=== PATIENT | female | born 1960 | race Two or more races ===

== ENCOUNTER 2020-08-14 14:40 | Outpatient (REF) | payer OTHER, SELFPAY ==
--- NOTE | 2020-08-14 14:49 | XR_ITS ---
EXAMINATION: XR LUMBOSACRAL SPINE CLINICAL INFORMATION: Unspecified fall. COMPARISON: Lumbar spine x-rays of 08/09/2018. Selected images of the abdomen and pelvic CT of 08/24/2014. TECHNIQUE: 3 views of the lumbosacral spine. FINDINGS: There are 5 lumbar-type [id number] vertebrae. The vertebral body heights are maintained. Evaluation of the lower lumbar spine is somewhat limited by patient's positioning. Mild grade 1 anterolisthesis of L4 on L5 is a stable finding. Mild narrowing of the L5-S1 disc space. Remainder of the disc spaces are preserved. Multilevel small anterolateral endplate osteophytes are noted. Facet arthropathy is noted in the mid and lower lumbar spine. Limited evaluation of the sacroiliac joints and visualized hip joints is unremarkable. No significant abnormality of the paraspinous soft tissues is noted. Diffuse aortic calcifications are redemonstrated. The visualized portions of the sacrum appear intact. Significant stool burden is noted in the rectosigmoid colon and visualized transverse and descending colon. XR/XR lumbar spine 2-3V IMPRESSION: No evidence of compression fracture or traumatic subluxation in the lumbar spine. Stable mild grade 1 anterolisthesis of L4 over L5. Lumbar spondylosis with facet arthropathy in the mid and lower lumbar spine. Aortic calcifications.
== END 2020-08-14 14:41 | disposition home or self-care (01) ==
LOC: HO.LAB 14:40
PROVIDERS: PCP Internal Medicine; Visit Provider Internal Medicine Medical Oncology
DX: Z91.81 History of falling (principal)
CPT/HCPCS: 72100

== ENCOUNTER 2020-09-16 09:30 | Outpatient (REF) | payer OTHER, SELFPAY ==
--- NOTE | 2020-09-16 09:36 | MM_ITS ---
EXAMINATION: MM SCREENING DIGITAL BREAST TOMOSYNTHESIS, BILATERAL CLINICAL INFORMATION: Screening. Asymptomatic. Prior history right breast cancer 2012. Due for yearly. COMPARISON: Mammography: 09/11/2019, 09/09/2018, 09/08/2017, 08/21/2016 TECHNIQUE: Digital breast tomosynthesis is performed in both the craniocaudal and mediolateral oblique views along with computer-aided detection (CAD). Synthesized 2D images are generated from the tomosynthesis. Additional exaggerated right CC view is provided. FINDINGS: There are scattered areas of fibroglandular density (ACR BI-RADS breast composition Category b). There are post therapy changes right breast with mild reduced breast size and stable scarring. Scattered bilateral punctate benign calcifications are present. Scattered asymmetries central left breast are similar to prior exams. There is no developing density. No significant mass or architectural abnormality. MM/MM tomosynthesis screening BI IMPRESSION: No significant changes from prior studies. ASSESSMENT: BI-RADS 2: Benign RECOMMENDATION: Routine annual mammography screening. This patient's information was entered into a reminder system with a target due date for their next mammogram.
== END 2020-09-16 09:31 | disposition home or self-care (01) ==
LOC: HO.MAMMO 09:30
PROVIDERS: PCP Internal Medicine; Visit Provider Internal Medicine
DX: Z12.31 Encounter for screening mammogram for malignant neoplasm of breast (principal)
CPT/HCPCS: 77063; 77067

== ENCOUNTER → 2021-01-16 14:52 | Outpatient (BNVA) | payer OTHER, SELFPAY | PROVIDERS: PCP Internal Medicine; Visit Provider Urology | CPT/HCPCS: Q3014 ==

== ENCOUNTER 2021-02-27 12:55 | Outpatient (REF) | payer OTHER, SELFPAY ==
[2021-02-27 14:45] LABS: Alanine Aminotransferase < 6 U/L (0-31); Albumin Level 3.3 g/dL (3.5-5.0); Alkaline Phosphatase 48 U/L (39-117); Aspartate Amino Transferase 13 U/L (5-31); Bilirubin Direct < 0.2 mg/dL (0.0-0.5); Bilirubin Total 0.4 mg/dL (0.0-1.0); Total Protein 7.2 g/dL (6.5-8.0)
[2021-02-27 14:53] LABS: Alanine Aminotransferase < 6 U/L (0-31); Albumin Level 3.3 g/dL (3.5-5.0); Alkaline Phosphatase 48 U/L (39-117); Anion Gap 9 (12-20); Aspartate Amino Transferase 13 U/L (5-31); Bilirubin Total 0.4 mg/dL (0.0-1.0); Blood Urea Nitrogen 21 mg/dL (9-16); Calcium 9.1 mg/dL (8.4-10.2); Carbon Dioxide 32 mmol/L (22-29); Chloride 103 mmol/L (96-108); Cholesterol 179 mg/dL; Estimated Glomerular Filt Rate > 60; Glucose Fasting 110 mg/dL (60-99); HDL Cholesterol 66 mg/dL; LDL Cholesterol Calculated 81 mg/dl; Sodium 140 mmol/L (135-145); Total Protein 7.2 g/dL (6.5-8.0); Triglycerides 163 mg/dL
== END 2021-02-27 12:56 | disposition home or self-care (01) ==
LOC: HO.LAB 12:55
PROVIDERS: PCP Internal Medicine; Visit Provider Psychiatry & Neurology Neurology
DX: G93.1 Anoxic brain damage, not elsewhere classified (principal); E78.5 Hyperlipidemia, unspecified; E78.00 Pure hypercholesterolemia, unspecified
CPT/HCPCS: 36415; 80053; 80061; 80076; 82248

== ENCOUNTER → 2021-06-19 09:22 | Outpatient (BNVA) | payer OTHER, SELFPAY | PROVIDERS: PCP Internal Medicine; Visit Provider Surgery | DX: Z85.3 Personal history of malignant neoplasm of breast (principal) | CPT/HCPCS: 99212 ==

== ENCOUNTER 2021-07-11 07:54 | Outpatient (REF) | payer OTHER, SELFPAY ==
--- NOTE | ~2021-07-11 | US_ITS ---
EXAMINATION: US RETROPERITONEAL LIMITED (RENAL ONLY) CLINICAL INFORMATION: Calculus of kidney. COMPARISON: Renal ultrasound 03/22/2018 and 12/29/2017. KUB 01/07/2018 and 03/09/2011. TECHNIQUE: Real-time imaging of the kidneys. Technically limited study secondary to body habitus and positioning. FINDINGS: RIGHT KIDNEY: 12.4 x 5.2 x 5.6 cm (SAG x AP x TRV). The kidney is normal in size, contour, and echogenicity. Renal cortical thickness is normal. No calculi or focal parenchymal lesions. No hydronephrosis. LEFT KIDNEY: 14.0 x 5.1 x 4.6 cm (SAG x AP x TRV). The kidney is normal in size, contour, and echogenicity. Renal cortical thickness is normal. No calculi or focal parenchymal lesions. No hydronephrosis. US/US renal BI IMPRESSION: No nephrolithiasis or hydronephrosis.
== END 2021-07-11 07:55 | disposition home or self-care (01) ==
LOC: HO.US 07:54
PROVIDERS: PCP Internal Medicine; Visit Provider Urology
DX: N20.0 Calculus of kidney (principal)
CPT/HCPCS: 76775

== ENCOUNTER 2021-07-17 07:16 | Outpatient (REF) | payer OTHER, SELFPAY | END 2021-07-17 07:17 | disposition home or self-care (01) | LOC: HO.HOSX 07:16 | PROVIDERS: Visit Provider Physician Assistant | DX: Z13.89 Encounter for screening for other disorder (principal) ==

== ENCOUNTER 2021-08-05 08:02 | Outpatient (RCR) | payer OTHER, SELFPAY | END 2021-09-09 16:01 | disposition home or self-care (01) | LOC: HO.WCC 08:02 | PROVIDERS: PCP Internal Medicine; Visit Provider Physician Assistant | DX: L98.492 Non-pressure chronic ulcer of skin of other sites with fat layer exposed (principal); S42.301K Unspecified fracture of shaft of humerus, right arm, subsequent encounter for fracture with nonunion; G93.1 Anoxic brain damage, not elsewhere classified; I89.0 Lymphedema, not elsewhere classified; G20 Parkinson's disease; F02.80 Dementia in other diseases classified elsewhere, unspecified severity, without behavioral disturbance, psychotic disturbance, mood disturbance, and anxiety; Y79.1 Therapeutic (nonsurgical) and rehabilitative orthopedic devices associated with adverse incidents; I25.10 Atherosclerotic heart disease of native coronary artery without angina pectoris; Z86.73 Personal history of transient ischemic attack (TIA), and cerebral infarction without residual deficits; Z92.21 Personal history of antineoplastic chemotherapy; Z85.3 Personal history of malignant neoplasm of breast; Z87.891 Personal history of nicotine dependence; Z79.899 Other long term (current) drug therapy | CPT/HCPCS: 11042; 97597; 99212; 99214 ==

== ENCOUNTER 2021-08-20 13:52 | Emergency (ER) | payer OTHER, SELFPAY ==
--- NOTE | ~2021-08-20 | XR_ITS ---
EXAMINATION: XR CHEST CLINICAL INFORMATION: Fever. Rule out pneumonia. COMPARISON: 11/24/2018 TECHNIQUE: 2 views of the chest were obtained. FINDINGS: The lungs are well expanded. There is no focal consolidation, edema, or effusion. No pneumothorax. The cardiomediastinal silhouette is within normal limits of size with a calcified aorta. No acute osseous abnormality. XR/XR chest 2V IMPRESSION: No acute pulmonary finding.
[2021-08-20 14:03] VITALS: BP 135/56; BP 140/62; PULSE 82; PULSE 86; RESP 18; TEMP 36.6; O2SAT 98; BMI 25.0
[2021-08-20 15:24] VITALS: BP 113/57; PULSE 124; RESP 18; TEMP 39.6; O2SAT 96
[2021-08-20] MEDS: Acetaminophen 325 MG TABLET 650 MG PO (15:41)
[2021-08-20 16:12] LABS: COVID-19 Test Negative (Negative)
--- NOTE | 2021-08-20 16:13 | ED_ITS ---
HPI - General Adult General Chief complaint: Abdominal Pain Stated complaint: NOT FEELING WELL Time Seen by Provider: 08/20/21 15:58 Source: patient and family (Daughter, Ami) Mode of arrival: ambulatory Limitations: no limitations History of Present Illness HPI narrative: 61-year-old female who was brought to emergency room by ambulance for evaluation of a fever, nausea and vomiting and not feeling well after receiving her COVID-19 booster shot. The patient has a history of Parkinson's disease and attends a day program. The patient defers to her daughter to answer questions. The patient's daughter, Ami is here in the emergency department. The patient was feeling well and attended her day program. The patient previously had received her COVID-19 Pfizer vaccine x2 doses and was given a booster vaccination (unknown brand) at her day program. Shortly after receiving her booster vaccination she did not feel well. She developed a nausea and vomiting. She then developed a fever. An ambulance was called and she was brought to the emergency department here in the emergency department the patient was found to be febrile with a temperature of a 103.2? and tachycardic with a pulse of 124. Her other vital signs were normal. The patient has no complaints. She denies and, shortness of breath, abdominal pain, frequency, urgency or dysuria. She denies any pain or redness in the injection site. Related Data Home Medications Medication Instructions Recorded Confirmed albuterol sulfate 90 mcg/actuation 2 puff INHALATION Q4-6H PRN 08/02/20 07/30/21 aerosol inhaler (Ventolin HFA) carbidopa 25 mg-levodopa 100 mg 1 tab PO BID 08/02/20 07/30/21 tablet (Sinemet) phenytoin sodium extended 100 mg 200 mg PO DAILY 08/02/20 07/30/21 capsule quetiapine 25 mg tablet 25 mg PO DAILY 01/16/21 07/30/21 Previous Rx's Medication Instructions Recorded aspirin 81 mg tablet,delayed 81 mg PO DAILY 90 Days #90 tab 01/06/21 release (Adult Aspirin Regimen) tamoxifen 20 mg tablet 20 mg PO DAILY #90 tab 01/16/21 bed alarm #1 ea 05/15/21 hospital bed #1 ea 05/26/21 terazosin 1 mg capsule 1 mg PO DAILY 90 Days #90 cap 06/20/21 buspirone 10 mg tablet 10 mg PO TID 30 Days #90 tab 06/21/21 nonadhesive bandage #1 ea 07/02/21 gel dressing 4 X 4 (DermaGauze #15 ea 07/04/21 Hydrogel Dressing) calcium carbonate 600 mg calcium 600 mg PO BID #60 tab 07/09/21 (1,500 mg) tablet cholecalciferol (vitamin D3) 50 50 mcg PO DAILY 90 Days #90 tab 07/09/21 mcg (2,000 unit) tablet citalopram 20 mg tablet 20 mg PO DAILY 90 Days #90 tab 07/09/21 divalproex 125 mg tablet,delayed 375 mg PO TID 30 Days #270 tab 07/09/21 release folic acid 1 mg tablet 1 mg PO DAILY 90 Days #90 tab 07/09/21 lamotrigine 25 mg tablet 25 mg PO DAILY 90 Days #90 tab 07/09/21 lorazepam 0.5 mg tablet (Ativan) 0.5 mg PO TID PRN 30 Days #90 tab 07/09/21 oxybutynin chloride 10 mg 5 mg PO DAILY 90 Days #45 tab 07/09/21 tablet,extended release 24 hr potassium citrate 10 mEq (1,080 10 meq PO DAILY 90 Days #90 tab 07/09/21 mg) tablet,extended release pravastatin 20 mg tablet 20 mg PO BEDTIME 90 Days #90 tab 07/09/21 trazodone 50 mg tablet 50 mg PO BEDTIME PRN 90 Days #90 07/09/21 tab miscellaneous medical supply 1 ea MISCELLANEOUS DAILY #1 ea 07/11/21 miscellaneous medical supply 1 ea MISCELLANEOUS DAILY #1 ea 07/11/21 potassium citrate 10 mEq (1,080 20 meq PO BID 90 Days #360 tab 07/21/21 mg) tablet,extended release cefuroxime axetil 500 mg tablet 500 mg PO Q12H 7 Days #14 tab 08/20/21 Allergies Allergy/AdvReac Type Severity Reaction Status Date / Time No Known Allergies Allergy Verified 07/30/21 17:11 Review of Systems Review of Systems: Yes all other systems are reviewed and are negative [facility] Past Medical History Medical History Aggressive behavior Cognitive impairment Dementia Fall History of stroke Parkinsons disease Personal history of breast cancer Pure hypercholesterolemia Right arm fracture Seizures Triple negative malignant neoplasm of breast Wound of right upper extremity Surgical History History of cholecystectomy Family History Family History Father Medical history unknown Mother Medical history unknown Social History Social History Housing: Apartment Alcohol intake: never Patient Tobacco Use Status: Never used Tobacco e-Cigarette/Vaping Use: Never Used Second Hand Smoke Exposure: No Advance Directives: No Advance Directives Information Provided: No service: No Current occupational status: retired and disabled Physical Exam Vital Signs: Vital Signs: Last Vital Signs Temp 103.2 F H 08/20/21 15:24 Pulse 124 H 08/20/21 15:24 Resp 18 08/20/21 15:24 BP 113/57 L 08/20/21 15:24 Pulse Ox 96 08/20/21 15:24 Body Mass Index 25.0 Const: Other: Awake, alert, female patient defers all questions to her daughter, she does respond to questions by nodding her head yes and no. She does not appear to be in distress. HENMT: Head: Yes normal to inspection, Yes normocephalic and Yes atraumatic Ears: external ears normal General nose exam: Normal external nose present Face and sinus: Yes normal facial exam Mouth: Normal oral and palatal mucosa present Throat: Yes posterior oropharynx normal Eyes: General: appearance normal, both eyes and all related structures Pupils: Equal, round and reactive pupils present Neck: Neck: Yes normal visual inspection, Yes no lymphadenopathy, Yes trachea midline and Yes supple Chest: Chest palpation & inspection: normal inspection of the chest and normal palpation of entire chest wall Resp: Effort & Inspection: normal respiratory effort and able to speak in complete sentences Auscultation: clear to auscultation bilaterally Cardio: Rate: regular rate Rhythm: regular rhythm Heart sounds: S1 normal heart sound present, S2 normal heart sound present and no murmurs GI: Inspection: Yes normal to inspection Palpation (GI): Soft to palpation, nontender and no guarding Auscultation: normal bowel sounds : General: Yes no CVA tenderness Back/Spine/Pelvis: Back: no CVA tenderness Skin: Other: The the patient has no swelling, erythema or tenderness over her deltoids bilaterally. I suspect that she was injected in the left deltoid but I do not see a puncture site. Neuro: Cranial nerves: Yes CN's II-XII intact bilaterally and Yes Equal, round and reactive pupils present Cognition (Neuro): normal cognition Motor exam (neuro): 5/5 motor strength present throughout Extrem: Other: Chronic edema of the right extremity Psych: Appearance: grossly normal Speech and movement: Normal speech and movement present Affect: normal affect Attitude: cooperative Thought process: Normal thought process present Thought content: Normal thought content present Course Course Course Narrative: 61-year-old female who presents emergency department for evaluation of a fever shortly after receiving her her COVID-19 booster shot at her day program. The patient did have an elevated fever of 103.2 and tachycardia with a pulse of 114, her exam was otherwise unremarkable and she do es not appear to be septic or toxic. The patient was treated with Tylenol 650 mg orally. I did order laboratory evaluation to include CBC, CMP, urinalysis, chest x-ray and a COVID-19 swab on the patient. 1803: The patient's laboratory evaluation revealed chronic anemia with an H&H of 9.8 and 30.7. The patient has chronic [place] [address]. BUN was elevated 25, glucose was elevated 123. COVID-19 test was negative. Urinalysis revealed 3+ blood, 3+ leukocyte esterase and positive nitrates. Microscopic revealed 19 RBCs, 150 wbc's 3+ bacteria 1+ squamous cells. Given the urine finding I suspect the patient's fever secondary to urinary tract infection. I did go back and asked the patient and she does state that she is having symptoms including frequency and dysuria but she denied earlier. The patient was treated with ceftriaxone 1 g IV and normal saline x1 L. patient was started on Ceftin (cefuroxime) 500 mg, 1 pill twice a day for 7 days. Patient was given verbal and printed instructions discharged home Medical Decision Making Lab Data Result diagrams: 08/20/21 16:33 08/20/21 16:33 Labs: Lab Results 08/20/21 08/20/21 08/20/21 Range/Units 15:43 16:33 16:33 WBC 6.5 (4.8-10.8) X10*3/uL RBC 3.15 L (4.20-5.50) X10*6/uL Hgb 9.8 L (12.0-16.0) g/dl Hct 30.4 L (37-47) % MCV 96.5 (80-98) fL MCH 31.1 (27.0-33.0) pg MCHC 32.2 (31.0-35.0) g/dl RDW 13.1 (11.0-16.0) % Plt Count 51 L (160-400) X10*3/uL MPV 11.0 (9.4-12.3) fL Immature Gran % (Auto) 0.6 H (0.0-0.4) % Neut % (Auto) 75.2 H (45-73) % Lymph % (Auto) 6.6 L (20-40) % [place] % (Auto) 16.5 H (2-11) % Eos % (Auto) 0.9 (0-4) % Baso % (Auto) 0.2 (0-2) % Lymph # (Auto) 0.4 L (1.2-4.9) X10*3/uL [place] # (Auto) 1.1 (0.1-1.2) X10*3/uL Eos # (Auto) 0.1 (0.0-0.4) X10*3/uL Baso # (Auto) 0.0 (0.0-0.2) X10*3/uL Abs Immat Gran (auto) 0.04 H (0.00-0.03) X10*3/uL Absolute Neuts (auto) 4.9 (2.0-8.3) X10*3/uL Absolute Nucleated RBC 0.000 (0.0-0.012) X10*3/uL Nucleated RBC % (auto) 0.0 (0.0-0.2) /100WBC Smear Tech's Comments VERIFIED Sodium 138 (135-145) mmol/L Potassium 3.8 (3.3-5.1) mmol/L Chloride 104 (96-108) mmol/L Carbon Dioxide 24 (22-29) mmol/L Anion Gap 14 (12-20) BUN 25 H (9-16) mg/dL Creatinine 1.17 (0.5-1.4) mg/dL Estim Creat Clear Calc 57.5 Estimated GFR 47 Random Glucose 123 H (60-115) mg/dL Calcium 8.6 (8.4-10.2) mg/dL Total Bilirubin 0.6 (0.0-1.0) mg/dL AST 18 (5-31) U/L ALT 12 (0-31) U/L Alkaline Phosphatase 84 D (39-117) U/L Total Protein 7.7 (6.5-8.0) g/dL Albumin 3.5 (3.5-5.0) g/dL Urine Color Urine Appearance Urine pH (5.0-8.0) Ur Specific Chelsea (1.005-1.025) Urine Protein (NEG-TRACE) MG/DL Urine Glucose (UA) (NEG) MG/DL Urine Ketones (NEG) MG/DL Urine Blood (NEG) Urine Nitrite (NEG) Ur Leukocyte Esterase (NEG) Urine RBC (0) /HPF Urine WBC (0-4) /HPF Ur Squamous Epith Cells /LPF Urine Bacteria /LPF COVID-19 ([facility]) Negative (Negative) COVID-19 Clin Com See Note 08/20/21 Range/Units 16:33 WBC (4.8-10.8) X10*3/uL RBC (4.20-5.50) X10*6/uL Hgb (12.0-16.0) g/dl Hct (37-47) % MCV (80-98) fL MCH (27.0-33.0) pg MCHC (31.0-35.0) g/dl RDW (11.0-16.0) % Plt Count (160-400) X10*3/uL MPV (9.4-12.3) fL Immature Gran % (Auto) (0.0-0.4) % Neut % (Auto) (45-73) % Lymph % (Auto) (20-40) % [place] % (Auto) (2-11) % Eos % (Auto) (0-4) % Baso % (Auto) (0-2) % Lymph # (Auto) (1.2-4.9) X10*3/uL [place] # (Auto) (0.1-1.2) X10*3/uL Eos # (Auto) (0.0-0.4) X10*3/uL Baso # (Auto) (0.0-0.2) X10*3/uL Abs Immat Gran (auto) (0.00-0.03) X10*3/uL Absolute Neuts (auto) (2.0-8.3) X10*3/uL Absolute Nucleated RBC (0.0-0.012) X10*3/uL Nucleated RBC % (auto) (0.0-0.2) /100WBC Smear Tech's Comments Sodium (135-145) mmol/L Potassium (3.3-5.1) mmol/L Chloride (96-108) mmol/L Carbon Dioxide (22-29) mmol/L Anion Gap (12-20) BUN (9-16) mg/dL Creatinine (0.5-1.4) mg/dL Estim Creat Clear Calc Estimated GFR Random Glucose (60-115) mg/dL Calcium (8.4-10.2) mg/dL Total Bilirubin (0.0-1.0) mg/dL AST (5-31) U/L ALT (0-31) U/L Alkaline Phosphatase (39-117) U/L Total Protein (6.5-8.0) g/dL Albumin (3.5-5.0) g/dL Urine Color YELLOW Urine Appearance HAZY Urine pH 5.5 (5.0-8.0) Ur Specific [place] 1.015 (1.005-1.025) Urine Protein 2+ H (NEG-TRACE) MG/DL Urine Glucose (UA) NEG (NEG) MG/DL Urine Ketones 5 (NEG) MG/DL Urine Blood 3+ H (NEG) Urine Nitrite POS H (NEG) Ur Leukocyte Esterase 3+ H (NEG) Urine RBC 15-29 H (0) /HPF Urine WBC 76-150 H (0-4) /HPF Ur Squamous Epith Cells 1+ /LPF Urine Bacteria 3+ /LPF COVID-19 ([facility]) (Negative) COVID-19 Clin Com Discharge Plan Discharge Clinical Impression: Fever Qualifiers: Encounter type: initial encounter UTI (urinary tract infection) Qualifiers: Urinary tract infection type: site unspecified Hematuria presence: with hematuria Qualified Code(s): N39.0 - Urinary tract infection, site not specified Patient Disposition: Home, Self-Care Instructions: Urinary Tract Infection in Women (ED) Additional Instructions: Your blood tests are consistent with your baseline labs. Your COVID-19 test was negative. Your chest x-ray was unremarkable Your urine however revealed a significant number of white blood cells and bacteria suggesting that you have a urinary tract infection as the cause of your fever. You received ceftriaxone 1 g IV. This is an antibiotic that will last 24 hours and there are very few urine bacteria that are resistant to it. You were prescribed Ceftin (cefuroxime) 500 mg pills, take 1 pill every 12 hours for 7 days. Take your 1st dose tomorrow evening at 6:00 p.m. and then after that take your does every 12 hours until you complete the full course of a ntibiotics. Take Tylenol (acetaminophen) 500 mg pills, 2 pills every 4 to 6 hours as needed for pain. Follow-up with your doctor in 2 days. Please return to the emergency department if your symptoms get worse or if you develop any symptoms that are concerning to you. Prescriptions: New cefuroxime axetil 500 mg tablet 500 mg PO Q12H 7 Days Qty: 14 RF: 0 No Action phenytoin sodium extended 100 mg capsule 200 mg PO DAILY RF: 0 albuterol sulfate [Ventolin HFA] 90 mcg/actuation Hfa Aerosol Inhaler 2 puff INHALATION Q4-6H PRN (Reason: SOB) RF: 0 carbidopa-levodopa [Sinemet] 25-100 mg Tablet 1 tab PO BID RF: 0 aspirin [Adult Aspirin Regimen] 81 mg tablet,delayed release (DR/EC) 81 mg PO DAILY 90 Days Qty: 90 RF: 3 tamoxifen 20 mg tablet 20 mg PO DAILY Qty: 90 RF: 4 (DME) bed alarm See Rx Instructions .Route .MEDSUPPLY Qty: 1 RF: 0 (DME) hospital bed Kit See Rx Instructions .Route Qty: 1 RF: 0 terazosin 1 mg capsule 1 mg PO DAILY 90 Days Qty: 90 RF: 2 buspirone 10 mg tablet 10 mg PO TID 30 Days Qty: 90 RF: 6 (DME) DermaGauze Hydrogel Dressing 4 X 4 bandage See Rx Instructions .Route Qty: 15 RF: 3 calcium carbonate 600 mg calcium (1,500 mg) tablet 600 mg PO BID Qty: 60 RF: 11 cholecalciferol (vitamin D3) 50 mcg (2,000 unit) tablet 50 mcg PO DAILY 90 Days Qty: 90 RF: 1 trazodone 50 mg tablet 50 mg PO BEDTIME PRN (Reason: insomnia) 90 Days Qty: 90 RF: 0 pravastatin 20 mg tablet 20 mg PO BEDTIME 90 Days Qty: 90 RF: 3 oxybutynin chloride 10 mg tablet extended release 24hr 5 mg PO DAILY 90 Days Qty: 45 RF: 1 potassium citrate 10 mEq (1,080 mg) tablet extended release 10 meq PO DAILY 90 Days Qty: 90 RF: 0 lamotrigine 25 mg tablet 25 mg PO DAILY 90 Days Qty: 90 RF: 0 lorazepam [Ativan] 0.5 mg tablet 0.5 mg PO TID PRN (Reason: anxiety) 30 Days Qty: 90 RF: 0 folic acid 1 mg tablet 1 mg PO DAILY 90 Days Qty: 90 RF: 0 divalproex 125 mg tablet,delayed release (DR/EC) 375 mg PO TID 30 Days Qty: 270 RF: 2 citalopram 20 mg tablet 20 mg PO DAILY 90 Days Qty: 90 RF: 0 miscellaneous medical supply Misc 1 ea miscellaneous DAILY Qty: 1 RF: 0 miscellaneous medical supply Misc 1 ea miscellaneous DAILY Qty: 1 RF: 0 potassium citrate 10 mEq (1,080 mg) tablet extended release 20 meq PO BID 90 Days Qty: 360 RF: 2 (DME) nonadhesive bandage See Rx Instructions .Route .MEDSUPPLY Qty: 1 RF: 0 quetiapine 25 mg tablet 25 mg PO DAILY RF: 0
[2021-08-20 16:42] LABS: Appearance Urine HAZY; Color Urine YELLOW; Glucose Urine UA NEG (NEG); Leukocyte Esterase Urine 3+ (NEG); Nitrite Urine POS (NEG); PH 5.5 (5.0-8.0); Specific Gravity - Urine 1.015 (1.005-1.025); UACC Culture Trigger YES; Urine Blood 3+ (NEG); Urine Ketones 5 MG/DL (NEG); Urine Protein 2+ MG/DL (NEG-TRACE)
[2021-08-20 16:45] LABS: Basophils Percent Auto 0.2 % (0-2); Imm Gran Abs Auto 0.04 X10*3/uL (0.00-0.03); Imm Gran Pct Auto 0.6 % (0.0-0.4); MANUAL DIFF FLAG SCAN; Mean Corpuscular Hemoglobin 31.1 pg (27.0-33.0); PLT CLUMP 1; Red Cell Distribution Width 13.1 % (11.0-16.0); SCAN SMEAR FLAG 1
[2021-08-20 16:47] LABS: Eosinophils Absolute Auto 0.1 X10*3/uL (0.0-0.4); Eosinophils Percent Auto 0.9 % (0-4); Hematocrit 30.4 % (37-47); Hemoglobin 9.8 g/dl (12.0-16.0); Lymphocytes Absolute Auto 0.4 X10*3/uL (1.2-4.9); Lymphocytes Percent Auto 6.6 % (20-40); Mean Corpuscular HGB Conc 32.2 g/dl (31.0-35.0); Mean Corpuscular Volume 96.5 fL (80-98); Monocytes Absolute Auto 1.1 X10*3/uL (0.1-1.2); Monocytes Percent Auto 16.5 % (2-11); Neutrophils Absolute Auto 4.9 X10*3/uL (2.0-8.3); Neutrophils Percent Auto 75.2 % (45-73); Red Blood Count 3.15 X10*6/uL (4.20-5.50); White Blood Count 6.5 X10*3/uL (4.8-10.8)
[2021-08-20 16:49] LABS: Bacteria Urine 3+ /LPF; Squamous Epithelial Cell Urine 1+ /LPF
[2021-08-20 17:10] LABS: Platelet Count 51 X10*3/uL (160-400); SLIDE REVIEW VERIFIED
[2021-08-20 17:12] LABS: Alanine Aminotransferase 12 U/L (0-31); Albumin Level 3.5 g/dL (3.5-5.0); Alkaline Phosphatase 84 U/L (39-117); Anion Gap 14 (12-20); Aspartate Amino Transferase 18 U/L (5-31); Bilirubin Total 0.6 mg/dL (0.0-1.0); Blood Urea Nitrogen 25 mg/dL (9-16); Calcium 8.6 mg/dL (8.4-10.2); Carbon Dioxide 24 mmol/L (22-29); Chloride 104 mmol/L (96-108); Creatinine Clr Calc Pharmacy 57.5; Estimated Glomerular Filt Rate 47; Glucose Random 123 mg/dL (60-115); Potassium 3.8 mmol/L (3.3-5.1); Sodium 138 mmol/L (135-145); Total Protein 7.7 g/dL (6.5-8.0)
[2021-08-20] MEDS: cefTRIAXone sodium 1 GM in 0.9 % Sodium Chloride 50 ML IV (18:38)
[2021-08-20] MEDS: 0.9 % Sodium Chloride 1,000 ML 999 ML IV (18:38)
== END 2021-08-20 19:24 | disposition home or self-care (01) ==
PROVIDERS: Emergency Provider Emergency Medicine Emergency Medical Services; PCP Internal Medicine
DX: N39.0 Urinary tract infection, site not specified (principal); D64.9 Anemia, unspecified; D69.6 Thrombocytopenia, unspecified; G20 Parkinson's disease; Z86.73 Personal history of transient ischemic attack (TIA), and cerebral infarction without residual deficits; Z20.822 Contact with and (suspected) exposure to COVID-19
CPT/HCPCS: 36415; 71046; 80053; 81001; 85025; 87086; 87088; 87186; 87635; 96361; 96374; 99284; J0696

== ENCOUNTER → 2021-08-21 08:29 | Outpatient (BNVA) | payer OTHER, SELFPAY | PROVIDERS: PCP Internal Medicine; Visit Provider Urology | DX: Z13.89 Encounter for screening for other disorder (principal) | CPT/HCPCS: Q3014 ==

== ENCOUNTER 2021-09-19 08:03 | Outpatient (REF) | payer OTHER, SELFPAY ==
--- NOTE | ~2021-09-19 | MM_ITS ---
EXAMINATION: MM SCREENING DIGITAL BREAST TOMOSYNTHESIS, BILATERAL CLINICAL INFORMATION: Screening. Asymptomatic. Right breast cancer 2013. Due for yearly exam. COMPARISON: Mammography: 09/16/2020, 09/11/2019, 09/09/2018, 09/08/2017 TECHNIQUE: Digital breast tomosynthesis is performed in both the craniocaudal and mediolateral oblique views along with computer-aided detection (CAD). Synthesized 2D images are generated from the tomosynthesis. Additional exaggerated right CC view is provided. FINDINGS: There are scattered areas of fibroglandular density (ACR BI-RADS breast composition Category b). Parenchymal pattern is similar to prior exams. There is no developing density or interval mass or interval architectural abnormality. Again, there are post therapy changes on the right with mild breast size and scarring posterior upper breast. There are scattered punctate calcifications again seen in each breast. There are no suspicious calcifications. No significant changes from prior studies. MM/MM tomosynthesis screening BI IMPRESSION: No mammographic evidence of malignancy. ASSESSMENT: BI-RADS 2: Benign RECOMMENDATION: Routine annual mammography screening. This patient's information was entered into a reminder system with a target due date for their next mammogram.
== END 2021-09-19 08:04 | disposition home or self-care (01) ==
LOC: HO.MAMMO 08:03
PROVIDERS: Visit Provider Internal Medicine
DX: Z12.31 Encounter for screening mammogram for malignant neoplasm of breast (principal)
CPT/HCPCS: 77063; 77067

== ENCOUNTER 2021-09-25 09:02 | Outpatient (REF) | payer OTHER, SELFPAY ==
[2021-09-25 10:16] LABS: Eosinophils Absolute Auto 0.2 X10*3/uL (0.0-0.4); Neutrophils Absolute Auto 1.7 x10*3/uL (2.0-8.3); Red Blood Count 3.34 X10*6/uL (4.20-5.50)
[2021-09-25 10:18] LABS: Basophils Percent Auto 0.3 % (0-2); Eosinophils Percent Auto 4.5 % (0-4); Hematocrit 31.9 % (37.0-47.0); Hemoglobin 10.3 g/dl (12.0-16.0); Imm Gran Abs Auto 0.01 X10*3/uL (0.00-0.03); Imm Gran Pct Auto 0.3 % (0.0-0.4); Lymphocytes Absolute Auto 1.5 X10*3/uL (1.2-4.9); Lymphocytes Percent Auto 39.6 % (20-40); Mean Corpuscular HGB Conc 32.3 g/dl (31.0-35.0); Mean Corpuscular Hemoglobin 30.8 pg (27.0-33.0); Mean Corpuscular Volume 95.5 fL (80.0-98.0); Monocytes Absolute Auto 0.4 X10*3/uL (0.1-1.2); Monocytes Percent Auto 10.2 % (2-11); Neutrophils Percent Auto 45.1 % (45-73); Red Cell Distribution Width 12.8 % (11.0-16.0); White Blood Count 3.7 X10*3/uL (4.8-10.8)
[2021-09-25 10:22] LABS: Platelet Count 61 X10*3/uL (160-400)
[2021-09-25 10:50] LABS: Valproate 61.5 mcg/mL (50.0-100.0)
[2021-09-25 10:56] LABS: Alanine Aminotransferase < 6 U/L (0-31); Albumin Level 3.4 g/dL (3.5-5.0); Alkaline Phosphatase 65 U/L (39-117); Anion Gap 11 (12-20); Aspartate Amino Transferase 16 U/L (5-31); Bilirubin Total 0.4 mg/dL (0.0-1.0); Blood Urea Nitrogen 18 mg/dL (9-16); Calcium 8.8 mg/dL (8.4-10.2); Carbon Dioxide 25 mmol/L (22-29); Chloride 105 mmol/L (96-108); Cholesterol 166 mg/dL; Estimated Glomerular Filt Rate 54; Glucose Fasting 89 mg/dL (60-99); HDL Cholesterol 56 mg/dL; LDL Cholesterol Calculated 91 mg/dl; Sodium 137 mmol/L (135-145); Total Protein 7.5 g/dL (6.5-8.0); Triglycerides 99 mg/dL
[2021-09-26 14:46] LABS: Phenytoin, Free/Unbound 1.2 mg/L (1.0-2.0)
[2021-09-29 15:01] LABS: Vitamin D 25-OH, D2 <4 ng/mL; Vitamin D 25-OH, D3 45 ng/mL; Vitamin D 25-OH, Total 45 ng/mL (30-100)
[2021-09-30 07:11] LABS: Lamotrigine Lamictal 1.1 mcg/mL (4.0-18.0)
== END 2021-09-25 09:03 | disposition home or self-care (01) ==
LOC: HO.LAB 09:02
PROVIDERS: PCP Internal Medicine; Visit Provider Internal Medicine
DX: R56.9 Unspecified convulsions (principal); E78.5 Hyperlipidemia, unspecified; E55.9 Vitamin D deficiency, unspecified; D64.9 Anemia, unspecified; E78.00 Pure hypercholesterolemia, unspecified
CPT/HCPCS: 36415; 80053; 80061; 80164; 80175; 80186; 82306; 85025

== ENCOUNTER → 2021-10-07 12:53 | Outpatient (BNVA) | payer OTHER, SELFPAY | PROVIDERS: PCP Internal Medicine | DX: Z13.89 Encounter for screening for other disorder (principal) | CPT/HCPCS: Q3014 ==

== ENCOUNTER 2021-12-25 08:23 | Outpatient (REF) | payer OTHER, SELFPAY ==
[2021-12-25 08:52] LABS: MANUAL DIFF FLAG NO
[2021-12-25 09:30] LABS: Eosinophils Absolute Auto 0.2 X10*3/uL (0.0-0.4); Eosinophils Percent Auto 5.6 % (0-4); Hematocrit 33.5 % (37.0-47.0); Hemoglobin 10.9 g/dl (12.0-16.0); Imm Gran Abs Auto 0.01 X10*3/uL (0.00-0.03); Imm Gran Pct Auto 0.3 % (0.0-0.4); Lymphocytes Absolute Auto 1.2 X10*3/uL (1.2-4.9); Lymphocytes Percent Auto 34.9 % (20-40); Mean Corpuscular HGB Conc 32.5 g/dl (31.0-35.0); Mean Corpuscular Hemoglobin 30.9 pg (27.0-33.0); Mean Corpuscular Volume 94.9 fL (80.0-98.0); Mean Platelet Volume 10.1 fL (9.4-12.3); Monocytes Absolute Auto 0.4 X10*3/uL (0.1-1.2); Monocytes Percent Auto 9.9 % (2-11); Neutrophils Absolute Auto 1.8 x10*3/uL (2.0-8.3); Neutrophils Percent Auto 49.3 % (45-73); Platelet Count 82 X10*3/uL (160-400); Red Blood Count 3.53 X10*6/uL (4.20-5.50); Red Cell Distribution Width 12.9 % (11.0-16.0); White Blood Count 3.6 X10*3/uL (4.8-10.8)
[2021-12-25 10:27] LABS: Alanine Aminotransferase < 6 U/L (0-31); Albumin Level 3.6 g/dL (3.5-5.0); Alkaline Phosphatase 57 U/L (39-117); Anion Gap 11 (12-20); Aspartate Amino Transferase 16 U/L (5-31); Bilirubin Total 0.4 mg/dL (0.0-1.0); Blood Urea Nitrogen 13 mg/dL (9-16); Calcium 9.4 mg/dL (8.4-10.2); Carbon Dioxide 29 mmol/L (22-29); Chloride 104 mmol/L (96-108); Cholesterol 169 mg/dL; Estimated Glomerular Filt Rate 58; Glucose Fasting 86 mg/dL (60-99); HDL Cholesterol 53 mg/dL; LDL Cholesterol Calculated 97 mg/dl; Potassium 3.9 mmol/L (3.3-5.1); Sodium 140 mmol/L (135-145); Total Protein 7.7 g/dL (6.5-8.0); Triglycerides 99 mg/dL
[2021-12-25 10:43] LABS: Thyroid Stimulating Hormone 2.41 uIU/mL (0.32-4.0)
[2021-12-25 10:55] LABS: Appearance Urine HAZY; Color Urine YELLOW; Glucose Urine UA NEG (NEG); Leukocyte Esterase Urine NEG (NEG); Nitrite Urine NEG (NEG); Specific Gravity - Urine 1.015 (1.005-1.025); UACC Culture Trigger NO; Urine Blood 3+ (NEG); Urine Ketones NEG (NEG); Urine Protein NEG (NEG-TRACE)
[2021-12-25 11:04] LABS: Folate > 20.0 ng/mL (> or = 4.0); Vitamin B12 715 pg/mL (200-900)
[2021-12-25 11:06] LABS: Valproate 48.3 mcg/mL (50.0-100.0)
[2021-12-25 11:32] LABS: Squamous Epithelial Cell Urine 2+ /LPF; UACC CULT YES
[2021-12-25 11:33] LABS: Mucus Urine TRACE /LPF
[2021-12-29 11:11] LABS: Lamotrigine Lamictal 1.8 mcg/mL (4.0-18.0)
[2021-12-30 18:31] LABS: Vitamin D 25-OH, D2 <4 ng/mL; Vitamin D 25-OH, D3 48 ng/mL; Vitamin D 25-OH, Total 48 ng/mL (30-100)
== END 2021-12-25 08:24 | disposition home or self-care (01) ==
LOC: HO.LAB 08:23
PROVIDERS: PCP Internal Medicine; Visit Provider Internal Medicine
DX: D64.9 Anemia, unspecified (principal); R56.9 Unspecified convulsions; E78.5 Hyperlipidemia, unspecified; G20 Parkinson's disease; F02.81 Dementia in other diseases classified elsewhere, unspecified severity, with behavioral disturbance; E55.9 Vitamin D deficiency, unspecified
CPT/HCPCS: 36415; 80053; 80061; 80164; 80175; 80186; 81001; 82306; 82607; 82746; 84443; 85025; 87086

== ENCOUNTER → 2022-03-02 07:52 | Outpatient (BNV) | payer OTHER, SELFPAY | PROVIDERS: PCP Internal Medicine; Visit Provider Internal Medicine Medical Oncology | DX: D61.818 Other pancytopenia (principal); Z85.3 Personal history of malignant neoplasm of breast; D53.9 Nutritional anemia, unspecified | CPT/HCPCS: 99203; 99212; 99213; 99214 ==

== ENCOUNTER 2022-07-15 10:55 | Outpatient (REF) | payer OTHER, SELFPAY ==
[2022-07-15 12:58] LABS: Phenytoin Dilantin 3.7 ug/mL (10.0-20.0)
== END 2022-07-15 10:56 | disposition home or self-care (01) ==
LOC: HO.LAB 10:55
PROVIDERS: PCP Internal Medicine; Visit Provider Psychiatry & Neurology Neurology
DX: G93.1 Anoxic brain damage, not elsewhere classified (principal); Z79.899 Other long term (current) drug therapy
CPT/HCPCS: 36415; 80185

== ENCOUNTER 2022-07-30 07:38 | Outpatient (REF) | payer OTHER, SELFPAY ==
--- NOTE | ~2022-07-30 | CT_ITS ---
EXAMINATION: CT HEAD WITHOUT CONTRAST CLINICAL INFORMATION: 6th nerve palsy. COMPARISON: 11/09/2017. TECHNIQUE: Contiguous axial imaging was performed from the skull base to vertex without intravenous administration of contrast. This CT examination was performed using dose optimization techniques as appropriate, variously including the following: *Automated exposure control *Adjustment of mA and/or kV according to patient size (this includes techniques or standardized protocols for targeted exams where dose is matched to indication/reason for exam; i.e. extremities or head) *Use of iterative reconstruction technique DLP: 865 mGy-cm FINDINGS: The brain parenchyma has normal attenuation with well-preserved [id number] matter differentiation. No evidence of an acute major vascular territory infarction, hemorrhage, extra-axial fluid collection, focal mass effect or midline shift. Mild parenchymal volume loss with commensurate prominence of ventricles and sulci; no hydrocephalus. The evaluation the adelso is partially limited by mild streak artifact through the region of the skull base. The adelso has normal shape and grossly normal attenuation, and no lesions are seen in the region of the cavernous sinuses or superior orbital fissures. There is atherosclerotic calcification of cavernous carotid arteries. The orbits, globes and temporomandibular joints have a normal appearance. There is mild mucosal thickening of the maxillary and sphenoid sinuses. No air-fluid levels within paranasal sinuses. The mastoid air cells are well aerated. CT/CT head/brain wo IV con IMPRESSION: No evidence of intracranial mass, infarction or hemorrhage. No acute intracranial pathology compared to the prior head CT from 11/09/2017.
== END 2022-07-30 07:39 | disposition home or self-care (01) ==
LOC: HO.CT 07:38
PROVIDERS: Visit Provider Nurse Practitioner Family
DX: H49.20 Sixth [abducent] nerve palsy, unspecified eye (principal)
CPT/HCPCS: 70450

== ENCOUNTER 2022-08-04 08:59 | Day surgery (SDC) | payer OTHER, SELFPAY ==
[2022-07-30 09:56] VITALS: BMI 35.1
--- NOTE | 2022-07-30 14:50 | P.CONAN_ITS ---
Documented by User: Ally Smith NP 07/31/22 10:49 HPI - Anesthesia Eval Consult details Narrative: 62yo F for Colonoscopy Recent neuro eval d/t eyes deviating to left (extensive neuro deficit after cardiac arrest). Head CT wnl, Increased in dilantin Chronic low plts. 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) Anxiety (Acute) Wound of right upper extremity (Acute) Personal history of breast cancer (Acute) Dementia (Acute) Parkinsons disease (Acute) Seizures (Acute) Right arm fracture (Acute) Cognitive impairment (Acute) History of stroke (Acute) Aggressive behavior (Acute) Pure hypercholesterolemia (Acute) Fall (Acute) Past Medical History Medical History Aggressive behavior Anxiety Cognitive impairment Dementia Fall History of stroke Parkinsons disease Personal history of breast cancer Pure hypercholesterolemia Right arm fracture Seizures Triple negative malignant neoplasm of breast Wound of right upper extremity Family History Family History Father Medical history unknown Mother Medical history unknown Surgical History Surgical History History of cholecystectomy History of lumpectomy of left breast Hx of colonoscopy Social History Social History Household Members: Family and Children Housing: House Are you a primary healthcare insurance sales agent to a significant other at home: No Do you presently have visiting nurse or other home services: No Alcohol intake: never Patient Tobacco Use Status: Former Tobacco user Quit Date: 2009 Tobacco use type: Cigarette e-Cigarette/Vaping Use: Never Used Second Hand Smoke Exposure: No service: No Current occupational status: retired and disabled Cognitive needs: Yes Hearing needs: No Vision needs: No Meds Allergies Allergy/AdvReac Type Severity Reaction Status Date / Time No Known Allergies Allergy Verified 08/04/22 10:52 Home Medications Medication Instructions Recorded Confirmed Last Taken Type albuterol sulfate 90 mcg/actuation 2 puff inhalation Q4-6H PRN SOB 08/02/20 07/30/22 Unknown History aerosol inhaler (Ventolin HFA) carbidopa 25 mg-levodopa 100 mg 1 tab PO BID 08/02/20 07/30/22 Unknown History tablet (Sinemet) phenytoin sodium extended 100 mg 200 mg PO DAILY 08/02/20 07/30/22 Unknown History capsule phenytoin sodium extended 300 mg 300 mg PO BEDTIME 10/07/21 07/30/22 Unknown History capsule divalproex 125 mg tablet,delayed 375 mg PO TID 03/02/22 07/30/22 Unknown History release (Depakote) Exam Exam Date and Time: July 30, 2022 1450 Height,Weight and Vital Signs: Height 5 ft 9 in Weight 107.955 kg Pertinent Lab Results Pertinent Lab Results: Laboratory Tests 03/02/22 08:00 Sodium 139 Potassium 4.3 Chloride 104 Carbon Dioxide 29 BUN 15 Creatinine 1.05 Assessment and Plan Assessment Anesthesia Assessment: Chart Reviewed Documented by User: Genie Quesada MD 08/04/22 11:37 PMFSH Past Medical History Medical History Aggressive behavior Anxiety Cognitive impairment Dementia Fall History of stroke Parkinsons disease Personal history of breast cancer Pure hypercholesterolemia Right arm fracture Seizures Triple negative malignant neoplasm of breast Wound of right upper extremity Functional capacity: independent ambulation Patient : No Family History Family History Father Medical history unknown Mother Medical history unknown Family history of problems with anesthesia: No Surgical History Surgical History History of cholecystectomy History of lumpectomy of left breast Hx of colonoscopy History of Problems with Anesthesia: No Social History Social History Household Members: Family and Children Housing: House Are you a primary healthcare insurance sales agent to a significant other at home: No Do you presently have visiting nurse or other home services: No Alcohol intake: never Patient Tobacco Use Status: Former Tobacco user Quit Date: 2009 Tobacco use type: Cigarette e-Cigarette/Vaping Use: Never Used Second Hand Smoke Exposure: No service: No Current occupational status: retired and disabled Cognitive needs: Yes Hearing needs: No Vision needs: No Meds Allergies Allergy/AdvReac Type Severity Reaction Status Date / Time No Known Allergies Allergy Verified 08/04/22 10:52 Home Medications Medication Instructions Recorded Confirmed Last Taken Type albuterol sulfate 90 mcg/actuation 2 puff inhalation Q4-6H PRN SOB 08/02/20 07/30/22 Unknown History aerosol inhaler (Ventolin HFA) carbidopa 25 mg-levodopa 100 mg 1 tab PO BID 08/02/20 07/30/22 Unknown History tablet (Sinemet) phenytoin sodium extended 100 mg 200 mg PO DAILY 08/02/20 07/30/22 Unknown History capsule phenytoin sodium extended 300 mg 300 mg PO BEDTIME 10/07/21 07/30/22 Unknown History capsule divalproex 125 mg tablet,delayed 375 mg PO TID 03/02/22 07/30/22 Unknown History release (Depakote) Exam Airway Mallampati Class: III TM Dist: >3cm Neck ROM: Full Heart: RRR Lungs: CTA Assessment and Plan Final Anesthetic Review Family History of Problems with Anesthesia: No History of Problems with Anesthesia: No ASA Class: III Final Preanesthetic Review: No Changes in Pt Med Stat, Meds/Allgs Chart Reviewed, Consent Obtained/Reviewed and Anes Risks/Benef Reviewed Patient Risk: Low Procedure Risk: Low Anesthetic Plan Anesthetic Plan: MAC: Disposition: Standard PACU
[2022-08-04 10:48] LABS: Hematocrit 32.2 % (37.0-47.0); Hemoglobin 10.7 g/dl (12.0-16.0); Mean Corpuscular HGB Conc 33.2 g/dl (31.0-35.0); Mean Corpuscular Volume 93.3 fL (80.0-98.0); Mean Platelet Volume 9.8 fL (9.4-12.3); Red Blood Count 3.45 X10*6/uL (4.20-5.50); Red Cell Distribution Width 12.5 % (11.0-16.0); White Blood Count 5.7 X10*3/uL (4.8-10.8)
[2022-08-04 10:50] LABS: Platelet Count 94 X10*3/uL (160-400)
[2022-08-04 11:12] VITALS: BP 142/74; PULSE 65; RESP 18; TEMP 36; O2SAT 99
[2022-08-04] MEDS: Lactated Ringers 1,000 ML 100 ML IVCONT (11:16)
--- NOTE | 2022-08-04 11:39 | MHC.SHP ---
Pre-Procedural Eval Section A Date of Service: 08/04/22 The patient is an INPATIENT: No Changes since office visit: No Cold of Flu in the past 2 weeks, No New Medical Problems, No Changes in Medication and No Patient answered all questions The History & Physical has been completed within 30 days and I have reviewed it.: Yes Section B Chief Complaint: Encounter for screening for malignant neoplasm of Allergies: Allergies Allergy/AdvReac Type Severity Reaction Status Date / Time No Known Allergies Allergy Verified 08/04/22 10:52 Plan I have reviewed the history and physical and performed a pertinent physical examination on my patient. No changes have occurred unless specified.
--- NOTE | 2022-08-04 12:03 | P.CONAN_ITS ---
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) Anxiety (Acute) Wound of right upper extremity (Acute) Personal history of breast cancer (Acute) Dementia (Acute) Parkinsons disease (Acute) Seizures (Acute) Right arm fracture (Acute) Cognitive impairment (Acute) History of stroke (Acute) Aggressive behavior (Acute) Pure hypercholesterolemia (Acute) Fall (Acute) s/p tracheostomy after cardiac arrest, anoxic injury /2010/ Past Medical History Medical History Aggressive behavior Anxiety Cognitive impairment Dementia Fall History of stroke Parkinsons disease Personal history of breast cancer Pure hypercholesterolemia Right arm fracture Seizures Triple negative malignant neoplasm of breast Wound of right upper extremity Functional capacity: independent ambulation Patient : No Family History Family History Father Medical history unknown Mother Medical history unknown Family history of problems with anesthesia: No Surgical History Surgical History History of cholecystectomy History of lumpectomy of left breast Hx of colonoscopy History of Problems with Anesthesia: No Social History Social History Household Members: Family and Children Housing: House Are you a primary care worker to a significant other at home: No Do you presently have visiting nurse or other home services: No Alcohol intake: never Patient Tobacco Use Status: Former Tobacco user Quit Date: 2009 Tobacco use type: Cigarette e-Cigarette/Vaping Use: Never Used Second Hand Smoke Exposure: No service: No Current occupational status: retired and disabled Cognitive needs: Yes Hearing needs: No Vision needs: No Meds Allergies Allergy/AdvReac Type Severity Reaction Status Date / Time No Known Allergies Allergy Verified 08/04/22 10:52 Active Medications: Current Medications Lactated Ringer's (Lr) 1,000 mls @ 100 mls/hr IVCONT .Q10H CHRISTINE Last Admin: 08/04/22 11:16 Dose: 100 mls/hr Home Medications Medication Instructions Recorded Confirmed Last Taken Type albuterol sulfate 90 mcg/actuation 2 puff inhalation Q4-6H PRN SOB 08/02/20 07/30/22 Unknown History aerosol inhaler (Ventolin HFA) carbidopa 25 mg-levodopa 100 mg 1 tab PO BID 08/02/20 07/30/22 Unknown History tablet (Sinemet) phenytoin sodium extended 100 mg 200 mg PO DAILY 08/02/20 07/30/22 Unknown History capsule phenytoin sodium extended 300 mg 300 mg PO BEDTIME 10/07/21 07/30/22 Unknown History capsule divalproex 125 mg tablet,delayed 375 mg PO TID 03/02/22 07/30/22 Unknown History release (Depakote) Exam Exam Date and Time: August 04, 2022 1203 Height,Weight and Vital Signs: Height 5 ft 9 in Weight 107.955 kg Last Vital Signs Temp 96.8 F 08/04/22 11:12 Pulse 65 08/04/22 11:12 Resp 18 08/04/22 11:12 BP 142/74 H 08/04/22 11:12 Pulse Ox 99 08/04/22 11:12 O2 Del Method 08/04/22 11:12 Pertinent Lab Results Pertinent Lab Results: Laboratory Tests 08/04/22 10:35 WBC 5.7 RBC 3.45 L Hgb 10.7 L Hct 32.2 L MCV 93.3 MCH 31.0 MCHC 33.2 RDW 12.5 Plt Count 94 L MPV 9.8 Absolute Nucleated RBC 0.000 Nucleated RBC % (auto) 0.0 Airway Heart: RRR Lungs: CTA Assessment and Plan Final Anesthetic Review Family History of Problems with Anesthesia: No History of Problems with Anesthesia: No NPO: Yes ASA Class: III Final Preanesthetic Review: No Changes in Pt Med Stat, Meds/Allgs Chart Reviewed, Consent Obtained/Reviewed and Anes Risks/Benef Reviewed Patient Risk: Low Procedure Risk: Low Anesthetic Plan Anesthetic Plan: MAC: Disposition: Standard PACU
--- NOTE | 2022-08-04 12:25 | PM.OP ---
Brief Operative Note Date of Service: 08/04/22 Pre-op diagnosis: screening Post-op diagnosis: same Procedure: colonosocpy Surgeon: Artur Spence Anesthesia: MAC Was an Lining Scrubber used for this Procedure?: No Estimated blood loss (mL): 2 Pathology: other Condition: stable Disposition: PACU
[2022-08-04 12:26] VITALS: BP 92/51; PULSE 69; RESP 16; TEMP 36.4; O2SAT 97
[2022-08-04 12:41] VITALS: BP 149/85; PULSE 68; RESP 18; O2SAT 98
[2022-08-04 12:56] VITALS: BP 149/85; PULSE 70; RESP 20; TEMP 36.4; O2SAT 100
--- NOTE | 2022-08-04 13:27 | HO.POSTANES ---
Post Anesthesia Evaluation Post Anesthesia Evaluation Vital Signs: Vital Signs Temp Pulse Resp BP Pulse Ox O2 Del Method 08/04/22 12:56 97.6 F 70 20 149/85 H 100 Room Air 08/04/22 12:26 97.6 F 69 16 92/51 L 97 Room Air 08/04/22 11:12 96.8 F 65 18 142/74 H 99 Room Air Anesthesia: Monitored Mental Status: Awake Pain Control: Satisfactory Nausea/Vomiting: None Hydration: Adequate Anesthesia-Related Issues: No Anes. Related Issues
--- NOTE | 2022-08-05 00:01 | OP_ITS ---
SURGEON: Artur Spence MD INDICATIONS: Colon cancer screening and prior history of adenomatous colon polyps. PREOPERATIVE DIAGNOSIS: POSTOPERATIVE DIAGNOSIS: PROCEDURE PERFORMED: Colonoscopy to the cecum with biopsy. ESTIMATED BLOOD LOSS: COMPLICATIONS: ANESTHESIA: Monitored anesthesia care. ASSISTANTS: SPECIMENS: DESCRIPTION OF PROCEDURE: History and physical performed. The risks and benefits of the procedure were explained to the patient. Informed consent was obtained. The patient was placed in the left lateral decubitus position. A digital rectal exam was performed and was found to be normal. The Olympus pediatric video colonoscope was introduced into the rectum and advanced to the cecum without difficulty. The cecum was identified by transillumination, palpation, and identification of the ileocecal valve. Examination was performed. The scope was removed. She tolerated the procedure well and was taken to recovery area in stable condition. FINDINGS: The terminal ileum was not examined. The visualized colonic mucosa was normal. There was a lot of liquid stool present in the cecum and right colon as well as the descending colon which limited the sensitivity examination for detection of small polyps. This was washed and suctioned. Two polyps were identified in the hepatic flexure, both measuring less than 5 mm. These were removed with the biopsy forceps. No other polyps were seen. Retroflexed examination showed internal hemorrhoids. IMPRESSION: Colon polyps. RECOMMENDATION: Follow up the biopsy results. MD CLINT Franco/CLIVEL / [id number]
== END 2022-08-04 13:57 | disposition home or self-care (01) ==
PROVIDERS: Nurse Practitioner; PCP Internal Medicine; Visit Provider Internal Medicine Gastroenterology
PROC: 0DJD8ZZ Inspection of Lower Intestinal Tract, Via Natural or Artificial Opening Endoscopic (ICD-10-PCS; CPT 45378; principal; 2022-08-04 11:10)
DX: Z12.11 Encounter for screening for malignant neoplasm of colon (principal); D12.3 Benign neoplasm of transverse colon; I10 Essential (primary) hypertension; K64.8 Other hemorrhoids; C50.919 Malignant neoplasm of unspecified site of unspecified female breast; R56.9 Unspecified convulsions; F03.90 Unspecified dementia, unspecified severity, without behavioral disturbance, psychotic disturbance, mood disturbance, and anxiety; I48.91 Unspecified atrial fibrillation; E78.5 Hyperlipidemia, unspecified; I25.2 Old myocardial infarction; F41.8 Other specified anxiety disorders; Z79.82 Long term (current) use of aspirin; Z79.899 Other long term (current) drug therapy; Z86.73 Personal history of transient ischemic attack (TIA), and cerebral infarction without residual deficits; Z87.891 Personal history of nicotine dependence; Z90.49 Acquired absence of other specified parts of digestive tract
CPT/HCPCS: 45380; 36415; 85027; 88305

== ENCOUNTER → 2022-08-12 08:48 | Outpatient (BNVA) | payer OTHER, SELFPAY | PROVIDERS: PCP Internal Medicine; Visit Provider Surgery | DX: Z85.3 Personal history of malignant neoplasm of breast (principal) | CPT/HCPCS: 99212 ==

== ENCOUNTER 2022-09-14 09:01 | Outpatient (REF) | payer OTHER, SELFPAY ==
--- NOTE | ~2022-09-14 | US_ITS ---
EXAMINATION: US RETROPERITONEAL LIMITED (RENAL ONLY) CLINICAL INFORMATION: Calculus of kidney. COMPARISON: Ultrasound retroperitoneal limited (renal only) 07/11/2021. TECHNIQUE: Real-time imaging of the kidneys. FINDINGS: RIGHT KIDNEY: 9.9 x 4.4 x 5.0 cm (SAG x AP x TRV). The kidney is normal in size, contour, and echogenicity. Renal cortical thickness is normal. No calculi or focal parenchymal lesions. No hydronephrosis. LEFT KIDNEY: 11.2 x 5.1 x 4.7 cm (SAG x AP x TRV). The kidney is normal in size, contour, and echogenicity. Renal cortical thickness is normal. No calculi or focal parenchymal lesions. No hydronephrosis. US/US renal BI IMPRESSION: No acute sonographic abnormality.
== END 2022-09-14 09:02 | disposition home or self-care (01) ==
LOC: HO.US 09:01
PROVIDERS: Visit Provider Urology
DX: N20.0 Calculus of kidney (principal)
CPT/HCPCS: 76775

== ENCOUNTER 2022-09-22 08:11 | Outpatient (REF) | payer OTHER, SELFPAY ==
--- NOTE | ~2022-09-22 | MM_ITS ---
EXAMINATION: MM SCREENING DIGITAL BREAST TOMOSYNTHESIS, BILATERAL CLINICAL INFORMATION: Screening. Asymptomatic. Right lumpectomy for breast cancer, 2013. COMPARISON: Mammography: 09/19/2021, 09/16/2020, 09/11/2019 TECHNIQUE: Digital breast tomosynthesis is performed in both the craniocaudal and mediolateral oblique views along with computer-aided detection (CAD). Synthesized 2D images are generated from the tomosynthesis. FINDINGS: There are scattered areas of fibroglandular density (ACR BI-RADS breast composition Category b). There are post therapy changes on the right with reduced breast size and stable scarring similar to prior exams. Neither breast shows interval mass or architectural abnormality or abnormal calcifications. The axilla are unremarkable. No significant changes from prior studies. MM/MM tomosynthesis screening BI IMPRESSION: -No mammographic evidence of malignancy. -Post therapy changes right breast. ASSESSMENT: BI-RADS 2: Benign RECOMMENDATION: Routine annual mammography screening. This patient's information was entered into a reminder system with a target due date for their next mammogram.
== END 2022-09-22 08:12 | disposition home or self-care (01) ==
LOC: HO.MAMMO 08:11
PROVIDERS: PCP Internal Medicine; Visit Provider Surgery
DX: Z12.31 Encounter for screening mammogram for malignant neoplasm of breast (principal)
CPT/HCPCS: 77063; 77067

== ENCOUNTER 2022-11-10 08:50 | Outpatient (REF) | payer OTHER, SELFPAY ==
[2022-11-10 16:53] LABS: Urine Cytology See Pathology rpt
== END 2022-11-10 08:51 | disposition home or self-care (01) ==
LOC: HO.LAB 08:50
PROVIDERS: PCP Internal Medicine; Visit Provider Nurse Practitioner Family
DX: N20.0 Calculus of kidney (principal); R31.29 Other microscopic hematuria; G20 Parkinson's disease; F02.80 Dementia in other diseases classified elsewhere, unspecified severity, without behavioral disturbance, psychotic disturbance, mood disturbance, and anxiety; Z79.899 Other long term (current) drug therapy
CPT/HCPCS: 88112; 99212

== ENCOUNTER 2022-12-01 11:57 | Outpatient (REF) | payer OTHER, SELFPAY ==
[2022-12-01 13:47] LABS: Alanine Aminotransferase < 6 U/L (0-31); Albumin Level 3.9 g/dL (3.5-5.0); Alkaline Phosphatase 71 U/L (39-117); Aspartate Amino Transferase 17 U/L (5-31); Bilirubin Direct < 0.2 mg/dL (0.0-0.5); Bilirubin Total 0.3 mg/dL (0.0-1.0); Total Protein 7.9 g/dL (6.5-8.0)
== END 2022-12-01 11:58 | disposition home or self-care (01) ==
LOC: HO.LAB 11:57
PROVIDERS: PCP Internal Medicine; Visit Provider Psychiatry & Neurology Neurology
DX: G93.1 Anoxic brain damage, not elsewhere classified (principal)
CPT/HCPCS: 36415; 80076

== ENCOUNTER 2023-01-04 08:09 | Outpatient (REF) | payer OTHER, SELFPAY ==
[2023-01-04 08:27] LABS: MANUAL DIFF FLAG NO
[2023-01-04 08:45] LABS: Basophils Percent Auto 0.2 % (0-2); Eosinophils Absolute Auto 0.2 X10*3/uL (0.0-0.4); Eosinophils Percent Auto 3.4 % (0-4); Hematocrit 32.9 % (37.0-47.0); Hemoglobin 10.7 g/dl (12.0-16.0); Imm Gran Abs Auto 0.02 X10*3/uL (0.00-0.03); Imm Gran Pct Auto 0.5 % (0.0-0.4); Lymphocytes Absolute Auto 1.5 X10*3/uL (1.2-4.9); Lymphocytes Percent Auto 35.2 % (20-40); Mean Corpuscular HGB Conc 32.5 g/dl (31.0-35.0); Mean Corpuscular Hemoglobin 31.3 pg (27.0-33.0); Mean Corpuscular Volume 96.2 fL (80.0-98.0); Mean Platelet Volume 9.8 fL (9.4-12.3); Monocytes Absolute Auto 0.4 X10*3/uL (0.1-1.2); Monocytes Percent Auto 9.8 % (2-11); Neutrophils Absolute Auto 2.2 x10*3/uL (2.0-8.3); Neutrophils Percent Auto 50.9 % (45-73); Platelet Count 103 X10*3/uL (160-400); Red Blood Count 3.42 X10*6/uL (4.20-5.50); Red Cell Distribution Width 12.8 % (11.0-16.0); White Blood Count 4.4 X10*3/uL (4.8-10.8)
[2023-01-04 09:16] LABS: Alanine Aminotransferase < 6 U/L (0-31); Albumin Level 3.6 g/dL (3.5-5.0); Alkaline Phosphatase 60 U/L (39-117); Anion Gap 12 (12-20); Aspartate Amino Transferase 13 U/L (5-31); Bilirubin Total 0.4 mg/dL (0.0-1.0); Blood Urea Nitrogen 24 mg/dL (9-16); Calcium 8.8 mg/dL (8.4-10.2); Carbon Dioxide 26 mmol/L (22-29); Chloride 109 mmol/L (96-108); Cholesterol 195 mg/dL; Estimated Glomerular Filt Rate 54; Glucose Fasting 105 mg/dL (60-99); HDL Cholesterol 40 mg/dL; LDL Cholesterol Calculated 127 mg/dl; Potassium 4.2 mmol/L (3.3-5.1); Sodium 143 mmol/L (135-145); Total Protein 7.6 g/dL (6.5-8.0); Triglycerides 140 mg/dL
[2023-01-04 09:32] LABS: TSH reflex Free T4 1.88 uIU/mL (0.32-4.0)
== END 2023-01-04 08:10 | disposition home or self-care (01) ==
LOC: HO.LAB 08:09
PROVIDERS: Absent Provider Nurse Practitioner Family; PCP Internal Medicine; Visit Provider Internal Medicine
DX: Z13.29 Encounter for screening for other suspected endocrine disorder (principal); Z13.220 Encounter for screening for lipoid disorders; Z13.0 Encounter for screening for diseases of the blood and blood-forming organs and certain disorders involving the immune mechanism; E78.00 Pure hypercholesterolemia, unspecified
CPT/HCPCS: 36415; 80053; 80061; 84443; 85025

== ENCOUNTER 2023-01-06 14:26 | Outpatient (REF) | payer OTHER, SELFPAY ==
[2023-01-06 14:33] LABS: Appearance Urine Clear; Color Urine Yellow; Glucose Urine UA Negative (Negative); Leukocyte Esterase Urine Moderate (2+) (Negative); Nitrite Urine Negative (Negative); UMIC TRIGGER UACC YES; Urine Blood Large (3+) (Negative); Urine Ketones Trace mg/dL (Negative); Urine Protein Trace mg/dL (Neg-Trace)
[2023-01-06 14:35] LABS: Bacteria Urine None Seen (None Seen); Hyaline Casts Urine 0-2 /LPF (0-2); UACC Culture Trigger YES
== END 2023-01-06 14:27 | disposition home or self-care (01) ==
LOC: HO.LNP 14:26
PROVIDERS: Visit Provider Internal Medicine
DX: R30.0 Dysuria (principal); R32 Unspecified urinary incontinence
CPT/HCPCS: 81001; 87086

== ENCOUNTER 2023-07-15 08:42 | Emergency (ER) | payer OTHER, SELFPAY ==
[2023-07-15] VITALS (7 sets, daily range): BP systolic 103–126; BP diastolic 54–102; PULSE 65–81; RESP 16–19; TEMP 36.4–36.8; O2SAT 96–100; BMI 32.6
--- NOTE | ~2023-07-15 | XR_ITS ---
EXAMINATION: XR CHEST CLINICAL INFORMATION: Syncope COMPARISON: None available. TECHNIQUE: 2 views of the chest were obtained. FINDINGS: No significant abnormality is noted involving the heart, lungs, mediastinum, bony thorax or soft tissues. XR/XR chest 2V IMPRESSION: Unremarkable examination.
--- NOTE | ~2023-07-15 | CT_ITS ---
CT ANGIOGRAM NECK WITH CONTRAST CT ANGIOGRAM BRAIN WITH CONTRAST CLINICAL INFORMATION: Possible syncope. COMPARISON: Head CT 07/30/2022. TECHNIQUE: Test bolus sequences followed by intravenous administration 70 mL of Omnipaque 350. Helical imaging was performed in the axial plane from the thoracic inlet to the skull vertex. Delayed postcontrast imaging of the head was also performed. The data was processed at the electroneurodiagnostic technologist workstation for generation of MIP sequences. Angled MIPs and volume rendered reformatted images were also generated at an offline 3D workstation under concurrent supervision. Stenoses are assessed in accordance with NASCET criteria unless otherwise indicated. This CT examination was performed using dose optimization techniques as appropriate, variously including the following: *Automated exposure control *Adjustment of mA and/or kV according to patient size (this includes techniques or standardized protocols for targeted exams where dose is matched to indication/reason for exam; i.e. extremities or head) *Use of iterative reconstruction technique FINDINGS: BRAIN: [There is no intracranial hemorrhage, hydrocephalus, extra-axial surface collection, midline shift, or other herniation pattern. Adam to white matter differentiation is diffusely maintained without evidence of an evolved acute territorial infarct. The basilar cisterns are preserved. No significant soft tissue abnormality. No acute osseous abnormality. The paranasal sinuses and the mastoid air cells are well aerated.] CERVICAL SOFT TISSUES AND LUNG APICES: There is multilevel cervical spondylosis. Imaged upper lungs are clear. There are no significant soft tissue findings within the neck. NECK CTA: [There is a classic 3 vessel configuration of the aortic arch. Proximal arch vessels are non-stenotic. The vertebral arteries are codominant. No significant ostial stenosis is visualized on either side. Both vertebral arteries are widely patent throughout their extracranial cervical course. Both common and internal carotid arteries are normal in course and caliber.] BRAIN CTA: [There is normal opacification of major intracranial arteries. No focal flow-limiting stenosis nor discrete proximal large artery occlusion. A 4 mm saccular aneurysm projecting superolaterally from the distal left cavernous ICA segment. Timing of the contrast bolus allows assessment of the major dural venous sinuses, which all opacify normally] CT/CT angio head neck IMPRESSION: No acute intracranial findings. No significant arterial stenoses and no acute arterial occlusions within the head or neck. A 4 mm saccular aneurysm projecting superolaterally from the distal left cavernous ICA segment.
--- NOTE | 2023-07-15 08:44 | ECG_ITS ---
Test Reason : syncope Blood Pressure : / mmHG Vent. Rate : 090 BPM Atrial Rate : 090 BPM P-R Int : 182 ms QRS Dur : 092 ms QT Int : 374 ms P-R-T Axes : 046 -17 013 degrees QTc Int : 457 ms Sinus rhythm with sinus arrhythmia with occasional Premature ventricular complexes ST & T wave abnormality, consider lateral ischemia Abnormal ECG When compared with ECG of 26-MAR-2014 20:17, Premature ventricular complexes are now Present T wave inversion less evident in Anterior leads Inverted T waves have replaced nonspecific T wave abnormality in Lateral leads Referred By: Generic ED Physician Electronically Signed By:MINA LEE
--- NOTE | 2023-07-15 09:06 | MHC.EDTECH ---
Labs and covid swab collected and sent to lab
[2023-07-15 09:08] LABS: Glucose, Whole Blood 93 mg/dL (60-115)
[2023-07-15 09:09] LABS: MANUAL DIFF FLAG NO
[2023-07-15 09:18] LABS: Basophils Percent Auto 0.2 % (0-2); Eosinophils Absolute Auto 0.1 X10*3/uL (0.0-0.4); Eosinophils Percent Auto 2.2 % (0-4); Hematocrit 31.4 % (37.0-47.0); Hemoglobin 10.4 g/dl (12.0-16.0); Imm Gran Abs Auto 0.03 X10*3/uL (0.00-0.03); Imm Gran Pct Auto 0.7 % (0.0-0.4); Lymphocytes Absolute Auto 1.5 X10*3/uL (1.2-4.9); Lymphocytes Percent Auto 33.8 % (20-40); Mean Corpuscular HGB Conc 33.1 g/dl (31.0-35.0); Mean Corpuscular Hemoglobin 31.3 pg (27.0-33.0); Mean Corpuscular Volume 94.6 fL (80.0-98.0); Mean Platelet Volume 10.1 fL (9.4-12.3); Monocytes Absolute Auto 0.4 X10*3/uL (0.1-1.2); Monocytes Percent Auto 8.1 % (2-11); Neutrophils Absolute Auto 2.5 x10*3/uL (2.0-8.3); Red Blood Count 3.32 X10*6/uL (4.20-5.50); Red Cell Distribution Width 12.5 % (11.0-16.0); White Blood Count 4.6 X10*3/uL (4.8-10.8)
[2023-07-15 09:21] LABS: Anion Gap 14 (12-20); Blood Urea Nitrogen 16 mg/dL (9-16); Calcium 9.2 mg/dL (8.4-10.2); Carbon Dioxide 23 mmol/L (22-29); Chloride 108 mmol/L (96-108); Creatinine Clr Calc Pharmacy 72.2; Estimated Glomerular Filt Rate 56; Glucose Random 94 mg/dL (60-115); Platelet Count 78 X10*3/uL (160-400); Potassium 4.2 mmol/L (3.3-5.1); Sodium 141 mmol/L (135-145)
[2023-07-15 09:31] LABS: COVID-19 Test Negative (Negative); IDNOW Serial# BCCEAD1C
[2023-07-15 09:42] LABS: Troponin-I High Sensitivity < 2.7 ng/L (<3.5-17.0)
--- NOTE | 2023-07-15 09:42 | PC.NURSE ---
pt was walking into her [facility] today and fell upon entering, possible LOC, staff assisted into chair. no injuries or pain reported. post fall pt is less alert according to daughter. hx of seizures. Similar episode on wednesday, went to [facility], negative work up.
--- NOTE | 2023-07-15 09:59 | ED.SYNCOPE ---
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 The patient was normal and did great over the weekend and did great at her program this week until today. She went into the program and staff told daughter again that she collapsed. There is no story associated with it at this time as before. She was caught by staff. complaint: collapsed Onset (ago): minute(s) (prior to arrival ) -: second(s) Prodromal symptoms: none Witnessed: Yes - by Bystander Context: during exertion (possibly walking daughter is not sure) Injuries sustained associated with event: none Current symptoms: back to baseline History: seizure disorder and previous syncopal episode Treatments prior to arrival: none Related Data Home Medications Medication Instructions Recorded Confirmed albuterol sulfate 90 mcg/actuation 2 puff inhalation Q4-6H PRN SOB 08/02/20 04/23/23 aerosol inhaler (Ventolin HFA) carbidopa 25 mg-levodopa 100 mg 1 tab PO BID 08/02/20 04/23/23 tablet (Sinemet) phenytoin sodium extended 100 mg 200 mg PO DAILY 08/02/20 04/23/23 capsule phenytoin sodium extended 300 mg 300 mg PO BEDTIME 10/07/21 04/23/23 capsule divalproex 125 mg tablet,delayed 375 mg PO TID 03/02/22 04/23/23 release (Depakote) Previous Rx's Medication Instructions Recorded bed alarm #1 ea 05/15/21 hospital bed #1 ea 05/26/21 nonadhesive bandage #1 ea 07/02/21 gel dressing 4 X 4 (DermaGauze #15 ea 07/04/21 Hydrogel Dressing) citalopram 20 mg tablet 20 mg PO DAILY 90 days #90 tabs 07/09/21 folic acid 1 mg tablet 1 mg PO DAILY 90 days #90 tabs 07/09/21 lamotrigine 25 mg tablet 25 mg PO BID 90 days #180 tabs 09/25/21 adult diapers pull-ups #210 ea 12/22/21 underpads (Bed Underpads) #40 ea 12/22/21 latex gloves (Latex Gloves, Large) #5 boxes 02/26/22 tamoxifen 20 mg tablet 20 mg PO DAILY #90 tabs 03/29/22 calcium carbonate 600 mg calcium 600 mg PO BID #60 tabs 08/25/22 (1,500 mg) tablet pravastatin 20 mg tablet 20 mg PO BEDTIME #90 tabs 10/22/22 potassium citrate 10 mEq (1,080 20 meq (2 x 10 mEq (1,080 mg)) PO 11/10/22 mg) tablet,extended release BID 90 days #360 tabs terazosin 2 mg capsule 2 mg PO DAILY 90 days #90 caps 11/10/22 aspirin 81 mg tablet,delayed 81 mg PO DAILY 90 days #90 tabs 01/20/23 release (Adult Aspirin Regimen) Shower Chair #1 ea 02/01/23 buspirone 15 mg tablet 15 mg PO TID 90 days #270 tabs 04/20/23 desonide 0.05 % topical cream 1 appl topical BID PRN rash #15 04/23/23 grams Allergies Allergy/AdvReac Type Severity Reaction Status Date / Time No Known Allergies Allergy Verified 07/15/23 08:51 Review of Systems Review of Systems: Constitutional : No Fever, No Chills, No Fatigue ENT/Mouth : No sore throat, No Rhinorrhea Eyes: No Eye Pain, No Swelling, No Redness Cardiovascular : No Chest Pain, No SOB, No Dyspnea on Exertion Respiratory : No Cough, No Sputum Gastrointestinal : No Nausea, No Vomiting, No Diarrhea, No abdominal Pain Genitourinary : No Dysuria, No Urinary Frequency, No Hematuria, Musculoskeletal : No joint pain, No Myalgias, No Joint Swelling Skin : No Skin Lesions, No rash Neuro : No Weakness, No Numbness, No Dizziness, no Headache, pos syncope Psych : No Anxiety/Panic, No Depression Heme/Lymph: No Bruising, No Bleeding,No Lymphadenopathy Endocrine : No Polyuria, No Polydipsia All other systems reviewed and are negative PMFSH Past Medical History Attestation statement: The following information was validated with the patient. 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 breast Surgical History Hx of colonoscopy History of lumpectomy of left breast History of cholecystectomy Family History Family History Father Medical history unknown Mother Medical history unknown Social History Social History Household Members: Family and Children Housing: House Are you a primary intensive care specialist to a significant other at home: No Do you presently have visiting nurse or other home services: No Alcohol intake: never Patient Tobacco Use Status: Former Tobacco user Quit Date: 2009 Tobacco use type: Cigarette Smoked in Last 30 Days: No e-Cigarette/Vaping Use: Never Used Second Hand Smoke Exposure: No Use of substances other than those prescribed or required for medical reasons: No Advance Directives: Yes Advance Directives on File: Yes Advance Directives Date on File: 07/30/22 Patient : No service: No Current occupational status: retired and disabled Cognitive needs: Yes Hearing needs: No Vision needs: No Physical Exam Vital Signs: Vital Signs: Last Vital Signs Temp 97.6 F 07/15/23 15:10 Pulse 65 07/15/23 15:10 Resp 16 07/15/23 15:10 BP 112/65 07/15/23 15:10 Pulse Ox 98 07/15/23 15:10 O2 Del Method Room Air 07/15/23 15:10 BMI result Body Mass Index 32.6 Appearance: Alert. Oriented X3. No acute distress. at baseline has no complaints Eyes: Pupils equal, round and reactive to light. ENT: Pharynx normal. Neck: Normal inspection. Neck supple. CVS: Normal heart rate and rhythm. Pulses normal. Respiratory: No respiratory distress. Breath sounds normal. Abdomen: Soft and nontender. Skin: Skin warm and dry. Normal skin color. Normal skin turgor. Extremities: No lower extremity edema. No calf ttp Neuro: Oriented X 3. No motor deficit. No sensory deficit. Course Course Course Narrative: per adult day program - blank stares, then brief LOC but no shaking movements. patient seems more sedated than usual but daughter denies she is sedated. patient again has no complaints work up negative no hypoxia no tachcyardia no symptoms to suggest VTE Reevaluation(s) Reevaluation #1: patient does not want to stay she wanst to go home - she has not been sedated here she only has issues at day program daughter is going to bring her home and call neurologist tomorrow and she is not going to send her to the program. Medications Administered Discontinued Medications Generic Name Dose Route Start Last Admin Trade Name Camille PRN Reason Stop Dose Admin Iohexol 100 ml 07/15/23 14:27 07/15/23 14:28 Iohexol 350 Mg/Ml 100 Ml Infus..Btl IV 07/15/23 14:28 70 ml ONCE ONE Administration Medical Decision Making Medical Decision Making [facility] Narrative: 63 yo female with PMH of parkinsons, dementia, anemia, kidney stones, seizures, CVA, HLD here with what sounds like syncope on wednesday after standing post urination with full workup at [facility] and CT scans. The patient also c/o possible syncope today but denies complaints we are calling to confirm events at this time I am going to obtain basic labs, EKG, troponin, UA and ortho VS given Parkinsons no change in medications recently or infections. She has never had orthostatic hypotension. She does not have neurologic deficits, no CP/SOB to suggest ACS or PE. Differential Diagnosis Differential Diagnoses: The differential diagnosis associated with the presentation includes syncope, seizures, orthostasis Admission/Observation Consideration of admission/observation: Escalation of care including admission/observation considered no acute findings on workup today at this time has been to ED x 2 has no symptoms only new t wave inversion in V6 but negative trop with two episodes she is at baseline per daughter CTA negative. at this time would refer her to the neurologist for med management CTA no stroke and aneurysm is not the cause. no acute findings today no stenosis no UTI no orthostatics. Lab Data [facility] Lab Attestation statement: I reviewed the patient's lab results. 07/15/23 09:03 07/15/23 09:03 Labs: Lab Results 07/15/23 07/15/23 07/15/23 Range/Units 08:59 09:03 10:47 WBC 4.6 L (4.8-10.8) X10*3/uL RBC 3.32 L (4.20-5.50) X10*6/uL Hgb 10.4 L (12.0-16.0) g/dl Hct 31.4 L (37.0-47.0) % MCV 94.6 (80.0-98.0) fL MCH 31.3 (27.0-33.0) pg MCHC 33.1 (31.0-35.0) g/dl RDW 12.5 (11.0-16.0) % Plt Count 78 L (160-400) X10*3/uL MPV 10.1 (9.4-12.3) fL Immature Gran % (Auto) 0.7 H (0.0-0.4) % Neut % (Auto) 55.0 (45-73) % Lymph % (Auto) 33.8 (20-40) % [place] % (Auto) 8.1 (2-11) % Eos % (Auto) 2.2 (0-4) % Baso % (Auto) 0.2 (0-2) % Lymph # (Auto) 1.5 (1.2-4.9) X10*3/uL [place] # (Auto) 0.4 (0.1-1.2) X10*3/uL Eos # (Auto) 0.1 (0.0-0.4) X10*3/uL Baso # (Auto) 0.0 (0.0-0.2) X10*3/uL Abs Immat Gran (auto) 0.03 (0.00-0.03) X10*3/uL Absolute Neuts (auto) 2.5 (2.0-8.3) x10*3/uL Absolute Nucleated RBC 0.000 (0.0-0.012) X10*3/uL Nucleated RBC % (auto) 0.0 (0.0-0.2) /100WBC Sodium 141 (135-145) mmol/L Potassium 4.2 (3.3-5.1) mmol/L Chloride 108 (96-108) mmol/L Carbon Dioxide 23 (22-29) mmol/L Anion Gap 14 (12-20) BUN 16 (9-16) mg/dL Creatinine 0.99 (0.5-1.4) mg/dL Estim Creat Clear Calc 72.2 Estimated GFR 56 POC Glucose 93 (60-115) mg/dL Random Glucose 94 (60-115) mg/dL Calcium 9.2 (8.4-10.2) mg/dL Troponin I High Sens < 2.7 (<3.5-17.0) ng/L Urine Color Yellow Urine Appearance Clear Urine pH 6.5 (5.0-9.0) Ur Specific [place] 1.010 (1.005-1.025) Urine Protein Negative (Neg-Trace) mg/dL Urine Glucose (UA) Negative (Negative) mg/dL Urine Ketones Negative (Negative) mg/dL Urine Blood Large (3+) H (Negative) Urine Nitrite Negative (Negative) Ur Leukocyte Esterase Small (1+) H (Negative) Urine RBC 6-10 H (0-2) /HPF Urine WBC 6-10 H (0-5) /HPF Ur Squamous Epith Cells 6-10 (0-2) /HPF Urine Bacteria 1+ (None Seen) Hyaline Casts 0-2 (0-2) /LPF Valproic Acid (50.0-100.0) mcg/mL COVID-19 ([facility]) Negative (Negative) COVID-19 Clin Com See Note 07/15/23 Range/Units 10:59 WBC (4.8-10.8) X10*3/uL RBC (4.20-5.50) X10*6/uL Hgb (12.0-16.0) g/dl Hct (37.0-47.0) % MCV (80.0-98.0) fL MCH (27.0-33.0) pg MCHC (31.0-35.0) g/dl RDW (11.0-16.0) % Plt Count (160-400) X10*3/uL MPV (9.4-12.3) fL Immature Gran % (Auto) (0.0-0.4) % Neut % (Auto) (45-73) % Lymph % (Auto) (20-40) % [place] % (Auto) (2-11) % Eos % (Auto) (0-4) % Baso % (Auto) (0-2) % Lymph # (Auto) (1.2-4.9) X10*3/uL [place] # (Auto) (0.1-1.2) X10*3/uL Eos # (Auto) (0.0-0.4) X10*3/uL Baso # (Auto) (0.0-0.2) X10*3/uL Abs Immat Gran (auto) (0.00-0.03) X10*3/uL Absolute Neuts (auto) (2.0-8.3) x10*3/uL Absolute Nucleated RBC (0.0-0.012) X10*3/uL Nucleated RBC % (auto) (0.0-0.2) /100WBC Sodium (135-145) mmol/L Potassium (3.3-5.1) mmol/L Chloride (96-108) mmol/L Carbon Dioxide (22-29) mmol/L Anion Gap (12-20) BUN (9-16) mg/dL Creatinine (0.5-1.4) mg/dL Estim Creat Clear Calc Estimated GFR POC Glucose (60-115) mg/dL Random Glucose (60-115) mg/dL Calcium (8.4-10.2) mg/dL Troponin I High Sens (<3.5-17.0) ng/L Urine Color Urine Appearance Urine pH (5.0-9.0) Ur Specific [place] (1.005-1.025) Urine Protein (Neg-Trace) mg/dL Urine Glucose (UA) (Negative) mg/dL Urine Ketones (Negative) mg/dL Urine Blood (Negative) Urine Nitrite (Negative) Ur Leukocyte Esterase (Negative) Urine RBC (0-2) /HPF Urine WBC (0-5) /HPF Ur Squamous Epith Cells (0-2) /HPF Urine Bacteria (None Seen) Hyaline Casts (0-2) /LPF Valproic Acid 44.5 L (50.0-100.0) mcg/mL COVID-19 ([facility]) (Negative) COVID-19 Clin Com Independent Interpretation I performed an independent interpretation of an: EKG, Plain X-Ray and CT Scan (no acute findings) Interpretation: Rate: 90 Rhythm: NSR [place]: left Normal P waves. Normal ROSY. Normal QRS complex. ST T wave : no BRENDA, nonspecific ST T wave changes, inverted t wave changes V4-V6 qTC: normal prior studies: new t wave inversion in V6 otherwise unchanged The study has been interpreted contemporaneously by me. . Radiology Impression Discussion of test interpretation with radiology: I have reviewed the radiologist's reading. Independent Historian Clinical information obtained from an independent historian. History obtained from or confirmed by: Other (daughter) External Record Review External record reviewed: Inpatient record Discharge Plan Discharge Clinical Impression: Weakness Patient Disposition: Home, Self-Care Instructions: Weakness (ED) Additional Instructions: continue medications. keep home tomorrow. stay with her and monitor her. call neurologist and follow up for possible subclinical events. incidental finding but not cause of pain of 44m aneurysm on L internal carotid artery. return for weakness, vomiting, confusion, severe headaches, chest pain, trouble breathing, fevers or any other concerns. depakote level checked today was 44.5 Prescriptions: No Action phenytoin sodium extended 100 mg capsule 200 mg PO DAILY albuterol sulfate [Ventolin HFA] 90 mcg/actuation Hfa Aerosol Inhaler 2 puff INHALATION Q4-6H PRN (Reason: SOB) carbidopa-levodopa [Sinemet] 25-100 mg Tablet 1 tab PO BID (DME) bed alarm See Rx Instructions .Route .MEDSUPPLY Qty: 1 0RF Rx Instructions: As directed (DME) hospital bed Kit See Rx Instructions .Route Qty: 1 0RF Rx Instructions: As directed (DME) DermaGauze Hydrogel Dressing 4 X 4 bandage See Rx Instructions .Route Qty: 15 3RF Rx Instructions: As directed folic acid 1 mg tablet 1 mg PO DAILY 90 Days Qty: 90 0RF citalopram 20 mg tablet 20 mg PO DAILY 90 Days Qty: 90 0RF (DME) adult diapers pull-ups Large See Rx Instructions .Route .MEDSUPPLY Qty: 210 11RF Rx Instructions: As directed (DME) underpads [Bed Underpads] Pad See Rx Instructions .Route Qty: 40 3RF Rx Instructions: Use 2 once a day (DME) latex gloves [Latex Gloves, Large] Misc See Rx Instructions .Route Qty: 5 6RF Rx Instructions: As directed tamoxifen 20 mg tablet 20 mg PO DAILY Qty: 90 4RF calcium carbonate 600 mg calcium (1,500 mg) tablet 600 mg PO BID Qty: 60 11RF pravastatin 20 mg tablet 20 mg PO BEDTIME Qty: 90 0RF aspirin [Adult Aspirin Regimen] 81 mg tablet,delayed release (DR/EC) 81 mg PO DAILY 90 Days Qty: 90 3RF (DME) Shower Chair Misc See Rx Instructions .Route Qty: 1 0RF Rx Instructions: As directed buspirone 15 mg tablet 15 mg PO TID 90 Days Qty: 270 1RF divalproex [Depakote] 125 mg tablet,delayed release (DR/EC) 375 mg PO TID lamotrigine 25 mg tablet 25 mg PO BID 90 Days Qty: 180 1RF (DME) nonadhesive bandage See Rx Instructions .Route .MEDSUPPLY Qty: 1 0RF Rx Instructions: As directed desonide 0.05 % cream 1 appl topical BID PRN (Reason: rash) Qty: 15 0RF phenytoin sodium extended 300 mg capsule 300 mg PO BEDTIME potassium citrate 10 mEq (1,080 mg) tablet extended release 20 meq PO BID 90 Days Qty: 360 3RF terazosin 2 mg capsule 2 mg PO DAILY 90 Days Qty: 90 3RF
--- NOTE | 2023-07-15 10:27 | PC.NURSE ---
call placed to [facility] where event happened, to gather more information. no answer, message left. [phone]
[2023-07-15 11:05] LABS: Appearance Urine Clear; Color Urine Yellow; Glucose Urine UA Negative (Negative); Leukocyte Esterase Urine Small (1+) (Negative); Nitrite Urine Negative (Negative); PH 6.5 (5.0-9.0); UMIC TRIGGER UACC YES; Urine Blood Large (3+) (Negative); Urine Ketones Negative (Negative); Urine Protein Negative (Neg-Trace)
[2023-07-15 11:10] LABS: Bacteria Urine 1+ (None Seen); Hyaline Casts Urine 0-2 /LPF (0-2); UACC Culture Trigger YES
--- NOTE | 2023-07-15 11:22 | PC.NURSE ---
spoke to RN at program, did not fall, staff noticed she had a blank stare when walking in, sat her down, LOC briefly while in the chair. then is alert for a second before LOC again. staff reports she has not been herself since last episode. very somnolent this week at the program.
[2023-07-15 11:26] LABS: Valproate 44.5 mcg/mL (50.0-100.0)
--- NOTE | 2023-07-15 13:14 | PC.NURSE ---
multiple IV attempts, unsuccessful by 2 RNs. aware,will attempt US guided line
--- NOTE | 2023-07-15 13:57 | PC.NURSE ---
IV now placed, CT aware
[2023-07-15] MEDS: iohexoL 350 MG/ML 100 ML INFUS..BTL IV (14:28)
== END 2023-07-15 16:14 | disposition home or self-care (01) ==
PROVIDERS: Emergency Provider Emergency Medicine; PCP Internal Medicine
DX: R53.1 Weakness (principal); E78.00 Pure hypercholesterolemia, unspecified; D64.9 Anemia, unspecified; G20 Parkinson's disease; F02.80 Dementia in other diseases classified elsewhere, unspecified severity, without behavioral disturbance, psychotic disturbance, mood disturbance, and anxiety; Z86.73 Personal history of transient ischemic attack (TIA), and cerebral infarction without residual deficits; Z79.899 Other long term (current) drug therapy; Z87.891 Personal history of nicotine dependence; Z20.822 Contact with and (suspected) exposure to COVID-19
CPT/HCPCS: 36415; 70496; 70498; 71046; 80048; 80164; 81001; 82947; 84484; 85025; 87086; 87635; 93005; 99285; Q9967

== ENCOUNTER 2023-07-27 16:24 | Outpatient (AMB) | payer OTHER, SELFPAY ==
[2023-07-27 16:33] VITALS: BP 110/72; BMI 35.7
--- NOTE | 2023-07-27 16:33 | A.OFFPC_ITS ---
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 Accompanied by: Family/Other Allergies No Known Allergies Allergy (Verified 07/27/23 17:06) Medication List - Last Reconciled 07/27/23 by Maria Luz Mobley MD [adult diapers pull-ups As directed] albuterol sulfate 90 mcg/actuation (Ventolin HFA) 2 puffs inhalation Q4-6H PRN aspirin (Adult Aspirin Regimen) 81 mg PO DAILY 90 days [bed alarm As directed] buspirone 15 mg PO TID 90 days calcium carbonate 600 mg PO BID carbidopa-levodopa 25-100 mg (Sinemet) 1 tab PO BID citalopram 20 mg PO DAILY 90 days desonide 0.05% 1 appl topical BID PRN divalproex (Depakote) 375 mg PO TID folic acid 1 mg PO DAILY 90 days gel dressing (DermaGauze Hydrogel Dressing) As directed hospital bed As directed lamotrigine 25 mg PO BID 90 days latex gloves (Latex Gloves, Large) As directed [nonadhesive bandage As directed] phenytoin sodium extended 200 mg PO DAILY phenytoin sodium extended 300 mg PO BEDTIME potassium citrate ER 20 mEq (2 x 10 mEq (1,080 mg)) PO BID 90 days pravastatin 20 mg PO BEDTIME Shower Chair As directed tamoxifen 20 mg PO DAILY terazosin 2 mg PO DAILY 90 days underpads (Bed Underpads) Use 2 once a day Tobacco use date assessed: 01/04/23 Fall risk assessment: No Falls in past year Last assessed Fall Risk: 07/27/23 Dental Screening Dental Screen Date: 07/27/23 Did you have a dental visit in the last 12 months?: Yes Did you have a dental problem in the last 6 months where you did not have access to dental care?: No Was dental information given to patient?: Patient has dentist HPI HPI Comments History of Present Illness Details This is a 63-year-old female with Parkinson's disease, seizures, and pure hypercholesterolemia that comes accompanied by interior plant caretaker which is the main historian for follow-up on her conditions. Has not had a seizure in over a emely h and this is follow by Neurology as well as Parkinson's disease which is stable with medications. On statins for pure hypercholesterolemia lipid panel will be order. She went to ER recently due to syncope which has happened few times recently. 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 No chest pain or shortness of breath. Complains of urticaria. [facility] Medical History (Updated 07/27/23 @ 17:18 by Maria Luz Mobley MD) Anxiety Wound of right upper extremity Personal history of breast cancer Dementia Parkinsons disease Seizures Right arm fracture Cognitive impairment History of stroke Aggressive behavior Pure hypercholesterolemia Fall Triple negative malignant neoplasm of breast Surgical History Hx of colonoscopy History of lumpectomy of left breast History of cholecystectomy Family History Father Medical history unknown Mother Medical history unknown Social History Household Members: Family and Children Housing: House Are you a primary primary care nurse practitioner to a significant other at home: No Do you presently have visiting nurse or other home services: No Alcohol intake: never Patient Tobacco Use Status: Former Tobacco user Quit Date: 2009 Tobacco use type: Cigarette e-Cigarette/Vaping Use: Never Used Second Hand Smoke Exposure: No Advance Directives Date on File: 07/30/22 service: No Current occupational status: retired and disabled Cognitive needs: Yes Hearing needs: No Vision needs: No Questionnaire Thrive Questionnaire Date Thrive assessed: 01/04/23 RAMILA-7 AMB Questionnaire RAMILA-7 Date RAMILA - 7 assessed: 01/04/23 Source: Developed by Drs. Jung Bee, Wendy Dias, Juan Aguilar and colleagues, with an educational daren from [employer]. Review of Systems Const All systems reviewed & are unremarkable except as noted in HPI and below Eyes Reports no additional complaints, Denies change in vision and Denies other visual disturbances Card Denies chest pain at rest, Denies chest pain with activity, Denies edema, Denies irregular heart rhythm, Denies claudication, Denies dyspnea, Denies dyspnea on exertion, Denies orthopnea, Denies paroxysmal nocturnal dyspnea and Denies slow heart rate Resp Denies cough, Denies dyspnea and Denies dyspnea on exertion GI Denies abdominal pain, Denies change in bowel habits, Denies excessive flatus, Denies nausea and Denies vomiting Denies urinary incontinence, Denies urinary hesitancy and Denies urinary urgency Musc Denies abnormal gait, Denies atrophy, Denies deformity and Denies limited range of motion Skin/Breast Denies bleeding lesions, Denies changing lesions and Denies rash Neuro Denies abnormal gait and Denies lack of coordination Physical exam (Primary Care) Vital Signs: Last Vital Signs BP 110/72 07/27/23 16:33 BMI result Body Mass Index 35.7 Tobacco/Smoking Status: Tobacco use Status Tobacco use date assessed 01/04/23 07/27/23 16:39 Patient Tobacco Use Status Former Tobacco user 07/27/23 16:39 Tobacco use type Cigarette 07/27/23 16:39 e-Cigarette/Vaping Use Never Used 07/27/23 16:39 Thrive Assessment: Date of Thrive Assessment Date Thrive assessed 01/04/23 07/27/23 16:39 Eyes General: appearance normal, both eyes and all related structures Eyelids: Yes eyelids normal Conjunctivae: conjunctivae normal Neck Neck: Yes normal visual inspection and Yes supple Resp Effort & Inspection: normal respiratory effort Auscultation: clear to auscultation bilaterally Cardio Jugular venous distension: no JVD Rate: regular rate Rhythm: regular rhythm Heart sounds: S1 normal heart sound present and S2 normal heart sound present Extrem General: Yes full ROM Office Procedures Flu Questionnaire Does the patient have a severe egg allergy?: No Immunizations flu vacc [id number] 6mos up(PF) 60 mcg(15 mcgx4)/0.5 mL IM syringe Performing Provider: Maria Luz Mobley MD [facility] [place] [facility] Documented (not given) by: GOGO Bennett on 07/27/23 17:25 Reason Not Given: Not Given Assessment and Plan Assessment & Plan (1) Aneurysm: Code(s): I72.9 - Aneurysm of unspecified site Plan: Referred to Interventional Radiology (2) Seizures: Code(s): R56.9 - Unspecified convulsions Plan: Continue phenytoin. Follow-up with Neurology. (3) Parkinsons disease: Code(s): G20 - Parkinson's disease Plan: Continue carbidopa-levodopa. Follow-up with Neurology. (4) Pure hypercholesterolemia: Code(s): E78.00 - Pure hypercholesterolemia, unspecified Plan: Continue statins. Repeat lipid panel. Orders: Orders Influenza [id number] Immunization 07/27/23 Z23 - Encounter for immunization Lipid Panel 4 Months E78.5 - Hyperlipidemia, unspecified Comprehensive [place]. Panel Fast 4 Months R56.9 - Unspecified convulsions Complete Blood Count Auto Diff 4 Months D64.9 - Anemia, unspecified IRON PROFILE 4 Months D64.9 - Anemia, unspecified Referrals Interventional Radiology Referral I72.9 - Aneurysm of unspecified site Coding Level of Care Code Est Pt Level 4 (19165) Diagnoses Aneurysm I72.9 Seizures R56.9 Parkinsons disease G20 Pure hypercholesterolemia E78.00 Time Spent (min) 25
== END 2023-07-27 17:17 | disposition home or self-care (01) ==
PROVIDERS: PCP Internal Medicine; Visit Provider Internal Medicine
DX: I72.9 Aneurysm of unspecified site (principal); R56.9 Unspecified convulsions; G20 Parkinson's disease; E78.00 Pure hypercholesterolemia, unspecified
CPT/HCPCS: 99214

== ENCOUNTER 2023-08-04 08:26 | Outpatient (AMB) | payer OTHER, SELFPAY ==
--- NOTE | 2023-08-04 08:34 | MHC.OFFVIS ---
Intake Vital Signs 08/04/23 08:35 Height 5 ft 9 in Weight 242 lb 8.136 oz BMI 35.8 BP 110/62 Blood Pressure Location Lt brachial Position Sitting Intake Visit Reasons: Yearly Breast Exam Intake Note: Patient is seen in office for yearly breast exam. 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 Accompanied by: Family/Other Allergies No Known Allergies Allergy (Verified 08/04/23 08:35) Medication List - Last Reconciled 08/04/23 by Abner Peoples MD [adult diapers pull-ups As directed] albuterol sulfate 90 mcg/actuation (Ventolin HFA) 2 puffs inhalation Q4-6H PRN aspirin (Adult Aspirin Regimen) 81 mg PO DAILY 90 days [bed alarm As directed] buspirone 15 mg PO TID 90 days calcium carbonate 600 mg PO BID carbidopa-levodopa 25-100 mg (Sinemet) 1 tab PO BID citalopram 20 mg PO DAILY 90 days desonide 0.05% 1 appl topical BID PRN divalproex (Depakote) 375 mg PO TID folic acid 1 mg PO DAILY 90 days gel dressing (DermaGauze Hydrogel Dressing) As directed hospital bed As directed hydroxyzine HCl 25 mg PO BID PRN 3 days lamotrigine 25 mg PO BID 90 days latex gloves (Latex Gloves, Large) As directed [nonadhesive bandage As directed] phenytoin sodium extended 200 mg PO DAILY phenytoin sodium extended 300 mg PO BEDTIME potassium citrate ER 20 mEq (2 x 10 mEq (1,080 mg)) PO BID 90 days pravastatin 20 mg PO BEDTIME Shower Chair As directed tamoxifen 20 mg PO DAILY terazosin 2 mg PO DAILY 90 days underpads (Bed Underpads) Use 2 once a day HPI Yearly Breast Exam HPI Details She is here for her annual breast exam. She had undergone lumpectomy sentinel biopsy of the right breast for invasive ductal cancer in 2012. She had neoadjuvant treatment prior to that and had radiation to the breast postop and has completed tamoxifen treatment after. I last are the office a year ago. Her last mammogram was in August, and this was unremarkable. She has a dementia and Parkinson's disease started after she had cardiac arrest in 2010 when she had a presumed MA. According to her [facility], she does verbally communicate once in a while. She goes to a program during the day but otherwise requires a caregiver 17/05. [facility] Medical History Anxiety Wound of right upper extremity Personal history of breast cancer Dementia Parkinsons disease Seizures Right arm fracture Cognitive impairment History of stroke Aggressive behavior Pure hypercholesterolemia Fall Triple negative malignant neoplasm of breast Surgical History Hx of colonoscopy History of lumpectomy of left breast History of cholecystectomy Family History Father Medical history unknown Mother Medical history unknown Social History Household Members: Family and Children Housing: House Are you a primary caregiver services home to a significant other at home: No Do you presently have visiting nurse or other home services: No Alcohol intake: never Patient Tobacco Use Status: Former Tobacco user Quit Date: 2009 Tobacco use type: Cigarette e-Cigarette/Vaping Use: Never Used Second Hand Smoke Exposure: No Advance Directives Date on File: 07/30/22 service: No Current occupational status: retired and disabled Cognitive needs: Yes Hearing needs: No Vision needs: No Review of Systems Const Details: The source is the son in [place] who is her caregiver Denies chills and Denies fever(s) Card Denies chest pain, Denies dyspnea and Denies dyspnea on exertion Resp Denies cough, Denies dyspnea and Denies dyspnea on exertion GI Denies hematochezia and Denies change in bowel habits Denies hematuria Musc Denies back pain and Denies limited range of motion Neuro Denies focal weakness and Denies convulsions Psych Denies depression and Denies mood swings Physical Exam Vital Signs: Last Vital Signs BP 110/62 08/04/23 08:35 BMI result Body Mass Index 35.8 Const General: comfortable and no acute distress Orientation/consciousness: patient oriented x3 Neck Neck: Yes no lymphadenopathy Chest Other: No palpable breast masses, no axillary lymphadenopathy Resp Auscultation: clear to auscultation bilaterally Cardio Rhythm: regular rhythm GI Palpation (GI): Soft to palpation, nontender and no guarding Neuro General: patient oriented x3 Assessment & Plan Assessment & Plan (1) Personal history of breast cancer: Code(s): Z85.3 - Personal history of malignant neoplasm of breast Plan: She had a triple negative breast cancer in 2012. She is considered at high risk so she comes the office once a year for a full breast exam. Current exam today is unremarkable with no palpable breast masses or nipple or skin changes or axillary lymphadenopathy She is scheduled to have her yearly mammogram next month. I will review this. Otherwise I will see her again next year after her screening mammogram. Coding Level of Care Code Est Pt Level 3 (75703) Diagnoses Personal history of breast cancer Z85.3
[2023-08-04 08:35] VITALS: BP 110/62; BMI 35.8
== END 2023-08-04 08:45 | disposition home or self-care (01) ==
PROVIDERS: Visit Provider Surgery
DX: Z85.3 Personal history of malignant neoplasm of breast (principal)
CPT/HCPCS: 99213

== ENCOUNTER → 2023-08-04 08:26 | Outpatient (BNVA) | payer OTHER, SELFPAY | PROVIDERS: Visit Provider Surgery | DX: Z85.3 Personal history of malignant neoplasm of breast (principal) | CPT/HCPCS: 99212 ==

== ENCOUNTER 2023-08-11 13:26 | Emergency (ER) | payer OTHER, SELFPAY ==
[2023-08-11 13:35] VITALS: BP 115/61; PULSE 96; RESP 18; TEMP 36.3; O2SAT 94; BMI 31.3
--- NOTE | 2023-08-11 13:36 | ED_ITS ---
HPI - General Adult General Chief complaint: General Medical Stated complaint: question seizure Time Seen by Provider: 08/11/23 15:17 Source: patient and family Mode of arrival: EMS History of Present Illness HPI narrative: 63-year-old female brought in by the care home are concerns that when patient was getting up they had to assist the patient into a chair as she was unsteady. This apparently happened twice and though the staff is reporting that the patient had confusion and nausea patient denies any nausea or vomiting. Family members also at bedside and states that this frequently happens and that she tries to reinforce the patient should get up slowly. They deny any fevers or chills recently but reports that there has been burning on urination. Related Data Home Medications Medication Instructions Recorded Confirmed albuterol sulfate 90 mcg/actuation 2 puff inhalation Q4-6H PRN SOB 08/02/20 08/04/23 aerosol inhaler (Ventolin HFA) carbidopa 25 mg-levodopa 100 mg 1 tab PO BID 08/02/20 08/04/23 tablet (Sinemet) phenytoin sodium extended 100 mg 200 mg PO DAILY 08/02/20 08/04/23 capsule phenytoin sodium extended 300 mg 300 mg PO BEDTIME 10/07/21 08/04/23 capsule divalproex 125 mg tablet,delayed 375 mg PO TID 03/02/22 08/04/23 release (Depakote) Previous Rx's Medication Instructions Recorded bed alarm #1 ea 05/15/21 hospital bed #1 ea 05/26/21 nonadhesive bandage #1 ea 07/02/21 gel dressing 4 X 4 (DermaGauze #15 ea 07/04/21 Hydrogel Dressing) citalopram 20 mg tablet 20 mg PO DAILY 90 days #90 tabs 07/09/21 folic acid 1 mg tablet 1 mg PO DAILY 90 days #90 tabs 07/09/21 lamotrigine 25 mg tablet 25 mg PO BID 90 days #180 tabs 09/25/21 adult diapers pull-ups #210 ea 12/22/21 underpads (Bed Underpads) #40 ea 12/22/21 latex gloves (Latex Gloves, Large) #5 boxes 02/26/22 tamoxifen 20 mg tablet 20 mg PO DAILY #90 tabs 03/29/22 calcium carbonate 600 mg calcium 600 mg PO BID #60 tabs 08/25/22 (1,500 mg) tablet potassium citrate 10 mEq (1,080 20 meq (2 x 10 mEq (1,080 mg)) PO 11/10/22 mg) tablet,extended release BID 90 days #360 tabs terazosin 2 mg capsule 2 mg PO DAILY 90 days #90 caps 11/10/22 aspirin 81 mg tablet,delayed 81 mg PO DAILY 90 days #90 tabs 01/20/23 release (Adult Aspirin Regimen) Shower Chair #1 ea 02/01/23 buspirone 15 mg tablet 15 mg PO TID 90 days #270 tabs 04/20/23 desonide 0.05 % topical cream 1 appl topical BID PRN rash #15 04/23/23 grams pravastatin 20 mg tablet 20 mg PO BEDTIME #90 tabs 07/19/23 hydroxyzine HCl 25 mg tablet 25 mg PO BID PRN itching 3 days #6 07/28/23 tabs cefdinir 300 mg capsule 300 mg PO BID 5 days #10 caps 08/11/23 Allergies Allergy/AdvReac Type Severity Reaction Status Date / Time No Known Allergies Allergy Verified 08/04/23 08:35 Review of Systems 2 Review of Systems: Pertinent positives and negatives as stated in HPI [facility] Past Medical History Source: nursing notes reviewed Medical History Anxiety Wound of right upper extremity Personal history of breast cancer Dementia Parkinsons disease Seizures Right arm fracture Cognitive impairment History of stroke Aggressive behavior Pure hypercholesterolemia Fall Triple negative malignant neoplasm of breast Surgical History Hx of colonoscopy History of lumpectomy of left breast History of cholecystectomy Family History Family History Father Medical history unknown Mother Medical history unknown Social History Social History Household Members: Family and Children Housing: House Are you a primary health care technician to a significant other at home: No Do you presently have visiting nurse or other home services: No Alcohol intake: never Patient Tobacco Use Status: Former Tobacco user Quit Date: 2009 Tobacco use type: Cigarette Smoked in Last 30 Days: No e-Cigarette/Vaping Use: Never Used Second Hand Smoke Exposure: No Use of substances other than those prescribed or required for medical reasons: No Advance Directives: Yes Advance Directives on File: Yes Advance Directives Date on File: 07/30/22 service: No Current occupational status: retired and disabled Cognitive needs: Yes Hearing needs: No Vision needs: No Physical Exam ED Vital Signs: Vital Signs - 24 hr 08/11/23 13:35 08/11/23 16:25 08/11/23 16:26 Temperature 97.4 F 98.0 F Pulse Rate 96 78 76 Respiratory Rate 18 20 Blood Pressure 115/61 131/73 135/71 Pulse Oximetry 94 94 Oxygen Delivery Method Room Air Room Air 08/11/23 16:28 08/11/23 16:29 Temperature Pulse Rate 70 94 Respiratory Rate Blood Pressure 127/70 117/73 Pulse Oximetry Oxygen Delivery Method BMI result Body Mass Index 31.3 VITAL SIGNS: Reviewed. GENERAL: Well developed, well nourished, in no acute distress. HEAD: Normocephalic/atraumatic EYES: PERRLA, EOMI EARS: Ext canals without abnormality NOSE: Nares patent bilateral OROPHARYNX: no oral lesions noted, posterior pharynx clear NECK: Supple, no adenopathy LUNGS: Normal breath sounds. No adventitious sounds or accessory muscle use. SpO2<94> CARDIOVASCULAR: Regular rate and rhythm without noted murmurs ABDOMEN: Soft, non-tender, non-distended with bowel sounds. MUSCULOSKELETAL: No tenderness, deformities, or effusions noted on gross inspection. EXTREMITIES: No cyanosis, clubbing or edema. SKIN: Inspection of the skin reveals no rashes NEUROLOGIC: Alert and oriented x 3. Strength and sensation to light touch were grossly intact x 4. Course Course Course Narrative: RME - 63 yo female with history of dementia, Parkinson's disease, seizure disorder on dilantin and depakote (last seizure 2010), hx cardiac arrest in 2010 who presents to the ER from her Day Program for evaluation after she had near syncopal episode x2 when ambulating with nursing, felt faint and needed to sit. At 12:50 patient then developed snoring respirations, multiple episodes of wretching, and jerking movements. Confused & agitated afterward, not at her baseline. AAO x2 in triage, poor historian of today's events. Seizure medication was recently increased. Plan: labs and med levels. Medical Decision Making Medical Decision Making MDM Narrative: 63-year-old female brought in from care home for near syncopal episodes and history and clinical presentation, DDX: Infection, anemia, electrolyte derangements, subtherapeutic medication. I reviewed all investigations and hematologic indices are negative for leukocytosis or left shift, patient has chronically stable normocytic anemia and thrombocytopenia. Chemistry indices are grossly within normal limits and do not demonstrate any KAREN IR electrolytes/liver enzyme abnormalities. Urinalysis appears to be positive for urinary tract infection and will treat with initial antibiotics here in the ER urgency room and then send patient on remaining course. It was also also noted on toxicology that up broke acid level is a little bit low. It is my interpretation that patient experienced the described near syncopal episode with abnormal movements as a combination of urinary tract infection with marginally subtherapeutic valproic acid levels as well as not adhering to gradual positional change. Differential Diagnosis Differential Diagnoses: The differential diagnosis associated with the presentation includes Please see the discussion above Admission/Observation Consideration of admission/observation: Escalation of care including admission/observation considered Please see the discussion above Lab Data [facility] Lab Attestation statement: I reviewed the patient's lab results. Please see the discussion above 08/11/23 14:52 08/11/23 14:52 Labs: Lab Results 08/11/23 08/11/23 Range/Units 14:52 16:30 WBC 6.3 (4.8-10.8) X10*3/uL RBC 3.30 L (4.20-5.50) X10*6/uL Hgb 10.6 L (12.0-16.0) g/dl Hct 31.4 L (37.0-47.0) % MCV 95.2 (80.0-98.0) fL MCH 32.1 (27.0-33.0) pg MCHC 33.8 (31.0-35.0) g/dl RDW 13.1 (11.0-16.0) % Plt Count 95 L (160-400) X10*3/uL MPV 9.9 (9.4-12.3) fL Immature Gran % (Auto) 1.9 H (0.0-0.4) % Neut % (Auto) 55.1 (45-73) % Lymph % (Auto) 31.8 (20-40) % [place] % (Auto) 9.4 (2-11) % Eos % (Auto) 1.8 (0-4) % Baso % (Auto) 0.0 (0-2) % Lymph # (Auto) 2.0 (1.2-4.9) X10*3/uL [place] # (Auto) 0.6 (0.1-1.2) X10*3/uL Eos # (Auto) 0.1 (0.0-0.4) X10*3/uL Baso # (Auto) 0.0 (0.0-0.2) X10*3/uL Abs Immat Gran (auto) 0.12 H (0.00-0.03) X10*3/uL Absolute Neuts (auto) 3.5 (2.0-8.3) x10*3/uL Absolute Nucleated RBC 0.000 (0.0-0.012) X10*3/uL Nucleated RBC % (auto) 0.0 (0.0-0.2) /100WBC Sodium 139 (135-145) mmol/L Potassium 4.1 (3.3-5.1) mmol/L Chloride 107 (96-108) mmol/L Carbon Dioxide 22 (22-29) mmol/L Anion Gap 14 (12-20) BUN 27 H (9-16) mg/dL Creatinine 1.08 (0.5-1.4) mg/dL Estim Creat Clear Calc 60.8 Estimated GFR 51 Random Glucose 102 (60-115) mg/dL Calcium 9.7 (8.4-10.2) mg/dL Magnesium 2.2 (1.6-2.6) mg/dL Total Bilirubin 0.2 (0.0-1.0) mg/dL Direct Bilirubin < 0.2 (0.0-0.5) mg/dL AST 14 (5-31) U/L ALT 7 (0-31) U/L Alkaline Phosphatase 75 (39-117) U/L Total Protein 8.8 H (6.5-8.0) g/dL Albumin 3.9 (3.5-5.0) g/dL Urine Color Yellow Urine Appearance Cloudy Urine pH 5.5 (5.0-9.0) Ur Specific [place] 1.020 (1.005-1.025) Urine Protein Trace (Neg-Trace) mg/dL Urine Glucose (UA) Negative (Negative) mg/dL Urine Ketones Negative (Negative) mg/dL Urine Blood Large (3+) H (Negative) Urine Nitrite Negative (Negative) Ur Leukocyte Esterase Large (3+) H (Negative) Urine RBC 11-20 H (0-2) /HPF Urine WBC >50 H (0-5) /HPF Ur Squamous Epith Cells 6-10 (0-2) /HPF Urine Bacteria 4+ (None Seen) Hyaline Casts 0-2 (0-2) /LPF Phenytoin 20.9 H (10.0-20.0) ug/mL Valproic Acid 46.7 L (50.0-100.0) mcg/mL External Record Review External record reviewed: Outpatient record, Prior outpatient labs and Prior outpatient radiology Chronic Conditions Parkinson's disease, cognitive impairment, Critical Care Time Critical Care Time Critical Care Time: Yes Total Critical Care Time: 30 Attestation: I personally attest to this time spent taking care of the patient. Discharge Plan Discharge Clinical Impression: Near syncope, Urinary tract infection Patient Disposition: Xfer Other Instructions: Urinary Tract Infection in Women (ED), Near Syncope (ED), Urinary Tract Infection in Older Adults (ED) Additional Instructions: 1. Resume all home medications as prescribed. I highly recommend more frequent serum levels anti seizure medications. 2. Complete the entire course of antibiotics for urinary tract infection as prescribed. Please follow-up on the urine culture results. 3. Follow-up with the primary care doctor in the next 1-2 days. Return to the ER for any worsening symptoms. Prescriptions: New cefdinir 300 mg capsule 300 mg PO BID 5 Days Qty: 10 0RF No Action phenytoin sodium extended 100 mg capsule 200 mg PO DAILY albuterol sulfate [Ventolin HFA] 90 mcg/actuation Hfa Aerosol Inhaler 2 puff INHALATION Q4-6H PRN (Reason: SOB) carbidopa-levodopa [Sinemet] 25-100 mg Tablet 1 tab PO BID (DME) bed alarm See Rx Instructions .Route .MEDSUPPLY Qty: 1 0RF Rx Instructions: As directed (DME) hospital bed Kit See Rx Instructions .Route Qty: 1 0RF Rx Instructions: As directed (DME) DermaGauze Hydrogel Dressing 4 X 4 bandage See Rx Instructions .Route Qty: 15 3RF Rx Instructions: As directed folic acid 1 mg tablet 1 mg PO DAILY 90 Days Qty: 90 0RF citalopram 20 mg tablet 20 mg PO DAILY 90 Days Qty: 90 0RF (DME) adult diapers pull-ups Large See Rx Instructions .Route .MEDSUPPLY Qty: 210 11RF Rx Instructions: As directed (DME) underpads [Bed Underpads] Pad See Rx Instructions .Route Qty: 40 3RF Rx Instructions: Use 2 once a day (DME) latex gloves [Latex Gloves, Large] Misc See Rx Instructions .Route Qty: 5 6RF Rx Instructions: As directed tamoxifen 20 mg tablet 20 mg PO DAILY Qty: 90 4RF calcium carbonate 600 mg calcium (1,500 mg) tablet 600 mg PO BID Qty: 60 11RF aspirin [Adult Aspirin Regimen] 81 mg tablet,delayed release (DR/EC) 81 mg PO DAILY 90 Days Qty: 90 3RF (DME) Shower Chair Misc See Rx Instructions .Route Qty: 1 0RF Rx Instructions: As directed buspirone 15 mg tablet 15 mg PO TID 90 Days Qty: 270 1RF pravastatin 20 mg tablet 20 mg PO BEDTIME Qty: 90 0RF divalproex [Depakote] 125 mg tablet,delayed release (DR/EC) 375 mg PO TID lamotrigine 25 mg tablet 25 mg PO BID 90 Days Qty: 180 1RF (DME) nonadhesive bandage See Rx Instructions .Route .MEDSUPPLY Qty: 1 0RF Rx Instructions: As directed desonide 0.05 % cream 1 appl topical BID PRN (Reason: rash) Qty: 15 0RF hydroxyzine HCl 25 mg tablet 25 mg PO BID PRN (Reason: itching) 3 Days Qty: 6 0RF phenytoin sodium extended 300 mg capsule 300 mg PO BEDTIME potassium citrate 10 mEq (1,080 mg) tablet extended release 20 meq PO BID 90 Days Qty: 360 3RF terazosin 2 mg capsule 2 mg PO DAILY 90 Days Qty: 90 3RF Referrals: Maria Luz Vega MD [Primary Care Provider] -
[2023-08-11 14:59] LABS: MANUAL DIFF FLAG NO
[2023-08-11 15:03] LABS: Eosinophils Absolute Auto 0.1 X10*3/uL (0.0-0.4); Eosinophils Percent Auto 1.8 % (0-4); Hematocrit 31.4 % (37.0-47.0); Hemoglobin 10.6 g/dl (12.0-16.0); Imm Gran Abs Auto 0.12 X10*3/uL (0.00-0.03); Imm Gran Pct Auto 1.9 % (0.0-0.4); Lymphocytes Percent Auto 31.8 % (20-40); Mean Corpuscular HGB Conc 33.8 g/dl (31.0-35.0); Mean Corpuscular Hemoglobin 32.1 pg (27.0-33.0); Mean Corpuscular Volume 95.2 fL (80.0-98.0); Mean Platelet Volume 9.9 fL (9.4-12.3); Monocytes Absolute Auto 0.6 X10*3/uL (0.1-1.2); Monocytes Percent Auto 9.4 % (2-11); Neutrophils Absolute Auto 3.5 x10*3/uL (2.0-8.3); Neutrophils Percent Auto 55.1 % (45-73); Red Cell Distribution Width 13.1 % (11.0-16.0); White Blood Count 6.3 X10*3/uL (4.8-10.8)
[2023-08-11 15:04] LABS: Platelet Count 95 X10*3/uL (160-400)
[2023-08-11 15:11] LABS: Phenytoin Dilantin 20.9 ug/mL (10.0-20.0); Valproate 46.7 mcg/mL (50.0-100.0)
[2023-08-11 15:15] LABS: Alanine Aminotransferase 7 U/L (0-31); Albumin Level 3.9 g/dL (3.5-5.0); Alkaline Phosphatase 75 U/L (39-117); Anion Gap 14 (12-20); Aspartate Amino Transferase 14 U/L (5-31); Bilirubin Direct < 0.2 mg/dL (0.0-0.5); Bilirubin Total 0.2 mg/dL (0.0-1.0); Blood Urea Nitrogen 27 mg/dL (9-16); Calcium 9.7 mg/dL (8.4-10.2); Carbon Dioxide 22 mmol/L (22-29); Chloride 107 mmol/L (96-108); Creatinine Clr Calc Pharmacy 60.8; Estimated Glomerular Filt Rate 51; Glucose Random 102 mg/dL (60-115); Magnesium 2.2 mg/dL (1.6-2.6); Potassium 4.1 mmol/L (3.3-5.1); Sodium 139 mmol/L (135-145); Total Protein 8.8 g/dL (6.5-8.0)
[2023-08-11 16:25] VITALS: BP 131/73; PULSE 78; RESP 20; TEMP 36.7; O2SAT 94
[2023-08-11 16:26] VITALS: BP 135/71; PULSE 76
[2023-08-11 16:28] VITALS: BP 127/70; PULSE 70
[2023-08-11 16:29] VITALS: BP 117/73; PULSE 94
[2023-08-11 16:51] LABS: Appearance Urine Cloudy; Color Urine Yellow; Glucose Urine UA Negative (Negative); Leukocyte Esterase Urine Large (3+) (Negative); Nitrite Urine Negative (Negative); PH 5.5 (5.0-9.0); UMIC TRIGGER UACC YES; Urine Blood Large (3+) (Negative); Urine Ketones Negative (Negative); Urine Protein Trace mg/dL (Neg-Trace)
[2023-08-11 16:53] LABS: Bacteria Urine 4+ (None Seen); Hyaline Casts Urine 0-2 /LPF (0-2); UACC Culture Trigger YES; WBC Urine >50 /HPF (0-5)
[2023-08-11] MEDS: Nitrofurantoin Monohyd/M-Cryst 100 MG CAPSULE PO (17:41)
== END 2023-08-11 17:51 | disposition other institution (70) ==
PROVIDERS: Physician Assistant; Emergency Provider Student in an Organized Health Care Education/Training Program; PCP Internal Medicine
DX: R55 Syncope and collapse (principal); N39.0 Urinary tract infection, site not specified; R30.0 Dysuria; Z87.891 Personal history of nicotine dependence; Z79.899 Other long term (current) drug therapy
CPT/HCPCS: 36415; 80048; 80076; 80164; 80185; 81001; 83735; 85025; 87086; 87088; 87186; 99283; 99284

== ENCOUNTER 2023-09-28 09:05 | Outpatient (REF) | payer OTHER, SELFPAY ==
--- NOTE | ~2023-09-28 | MM_ITS ---
EXAMINATION: MM SCREENING DIGITAL BREAST TOMOSYNTHESIS, BILATERAL CLINICAL INFORMATION: Screening. Asymptomatic. The patient has a history of prior, treated right breast cancer. COMPARISON: Mammography: This study is compared with prior exams dating back to 2018. TECHNIQUE: Digital breast tomosynthesis is performed in both the craniocaudal and mediolateral oblique views along with computer-aided detection (CAD). Synthesized 2D images are generated from the tomosynthesis. FINDINGS: The breasts are heterogeneously dense, which may obscure small masses (ACR BI-RADS breast composition Category c). There are no significant masses, abnormal calcifications, or other abnormalities. There are architectural changes in the upper-outer quadrant of the right breast from prior breast cancer surgery. There are bilateral, unchanged, benign calcifications in each breast. MM/MM tomosynthesis screening BI IMPRESSION: No mammographic evidence of malignancy. ASSESSMENT: BI-RADS BI-RADS 2 - Benign Findings RECOMMENDATION: Routine annual mammography screening. 1 year F/U This examination should not preclude the clinical evaluation of a suspicious palpable abnormality. This patient's information was entered into a reminder system with a target due date for their next mammogram.
--- NOTE | ~2023-09-28 | MM_ITS ---
EXAMINATION: BONE DENSITOMETRY CLINICAL INDICATION: Osteopenia. COMPARISON: Previous BD dated 10/26/2019 and baseline BD dated 08/18/2013. TECHNIQUE: Using a [employer] DXA System (software version: 13.1) manufactured by [employer], dual-energy x-ray absorptiometry was performed of the lumbar spine and left hip. The images are of good technical quality. Summary results are attached. FINDINGS: LEFT FEMUR, NECK: Current: BMD 0.799 g/cm2, Z-score -1.0, T-score -1.7, osteopenia. Prior: BMD 1.135 g/cm2. Baseline: BMD 1.171 g/cm2. LEFT FEMUR, TOTAL: Current: BMD 0.875 g/cm2, Z-score -0.7, T-score -1.1, osteopenia, 28.9% decrease from previous, 28.6% decrease from baseline (<5% change is not significant). Prior: BMD 1.231 g/cm2. Baseline: BMD 1.226 g/cm2. AP SPINE L1-L3 (excluding L4): The data of L1-L4 has been changed to exclude the L4 vertebral body, because degenerative sclerosis at this level may cause overestimation of lumbar spine density. Current: BMD 1.545 g/cm2, Z-score 3.5, T-score 3.1, normal, 6.1% increase from previous, 19.4% increase from baseline (<5% change is not significant). Prior: BMD 1.456 g/cm2. Baseline: BMD 1.294 g/cm2. IDENTIFIED RISK FACTORS: Dementia, menopause. HISTORY OF FRACTURE: None listed. MEDICATIONS: Calcium supplements or multivitamin, vitamin D. MM/XR DEXA axial skeleton IMPRESSION: 1. DIAGNOSIS: Osteopenia based on the lowest T-score value of -1.7 in the femoral neck applying World Health Organization criteria. 2. 10-YEAR FRACTURE RISK PREDICTION, FRAX: Major osteoporotic fracture (clinical spine, forearm, hip or shoulder) 4.9%. Hip fracture 0.6%. 3. Treatment Recommendations: NOF guidelines recommend consideration for treatment in postmenopausal women and men age 50 and older presenting with the following: -A hip or vertebral (clinical or morphometric) fracture. -T-score less than or equal to -2.5 at the femoral neck or spine after appropriate evaluation to exclude secondary causes. -Low bone mass at the hip or spine and a 10-year fracture probability by FRAX of greater than or equal to 3% for hip fracture or greater than or equal to 20% for major osteoporotic fracture based on the [place] adapted WHO algorithm. 4. Other Recommendations: All treatment decisions require clinical judgment and consideration of individual patient factors, including patient preferences, comorbidities, previous drug use, risk factors not captured in the FRAX model (e.g. frailty, falls, vitamin D deficiency, increased bone turnover, interval significant decline in bone density) and possible under or overestimation of fracture risk by FRAX. Additional medical evaluation for secondary cause of low bone mineral density may be appropriate. FUTURE SCAN RECOMMENDATION: People with diagnosed cases of osteoporosis or at high risk for fracture should have regular bone mineral density tests. For patients eligible for Medicare, routine testing is allowed once every 2 years. The testing frequency can be increased to one year for patients who have rapidly progressing disease, those who are receiving or discontinuing medical therapy to restore bone mass, or have additional risk factors.
== END 2023-09-28 09:06 | disposition home or self-care (01) ==
LOC: HO.MAMMO 09:05
PROVIDERS: PCP Internal Medicine; Visit Provider Internal Medicine
DX: Z12.31 Encounter for screening mammogram for malignant neoplasm of breast (principal); Z13.820 Encounter for screening for osteoporosis; Z85.3 Personal history of malignant neoplasm of breast; Z78.0 Asymptomatic menopausal state; M85.80 Other specified disorders of bone density and structure, unspecified site
CPT/HCPCS: 77063; 77067; 77080

== ENCOUNTER → 2023-09-28 09:45 | Outpatient (BNV) | payer OTHER, SELFPAY | PROVIDERS: PCP Internal Medicine; Visit Provider Radiology Diagnostic Radiology | DX: Z12.31 Encounter for screening mammogram for malignant neoplasm of breast (principal) | CPT/HCPCS: 77063; 77067 ==

== ENCOUNTER 2023-10-06 08:52 | Emergency (ER) | payer OTHER, SELFPAY ==
--- NOTE | ~2023-10-06 | CT_ITS ---
EXAMINATION: CT HEAD WITHOUT CONTRAST CLINICAL INFORMATION: Fall head strike COMPARISON: CT angiogram head from 07/15/2023, CT head from 07/30/2022 TECHNIQUE: Contiguous axial imaging was performed from the skull base to vertex without intravenous administration of contrast. This CT examination was performed using dose optimization techniques as appropriate, variously including the following: *Automated exposure control *Adjustment of mA and/or kV according to patient size (this includes techniques or standardized protocols for targeted exams where dose is matched to indication/reason for exam; i.e. extremities or head) *Use of iterative reconstruction technique DLP: 1337 mGy-cm FINDINGS: There is no evidence of acute intracranial hemorrhage or territorial infarction. No abnormal mass effect or midline shift is seen. Adam to white matter differentiation is well preserved. No extra-axial fluid collections are identified. The ventricles are normal in size. There is no abnormal attenuation within the brain parenchyma. Hyperostosis frontalis interna. The osseous structures and soft tissues are normal. The mastoid air cells and visualized portions of the paranasal sinuses are well aerated. Atherosclerotic calcifications of the cavernous carotid arteries. CT/CT cervical spine wo IV con IMPRESSION: No acute intracranial pathology. EXAMINATION: Noncontrast CT scan of the cervical spine. INDICATION: Neck pain COMPARISON: None. TECHNIQUE: Helical, multidetector axial images were obtained from the occiput to the upper thorax. Coronal and sagittal reformats of the cervical spine were provided for interpretation. DLP: 1337 mGy-cm FINDINGS: No acute fractures or dislocations of the cervical spine are seen. Straightening of normal cervical curvature which may be secondary to patient positioning versus muscle spasm. Multilevel arthritic changes. Anatomic alignment and positioning of the vertebral bodies and posterior elements is noted. The atlantoaxial joint and craniovertebral articulations are normal without evidence of subluxation. There is no prevertebral soft tissue swelling. The thyroid gland and visualized portions of the lung apices and mediastinum are unremarkable. IMPRESSION: 1. No acute visible fracture or dislocation. 2. Straightening of normal cervical curvature which may be secondary to patient positioning versus muscle spasm. 3. Multilevel arthritic changes.
[2023-10-06 09:03] VITALS: BP 117/72; PULSE 89; O2SAT 95; BMI 36.4
--- NOTE | 2023-10-06 09:04 | PC.NURSE ---
pt to CT at this time.
[2023-10-06 09:06] VITALS: BP 113/62; PULSE 83; RESP 16; TEMP 36.5; O2SAT 96
--- NOTE | 2023-10-06 09:18 | ED.GENADULT ---
HPI - General Adult General Chief complaint: Fall Stated complaint: FALL,HIT HEAD, FROM ADULT DAY CARE Time Seen by Provider: 10/06/23 12:14 Source: EMS Mode of arrival: EMS Limitations: other (Dementia) History of Present Illness HPI narrative: 63-year-old female with history of dementia and Parkinson's presents today after a fall. Patient is a resident at [facility] in [place]. She was ambulating with a 2:1 assist when she became weak and fell. The staff could not catch her. She struck her head. No loss of consciousness. She is on aspirin, but no other thinners. No chest pain, palpitations, or shortness of breath now and prior to the fall. She reports a frontal headache, but no dizziness, vision changes, lightheadedness, or syncope. She also reports lower abdominal pain which per son is a common complaint for her. She denies diarrhea, constipation, blood in stools, and dysuria. No fevers, chillsnausea or vomiting. She has a remote history of open cholecystectomy. Acting normal self per son Related Data Home Medications Medication Instructions Recorded Confirmed albuterol sulfate 90 mcg/actuation 2 puff inhalation Q4-6H PRN SOB 08/02/20 08/04/23 aerosol inhaler (Ventolin HFA) carbidopa 25 mg-levodopa 100 mg 1 tab PO BID 08/02/20 08/04/23 tablet (Sinemet) phenytoin sodium extended 100 mg 200 mg PO DAILY 08/02/20 08/04/23 capsule phenytoin sodium extended 300 mg 300 mg PO BEDTIME 10/07/21 08/04/23 capsule divalproex 125 mg tablet,delayed 375 mg PO TID 03/02/22 08/04/23 release (Depakote) Previous Rx's Medication Instructions Recorded bed alarm #1 ea 05/15/21 hospital bed #1 ea 05/26/21 nonadhesive bandage #1 ea 07/02/21 gel dressing 4 X 4 (DermaGauze #15 ea 07/04/21 Hydrogel Dressing) citalopram 20 mg tablet 20 mg PO DAILY 90 days #90 tabs 07/09/21 folic acid 1 mg tablet 1 mg PO DAILY 90 days #90 tabs 07/09/21 lamotrigine 25 mg tablet 25 mg PO BID 90 days #180 tabs 09/25/21 adult diapers pull-ups #210 ea 12/22/21 underpads (Bed Underpads) #40 ea 12/22/21 latex gloves (Latex Gloves, Large) #5 boxes 02/26/22 tamoxifen 20 mg tablet 20 mg PO DAILY #90 tabs 03/29/22 potassium citrate 10 mEq (1,080 20 meq (2 x 10 mEq (1,080 mg)) PO 11/10/22 mg) tablet,extended release BID 90 days #360 tabs terazosin 2 mg capsule 2 mg PO DAILY 90 days #90 caps 11/10/22 aspirin 81 mg tablet,delayed 81 mg PO DAILY 90 days #90 tabs 01/20/23 release (Adult Aspirin Regimen) Shower Chair #1 ea 02/01/23 buspirone 15 mg tablet 15 mg PO TID 90 days #270 tabs 04/20/23 desonide 0.05 % topical cream 1 appl topical BID PRN rash #15 04/23/23 grams pravastatin 20 mg tablet 20 mg PO BEDTIME #90 tabs 07/19/23 cefdinir 300 mg capsule 300 mg PO BID 5 days #10 caps 08/11/23 calcium carbonate 600 mg calcium 600 mg PO BID #60 tabs 08/30/23 (1,500 mg) tablet hydroxyzine HCl 25 mg tablet 25 mg PO BID PRN itching 3 days #6 09/07/23 tabs cefuroxime axetil 250 mg tablet 250 mg PO BID 7 days #14 tabs 10/06/23 Allergies Allergy/AdvReac Type Severity Reaction Status Date / Time fluticasone Allergy Unknown Verified 10/06/23 09:03 [From Advair Diskus] salmeterol Allergy Unknown Verified 10/06/23 09:03 [From Advair Diskus] Review of Systems Review of Systems: Constitutional : No Weight loss, No Fever, No Chills, No Night Sweats, No Fatigue, No Malaise Eyes: No Eye Pain, No Swelling, No Vision Changes Cardiovascular : No Chest Pain, No SOB, No Dyspnea on Exertion, No Orthopnea, No Edema, No Palpitations Respiratory : No Cough, No Sputum, No Wheezing, No Dyspnea Gastrointestinal : No Nausea, No Vomiting, No Diarrhea, No Constipation, + abdominal Pain, No Hematochezia, No Melena Genitourinary : no irregular bleeding, No Dysuria, No Urinary Frequency, No Hematuria, No Urinary Incontinence, No Urgency, No Flank Pain, No Urinary Flow Changes, No Hesitancy Musculoskeletal : No joint pain, No Myalgias, No Joint Swelling Skin : No Skin Lesions, No rash Neuro : No Weakness, No Numbness, No Paresthesias, No Loss of Consciousness, No Dizziness, + Headache Yes all other systems are reviewed and are negative PMFSH Past Medical History Attestation statement: The following information was validated with the patient. Source: old records reviewed and nursing notes reviewed Medical History Anxiety Wound of right upper extremity Personal history of breast cancer Dementia Parkinsons disease Seizures Right arm fracture Cognitive impairment History of stroke Aggressive behavior Pure hypercholesterolemia Fall Triple negative malignant neoplasm of breast Surgical History Hx of colonoscopy History of lumpectomy of left breast History of cholecystectomy Family History Family History Father Medical history unknown Mother Medical history unknown Social History Social History Household Members: Family and Children Housing: House Are you a primary director of healthcare systems to a significant other at home: No Do you presently have visiting nurse or other home services: No Alcohol intake: never Patient Tobacco Use Status: Former Tobacco user Quit Date: 2009 Tobacco use type: Cigarette Smoked in Last 30 Days: No e-Cigarette/Vaping Use: Never Used Second Hand Smoke Exposure: No Use of substances other than those prescribed or required for medical reasons: No Advance Directives: Yes Advance Directives on File: Yes Advance Directives Date on File: 07/30/22 Patient : No service: No Current occupational status: retired and disabled Cognitive needs: Yes Hearing needs: No Vision needs: No Physical Exam ED Vital Signs: Vital Signs - 24 hr 10/06/23 09:06 10/06/23 11:53 Temperature 97.7 F Pulse Rate 83 76 Respiratory Rate 16 16 Blood Pressure 113/62 135/72 Pulse Oximetry 96 96 Oxygen Delivery Method Room Air Room Air BMI result Body Mass Index 36.4 vss Appearance: Alert.? Oriented X3.? No acute distress.? Head: Normocephalic, atraumatic, no step-offs or deformities Eyes: Pupils equal, round and reactive to light.? Insert extraocular movements intact pain-free. Neck: Normal inspection.? Neck supple.? CVS: Normal heart rate and rhythm.? Pulses normal.? Respiratory: No respiratory distress.? Breath sounds normal.? Abdomen: Soft and nondistended. Normoactive bowel sounds throughout. Nontender abdomen. Negative Webber's, McBurney's, and Webber's. No guarding or rebound tenderness. Skin: Skin warm and dry.? Normal skin color.? Normal skin turgor.? Extremities: No lower extremity edema.? No calf ttp. 5/5 strength to bilateral upper and lower extremities Back: No midline tenderness, no C-spine tenderness, full range of motion, no CVA tenderness bilaterally Neuro: Oriented X 3.? No motor deficit.? No sensory deficit. CN 2-12 intact . Following commands. Normal strength upper and lower extremities. Course Reevaluation(s) Reevaluation #1: CBC no acute findings requiring intervention. Patient has a chronic anemia unchanged. Chronic thrombocytopenia Chemistry unremarkable no acute findings. No acute visible fracture dislocation, straightening of normal cervical curvature likely muscle spasms, no acute intracranial pathology. Baseline mentation per son. Urine, Troponin, EKG pending. Time: 12:00 Reevaluation #2: UA with infection will discharge home on Ceftin. EKG and troponin nonischemic. Educated patient on diagnosis and treatment plan, answered all question, patient verbalizes understanding. At this time patient will be discharged home, advised to return with new or worsening symptoms. Educated on worrisome signs and symptoms and when to return. At this time I feel comfortable discharge home. Time: 12:45 Medical Decision Making Medical Decision Making MDM Narrative: 63-year-old female presents after a fall with headstrike and no LOC witnessed by staff at facility. Poor historian. Vague abd pain complaints however this is not uncommon for patient PE:unremarkable. Likely concussion, constipation, gastroenteritis. Unlikely intracranial bleed, stroke, posterior stroke, hemorrhagic stroke, fracture, acute abdomen, SBO, LBO, diverticulitis, appendicitis, bowel perforation, pancreatitis, traumatic injury to head, neck, chest, abdomen or pelvis. No signs of cervical myelopathy, cord compression. Unlikely ACS, pulmonary embolism or dissection based on patient history and physical exam Plan: Labs, imaging, viral testing Differential Diagnosis Differential Diagnoses: The differential diagnosis associated with the presentation includes Likely concussion, constipation, gastroenteritis. Unlikely intracranial bleed, stroke, posterior stroke, hemorrhagic stroke, fracture, acute abdomen, SBO, LBO, diverticulitis, appendicitis, bowel perforation, pancreatitis, traumatic injury to head, neck, chest, abdomen or pelvis. No signs of cervical myelopathy, cord compression.Unlikely ACS, pulmonary embolism or dissection based on patient history and physical exam Admission/Observation Consideration of admission/observation: Escalation of care including admission/observation considered Unlikely Lab Data MDM Lab Attestation statement: I reviewed the patient's lab results. 10/06/23 09:35 10/06/23 09:35 Labs: Lab Results 10/06/23 10/06/23 Range/Units 09:35 11:54 WBC 5.9 (4.8-10.8) X10*3/uL RBC 3.18 L (4.20-5.50) X10*6/uL Hgb 10.1 L (12.0-16.0) g/dl Hct 31.2 L (37.0-47.0) % MCV 98.1 H (80.0-98.0) fL MCH 31.8 (27.0-33.0) pg MCHC 32.4 (31.0-35.0) g/dl RDW 13.1 (11.0-16.0) % Plt Count 69 L D (160-400) X10*3/uL MPV 9.7 (9.4-12.3) fL Immature Gran % (Auto) 4.9 H (0.0-0.4) % Neut % (Auto) 59.6 (45-73) % Lymph % (Auto) 25.3 (20-40) % Luce % (Auto) 8.3 (2-11) % Eos % (Auto) 1.9 (0-4) % Baso % (Auto) 0.0 (0-2) % Lymph # (Auto) 1.5 (1.2-4.9) X10*3/uL Luce # (Auto) 0.5 (0.1-1.2) X10*3/uL Eos # (Auto) 0.1 (0.0-0.4) X10*3/uL Baso # (Auto) 0.0 (0.0-0.2) X10*3/uL Abs Immat Gran (auto) 0.29 H (0.00-0.03) X10*3/uL Absolute Neuts (auto) 3.5 (2.0-8.3) x10*3/uL Absolute Nucleated RBC 0.000 (0.0-0.012) X10*3/uL Nucleated RBC % (auto) 0.0 (0.0-0.2) /100WBC PT 12.5 (11.1-13.3) SEC INR 1.0 (0.9-1.1) Sodium 140 (135-145) mmol/L Potassium 4.0 (3.3-5.1) mmol/L Chloride 105 (96-108) mmol/L Carbon Dioxide 26 (22-29) mmol/L Anion Gap 13 (12-20) BUN 21 H (9-16) mg/dL Creatinine 1.00 (0.5-1.4) mg/dL Estim Creat Clear Calc 75.7 Estimated GFR 56 Random Glucose 106 (60-115) mg/dL Calcium 9.1 D (8.4-10.2) mg/dL Magnesium 2.1 (1.6-2.6) mg/dL Total Bilirubin 0.3 (0.0-1.0) mg/dL AST 15 (5-31) U/L ALT < 5 (0-31) U/L Alkaline Phosphatase 63 (39-117) U/L Troponin I High Sens < 2.7 (<3.5-17.0) ng/L Total Protein 8.4 H (6.5-8.0) g/dL Albumin 3.8 (3.5-5.0) g/dL Urine Color Yellow Urine Appearance Clear Urine pH 7.0 (5.0-9.0) Ur Specific Mcfaddin 1.010 (1.005-1.025) Urine Protein Negative (Neg-Trace) mg/dL Urine Glucose (UA) Negative (Negative) mg/dL Urine Ketones Negative (Negative) mg/dL Urine Blood Moderate (2+) H (Negative) Urine Nitrite Negative (Negative) Ur Leukocyte Esterase Trace H (Negative) Urine RBC >20 H (0-2) /HPF Urine WBC 11-20 H (0-5) /HPF Ur Squamous Epith Cells 0-2 (0-2) /HPF Urine Bacteria 4+ (None Seen) Hyaline Casts 0-2 (0-2) /LPF COVID-19 ([facility]) Negative (Negative) COVID-19 Clin Com See Note Independent Interpretation I performed an independent interpretation of an: EKG (Ventricular rate of 70 [place] normal, QRS normal, QT/QTC normal. No ST elevations or inversions concerning for ischemia) and CT Scan (IMPRESSION: 1. No acute visible fracture or dislocation. 2. Straightening of normal cervical curvature which may be secondary to patient positioning versus muscle spasm. 3. Multilevel arthritic changes. CT/CT cervical spine wo IV con IMPRESSION: No acute intracranial pathology.) Radiology Impression Discussion of test interpretation with radiology: I have reviewed the radiologist's reading. Independent Historian Clinical information obtained from an independent historian. History obtained from or confirmed by: Other (son) External Record Review External record reviewed: Inpatient record, Office record, Outpatient record, Prior outpatient labs, Prior outpatient radiology, Primary care record and Outside ED record Chronic Conditions Patient?s care impacted by: Other (Cognitive impairment, dimension, Parkinson's, anxiety) Discharge Plan Discharge Clinical Impression: Fall, Concussion, UTI (urinary tract infection) Patient Disposition: Still a Patient Instructions: Concussion (ED), Fall Prevention (ED), Urinary Tract Infection in Older Adults (ED) Additional Instructions: Take your medications as prescribed. If you were prescribed antibiotics today, it is important that you take your medication to their entirety, do not skip any doses, do not finish them early. Follow-up with your primary care provider this week. Return to the emergency department with new or worsening symptoms. Such as fevers, chills, chest pain, shortness of breath, nausea, vomiting, dizziness, headache, vision changes, lethargy In case of emergency call 911 CT/CT head/brain wo IV con IMPRESSION: No acute intracranial pathology IMPRESSION: 1. No acute visible fracture or dislocation. 2. Straightening of normal cervical curvature which may be secondary to patient positioning versus muscle spasm. 3. Multilevel arthritic changes. Prescriptions: New cefuroxime axetil 250 mg tablet 250 mg PO BID 7 Days Qty: 14 0RF No Action phenytoin sodium extended 100 mg capsule 200 mg PO DAILY albuterol sulfate [Ventolin HFA] 90 mcg/actuation Hfa Aerosol Inhaler 2 puff INHALATION Q4-6H PRN (Reason: SOB) carbidopa-levodopa [Sinemet] 25-100 mg Tablet 1 tab PO BID (DME) bed alarm See Rx Instructions .Route .MEDSUPPLY Qty: 1 0RF Rx Instructions: [place] [place] See Rx Instructions .Route Qty: 1 0RF Rx Instructions: [place] [place] DermaGauze Hydrogel Dressing 4 X 4 bandage See Rx Instructions .Route Qty: 15 3RF Rx Instructions: As directed folic acid 1 mg tablet 1 mg PO DAILY 90 Days Qty: 90 0RF citalopram 20 mg tablet 20 mg PO DAILY 90 Days Qty: 90 0RF [place] [place] adult diapers pull-ups Large See Rx Instructions .Route .MEDSUPPLY Qty: 210 11RF Rx Instructions: As directed [place] [place] underpads [Bed Underpads] Pad See Rx Instructions .Route Qty: 40 3RF Rx Instructions: Use 2 once a day (DME) latex gloves [Latex Gloves, Large] Misc See Rx Instructions .Route Qty: 5 6RF Rx Instructions: As directed tamoxifen 20 mg tablet 20 mg PO DAILY Qty: 90 4RF aspirin [Adult Aspirin Regimen] 81 mg tablet,delayed release (DR/EC) 81 mg PO DAILY 90 Days Qty: 90 3RF [place] [place] Shower Chair Misc See Rx Instructions .Route Qty: 1 0RF Rx Instructions: As directed buspirone 15 mg tablet 15 mg PO TID 90 Days Qty: 270 1RF pravastatin 20 mg tablet 20 mg PO BEDTIME Qty: 90 0RF calcium carbonate 600 mg calcium (1,500 mg) tablet 600 mg PO BID Qty: 60 11RF hydroxyzine HCl 25 mg tablet 25 mg PO BID PRN (Reason: itching) 3 Days Qty: 6 0RF divalproex [Depakote] 125 mg tablet,delayed release (DR/EC) 375 mg PO TID cefdinir 300 mg capsule 300 mg PO BID 5 Days Qty: 10 0RF lamotrigine 25 mg tablet 25 mg PO BID 90 Days Qty: 180 1RF (DME) nonadhesive bandage See Rx Instructions .Route .MEDSUPPLY Qty: 1 0RF Rx Instructions: As directed desonide 0.05 % cream 1 appl topical BID PRN (Reason: rash) Qty: 15 0RF phenytoin sodium extended 300 mg capsule 300 mg PO BEDTIME potassium citrate 10 mEq (1,080 mg) tablet extended release 20 meq PO BID 90 Days Qty: 360 3RF terazosin 2 mg capsule 2 mg PO DAILY 90 Days Qty: 90 3RF Referrals: Maria Luz Vega MD [Primary Care Provider] - 2 days
--- NOTE | 2023-10-06 09:38 | PC.NURSE ---
pt returned from CT at this time. pt/family speaking w/ ED provider's at this time. pt c/o left sided headache/non-radiating lower abdominal pain. 20gIV placed in the left AC - labs drawn and sent to lab. c-collar remains in place. no sob/wob noted. respirations even/unlabored.
[2023-10-06 09:42] LABS: MANUAL DIFF FLAG NO
[2023-10-06 09:47] LABS: Eosinophils Absolute Auto 0.1 X10*3/uL (0.0-0.4); Eosinophils Percent Auto 1.9 % (0-4); Hematocrit 31.2 % (37.0-47.0); Hemoglobin 10.1 g/dl (12.0-16.0); Imm Gran Abs Auto 0.29 X10*3/uL (0.00-0.03); Imm Gran Pct Auto 4.9 % (0.0-0.4); Lymphocytes Absolute Auto 1.5 X10*3/uL (1.2-4.9); Lymphocytes Percent Auto 25.3 % (20-40); Mean Corpuscular HGB Conc 32.4 g/dl (31.0-35.0); Mean Corpuscular Hemoglobin 31.8 pg (27.0-33.0); Mean Corpuscular Volume 98.1 fL (80.0-98.0); Mean Platelet Volume 9.7 fL (9.4-12.3); Monocytes Absolute Auto 0.5 X10*3/uL (0.1-1.2); Monocytes Percent Auto 8.3 % (2-11); Neutrophils Absolute Auto 3.5 x10*3/uL (2.0-8.3); Neutrophils Percent Auto 59.6 % (45-73); Red Blood Count 3.18 X10*6/uL (4.20-5.50); Red Cell Distribution Width 13.1 % (11.0-16.0); White Blood Count 5.9 X10*3/uL (4.8-10.8)
[2023-10-06 09:48] LABS: Platelet Count 69 X10*3/uL (160-400)
[2023-10-06 09:50] LABS: Prothrombin Time 12.5 SEC (11.1-13.3)
[2023-10-06 09:57] LABS: COVID-19 Test Negative (Negative); IDNOW Serial# BCCEAD1C
[2023-10-06 10:00] LABS: Alanine Aminotransferase < 5 U/L (0-31); Albumin Level 3.8 g/dL (3.5-5.0); Alkaline Phosphatase 63 U/L (39-117); Anion Gap 13 (12-20); Aspartate Amino Transferase 15 U/L (5-31); Bilirubin Total 0.3 mg/dL (0.0-1.0); Blood Urea Nitrogen 21 mg/dL (9-16); Calcium 9.1 mg/dL (8.4-10.2); Carbon Dioxide 26 mmol/L (22-29); Chloride 105 mmol/L (96-108); Creatinine Clr Calc Pharmacy 75.7; Estimated Glomerular Filt Rate 56; Glucose Random 106 mg/dL (60-115); Magnesium 2.1 mg/dL (1.6-2.6); Sodium 140 mmol/L (135-145); Total Protein 8.4 g/dL (6.5-8.0)
[2023-10-06 11:53] VITALS: BP 135/72; PULSE 76; RESP 16; O2SAT 96
--- NOTE | 2023-10-06 11:58 | ECG_ITS ---
Test Reason : FALL Blood Pressure : / mmHG Vent. Rate : 070 BPM Atrial Rate : 070 BPM P-R Int : 206 ms QRS Dur : 098 ms QT Int : 414 ms P-R-T Axes : 056 -15 000 degrees QTc Int : 447 ms Normal sinus rhythm Nonspecific T wave abnormality Abnormal ECG When compared with ECG of 15-JUL-2023 08:45, Premature ventricular complexes are no longer Present Nonspecific T wave abnormality has replaced inverted T waves in Lateral leads Referred By: Mendez Cisneros Electronically Signed By:Michele Fan
[2023-10-06 12:03] LABS: Appearance Urine Clear; Color Urine Yellow; Glucose Urine UA Negative (Negative); Leukocyte Esterase Urine Trace (Negative); Nitrite Urine Negative (Negative); UMIC TRIGGER UACC YES; Urine Blood Moderate (2+) (Negative); Urine Ketones Negative (Negative); Urine Protein Negative (Neg-Trace)
[2023-10-06 12:07] LABS: Bacteria Urine 4+ (None Seen); Hyaline Casts Urine 0-2 /LPF (0-2); RBC Urine >20 /HPF (0-2); Squamous Epithelial Cell Urine 0-2 /HPF (0-2); UACC Culture Trigger YES
[2023-10-06 12:35] LABS: Troponin-I High Sensitivity < 2.7 ng/L (<3.5-17.0)
== END 2023-10-06 13:21 | disposition still patient (30) ==
PROVIDERS: Physician Assistant; Emergency Provider Student in an Organized Health Care Education/Training Program; PCP Internal Medicine
DX: S06.0X0A Concussion without loss of consciousness, initial encounter (principal); W18.30XA Fall on same level, unspecified, initial encounter; N39.0 Urinary tract infection, site not specified; R53.1 Weakness; Z11.52 Encounter for screening for COVID-19; E78.00 Pure hypercholesterolemia, unspecified; D69.6 Thrombocytopenia, unspecified; D64.9 Anemia, unspecified; G20.A1 Parkinson's disease without dyskinesia, without mention of fluctuations; F02.80 Dementia in other diseases classified elsewhere, unspecified severity, without behavioral disturbance, psychotic disturbance, mood disturbance, and anxiety; Z86.73 Personal history of transient ischemic attack (TIA), and cerebral infarction without residual deficits; Z87.891 Personal history of nicotine dependence; Z85.3 Personal history of malignant neoplasm of breast; Z79.82 Long term (current) use of aspirin; Z79.899 Other long term (current) drug therapy; Y93.89 Activity, other specified; Y92.129 Unspecified place in nursing home as the place of occurrence of the external cause; Y99.9 Unspecified external cause status
CPT/HCPCS: 36415; 70450; 72125; 80053; 81001; 81003; 83735; 84484; 85025; 85610; 87086; 87088; 87186; 87635; 93005; 99284; 99285

== ENCOUNTER → 2023-10-06 11:58 | Outpatient (BNV) | payer OTHER, SELFPAY | PROVIDERS: Emergency Provider Student in an Organized Health Care Education/Training Program; PCP Internal Medicine; Visit Provider Internal Medicine Cardiovascular Disease | DX: R94.31 Abnormal electrocardiogram [ECG] [EKG] (principal) | CPT/HCPCS: 93010 ==

== ENCOUNTER 2023-10-27 09:16 | Outpatient (REF) | payer OTHER, SELFPAY | END 2023-10-27 09:17 | disposition home or self-care (01) | LOC: HO.LAB 09:16 | PROVIDERS: PCP Internal Medicine; Visit Provider Psychiatry & Neurology Neurology | DX: G93.1 Anoxic brain damage, not elsewhere classified (principal) | CPT/HCPCS: 36415; 80076; 80185 ==

== ENCOUNTER 2023-10-27 12:54 | Inpatient (IN) | payer OTHER, SELFPAY ==
[2023-10-27] VITALS (25 sets, daily range): BP systolic 000–110; BP diastolic 00–52; PULSE 105–150; RESP 16–22; TEMP 37.3–40.1; O2SAT 89–100; BMI 34.7; BMI 32.5
--- NOTE | ~2023-10-27 | FL_ITS ---
EXAMINATION: FLUOROSCOPY BARIUM SWALLOW CLINICAL INFORMATION: Coughing with food COMPARISON: None TECHNIQUE: Fluoroscopic air contrast upper GI examination was performed utilizing standard techniques with thin and thick barium and effervescent granules. Numerous spot images were obtained. FINDINGS: Lateral cine images of the oropharynx and hypopharynx demonstrate normal swallow mechanism with normal epiglottic inversion and soft palate elevation. There is trace penetration with thick barium to the false cords. No subglottic or aspiration identified. No nasopharyngeal reflux present. Hypopharyngeal structures appear normal without evidence of mass or diverticulum. There is mild cricopharyngeal achalasia present. The remainder of the examination could not be performed, due to persistent vomiting. FLUOROSCOPY TIME: 38 seconds Number of Spot Images: 0 Number of Cine: 3 DOSE AREA PRODUCT: 781 uGy-m2 (microgray-meter squared) FL/FL barium swallow IMPRESSION: 1. Limited/incomplete examination due to persistent vomiting 2. Trace penetration to the false cords with thick barium 3. Mild cricopharyngeal achalasia This procedure was performed by Piero Larkin PA-C, and supervised by Dr. Price
--- NOTE | 2023-10-27 13:01 | ED.AMS ---
HPI - Altered Mental Status General Chief Complaint: Altered Mental Status Stated Complaint: Panic Attack Vomiting Time Seen by Provider: 10/27/23 13:19 Source: family and old records reviewed Mode of arrival: ambulatory Limitations: altered mental status History of Present Illness HPI narrative: 63 yo female with PMH of dementia confused but able to speak, brain aneurysm, seizures, anxiety, HLD, CVA, parkinsons was at day program today around 1230am became confused acting erractic vomited 7 times her O2 dropped. She was very fidgety on arrival. MD complaint: altered mental status, confusion, decreased responsiveness and weakness Onset (ago): hour(s) (1230am) Timing confirmed by: other (daughter) Severity: severe Consistency of symptoms: constant Context: unknown Associated symptoms: cough, chills and weakness Related Data Home Medications Medication Instructions Recorded Confirmed albuterol sulfate 90 mcg/actuation 2 puff inhalation Q4-6H PRN SOB 08/02/20 08/04/23 aerosol inhaler (Ventolin HFA) carbidopa 25 mg-levodopa 100 mg 1 tab PO BID@0900,1200 08/02/20 08/04/23 tablet (Sinemet) phenytoin sodium extended 100 mg 200 mg PO DAILY 08/02/20 08/04/23 capsule phenytoin sodium extended 300 mg 300 mg PO BEDTIME 10/07/21 08/04/23 capsule divalproex 125 mg tablet,delayed 375 mg PO TID 03/02/22 08/04/23 release (Depakote) quetiapine 25 mg tablet 25 mg PO BEDTIME 10/27/23 Previous Rx's Medication Instructions Recorded bed alarm #1 ea 05/15/21 hospital bed #1 ea 05/26/21 nonadhesive bandage #1 ea 07/02/21 gel dressing 4 X 4 (DermaGauze #15 ea 07/04/21 Hydrogel Dressing) citalopram 20 mg tablet 20 mg PO DAILY 90 days #90 tabs 07/09/21 folic acid 1 mg tablet 1 mg PO DAILY 90 days #90 tabs 07/09/21 lamotrigine 25 mg tablet 25 mg PO BID 90 days #180 tabs 09/25/21 adult diapers pull-ups #210 ea 12/22/21 underpads (Bed Underpads) #40 ea 12/22/21 latex gloves (Latex Gloves, Large) #5 boxes 02/26/22 tamoxifen 20 mg tablet 20 mg PO DAILY #90 tabs 03/29/22 potassium citrate 10 mEq (1,080 20 meq (2 x 10 mEq (1,080 mg)) PO 11/10/22 mg) tablet,extended release BID 90 days #360 tabs terazosin 2 mg capsule 2 mg PO DAILY 90 days #90 caps 11/10/22 aspirin 81 mg tablet,delayed 81 mg PO DAILY 90 days #90 tabs 01/20/23 release (Adult Aspirin Regimen) desonide 0.05 % topical cream 1 appl topical BID PRN rash #15 04/23/23 grams calcium carbonate 600 mg calcium 600 mg PO BID #60 tabs 08/30/23 (1,500 mg) tablet hydroxyzine HCl 25 mg tablet 25 mg PO BID PRN itching 3 days #6 09/07/23 tabs Shower Chair #1 ea 10/07/23 pravastatin 20 mg tablet 20 mg PO BEDTIME #90 tabs 10/10/23 buspirone 15 mg tablet 15 mg PO TID 90 days #270 tabs 10/14/23 Allergies Allergy/AdvReac Type Severity Reaction Status Date / Time fluticasone Allergy Unknown Verified 10/27/23 13:07 [From Advair Diskus] salmeterol Allergy Unknown Verified 10/27/23 13:07 [From Advair Diskus] Review of Systems Review of Systems: ROS unable to be obtained due to altered mental status PMFSH Past Medical History Attestation statement: The following information was validated with the patient. Source: old records reviewed Onset Date is defined in the Problem List Problems that require an onset date and time if occurred within 24 hrs of arrival to the ED Aortic Dissection and Rupture; Neurologic impairment; Cardiopulmonary Arrest; Endotracheal Intubation; Insertion or Replacement of Mechanical Circulatory Assist Device Medical History Anxiety Wound of right upper extremity Personal history of breast cancer Dementia Parkinsons disease Seizures Right arm fracture Cognitive impairment History of stroke Aggressive behavior Pure hypercholesterolemia Fall Triple negative malignant neoplasm of breast Surgical History Hx of colonoscopy History of lumpectomy of left breast History of cholecystectomy Family History Family History Father Medical history unknown Mother Medical history unknown Social History Social History Household Members: Family and Children Housing: House Are you a primary rn medicare to a significant other at home: No Do you presently have visiting nurse or other home services: No Alcohol intake: never Patient Tobacco Use Status: Former Tobacco user Quit Date: 2009 Tobacco use type: Cigarette Smoked in Last 30 Days: No e-Cigarette/Vaping Use: Never Used Second Hand Smoke Exposure: No Use of substances other than those prescribed or required for medical reasons: No Advance Directives: Yes Advance Directives on File: Yes Advance Directives Date on File: 07/30/22 service: No Current occupational status: retired and disabled Cognitive needs: Yes Hearing needs: No Vision needs: No Physical Exam ED Vital Signs: Vital Signs - 24 hr 10/27/23 13:03 10/27/23 13:27 10/27/23 14:34 Temperature 99.5 F Pulse Rate 150 H 108 H Respiratory Rate 20 17 Blood Pressure 000/00 L 109/39 L 110/52 L Pulse Oximetry 90 L 89 L 97 Oxygen Delivery Method Room Air Room Air Nasal Cannula Oxygen Flow Rate 5 10/27/23 14:57 10/27/23 15:41 10/27/23 16:38 Temperature 104.2 F H 103.6 F H 102.8 F H Pulse Rate 118 H Respiratory Rate 18 Blood Pressure 100/52 L Pulse Oximetry 100 Oxygen Delivery Method Nasal Cannula Oxygen Flow Rate 6 10/27/23 16:49 10/27/23 17:56 10/27/23 18:41 Temperature 102.2 F H 101.1 F H 100.1 F Pulse Rate 110 H 117 H Respiratory Rate 18 20 Blood Pressure 92/35 L 106/45 L Pulse Oximetry 96 97 96 Oxygen Delivery Method Nasal Cannula Nasal Cannula Nasal Cannula Oxygen Flow Rate 3 2 BMI result Body Mass Index 0.0 Appearance: Alert. confused. Moderate acute distress. Thrashing, having rigors, cannot stand on her own Eyes: Pupils equal, round and reactive to light. ENT: Pharynx normal. atraumatic Neck: Normal inspection. Neck supple. CVS: tachycardic heart rate and rhythm. Pulses normal. Respiratory: No respiratory distress. Breath sounds normal. Abdomen: Soft and nontender. Skin: Skin warm and hot to touch. pale skin color. Normal skin turgor. Extremities: No lower extremity edema. Neuro: answers to her name, tracking, confused, no focal deficits, having rigors Course Course Course Narrative: RME: 63 yo F w/PMHx dementia, parkinsons, CVA, breast CA, presenting to the ED from adult day program c/o AMS w/nausea and emesis about 7 episodes beginning around 12:30PM. Also noted to be hypoxic 85-90% on RA. Patient altered per daughter, nausea/vomiting in triage, zonia Will be brought back to [place] immediately EKG, labs, UA, head CT, CT chest and abdomen/pelvis ordered Full HPI, ROS and PE to be performed by primary ED provider. Reevaluation(s) Reevaluation #1: PATIENT IS OBESE IBW IS 156 LBS = 70KG = 2100 CC OF FLUIDS ORDERED Pneumonia, confusion, lactic acidosis lactic acid above 4 patient meet criteria for septic shock, IV fluid 30 cc/kg, broad-spectrum antibiotic coverage has been administrated, continue monitoring BP/MAP. Time: 16:30 Reevaluation #2: FOCUSED EXAM: 63-year-old female with pneumonia/sepsis, patient received 2100 cc fluids, covered with broad-spectrum antibiotic, improvement of repeat lactic acid, blood pressure has been stable, repeat troponin is elevated made delta change the case discussed with Dr. Fan who recommended to treat pneumonia and sepsis with serial troponins, no heparin is indicated at this point. Patient received 30 cc/kg fluid blood pressure is 90s over 50s with MAP of 52, Levophed was ordered will upgrade the admission to ICU level. case discussed with Dr. Guerrier Who has accepted the patient into ICU service. Time: 19:30 Medications Administered Discontinued Medications Generic Name Dose Route Start Last Admin Trade Name Freq PRN Reason Stop Dose Admin Acetaminophen 975 mg 10/27/23 13:44 10/27/23 13:55 Acetaminophen Supp 650 Mg Supp.Rect DC 10/27/23 13:45 975 mg ONCE ONE Administration Sodium Chloride 1,000 mls @ 999 mls/hr 10/27/23 13:45 10/27/23 14:46 Ns IV 10/27/23 14:45 Infused .Q1H1M CHRISTINE Infusion Ceftriaxone Sodium 1 gm/ 50 mls @ 100 mls/hr 10/27/23 13:50 10/27/23 15:43 Sodium Chloride IV 10/27/23 14:19 Infused ONCE ONE Infusion Sodium Chloride 1,000 mls @ 999 mls/hr 10/27/23 14:30 10/27/23 15:43 Ns IV 10/27/23 15:30 Infused .Q1H1M CHRISTINE Infusion Sodium Chloride 500 mls @ 500 mls/hr 10/27/23 14:45 10/27/23 17:09 Ns IV 10/27/23 15:44 Infused .Q1H CHRISTINE Infusion Magnesium Sulfate 2 gm in 50 mls @ 25 mls/hr 10/27/23 14:39 10/27/23 18:07 Magnesium Sulfate/H2o IV 10/27/23 16:38 Infused ONCE ONE Infusion Azithromycin 500 mg/ Sodium 250 mls @ 125 mls/hr 10/27/23 15:49 10/27/23 18:44 Chloride IV 10/27/23 17:48 Infused ONCE ONE Infusion Metronidazole 500 mg in 100 mls @ 100 mls/hr 10/27/23 16:05 10/27/23 18:38 Flagyl IV 10/27/23 17:04 100 mls/hr ONCE ONE Administration Ibuprofen 200 mg 10/27/23 15:52 10/27/23 16:28 Ibuprofen Oral Susp 200 Mg/10 Ml Oral.Susp PO 10/27/23 15:53 200 mg ONCE ONE Administration Ondansetron HCl 4 mg 10/27/23 13:05 10/27/23 13:34 Ondansetron Hcl 4 Mg/2 Ml Vial IVPUSH 10/27/23 13:06 4 mg ONCE ONE Administration Medical Decision Making Medical Decision Making MDM Narrative: 63 yo female with PMH of dementia confused but able to speak, brain aneurysm, seizures, anxiety, HLD, CVA, parkinsons was at day program today with vomiting, more confusion, low O2 sats. She is very confused but no focal deficits, she is very hot to the touch. At this time emergent CT head to rule out ICH though suspect more toxic/metabolic/infectious workup. UA, CXR, CT head, labs, IVF and zofran. Differential Diagnosis Differential Diagnoses: The differential diagnosis associated with the presentation includes ICH, viral syndrome, seizures, uti, pneumonia Admission/Observation Consideration of admission/observation: Escalation of care including admission/observation considered admit for fevers, hypoxia, pneumonia Consult Healthcare Provider Management of the patient was discussed with: Hospitalist (will admit) Lab Data MDM Lab Attestation statement: I reviewed the patient's lab results. 10/27/23 14:05 10/27/23 14:05 Labs: Lab Results 10/27/23 10/27/23 10/27/23 Range/Units 13:11 14:05 17:25 WBC 9.6 (4.8-10.8) X10*3/uL RBC 3.23 L (4.20-5.50) X10*6/uL Hgb 10.3 L (12.0-16.0) g/dl Hct 31.5 L (37.0-47.0) % MCV 97.5 (80.0-98.0) fL MCH 31.9 (27.0-33.0) pg MCHC 32.7 (31.0-35.0) g/dl RDW 13.1 (11.0-16.0) % Plt Count 47 L D (160-400) X10*3/uL MPV 12.0 (9.4-12.3) fL Immature Gran % (Auto) 3.5 H (0.0-0.4) % Neut % (Auto) 73.2 H (45-73) % Lymph % (Auto) 11.8 L (20-40) % [place] % (Auto) 11.1 H (2-11) % Eos % (Auto) 0.4 (0-4) % Baso % (Auto) 0.0 (0-2) % Lymph # (Auto) 1.1 L (1.2-4.9) X10*3/uL [place] # (Auto) 1.1 (0.1-1.2) X10*3/uL Eos # (Auto) 0.0 (0.0-0.4) X10*3/uL Baso # (Auto) 0.0 (0.0-0.2) X10*3/uL Abs Immat Gran (auto) 0.33 H (0.00-0.03) X10*3/uL Absolute Neuts (auto) 7.0 (2.0-8.3) x10*3/uL Absolute Nucleated RBC 0.020 H (0.0-0.012) X10*3/uL Nucleated RBC % (auto) 0.2 (0.0-0.2) /100WBC PT 13.2 (11.1-13.3) SEC INR 1.1 (0.9-1.1) Sodium 139 (135-145) mmol/L Potassium 4.1 (3.3-5.1) mmol/L Chloride 106 (96-108) mmol/L Carbon Dioxide 22 (22-29) mmol/L Anion Gap 15 (12-20) BUN 21 H (9-16) mg/dL Creatinine 1.61 H (0.5-1.4) mg/dL Estim Creat Clear Calc TNP Estimated GFR 32 POC Glucose 220 H (60-115) mg/dL Random Glucose 218 H (60-115) mg/dL Lactic Acid 4.5 H* (0.5-2.0) mmol/L Lactic Acid F/U @ 2Hr 2.7 H* (0.5-2.0) mmol/L Calcium 9.2 (8.4-10.2) mg/dL Magnesium 1.4 L* (1.6-2.6) mg/dL Total Bilirubin 0.4 (0.0-1.0) mg/dL Direct Bilirubin 0.1 (0.0-0.5) mg/dL AST 21 (5-31) U/L ALT < 5 (0-31) U/L Alkaline Phosphatase 68 (39-117) U/L Troponin I High Sens 27.3 H D 85.8 H* D (<3.5-17.0) ng/L Total Protein 8.2 H (6.5-8.0) g/dL Albumin 3.7 (3.5-5.0) g/dL Lipase 38 (8-78) U/L Valproic Acid 49.1 L (50.0-100.0) mcg/mL Influenza Type A (PCR) NEGATIVE (Negative) Influenza Type B (PCR) NEGATIVE (Negative) RSV RNA Qual (PCR) NEGATIVE (Negative) SARS-CoV-2 RNA (RT-PCR) NEGATIVE (Negative) Independent Interpretation I performed an independent interpretation of an: EKG, Plain X-Ray and CT Scan (no ICH) Interpretation: Rate: 137 Rhythm:sinus tachycardia Knott: left Normal P waves. Normal ROSY. Normal QRS complex. ST T wave : no BRENDA, inverted t waves in I and aVL qTC: 579 prior studies: no acute ischemia The study has been interpreted contemporaneously by me. . Radiology Impression Discussion of test interpretation with radiology: I have reviewed the radiologist's reading. Independent Historian Clinical information obtained from an independent historian. History obtained from or confirmed by: Other (daughter) External Record Review External record reviewed: Inpatient record Procedures EJ/Peripheral Line Arm L: Time Out Performed: Yes Skin Cleansed in Sterile Fashion: Yes Size (gauge): 20 IV Secured and Dressing Applied: Yes Patient Tolerated Procedure: well and no complications Critical Care Time Critical Care Time Critical Care Time: Yes Total Critical Care Time: 45 Attestation: sepsis protocol, work up chatman CT scan, reassessments, 30cc / kg bolus I attest to this time spent taking care of the patient Discharge Plan Discharge Clinical Impression: Acute febrile illness, Acidosis, lactic, Hypomagnesemia, Delirium due to general medical condition, KAREN (acute kidney injury) Pneumonia Qualifiers: Pneumonia type: due to unspecified organism Laterality: left Lung location: unspecified part of lung Qualified Code(s): J18.9 - Pneumonia, unspecified organism Patient Disposition: Admitted As Inpatient
[2023-10-27 14:41] LABS: Alanine Aminotransferase < 5 U/L (0-31); Albumin Level 3.7 g/dL (3.5-5.0); Alkaline Phosphatase 68 U/L (39-117); Anion Gap 15 (12-20); Aspartate Amino Transferase 21 U/L (5-31); Bilirubin Direct 0.1 mg/dL (0.0-0.5); Bilirubin Total 0.4 mg/dL (0.0-1.0); Blood Urea Nitrogen 21 mg/dL (9-16); Calcium 9.2 mg/dL (8.4-10.2); Carbon Dioxide 22 mmol/L (22-29); Chloride 106 mmol/L (96-108); Estimated Glomerular Filt Rate 32; Glucose Random 218 mg/dL (60-115); Lipase 38 U/L (8-78); Magnesium 1.4 mg/dL (1.6-2.6); Potassium 4.1 mmol/L (3.3-5.1); Sodium 139 mmol/L (135-145); Total Protein 8.2 g/dL (6.5-8.0)
--- NOTE | 2023-10-27 15:57 | PC.NURSE ---
Pt presented to ED altered, agitated and vomiting. Medicated with zofran on arrival by Adele ANDERSON. Pt to CT scan then to room 6. Pt no longer vomiting but verbally not responding appropriately. Pt changed to hospital attire and rectal temp obtained and 106, cooling blanket initialed and blood cultures obtained. Sinus tach on tele rate 120s. IV patent, medicated as charted and PA Tylenol given. Daughter remains at bedside. Pt needs frequent redirection d/t confusion and touching medical equipment but is easily redirected. Skin warm and dry, color appropriate for ethnicity. Temp is trending down and currently 103.6 per cooling blanket.
--- NOTE | 2023-10-27 16:39 | PC.NURSE ---
Attempting to repeat lactate and troponin, difficult stick, second tech attempting at this time.
--- NOTE | 2023-10-27 17:13 | PC.NURSE ---
Dr Astorga aware of BP, 500ns bolus to be given Third tech attempt with repeat lactic and troponin at this time
--- NOTE | 2023-10-27 17:57 | PC.NURSE ---
Temp 101.1, cooling blanket removed. Pt skin red despite flat sheet over cooling blanket. BP improved s/p 500ml bolus. Awaiting repeat lactic and trop
--- NOTE | 2023-10-27 20:21 | PM.CCHP ---
History of Present Illness Date of Service: 10/27/23 Attending physician on admission: Nahum Guerrier Chief Complaint: AMS The patient is a 63-year-old female with history of Parkinson?s disease, dementia, seizures, hypercholesterolemia, CVA, and breast cancer? who presented to the emergency room with altered mental status.? According to daughter,? patient was in day program when she suddenly became confused,? vomited and her O2 dropped. They also noted patient shaking, but unsure if it was seizure-like? activity? On arrival to the emergency room patient was febrile to 104.2,? tachycardic to 118, initially blood pressure was soft but later became hypotensive to 79/43 despite administration of fluids.? ? Laboratory data was significant for? platelets 47,? BUN 21, creatinine 1.61, lactic acid 4.5, Mag 1.4,? troponin sensitivity 27? IMAGING: ?HEAD CT: ? no intracranial bleed noted ?Chest CT:? left lower infiltrates noted.? ?Abdominal CT:? no acute intra-abdominal process, mild constipation was noted ED course:? ?Patient received 2.5 L bolus, ceftriaxone 1 g, azithromycin 500mg, Flagyl 500mg,? magnesium 2 g, in acetaminophen 975.? Patient was started on? Levophed due to sustained hypotension Review of Systems Review of Systems: Yes Unobtainable due to mental status PMFSH Past Medical History Medical History Anxiety Wound of right upper extremity Personal history of breast cancer Dementia Parkinsons disease Seizures Right arm fracture Cognitive impairment History of stroke Aggressive behavior Pure hypercholesterolemia Fall Triple negative malignant neoplasm of breast Family History Family History Father Medical history unknown Mother Medical history unknown Surgical History Surgical History Hx of colonoscopy History of lumpectomy of left breast History of cholecystectomy Social History Social History Household Members: Family and Children Housing: House Are you a primary field care advocate to a significant other at home: No Do you presently have visiting nurse or other home services: Yes ([facility]; 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 and 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) Alcohol intake: never Patient Tobacco Use Status: Former Tobacco user Quit Date: 2009 Tobacco use type: Cigarette Smoked in Last 30 Days: No e-Cigarette/Vaping Use: Never Used Patient Interested in Nicotine Replacement: No Patient Given Instructions on How to Stop Smoking: No Second Hand Smoke Exposure: No Use of substances other than those prescribed or required for medical reasons: No Currently Displaying Signs/Symptoms of Drug Intoxication Withdrawal: No Any prior treatment program specific to substance use: No Have you been hit, kicked, punched, or otherwise hurt by someone within the past year? If so, by whom?: No Do you feel safe in your current relationship?: Yes Is there a partner from a previous relationship who is making you feel unsafe now?: No Are you made to feel afraid or neglected: No Advance Directives: Yes Advance Directives on File: Yes Advance Directives Date on File: 07/30/22 Do you have thoughts of harming others: None Do you have a plan to hurt others: No Plan Recently lost weight without trying: No Eating poorly because of decreased appetite: No Nutrition Risks: No Nutritional Risk Patient : No : No Poor oral hygiene: No service: No Current occupational status: retired and disabled Cognitive needs: Yes Hearing needs: No Vision needs: No Meds Allergies Allergy/AdvReac Type Severity Reaction Status Date / Time fluticasone Allergy Unknown Verified 10/27/23 13:07 [From Advair Diskus] salmeterol Allergy Unknown Verified 10/27/23 13:07 [From Advair Diskus] Active Medications: Current Medications Heparin Sodium (Porcine) (Heparin Sodium,Porcine 5,000 Unit/Ml Vial) 5,000 unit SUBCUT Q8H CHRISTINE Norepinephrine Bitartrate (Levophed) 8 mg in 250 mls @ 0 mls/hr IV .Q0M CHRISTINE; Protocol Last Titration: 10/27/23 20:20 Dose: 0.11 mcg/kg/min, 23.31 mls/hr Home Medications Medication Instructions Recorded Confirmed Last Taken Type albuterol sulfate 90 mcg/actuation 2 puff inhalation Q4-6H PRN SOB 08/02/20 10/27/23 Unknown History aerosol inhaler (Ventolin HFA) carbidopa 25 mg-levodopa 100 mg 1 tab PO BID@0900,1200 08/02/20 10/27/23 10/27/23 12:00 History tablet (Sinemet) phenytoin sodium extended 100 mg 200 mg PO DAILY 08/02/20 10/27/23 10/27/23 09:00 History capsule phenytoin sodium extended 300 mg 300 mg PO BEDTIME 10/07/21 10/27/23 10/26/23 History capsule divalproex 125 mg tablet,delayed 375 mg PO TID 03/02/22 08/04/23 Unknown History release (Depakote) citalopram 20 mg tablet 20 mg PO BEDTIME 10/27/23 Unknown History quetiapine 25 mg tablet 25 mg PO BEDTIME 10/27/23 10/27/23 10/26/23 History Physical Exam Vital Signs: Vital Signs: Last Vital Signs Temp 100.1 F 10/27/23 18:41 Pulse 105 H 10/27/23 20:20 Resp 20 10/27/23 17:56 BP 87/42 L 10/27/23 20:20 Pulse Ox 96 10/27/23 18:41 O2 Del Method Nasal Cannula 10/27/23 18:41 O2 Flow Rate 2 10/27/23 18:41 BMI result Body Mass Index 34.7 focused assessment performed at 1930 ?General:? patient alert x self and place ( baseline), following simple commands ?HEENT:? Head is normocephalic, atraumatic, pupils equal round reactive to light accommodation bilaterally.? Extraocular movements appear intact.? Buccal mucosa is dry, Neck is supple ?Cardiac:? sinus tachycardia. Clear S1-S2, no murmurs rubs or gallops. ?Pulmonary:? lungs diminished, no wheezes, rales or rhonchi. ?Abdomen:? ?Abdomen soft, non-tender, non-distended. Normal bowel sounds. No pulsatile mass. No hepatosplenomegaly. ?Musculoskeletal:? Moving all 4 extremities upon request a major joints, there is no crepitus or tenderness.? The strength is 5/5 bilaterally and throughout all 4 extremities.? Gait not assessed at this point. ?Neurologic:? No focal deficits noted.Motor strength as above.?? ?Skin: patient has multiple scratches on BUE from patient picking at skin. Vascular:? 2+ pulses upper and lower extremities distally.? Results Labs 10/28/23 04:28 10/28/23 04:28 Labs: Laboratory Results - last 24 hr 0110/27/23 10/27/23 13:11 14:05 17:25 MCV 97.5 MCH 31.9 MCHC 32.7 RDW 13.1 Plt Count 47 L D MPV 12.0 Immature Gran % (Auto) 3.5 H Neut % (Auto) 73.2 H Lymph % (Auto) 11.8 L [place] % (Auto) 11.1 H Eos % (Auto) 0.4 Baso % (Auto) 0.0 Lymph # (Auto) 1.1 L [place] # (Auto) 1.1 Eos # (Auto) 0.0 Baso # (Auto) 0.0 Abs Immat Gran (auto) 0.33 H Absolute Neuts (auto) 7.0 Absolute Nucleated RBC 0.020 H Nucleated RBC % (auto) 0.2 PT 13.2 INR 1.1 Anion Gap 15 Estim Creat Clear Calc TNP Estimated GFR 32 POC Glucose 220 H Random Glucose 218 H Lactic Acid 4.5 H* Lactic Acid F/U @ 2Hr 2.7 H* Calcium 9.2 Magnesium 1.4 L* Total Bilirubin 0.4 Direct Bilirubin 0.1 AST 21 ALT < 5 Alkaline Phosphatase 68 Total Protein 8.2 H Albumin 3.7 Lipase 38 Valproic Acid 49.1 L Influenza Type A (PCR) NEGATIVE Influenza Type B (PCR) NEGATIVE RSV RNA Qual (PCR) NEGATIVE SARS-CoV-2 RNA (RT-PCR) NEGATIVE Imaging Radiologist's Impressions: Impressions Head CT 10/27/23 13:23 IMPRESSION: No acute intracranial process seen. This critical result was discussed with Dr. Siena Antoine at 1:28 PM on 11/13/2023. It was ascertained that the content and urgency of the report was understood at the time of direct communication. Abdomen/Pelvis CT 10/27/23 13:54 IMPRESSION: No acute intra-abdominal process seen. Mild constipation Chest CT 10/27/23 13:54 IMPRESSION: No acute intra-abdominal process seen. Mild constipation Assessment and Plan (1) Septic shock: Status: Acute (2) Acute respiratory failure with hypoxemia: Status: Acute (3) Pneumonia: Qualifiers: Laterality: left Lung location: unspecified part of lung Pneumonia type: due to unspecified organism Qualified Code(s): J18.9 - Pneumonia, unspecified organism Status: Acute (4) Aspiration into airway: Status: Acute (5) KAREN (acute kidney injury): Status: Acute (6) Elevated troponin: Status: Acute (7) Thrombocytopenia: Status: Acute Plan Neuro:? seizure/ Altered mental status,? Underlying hx of? seizure and dementia. ? seizure like activity? during the program,? patient?s daughter reports patient is compliant with her seizure medications but when pharmacy review home med list/ last refill of meds patient has not taken depakote/ lamictal.? No seizure-like activity since hospital arrival.? Will place patient on seizure precaution.?cont dilantin Cardiac:?? Septic shock, Source? possibly aspiration pneumonia..? Patient likely had an aspiration event while vomiting multiple times before arrival. ? On Levophed. ? Will continue antibiotics.? Wean off pressors when appropriate. ??Elevated troponin:? patient?s troponin elevated to 87 from 27.? Patient having any chest pain.? No significant changes in EKG.? Dr. Reed was consulted by ED provider,? no need for heparin drip at this time. Will cont to trend trops? Pulmonary:? ?Acute respiratory? failure with hypoxemia- ? this is likely due to aspiration event. Continue antibiotics.? Wean off supplemental oxygenation as tolerated.? Renal:?? KAREN- most likely related to hypoperfusion, nonoliguric.? Received 2.5L in the ED.? Continue to check renal induces and urine output Endo:? No acute issues.?? GI:? no acute issues ID:? septic shock from aspiration pneumonia received? ceftriaxone, azithromycin, and Flagyl in the ED.? will switch to Unasyn.? Heme/Onc:?? ?Thrombocytopenia-? patient tends to have chronic thrombocytopenia,? but today is 47, will avoid heparin at this time.? Psych:? No acute issues. Miscellaneous:? no acute issues Diet: NPO prophylaxis:? will use? bilateral compression device due to underlying thrombocytopenia Critical care time:? X 90 minutes of critical care time case discussed with attending Dr Guerrier
--- NOTE | 2023-10-27 20:22 | PC.NURSE ---
this rn assumed care of pt @ 1900. pt daughter at bedside. norepi gtt infusing. awaiting bed assignment in ICU. this n attempted x 2 for iv line. additional rn attempted x 2 for additional iv line. this rn made gas charger aware. dr del real aware. icu made aware
--- NOTE | 2023-10-27 21:15 | PC.NURSE ---
this rn and agricultural real estate agent transported pt to bed assignment in icu. bedside/verbal report given
--- NOTE | 2023-10-27 22:30 | PHA.MEDREC ---
Pharmacy Consult ? Medication Reconciliation Pharmacy has completed the medication reconciliation. Spoke to patient's daughter which had an outdated med list. Called patient's pharmacy to get med rec based off claim history. Per pt's pharmacy, lamictal and celexa last filled March 2023 for 3 months supply with no refills. For depakote, patient last filled in june for one week supply. Leaving as unconfirmed on med rec due to 3 month gap for all medications and unsure if patient still taking. Provider is aware of this.
[2023-10-28] VITALS (41 sets, daily range): BP systolic 80–136; BP diastolic 35–86; PULSE 87–120; RESP 15–27; TEMP 37.2–39.3; O2SAT 91–100; BMI 33.7
--- NOTE | 2023-10-28 00:27 | W.PM.CCHP ---
Procedures Date of Service Date of Service: 10/28/23 <Alyssa Marsh NP - Last Filed: 10/28/23 00:30> 10/28/23 <Nahum Guerrier MD - Last Filed: 10/28/23 10:52> Central Line Placement Right IJ: Central Line Comments: Patient with poor peripheral vasuculature, requiring vasopressor support. Emergent right internal jugular triple lumen central venous catheter placed in usual sterile conditions under ultrasound guidance for appropriate vascular access without immediate complications. Central line position verified with Chest XRAY. <Alyssa Marsh NP - Last Filed: 10/28/23 00:30> Consent for Procedure: Emergent-no informed consent obtained <Alyssa Marsh NP - Last Filed: 10/28/23 00:30> Time out performed: Yes <Alyssa Marsh NP - Last Filed: 10/28/23 00:30> Sterile Technique Used: Yes <Alyssa Marsh NP - Last Filed: 10/28/23 00:30> Patient placed on monitor/pulse ox: Yes <Alyssa Marsh NP - Last Filed: 10/28/23 00:30> MD prep: mask, gown and gloves <Alyssa Marsh NP - Last Filed: 10/28/23 00:30> Central line prep: Chlorhexidine scrub <Alyssa Marsh NP - Last Filed: 10/28/23 00:30> Local anesthesia used: lidocaine 1% <Alyssa Marsh NP - Last Filed: 10/28/23 00:30> Amount of anesthesia used (ml): 1 <Alyssa Marsh NP - Last Filed: 10/28/23 00:30> Ultrasound used for placement: Yes <Alyssa Marsh NP - Last Filed: 10/28/23 00:30> Central line lumen inserted: triple <Alyssa Marsh NP - Last Filed: 10/28/23 00:30> Post procedure: sutured in place, good blood return, all ports aspirated, flushed, capped and sterile dressing applied <Alyssa Marsh NP - Last Filed: 10/28/23 00:30> Post procedure x-ray: tip of catheter in good position and no pneumothorax seen <Alyssa Marsh NP - Last Filed: 10/28/23 00:30> Patient tolerated procedure: well and no complications <Alyssa Marsh NP - Last Filed: 10/28/23 00:30> Complications: none <Alyssa Marsh NP - Last Filed: 10/28/23 00:30>
[2023-10-28 01:13] LABS: Lactic Acid 3.3 mmol/L (0.5-2.0)
[2023-10-28 01:59] LABS: Appearance Urine Turbid; Color Urine Dark Yellow; Glucose Urine UA Negative (Negative); Leukocyte Esterase Urine Small (1+) (Negative); Nitrite Urine Negative (Negative); UMIC TRIGGER UACC YES; Urine Blood Large (3+) (Negative); Urine Ketones Trace mg/dL (Negative); Urine Protein 30 (1+) mg/dL (Neg-Trace)
[2023-10-28 02:32] LABS: Bacteria Urine 1+ (None Seen); Granular Casts Urine Present; RBC Urine >20 /HPF (0-2); UACC Culture Trigger YES
[2023-10-28 04:36] LABS: PLT CLUMP 1
[2023-10-28 04:38] LABS: Hematocrit 28.1 % (37.0-47.0); Hemoglobin 9.1 g/dl (12.0-16.0); Mean Corpuscular HGB Conc 32.4 g/dl (31.0-35.0); Mean Corpuscular Hemoglobin 31.4 pg (27.0-33.0); Mean Corpuscular Volume 96.9 fL (80.0-98.0); Mean Platelet Volume 11.1 fL (9.4-12.3); Red Cell Distribution Width 13.4 % (11.0-16.0)
[2023-10-28 04:51] LABS: Alanine Aminotransferase 33 U/L (0-31); Alkaline Phosphatase 54 U/L (39-117); Anion Gap 15 (12-20); Aspartate Amino Transferase 60 U/L (5-31); Bilirubin Total 0.4 mg/dL (0.0-1.0); Blood Urea Nitrogen 25 mg/dL (9-16); Calcium 7.9 mg/dL (8.4-10.2); Carbon Dioxide 18 mmol/L (22-29); Chloride 111 mmol/L (96-108); Creatinine Clr Calc Pharmacy 45.8; Estimated Glomerular Filt Rate 31; Glucose Random 151 mg/dL (60-115); Magnesium 1.6 mg/dL (1.6-2.6); Phosphorus 1.8 mg/dL (2.7-4.5); Potassium 3.3 mmol/L (3.3-5.1); Sodium 141 mmol/L (135-145); Total Protein 6.6 g/dL (6.5-8.0)
[2023-10-28 04:58] LABS: Platelet Count 61 X10*3/uL (160-400); White Blood Count 46.8 X10*3/uL (4.8-10.8)
[2023-10-28 05:19] LABS: Venous Blood Gas Refer to POC result
[2023-10-28 05:26] LABS: Band Neutrophils Percent 20 % (3-5); Lymphocytes Absolute Manual 1.4 X10*3/uL (1.2-4.9); Lymphocytes Percent Manual 3 % (20-40); Metamyelocytes Absolute 2.8 X10*3/uL; Metamyelocytes Percent 6 %; Monocytes Absolute Manual 9.8 X10*3/uL (0.1-1.2); Monocytes Percent Manual 21 % (2-11); Neutrophils Absolute Manual 32.8 X10*3/uL (2.0-8.3); Neutrophils Percent Manual 50 % (45-73)
[2023-10-28 05:29] LABS: Basophilic Stippling 1+ (0-2) /OIF; Macrocytosis 1+ (5-14) /OIF; RBC Morphology NOTED
[2023-10-28 05:30] LABS: Polychromasia 1+ (0-2) /OIF; Toxic Vacuolation PRESENT
[2023-10-28 05:31] LABS: Dohle Bodies PRESENT
[2023-10-28 05:32] LABS: Large Platelet PRESENT; Platelet Estimate DECREASED (NORMAL); Platelet Morphology Comment NOTED
--- NOTE | 2023-10-28 06:38 | PC.NURSE ---
Patient admitted from the ED at 0. Patient's daughter was at bedside and able to answer admission history questions. Levophed titrated overnight, see EMAR. Aniket Marsh DNP aware of decreased urine output. Patient is able to express her needs, and is redirectable.
--- NOTE | 2023-10-28 10:52 | PM.CCPN ---
Subjective Subjective Date of Service: 10/28/23 Interval History: 63-year-old lady with underlying Parkinson's, dementia, seizures, CVA, remote breast cancer admitted on 10/27/2023 with alteration of mental status and hypotension after vomiting with likely aspiration component. Patient started on Unasyn and pressor support and admitted to intensive care unit. No events overnight. Critical Care Time (minutes): 60 Physical Exam Vital Signs: Vital Signs: Last Vital Signs Temp 99.7 F 10/28/23 10:00 Pulse 104 H 10/28/23 10:32 Resp 23 H 10/28/23 10:00 BP 107/60 10/28/23 10:32 Pulse Ox 98 10/28/23 10:00 O2 Del Method Room Air 10/28/23 10:00 O2 Flow Rate 2 10/28/23 09:00 Oxygen Flow Rate 2 10/27/23 21:37 BMI result Body Mass Index 33.7 Const: General: no acute distress, alert and awake Eyes: Sclerae: sclerae normal EOM: EOMs intact bilaterally Neck: Neck: Yes no lymphadenopathy, Yes trachea midline and Yes supple Resp: Effort & Inspection: normal respiratory effort and no respiratory distress Auscultation: clear to auscultation bilaterally Cardio: Rate: tachycardic Rhythm: regular rhythm Heart sounds: no gallops, no murmurs and no rubs GI: Palpation (GI): Soft to palpation and Other GI palpation findings present ( Nontender) Auscultation: normal bowel sounds Extrem: General: No clubbing, No cyanosis and Yes edema (Trace bilateral) Objective Data Labs 10/28/23 04:28 10/28/23 04:28 Labs: Laboratory Results - last 24 hr 10/27/23 10/27/23 10/27/23 13:11 14:05 17:25 WBC 9.6 RBC 3.23 L Hgb 10.3 L Hct 31.5 L MCV 97.5 MCH 31.9 MCHC 32.7 RDW 13.1 Plt Count 47 L D MPV 12.0 Immature Gran % (Auto) 3.5 H Neut % (Auto) 73.2 H Lymph % (Auto) 11.8 L [place] % (Auto) 11.1 H Eos % (Auto) 0.4 Baso % (Auto) 0.0 Lymph # (Auto) 1.1 L [place] # (Auto) 1.1 Eos # (Auto) 0.0 Baso # (Auto) 0.0 Abs Immat Gran (auto) 0.33 H Absolute Neuts (auto) 7.0 Absolute Nucleated RBC 0.020 H Nucleated RBC % (auto) 0.2 Neutrophils % (Manual) Band Neutrophils % Lymphocytes % (Manual) Monocytes % (Manual) Metamyelocytes % Abs Neuts (Manual) Lymphocytes # (Manual) Monocytes # (Manual) Metamyelocytes # Toxic Vacuolation Dohle Bodies Platelet Estimate Large Platelets Plt Morphology Comment RBC Morphology Polychromasia Basophilic Stippling Macrocytosis PT 13.2 INR 1.1 VBG pH VBG pCO2 VBG pO2 VBG HCO3 VBG O2 Saturation VBG Base Excess Sodium 139 Potassium 4.1 Chloride 106 Carbon Dioxide 22 Anion Gap 15 BUN 21 H Creatinine 1.61 H Estim Creat Clear Calc TNP Estimated GFR 32 POC Glucose 220 H Random Glucose 218 H Lactic Acid 4.5 H* Lactic Acid F/U @ 2Hr 2.7 H* Lactic Acid F/U @ 4Hr Calcium 9.2 Phosphorus Magnesium 1.4 L* Total Bilirubin 0.4 Direct Bilirubin 0.1 AST 21 ALT < 5 Alkaline Phosphatase 68 Troponin I High Sens 27.3 H D 85.8 H* D Total Protein 8.2 H Albumin 3.7 Lipase 38 Urine Color Urine Appearance Urine pH Ur Specific [place] Urine Protein Urine Glucose (UA) Urine Ketones Urine Blood Urine Nitrite Ur Leukocyte Esterase Urine RBC Urine WBC Ur Squamous Epith Cells Urine Bacteria Hyaline Casts Granular Casts Valproic Acid 49.1 L Influenza Type A (PCR) NEGATIVE Influenza Type B (PCR) NEGATIVE RSV RNA Qual (PCR) NEGATIVE SARS-CoV-2 RNA (RT-PCR) NEGATIVE 10/27/23 10/28/23 10/28/23 21:43 00:55 01:19 WBC RBC Hgb Hct MCV MCH MCHC RDW Plt Count MPV Immature Gran % (Auto) Neut % (Auto) Lymph % (Auto) [place] % (Auto) Eos % (Auto) Baso % (Auto) Lymph # (Auto) [place] # (Auto) Eos # (Auto) Baso # (Auto) Abs Immat Gran (auto) Absolute Neuts (auto) Absolute Nucleated RBC Nucleated RBC % (auto) Neutrophils % (Manual) Band Neutrophils % Lymphocytes % (Manual) Monocytes % (Manual) Metamyelocytes % Abs Neuts (Manual) Lymphocytes # (Manual) Monocytes # (Manual) Metamyelocytes # Toxic Vacuolation Dohle Bodies Platelet Estimate Large Platelets Plt Morphology Comment RBC Morphology Polychromasia Basophilic Stippling Macrocytosis PT INR VBG pH VBG pCO2 VBG pO2 VBG HCO3 VBG O2 Saturation VBG Base Excess Sodium Potassium Chloride Carbon Dioxide Anion Gap BUN Creatinine Estim Creat Clear Calc Estimated GFR POC Glucose Random Glucose Lactic Acid 3.3 H* Lactic Acid F/U @ 2Hr Lactic Acid F/U @ 4Hr 3.3 H* Calcium Phosphorus Magnesium Total Bilirubin Direct Bilirubin AST ALT Alkaline Phosphatase Troponin I High Sens 87.0 H* Total Protein Albumin Lipase Urine Color Dark Yellow Urine Appearance Turbid Urine pH 5.0 Ur Specific [place] 1.020 Urine Protein 30 (1+) H Urine Glucose (UA) Negative Urine Ketones Trace Urine Blood Large (3+) H Urine Nitrite Negative Ur Leukocyte Esterase Small (1+) H Urine RBC >20 H Urine WBC 6-10 Ur Squamous Epith Cells 6-10 Urine Bacteria 1+ Hyaline Casts 11-20 Granular Casts Present Valproic Acid Influenza Type A (PCR) Influenza Type B (PCR) RSV RNA Qual (PCR) SARS-CoV-2 RNA (RT-PCR) 10/28/23 10/28/23 10/28/23 04:28 04:30 07:12 WBC 46.8 H* RBC 2.90 L Hgb 9.1 L Hct 28.1 L MCV 96.9 MCH 31.4 MCHC 32.4 RDW 13.4 Plt Count 61 L D MPV 11.1 Immature Gran % (Auto) Neut % (Auto) Lymph % (Auto) [place] % (Auto) Eos % (Auto) Baso % (Auto) Lymph # (Auto) [place] # (Auto) Eos # (Auto) Baso # (Auto) Abs Immat Gran (auto) Absolute Neuts (auto) Absolute Nucleated RBC 0.020 H Nucleated RBC % (auto) 0.0 Neutrophils % (Manual) 50 Band Neutrophils % 20 H Lymphocytes % (Manual) 3 L Monocytes % (Manual) 21 H Metamyelocytes % 6 Abs Neuts (Manual) 32.8 H Lymphocytes # (Manual) 1.4 Monocytes # (Manual) 9.8 H Metamyelocytes # 2.8 Toxic Vacuolation PRESENT Dohle Bodies PRESENT Platelet Estimate DECREASED Large Platelets PRESENT Plt Morphology Comment NOTED RBC Morphology NOTED Polychromasia 1+ (0-2) Basophilic Stippling 1+ (0-2) Macrocytosis 1+ (5-14) PT INR VBG pH 7.43 VBG pCO2 26 VBG pO2 51 VBG HCO3 17 L VBG O2 Saturation 83.0 VBG Base Excess -5.1 Sodium 141 Potassium 3.3 Chloride 111 H Carbon Dioxide 18 L Anion Gap 15 BUN 25 H Creatinine 1.66 H Estim Creat Clear Calc 45.8 Estimated GFR 31 POC Glucose Random Glucose 151 H Lactic Acid Lactic Acid F/U @ 2Hr 3.3 H* Lactic Acid F/U @ 4Hr 3.2 H* Calcium 7.9 L D Phosphorus 1.8 L Magnesium 1.6 Total Bilirubin 0.4 Direct Bilirubin AST 60 H ALT 33 H Alkaline Phosphatase 54 Troponin I High Sens Total Protein 6.6 Albumin 3.0 L Lipase Urine Color Urine Appearance Urine pH Ur Specific [place] Urine Protein Urine Glucose (UA) Urine Ketones Urine Blood Urine Nitrite Ur Leukocyte Esterase Urine RBC Urine WBC Ur Squamous Epith Cells Urine Bacteria Hyaline Casts Granular Casts Valproic Acid Influenza Type A (PCR) Influenza Type B (PCR) RSV RNA Qual (PCR) SARS-CoV-2 RNA (RT-PCR) Progress Note: A&P Assessment and plan (1) Aspiration into airway: Status: Acute (2) Delirium due to general medical condition: Status: Acute (3) Parkinsons disease: Status: Acute (4) Dementia: Status: Acute (5) Seizures: Status: Acute Plan Assessment: 63-year-old lady admitted with septic shock secondary to pulmonary aspiration after likely seizure event on the background of known Parkinson dementia and seizure disorder Plan: Neuro: Continues on antiepileptics. No seizure recurrence. Underlying Parkinson disease. Cardiac: Septic shock, continue to titrate off pressor support as tolerated. Pulmonary: Acute hypoxemia secondary to pulmonary aspiration, continue to titrate off oxygen as tolerated. Renal: Acute renal failure, secondary to septic shock. Non oliguric. Continue to monitor renal indices and urine output. Endo: No acute issues. GI: No acute issues. ID: No acute issues Heme/Onc: No acute issues. Psych: No acute issues. Miscellaneous: No acute issues. Prophylaxis: Heparin Diet: Regular Critical care time spent: 60 minutes Quality Stroke Does the patient have a stroke diagnosis?: No VTE Prior VTE?: No VTE Risk Level:: Medical - moderate - high VTE Device Contraindication: N/A - Device Ordered VTE Drug Contraindication: N/A - Med Ordered
--- NOTE | 2023-10-28 13:44 | MHC.SL.SWA ---
Speech Pathologist Impression: Risk of Aspiration Due to: Neurological Condition History of Pneumonia Dysphasia Diet Status: Liquid Consistency and Strategies for Safe Swallow: Liquid Intake Recommendation: Thin Liquid Intake Strategies: Unrestricted Solid Food Consistency: Dietary Recommendations: Regular Additional Modifications to Solid Foods: Patient may need some initial supervision when given tray to assure that she is well set up with meal and progressing. Oral Medication Intake: Whole with Liquid Please contact the pharmacy regarding appropriate crushable or liquid drug formulations that are available whenever modified delivery is recommended. Compensatory Strategies and Precautions to be Taken for Safe Swallow: Sitting Upright (90 deg) Small Bites and Sips Supervision While Eating and Drinking for Safe Swallow: Intermittent Supervision Foods to Avoid: Tough difficult to chew solids. Swallowing Recommended Treatments: Recommendation for Speech: NA:Typical Evaluation Comment: Patient presents with limited dentition (no upper teeth) but otherwise with all aspects of oral motor function wfl. Due to dentition issue, patient is slow to masticate advanced textures, but otherwise all aspects of swallow WFL. Recommend START diet of REGULAR with THIN liquids, pills whole with liquid. Allow patient to choose preferred foods from menu, however discourage tough to chew solids (e.g. tough meats, crunchy foods). As swallow mostly WFL, no further services needed at this time from [employer], and will D/C. , RN advised of recommendation in person. Frequency/Duration: Date Range for Service Req: Timeline to reassess: D[employer] Grinder Tender Clinican/Clinical Fellow: No Supervisory Statement: I have reviewed and agree with the student/clinical fellow's documentation: N/A Speech Language Pathologist: Aleena Meier M.A., [facility]
--- NOTE | 2023-10-28 15:38 | MHC.CM.PN ---
Pt admitted to ICU w/septic shock. Unable to particpate in CM assessment or d/c planning. HCP on file naming dtr Julienne as agent: call placed and message left requesting a call back. CM to await pt or family response for finalization of d/c needs.
[2023-10-29] VITALS (17 sets, daily range): BP systolic 99–139; BP diastolic 46–71; PULSE 102–117; RESP 16–24; TEMP -12–38.6; O2SAT 93–97; BMI 32.8
--- NOTE | 2023-10-29 10:54 | PM.CCPN ---
Subjective Subjective Date of Service: 10/29/23 Interval History: 63-year-old lady with underlying Parkinson's, dementia, seizures, CVA, remote breast cancer admitted on 10/27/2023 with alteration of mental status and hypotension after vomiting with likely aspiration component. Patient started on Unasyn and pressor support and admitted to intensive care unit. No events overnight. Titrated off pressor support. Past speech bedside swallow evaluation, however still with an aspiration event during dinner, MBS ordered. Critical Care Time (minutes): 30 Physical Exam Vital Signs: Vital Signs: Last Vital Signs Temp 99.9 F 10/29/23 09:00 Pulse 105 H 10/29/23 10:00 Resp 19 10/29/23 10:00 BP 117/64 10/29/23 10:00 Pulse Ox 93 10/29/23 10:00 O2 Del Method Room Air 10/29/23 10:00 O2 Flow Rate 30 10/29/23 08:00 FiO2 40 10/29/23 08:00 Oxygen Flow Rate 2 10/27/23 21:37 BMI result Body Mass Index 32.8 Const: General: no acute distress, alert and awake Eyes: Sclerae: sclerae normal EOM: EOMs intact bilaterally Neck: Neck: Yes no lymphadenopathy, Yes trachea midline and Yes supple Resp: Effort & Inspection: normal respiratory effort and no respiratory distress Auscultation: clear to auscultation bilaterally Cardio: Rate: tachycardic Rhythm: regular rhythm Heart sounds: no gallops, no murmurs and no rubs GI: Palpation (GI): Soft to palpation and Other GI palpation findings present ( Nontender) Auscultation: normal bowel sounds Extrem: General: Yes no pedal edema, No clubbing and No cyanosis Objective Data Labs 10/29/23 05:38 10/29/23 05:38 Labs: Laboratory Results - last 24 hr 10/27/23 10/28/23 10/29/23 16:43 04:28 05:38 WBC 24.2 H RBC 2.47 L Hgb 7.8 L Hct 24.6 L MCV 99.6 H MCH 31.6 MCHC 31.7 RDW 13.8 Plt Count 37 L D MPV 11.5 Immature Gran % (Auto) Cancelled Neut % (Auto) Cancelled Lymph % (Auto) Cancelled Anson % (Auto) Cancelled Eos % (Auto) Cancelled Baso % (Auto) Cancelled Lymph # (Auto) Cancelled Anson # (Auto) Cancelled Eos # (Auto) Cancelled Baso # (Auto) Cancelled Abs Immat Gran (auto) Cancelled Absolute Neuts (auto) Cancelled Absolute Nucleated RBC 0.000 Nucleated RBC % (auto) 0.0 Neutrophils % (Manual) 63 Band Neutrophils % 25 H Lymphocytes % (Manual) 8 L Atypical Lymphs % (Man) 1 Monocytes % (Manual) 3 Abs Neuts (Manual) 21.3 H Lymphocytes # (Manual) 1.9 Atyp Lymphs # (Manual) 0.2 Monocytes # (Manual) 0.7 Toxic Vacuolation PRESENT Dohle Bodies PRESENT Platelet Estimate DECREASED Large Platelets PRESENT Plt Morphology Comment NOTED RBC Morphology NOTED Polychromasia 1+ (0-2) Basophilic Stippling 2+ (3-5) Microcytosis 1+ (5-14) Smear Path Review SEE NOTE VBG pH VBG pCO2 VBG pO2 VBG HCO3 VBG O2 Saturation VBG Base Excess Sodium 146 H Potassium 3.2 L Chloride 114 H Carbon Dioxide 19 L Anion Gap 16 BUN 20 H Creatinine 1.28 Estim Creat Clear Calc 59.7 Estimated GFR 42 Random Glucose 91 Calcium 8.4 D Phosphorus 1.9 L Magnesium 1.8 Albumin 3.9 Respiratory Panel Estrella See Note Adenovirus (Rapid PCR) Not Detected B.pert (TEM-PCR) Not Detected B.parapertussis DNA PCR Not Detected C. pneumoniae DNA (PCR) Not Detected Coronavirus OC43 (PCR) Not Detected Coronavirus HKU1 (PCR) Not Detected Coronavirus 229E (PCR) Not Detected Coronavirus NL63 (PCR) Not Detected Human Metapneumovir PCR Not Detected Influenza A (RT-PCR) Not Detected Influenza B (RT-PCR) Not Detected M. pneumoniae (PCR) Not Detected Parainfluenza 1 (PCR) Not Detected Parainfluenza 2 (PCR) Not Detected Parainfluenza 3 (PCR) Not Detected Parainfluenza 4 (PCR) Not Detected RSV (PCR) Not Detected Entero/Rhino (PCR) Not Detected SARS-CoV-2 RNA (RT-PCR) Not Detected 10/29/23 05:46 WBC RBC Hgb Hct MCV MCH MCHC RDW Plt Count MPV Immature Gran % (Auto) Neut % (Auto) Lymph % (Auto) Anson % (Auto) Eos % (Auto) Baso % (Auto) Lymph # (Auto) Anson # (Auto) Eos # (Auto) Baso # (Auto) Abs Immat Gran (auto) Absolute Neuts (auto) Absolute Nucleated RBC Nucleated RBC % (auto) Neutrophils % (Manual) Band Neutrophils % Lymphocytes % (Manual) Atypical Lymphs % (Man) Monocytes % (Manual) Abs Neuts (Manual) Lymphocytes # (Manual) Atyp Lymphs # (Manual) Monocytes # (Manual) Toxic Vacuolation Dohle Bodies Platelet Estimate Large Platelets Plt Morphology Comment RBC Morphology Polychromasia Basophilic Stippling Microcytosis Smear Path Review VBG pH 7.48 H VBG pCO2 27 VBG pO2 52 VBG HCO3 20 L VBG O2 Saturation 85.0 VBG Base Excess -2.0 Sodium Potassium Chloride Carbon Dioxide Anion Gap BUN Creatinine Estim Creat Clear Calc Estimated GFR Random Glucose Calcium Phosphorus Magnesium Albumin Respiratory Panel Estrella Adenovirus (Rapid PCR) B.pert (TEM-PCR) B.parapertussis DNA PCR C. pneumoniae DNA (PCR) Coronavirus OC43 (PCR) Coronavirus HKU1 (PCR) Coronavirus 229E (PCR) Coronavirus NL63 (PCR) Human Metapneumovir PCR Influenza A (RT-PCR) Influenza B (RT-PCR) M. pneumoniae (PCR) Parainfluenza 1 (PCR) Parainfluenza 2 (PCR) Parainfluenza 3 (PCR) Parainfluenza 4 (PCR) RSV (PCR) Entero/Rhino (PCR) SARS-CoV-2 RNA (RT-PCR) Microbiology Microbiology Results: Microbiology 10/28/23 Unknown Urine clean catch - Urine graham top Urine Culture - Final No growth. 10/27/23 14:32 Blood - Venous Blood Culture - Preliminary No growth after 24 hours. 10/27/23 14:05 Blood - Venous Blood Culture - Preliminary No growth after 24 hours. Progress Note: A&P Assessment and plan (1) Acute respiratory failure with hypoxemia: Status: Acute (2) Aspiration into airway: Status: Acute (3) KAREN (acute kidney injury): Status: Acute (4) Delirium due to general medical condition: Status: Acute (5) Dementia: Status: Acute (6) Parkinsons disease: Status: Acute (7) Seizures: Status: Acute Plan Assessment: 63-year-old lady admitted with septic shock secondary to pulmonary aspiration after likely seizure event on the background of known Parkinson dementia and seizure disorder Plan: Neuro: Continues on antiepileptics. No seizure recurrence. Underlying Parkinson disease. Continue Sinemet. Cardiac: Septic shock, titrated off pressor support. Pulmonary: Acute hypoxemia secondary to pulmonary aspiration, resolved, continue to titrate off oxygen as tolerated. Renal: Acute renal failure, secondary to septic shock, improving. Non oliguric. Continue to monitor renal indices and urine output. Endo: No acute issues. GI: No acute issues. ID: No acute issues Heme/Onc: No acute issues. Psych: No acute issues. Miscellaneous: No acute issues. Prophylaxis: Heparin Diet: Regular Critical care time spent: 30 minutes Quality Stroke Does the patient have a stroke diagnosis?: No VTE Prior VTE?: No VTE Risk Level:: Medical - moderate - high VTE Device Contraindication: N/A - Device Ordered VTE Drug Contraindication: N/A - Med Ordered
--- NOTE | 2023-10-29 12:15 | MHC.SL.IMP ---
Date of Plan of Treatment: 10/29/23 Onset of Symptoms/Illness: 10/29/23 Date Treatment Started: 10/29/23 Admitting Diagnosis: Seizure, aspiration, septic shock Primary Speech & Language Diagnosis: R13.14 Pharyngoesophageal Phase Dysphagia Reason for Today's Visit: [id number] Modified Barium Swallow Study Comments: Patient appeared to be sleeping on arrival of the CONSTRUCTION SUPERVISOR, but then woke and was responsive and communicative. Patient was able to follow all directions, was minimally verbal but reliably responsive throughout. Pre-evaluation Dietary Consistencies: Regular Pre-evaluation Liquid Consistency: Thin Pre-evaluation Medication Administration: Whole with Liquid Oral Motor Exam Facial Symmetry: Normal for Patient Symmetrical Oral-Facial Teeth Characteristics: Partially Missing Oral Expression Ability: No Impairment Is patient able to manage secretions?: Yes Is patient able to produce volitional cough?: Yes Food and Liquid Trials: Oral Impairment: Lip Closure: 1=Interlabial escape; no progression to anterior tip Oral Impairment: Tongue Control During Bolus Hold: 0=Cohesive bolus between tongue to palatal seal Oral Impairment: Bolus Preparation/Mastication: 1=Slow prolonged chewing/mashing with complete re-collection Oral Impairment: Bolus Transport/Lingual Motion: 1= Delayed initiation of tongue motion Oral Impairment: Oral Residue: 0=Complete oral clearance Oral Impairment:Initiation of Pharyngeal Swallow: 2=Bolus head at posterior laryngeal surface of epiglottis Pharyngeal Impairment: Soft Palate Elevation: 0=No bolus between soft palate (SP)/pharyngeal wall (PW) Pharyngeal Impairment: Laryngeal Elevation: 0=Complete superior movement of thyroid cartilage (see description) Pharyngeal Impairment: Anterior Hyoid Excursion: 0=Complete anterior movement Pharyngeal Impairment: Epiglottic Movement: 0=Complete inversion Pharyngeal Impairment: Laryngeal Vestibular Closure:: 0=Complete: no air/contrast in laryngeal vestibule Pharyngeal Impairment: Pharyngeal Stripping Wave: 0=Present: complete Pharyngeal Impairment: Pharyngeal Contraction: Did not test Pharyngeal Impairment: Pharyngoesophageal Segment Openin=Complete distension and complete duration: no obstruction of flow Pharyngeal Impairment: Tongue Base (TB) Retraction: 2=Narrow column of contrast/air between TB and posterior PW Pharyngeal Impairment: Pharyngeal Residue: 1=Trace residue within or on pharyngeal structures Pharyngeal Impairment: Esophageal Clearance Upright Position: Did not test Impressions and Recommendations Clinical Observations: Current (pre-evaluation) Intake/Diet: Pre-Study Functional Oral Intake Scale (FOIS): 7- Total oral intake with no restrictions [facility] ID: [id number] [facility] Results: Lip closure for intraoral bolus containment resulted in interlabial escape, without progression to the anterior lip. Tongue control during bolus hold maintained a cohesive bolus held between tongue to palate seal. Bolus preparation and mastication resulted in slow, prolonged chewing/mashing but with complete re-collection. Bolus transport/lingual motion demonstrated delayed initiation of tongue motion. Oral residue was a trace, lining oral structures. Initiation of the pharyngeal swallow occurred as the bolus head was at the posterior laryngeal surface of the epiglottis. Soft palate elevation resulted in no bolus between the soft palate and the pharyngeal wall. Laryngeal elevation demonstrated complete superior movement of the thyroid cartilage with complete approximation of the arytenoids to the epiglottic petiole. Anterior hyoid excursion demonstrated complete anterior movement. Epiglottic movement resulted in complete inversion. Laryngeal vestibular closure was complete, as indicated by no air or contrast within the laryngeal vestibule at the height of the swallow. Pharyngeal stripping wave was present and complete. Pharyngeal contraction could not be determined due to logistical reasons not related to physiologic impairment. Pharyngoesophageal segment opening was completely distended for complete duration with no obstruction of bolus flow. Tongue base retraction allowed a narrow column of contrast or air between the retracted tongue base and the posterior pharyngeal wall. Pharyngeal residue was a trace within or on pharyngeal structures. Esophageal clearance in the upright position could not be assessed due to logistical reasons not related to physiologic impairment. Oral Impairment Score: 4 Pharyngeal Impairment Score: 2 (absence of score, component 13) Esophageal Impairment Score: --- (absence of score, component 17) Laryngeal Penetration and Aspiration: Neither penetration nor aspiration was observed in today's study with Cookie, Pudding-thick, Thin. PLAN: Intake Recommendations: Post-Study Functional Oral Intake Scale (FOIS): 6- Total oral intake with no special preparation, but must avoid specific foods or liquid items. SUMMARY: No aspiration or penetration were observed during today's study. Oral preparation was delayed due to limited dentition. Thin Liquids and Puree Solids passed through the UES with ease. Incidentally, x2 trials of Regular Solids resulted in initial passage of the bolus through the UES which then elicited a cough and resulted in pharyngeal reflux that was eventually cleared with subsequent swallows. This is likely the cause of the behavior observed while eating at bedside. This, and her complaints of food feeling stuck are consistent with esophageal dysmotility and warrant further investigate with either a full Esophagram, or GI consult for EGD. Liquid Intake Recommendation: Thin Liquid Intake Strategies: Unrestricted Dietary Recommendations: Chopped/Advanced (NDD3) Medication Administration: Whole with Liquid Please contact the pharmacy regarding appropriate crushable or liquid drug formulations that are available whenever modified delivery is recommended. Compensatory Strategies Recommended: Sitting Upright (90 deg) Small Bites and Sips Alternate Liquids/Solids Rate of Ingestion Change Oral Check Supervision during eating and or drinking: Total Assistance (1:1) Recommended Treatments: Compens. Strategy Educat. Recommendation for Speech Therapy: Inpatient Speech Therapy Frequency/Duration: Timeline to reassess: PRN Linotype Mechanic Clinician/Clinical Fellow: No Supervisory Statement: N/A Speech Language Pathologist: Aravind Mack M.A., CCC-CONSTRUCTION SUPERVISOR
--- NOTE | 2023-10-29 13:48 | MHC.SPEECHCO ---
RN contacted HEALTH INSURANCE AGENT when Lunch tray arrived. Pt observed to cough and regurgitate Puree and Regular Solids for every bite taken. Tray was removed and Pt was observed to tolerate Thin Liquids (Sia Iesha, Juice, Water) with no cough or regurgitation present. MD informed, recommending Clear Liquids only and STAT GI consult.
--- NOTE | 2023-10-29 16:14 | MHC.CM.PN ---
L/M for dtr/HCP Julienne to obtain information on d/c planning needs for pt. Will await call back
[2023-10-30] VITALS: BP 127/65; PULSE 107; RESP 20; TEMP 36.2; O2SAT 92
[2023-10-30 03:15] VITALS: BP 137/78; PULSE 104; RESP 20; TEMP 36.7; O2SAT 94
[2023-10-30 05:57] VITALS: BMI 34.6
[2023-10-30 07:58] VITALS: BP 147/63; PULSE 105; RESP 20; TEMP 37.1; O2SAT 92
--- NOTE | 2023-10-30 10:28 | HO.PM.IMPN ---
Subjective Subjective Date of Service: 10/30/23 Interval History: n ocopmlaints Physical Exam Vital Signs: Vital Signs: Last Vital Signs Temp 98.7 F 10/30/23 07:58 Pulse 105 H 10/30/23 07:58 Resp 20 10/30/23 07:58 BP 147/63 H 10/30/23 07:58 Pulse Ox 92 10/30/23 07:58 O2 Del Method Room Air 10/30/23 07:58 O2 Flow Rate 30 10/29/23 08:00 FiO2 40 10/29/23 08:00 Oxygen Flow Rate 2 10/27/23 21:37 BMI result Body Mass Index 34.6 Const: General: no acute distress, alert and awake Eyes: Sclerae: sclerae normal EOM: EOMs intact bilaterally Neck: Neck: Yes no lymphadenopathy, Yes trachea midline and Yes supple Resp: Effort & Inspection: normal respiratory effort and no respiratory distress Auscultation: clear to auscultation bilaterally Cardio: Rate: tachycardic Rhythm: regular rhythm Heart sounds: no gallops, no murmurs and no rubs GI: Palpation (GI): Soft to palpation and Other GI palpation findings present ( Nontender) Auscultation: normal bowel sounds Extrem: General: Yes no pedal edema, No clubbing and No cyanosis Objective Data Active Medications Aspirin (Aspirin Enteric Coated 81 Mg Tablet.) 81 mg PO DAILY [facility] Last Admin: 10/30/23 09:31 Dose: 81 mg Documented By: YOLI Buspirone HCl (Buspirone Hcl 5 Mg Tablet) 15 mg PO TID [facility] Last Admin: 10/30/23 09:31 Dose: 15 mg Documented By: YOLI Carbidopa/Levodopa (Carbidopa/Levodopa 25/100 Tablet) 1 tab PO BID@0900,1200 [facility] Last Admin: 10/30/23 09:31 Dose: 1 tab Documented By: YOLI Folic Acid (Folic Acid 1 Mg Tablet) 1 mg PO DAILY [facility] Last Admin: 10/30/23 09:31 Dose: 1 mg Documented By: YOLI Hydroxyzine HCl (Hydroxyzine Hcl 25 Mg Tablet) 25 mg PO BID PRN PRN Reason: itching Last Admin: 10/30/23 09:33 Dose: 25 mg Documented By: YOLI Ampicillin Sodium/Sulbactam (Sodium 3 gm/ Sodium Chloride) 100 mls @ 200 mls/hr IV Q8H [facility] Last Admin: 10/30/23 09:28 Dose: 200 mls/hr Documented By: YOLI Phenytoin Sodium (Phenytoin Sodium Extended 100 Mg Capsule) 300 mg PO BEDTIME [facility] Last Admin: 10/29/23 20:38 Dose: 300 mg Documented By: JACK Phenytoin Sodium (Phenytoin Sodium Extended 100 Mg Capsule) 200 mg PO DAILY [facility] Last Admin: 10/30/23 09:31 Dose: 200 mg Documented By: YOLI Pravastatin Sodium (Pravastatin Sodium 20 Mg Tablet) 20 mg PO BEDTIME [facility] Last Admin: 10/29/23 20:38 Dose: 20 mg Documented By: JACK Quetiapine Fumarate (Quetiapine Fumarate 25 Mg Tablet) 25 mg PO BEDTIME [facility] Last Admin: 10/29/23 20:38 Dose: 25 mg Documented By: JACK Labs 10/30/23 07:12 10/30/23 07:12 Labs: Laboratory Results - last 24 hr 10/30/23 07:12 MCV 97.7 MCH 31.8 MCHC 32.6 RDW 13.9 Plt Count 31 L MPV 12.8 H Immature Gran % (Auto) 1.5 H Neut % (Auto) 77.6 H Lymph % (Auto) 12.6 L Estill % (Auto) 7.5 Eos % (Auto) 0.6 Baso % (Auto) 0.2 Lymph # (Auto) 1.8 [place]ill # (Auto) 1.1 Eos # (Auto) 0.1 Baso # (Auto) 0.0 Abs Immat Gran (auto) 0.22 H Absolute Neuts (auto) 11.1 H Absolute Nucleated RBC 0.000 Nucleated RBC % (auto) 0.0 Anion Gap 13 Estim Creat Clear Calc 80.2 Estimated GFR 57 Random Glucose 119 H Calcium 8.5 Phosphorus 1.9 L Magnesium 1.6 Microbiology Microbiology Results: Microbiology 10/27/23 14:32 Blood Culture - Preliminary Blood - Venous No growth after 48 hours. 10/27/23 14:05 Blood Culture - Preliminary Blood - Venous No growth after 48 hours. 10/28/23 Unknown Urine Culture - Final Urine clean catch - Urine graham top No growth. Assessment and Plan (1) Acute respiratory failure with hypoxemia: Status: Acute Plan 63F PMH parkinsons, dementia, epilepsy, cva, breast ca admitted to ICU for septic shock, acute resp failure due to aspiration pna, now on room air, off pressors, downgraded to medical floor 10/29/23 septic shock, acute respiratory failure due to aspiration pneumonia due to dysphagia in kassandra keyonna, PROCUREMENT CONSULTANT following, currently no solids, thin liquids sinemet epilpsy phenytoin dementia stable dvt prophylaixs - lovenox full code reason for continued hospitalization:dysphagia Quality Stroke Does the patient have a stroke diagnosis?: No VTE Prior VTE?: No VTE Risk Level:: Medical - moderate - high VTE Device Contraindication: N/A - Device Ordered VTE Drug Contraindication: N/A - Med Ordered
[2023-10-30 11:57] VITALS: BP 125/67; PULSE 91; RESP 16; TEMP 36.8; O2SAT 91
--- NOTE | 2023-10-30 14:18 | PM.GICN ---
History of Present Illness Data of Consult Service Date: 10/30/23 Requesting physician: Renny Moore Primary Care Provider: Maria Luz Mobley MD HPI Reason for consult: coughing 63F with hx of parkinsons, dementia, epilepsy, cva, breast ca who I am seeing for assessment for coughing She was initially admitted to ICU for septic shock, and acute resp failure due to aspiration pna, but was eventually able to get off pressors and now on room air. She says she has noted several months of coughing wehn eating solids, but denies food actually getting stuck. she had MBS which did not reveal any penetration or aspiriation but further SALT assessment raised possibility of dysmotiility. Patient denies heartburn and is not on PPI at baseline. Denies chest pain, abdominal pain, melena, bowel problems Review of Systems Review of Systems: Constitutional : No Weight loss, No Fever, No Chills ENT/Mouth : No sore throat, No Rhinorrhea Eyes: No Swelling, No Redness Cardiovascular : No Chest Pain, No SOB, No Edema Respiratory : + Cough, No Sputum, No Wheezing Gastrointestinal : see HPI Genitourinary : NO Dysuria, No Urinary Frequency, No Hematuria, No Urgency Musculoskeletal : No joint pain, No Myalgias, No Joint Swelling Skin : No Skin Lesions, No rash Neuro : No Weakness, No Numbness, No Dizziness, No Headache Psych : No Anxiety/Panic, No Depression Heme/Lymph: No Bruising, No Lymphadenopathy Endocrine : No Polyuria, No Polydipsia All other systems reviewed and are negative. [facility] Past Medical History Medical History Anxiety Wound of right upper extremity Personal history of breast cancer Dementia Parkinsons disease Seizures Right arm fracture Cognitive impairment History of stroke Aggressive behavior Pure hypercholesterolemia Fall Triple negative malignant neoplasm of breast Family History Family History Father Medical history unknown Mother Medical history unknown Surgical History Surgical History Hx of colonoscopy History of lumpectomy of left breast History of cholecystectomy Social History Social History Household Members: Family and Children Housing: House Are you a primary managed care coordinator to a significant other at home: No Do you presently have visiting nurse or other home services: Yes ([facility]; nurse and 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 generalist) Alcohol intake: never Patient Tobacco Use Status: Former Tobacco user Quit Date: 2009 Tobacco use type: Cigarette Smoked in Last 30 Days: No e-Cigarette/Vaping Use: Never Used Patient Interested in Nicotine Replacement: No Patient Given Instructions on How to Stop Smoking: No Second Hand Smoke Exposure: No Use of substances other than those prescribed or required for medical reasons: No Currently Displaying Signs/Symptoms of Drug Intoxication Withdrawal: No Any prior treatment program specific to substance use: No Have you been hit, kicked, punched, or otherwise hurt by someone within the past year? If so, by whom?: No Do you feel safe in your current relationship?: Yes Is there a partner from a previous relationship who is making you feel unsafe now?: No Are you made to feel afraid or neglected: No Advance Directives: Yes Advance Directives on File: Yes Advance Directives Date on File: 07/30/22 Do you have thoughts of harming others: None Do you have a plan to hurt others: No Plan Recently lost weight without trying: No Eating poorly because of decreased appetite: No Nutrition Risks: No Nutritional Risk Patient : No : No Poor oral hygiene: No service: No Current occupational status: retired and disabled Cognitive needs: Yes Hearing needs: No Vision needs: No Meds Allergies Allergy/AdvReac Type Severity Reaction Status Date / Time fluticasone Allergy Unknown Verified 10/27/23 13:07 [From Advair Diskus] salmeterol Allergy Unknown Verified 10/27/23 13:07 [From Advair Diskus] Active Medications: Current Medications Aspirin (Aspirin Enteric Coated 81 Mg Tablet.) 81 mg PO DAILY [facility] Last Admin: 10/30/23 09:31 Dose: 81 mg Buspirone HCl (Buspirone Hcl 5 Mg Tablet) 15 mg PO TID [facility] Last Admin: 10/30/23 09:31 Dose: 15 mg Carbidopa/Levodopa (Carbidopa/Levodopa 25/100 Tablet) 1 tab PO BID@0900,1200 [facility] Last Admin: 10/30/23 11:55 Dose: 1 tab Enoxaparin Sodium (Enoxaparin Sodium 40 Mg/0.4 Ml Syringe) 40 mg SUBCUT Q24H [facility] Last Admin: 10/30/23 11:55 Dose: 40 mg Folic Acid (Folic Acid 1 Mg Tablet) 1 mg PO DAILY [facility] Last Admin: 10/30/23 09:31 Dose: 1 mg Hydroxyzine HCl (Hydroxyzine Hcl 25 Mg Tablet) 25 mg PO BID PRN PRN Reason: itching Last Admin: 10/30/23 09:33 Dose: 25 mg Ampicillin Sodium/Sulbactam (Sodium 3 gm/ Sodium Chloride) 100 mls @ 200 mls/hr IV Q8H [facility] Last Infusion: 10/30/23 10:00 Dose: Infused Omeprazole (Omeprazole 40 Mg Capsule.Dr) 40 mg PO BID@0630,1630 [facility] Last Admin: 10/30/23 11:55 Dose: 40 mg Phenytoin Sodium (Phenytoin Sodium Extended 100 Mg Capsule) 300 mg PO BEDTIME [facility] Last Admin: 10/29/23 20:38 Dose: 300 mg Phenytoin Sodium (Phenytoin Sodium Extended 100 Mg Capsule) 200 mg PO DAILY [facility] Last Admin: 10/30/23 09:31 Dose: 200 mg Pravastatin Sodium (Pravastatin Sodium 20 Mg Tablet) 20 mg PO BEDTIME [facility] Last Admin: 10/29/23 20:38 Dose: 20 mg Quetiapine Fumarate (Quetiapine Fumarate 25 Mg Tablet) 25 mg PO BEDTIME [facility] Last Admin: 10/29/23 20:38 Dose: 25 mg Home Medications Medication Instructions Recorded Confirmed Last Taken Type albuterol sulfate 90 mcg/actuation 2 puff inhalation Q4-6H PRN SOB 08/02/20 10/27/23 Unknown History aerosol inhaler (Ventolin HFA) carbidopa 25 mg-levodopa 100 mg 1 tab PO BID@0900,1200 08/02/20 10/27/23 10/27/23 12:00 History tablet (Sinemet) phenytoin sodium extended 100 mg 200 mg PO DAILY 08/02/20 10/27/23 10/27/23 09:00 History capsule phenytoin sodium extended 300 mg 300 mg PO BEDTIME 10/07/21 10/27/23 10/26/23 History capsule divalproex 125 mg tablet,delayed 375 mg PO TID 03/02/22 08/04/23 Unknown History release (Depakote) citalopram 20 mg tablet 20 mg PO BEDTIME 10/27/23 Unknown History quetiapine 25 mg tablet 25 mg PO BEDTIME 10/27/23 10/27/23 10/26/23 History Physical Exam Vital Signs: Vital Signs: Last Vital Signs Temp 98.2 F 10/30/23 11:57 Pulse 91 10/30/23 11:57 Resp 16 10/30/23 11:57 BP 125/67 10/30/23 11:57 Pulse Ox 91 L 10/30/23 11:57 O2 Del Method Room Air 10/30/23 11:57 O2 Flow Rate 30 10/29/23 08:00 FiO2 40 10/29/23 08:00 Oxygen Flow Rate 2 10/27/23 21:37 BMI result Body Mass Index 34.6 EXAM: GENERAL: The patient is well developed and nontoxic. VITAL SIGNS:see workflow HEENT: Nonicteric sclerae, PERRLA, EOMI. Oropharynx clear. Moist mucous membranes. Conjunctivae appear well perfused. No thyroid mass. CHEST: Chest wall is nontender. HEART: Regular rate and rhythm without murmurs. LUNGS: Clear to auscultation bilaterally. ABDOMEN: Soft, positive bowel sounds, nontender, no organomegaly.no flank tenderness SKIN: No rash, no excessive bruising, petechiae, or purpura. NEUROLOGIC: Cranial nerves II-XII intact without motor/sensory deficit. Psych: Speech and movement: Slowed speech present (Psych) Results Labs 10/30/23 07:12 10/30/23 07:12 Labs: Short CBC 10/30/23 Range/Units 07:12 WBC 14.3 H (4.8-10.8) X10*3/uL Hgb 8.4 L (12.0-16.0) g/dl Hct 25.8 L (37.0-47.0) % Plt Count 31 L (160-400) X10*3/uL BMP 10/30/23 07:12 Sodium 138 Potassium 2.9 L Chloride 108 Carbon Dioxide 20 L BUN 13 Creatinine 0.98 Calcium 8.5 Microbiology Microbiology Results: Microbiology 10/27/23 14:32 Blood - Venous Blood Culture - Preliminary No growth after 48 hours. 10/27/23 14:05 Blood - Venous Blood Culture - Preliminary No growth after 48 hours. 10/28/23 Unknown Urine clean catch - Urine graham top Urine Culture - Final No growth. Assessment and Plan (1) Cough: Status: Acute Plan 1/ Coughing with food, neg MBS< sx could be due to GERD, or regurg, vs dysmotility, stricture, worsening parkinsons disease PLAN: 1/ Recommend ba swallow with pill study, depending on results may consider EGD 2/ meantime would recommend high dose PPI BID Procedures Date of Service Date of Service: 10/30/23
[2023-10-30 16:00] VITALS: BP 128/66; PULSE 97; RESP 16; TEMP 37.3; O2SAT 94
[2023-10-30 19:56] VITALS: BP 119/61; PULSE 104; RESP 20; TEMP 36.3; O2SAT 91
[2023-10-31] VITALS: BP 149/77; PULSE 105; RESP 20; TEMP 36.3; O2SAT 91
[2023-10-31 03:39] VITALS: BP 135/76; PULSE 103; RESP 20; TEMP 36.4; O2SAT 93
[2023-10-31 06:00] VITALS: BMI 34.5
[2023-10-31 07:23] LABS: Anion Gap 11 (12-20); Blood Urea Nitrogen 9 mg/dL (9-16); Calcium 8.6 mg/dL (8.4-10.2); Carbon Dioxide 23 mmol/L (22-29); Chloride 108 mmol/L (96-108); Creatinine Clr Calc Pharmacy 92.2; Estimated Glomerular Filt Rate > 60; Glucose Fasting 109 mg/dL (60-99); Potassium 2.9 mmol/L (3.3-5.1); Sodium 139 mmol/L (135-145)
[2023-10-31 07:29] VITALS: BP 121/75; PULSE 101; RESP 20; TEMP 37.3; O2SAT 95
--- NOTE | 2023-10-31 09:40 | HO.PM.IMPN ---
Subjective Subjective Date of Service: 10/31/23 Interval History: no copmlaints Physical Exam Vital Signs: Vital Signs: Last Vital Signs Temp 99.2 F 10/31/23 07:29 Pulse 101 H 10/31/23 07:29 Resp 20 10/31/23 07:29 BP 121/75 10/31/23 07:29 Pulse Ox 95 10/31/23 07:29 O2 Del Method Room Air 10/31/23 07:29 O2 Flow Rate 30 10/29/23 08:00 FiO2 40 10/29/23 08:00 Oxygen Flow Rate 2 10/27/23 21:37 BMI result Body Mass Index 34.5 Psych: Speech and movement: Slowed speech present (Psych) Objective Data Active Medications Aspirin (Aspirin Enteric Coated 81 Mg Tablet.) 81 mg PO DAILY [facility] Last Admin: 10/31/23 08:23 Dose: 81 mg Documented By: MADELEINE Buspirone HCl (Buspirone Hcl 5 Mg Tablet) 15 mg PO TID [facility] Last Admin: 10/31/23 08:23 Dose: 15 mg Documented By: MADELEINE Carbidopa/Levodopa (Carbidopa/Levodopa 25/100 Tablet) 1 tab PO BID@0900,1200 [facility] Last Admin: 10/31/23 08:23 Dose: 1 tab Documented By: MADELEINE Enoxaparin Sodium (Enoxaparin Sodium 40 Mg/0.4 Ml Syringe) 40 mg SUBCUT Q24H [facility] Last Admin: 10/30/23 11:55 Dose: 40 mg Documented By: YOLI Folic Acid (Folic Acid 1 Mg Tablet) 1 mg PO DAILY [facility] Last Admin: 10/31/23 08:23 Dose: 1 mg Documented By: MADELEINE Hydroxyzine HCl (Hydroxyzine Hcl 25 Mg Tablet) 25 mg PO BID PRN PRN Reason: itching Last Admin: 10/31/23 08:24 Dose: 25 mg Documented By: MADELEINE Ampicillin Sodium/Sulbactam (Sodium 3 gm/ Sodium Chloride) 100 mls @ 200 mls/hr IV Q8H [facility] Last Infusion: 10/31/23 09:01 Dose: Infused Documented By: MADELEINE Omeprazole (Omeprazole 40 Mg Capsule.) 40 mg PO BID@0630,1630 [facility] Last Admin: 10/31/23 05:37 Dose: 40 mg Documented By: JACK Phenytoin Sodium (Phenytoin Sodium Extended 100 Mg Capsule) 300 mg PO BEDTIME [facility] Last Admin: 10/30/23 20:26 Dose: 300 mg Documented By: JACK Phenytoin Sodium (Phenytoin Sodium Extended 100 Mg Capsule) 200 mg PO DAILY [facility] Last Admin: 10/31/23 08:24 Dose: 200 mg Documented By: MADELEINE Pravastatin Sodium (Pravastatin Sodium 20 Mg Tablet) 20 mg PO BEDTIME [facility] Last Admin: 10/30/23 20:26 Dose: 20 mg Documented By: JACK Quetiapine Fumarate (Quetiapine Fumarate 25 Mg Tablet) 25 mg PO BEDTIME [facility] Last Admin: 10/30/23 20:26 Dose: 25 mg Documented By: JACK Labs 10/31/23 06:41 10/31/23 06:41 Labs: Laboratory Results - last 24 hr 10/31/23 06:41 MCV 97.7 MCH 32.2 MCHC 32.9 RDW 13.6 Plt Count 38 L MPV 12.6 H Absolute Nucleated RBC 0.020 H Nucleated RBC % (auto) 0.2 Anion Gap 11 L Estim Creat Clear Calc 92.2 Estimated GFR > 60 Fasting Glucose 109 H Calcium 8.6 Assessment and Plan (1) Acute respiratory failure with hypoxemia: Status: Acute Plan 63F [facility] parkinsons, dementia, epilepsy, cva, breast ca admitted to ICU for septic shock, acute resp failure due to aspiration pna, now on room air, off pressors, downgraded to medical floor 10/29/23 septic shock, acute respiratory failure due to aspiration pneumonia due to dysphagia in [place] [employer]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
[2023-10-31 11:13] VITALS: BP 122/68; PULSE 104; RESP 20; TEMP 37.2; O2SAT 96
[2023-10-31 16:00] VITALS: BP 114/65; PULSE 98; RESP 16; TEMP 36.9; O2SAT 96
[2023-10-31 18:40] VITALS: BP 133/70; PULSE 101; RESP 20; TEMP 36.8; O2SAT 94
[2023-11-01] VITALS (7 sets, daily range): BP systolic 119–166; BP diastolic 54–77; PULSE 90–105; RESP 18–20; TEMP 36.1–37.1; O2SAT 93–97; BMI 34.4
--- NOTE | 2023-11-01 10:14 | HO.PM.IMPN ---
Subjective Subjective Date of Service: 11/01/23 Interval History: no copmlaints Physical Exam Vital Signs: Vital Signs: Last Vital Signs Temp 97.0 F 11/01/23 07:25 Pulse 100 11/01/23 07:25 Resp 20 11/01/23 07:25 BP 150/77 H 11/01/23 07:25 Pulse Ox 94 11/01/23 07:25 O2 Del Method Room Air 11/01/23 07:25 O2 Flow Rate 30 10/29/23 08:00 FiO2 40 10/29/23 08:00 Oxygen Flow Rate 2 10/27/23 21:37 BMI result Body Mass Index 34.4 Psych: Speech and movement: Slowed speech present (Psych) Objective Data Active Medications Aspirin (Aspirin Enteric Coated 81 Mg Tablet.) 81 mg PO DAILY [facility] Last Admin: 11/01/23 08:39 Dose: 81 mg Documented By: MADELEINE Buspirone HCl (Buspirone Hcl 5 Mg Tablet) 15 mg PO TID [facility] Last Admin: 11/01/23 08:39 Dose: 15 mg Documented By: MADELEINE Carbidopa/Levodopa (Carbidopa/Levodopa 25/100 Tablet) 1 tab PO BID@0900,1200 [facility] Last Admin: 11/01/23 08:39 Dose: 1 tab Documented By: MADELEINE Enoxaparin Sodium (Enoxaparin Sodium 40 Mg/0.4 Ml Syringe) 40 mg SUBCUT Q24H [facility] Last Admin: 11/01/23 08:44 Dose: 40 mg Documented By: MADELEINE Folic Acid (Folic Acid 1 Mg Tablet) 1 mg PO DAILY [facility] Last Admin: 11/01/23 08:39 Dose: 1 mg Documented By: MADELEINE Hydroxyzine HCl (Hydroxyzine Hcl 25 Mg Tablet) 25 mg PO BID PRN PRN Reason: itching Last Admin: 10/31/23 22:45 Dose: 25 mg Documented By: NEO Ampicillin Sodium/Sulbactam (Sodium 3 gm/ Sodium Chloride) 100 mls @ 200 mls/hr IV Q8H [facility] Last Infusion: 11/01/23 09:15 Dose: Infused Documented By: MADELEINE Omeprazole (Omeprazole 40 Mg Capsule.) 40 mg PO BID@0630,1630 [facility] Last Admin: 11/01/23 05:46 Dose: Not Given Documented By: NEO Non-Admin Reason: NPO Phenytoin Sodium (Phenytoin Sodium Extended 100 Mg Capsule) 300 mg PO BEDTIME [facility] Last Admin: 10/31/23 22:45 Dose: 300 mg Documented By: NEO Phenytoin Sodium (Phenytoin Sodium Extended 100 Mg Capsule) 200 mg PO DAILY [facility] Last Admin: 11/01/23 08:39 Dose: 200 mg Documented By: MADELEINE Pravastatin Sodium (Pravastatin Sodium 20 Mg Tablet) 20 mg PO BEDTIME [facility] Last Admin: 10/31/23 22:45 Dose: 20 mg Documented By: NEO Quetiapine Fumarate (Quetiapine Fumarate 25 Mg Tablet) 25 mg PO BEDTIME [facility] Last Admin: 10/31/23 22:45 Dose: 25 mg Documented By: NEO Labs 10/31/23 06:41 10/31/23 06:41 Labs: Laboratory Results - last 24 hr 10/31/23 18:30 C. 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
--- NOTE | 2023-11-01 10:29 | MHC.CM.PN ---
CM spoke with Daughter/HCP/GEORGE @ [phone]. Patient lives in a house with George, George' Granddaughter and and she uses a walker to assist with mobility. Home/resume [facility] is the goal and CM has initiated and will follow for dc planning. PCP is Dr. Maria Luz Brown.
--- NOTE | 2023-11-01 10:41 | MHC.SLORD ---
Speech Language Pathology Order Status: Pt is currently NPO for barium swallow study. Per G.I., depending on results may consider EGD as well. Further ARC TRIMMER f/u on hold pending G.I. workup.
[2023-11-01] MEDS: Omeprazole 40 MG CAPSULE.DR PO (16:35)
[2023-11-01] MEDS: Pravastatin Sodium 20 MG TABLET PO (20:54)
[2023-11-01] MEDS: hydrOXYzine HCL 25 MG TABLET PO (20:54)
[2023-11-01] MEDS: QUEtiapine Fumarate 25 MG TABLET PO (20:54)
[2023-11-01] MEDS: busPIRone HCl 5 MG TABLET 15 MG PO (20:54)
[2023-11-01] MEDS: Phenytoin Sodium Extended 100 MG CAPSULE 300 MG PO (20:54)
[2023-11-02 03:57] VITALS: BP 145/65; PULSE 96; RESP 18; TEMP 36.8; O2SAT 93
[2023-11-02 06:00] VITALS: BMI 34.4
[2023-11-02] MEDS: Omeprazole 40 MG CAPSULE.DR PO ×2 (06:29→15:45)
[2023-11-02 07:35] LABS: Hematocrit 25.2 % (37.0-47.0); Hemoglobin 8.1 g/dl (12.0-16.0); Mean Corpuscular HGB Conc 32.1 g/dl (31.0-35.0); Mean Corpuscular Hemoglobin 31.5 pg (27.0-33.0); Mean Corpuscular Volume 98.1 fL (80.0-98.0); Mean Platelet Volume 12.7 fL (9.4-12.3); Red Blood Count 2.57 X10*6/uL (4.20-5.50); Red Cell Distribution Width 13.2 % (11.0-16.0); White Blood Count 5.2 X10*3/uL (4.8-10.8)
[2023-11-02 07:36] LABS: Platelet Count 37 X10*3/uL (160-400)
[2023-11-02 07:44] VITALS: BP 121/58; PULSE 92; RESP 20; TEMP 36.2; O2SAT 96
[2023-11-02 07:50] LABS: Anion Gap 13 (12-20); Blood Urea Nitrogen 10 mg/dL (9-16); Calcium 8.7 mg/dL (8.4-10.2); Carbon Dioxide 23 mmol/L (22-29); Chloride 107 mmol/L (96-108); Creatinine Clr Calc Pharmacy 89.8; Estimated Glomerular Filt Rate > 60; Glucose Fasting 96 mg/dL (60-99); Magnesium 1.9 mg/dL (1.6-2.6); Potassium 2.9 mmol/L (3.3-5.1); Sodium 140 mmol/L (135-145)
--- NOTE | 2023-11-02 09:02 | P.PNIM_ITS ---
Subjective Subjective Date of Service: 11/02/23 Interval History: no copmlaints, readiology report states patient vomitting during barium study Physical Exam 2 Vital Signs: Vital Signs: Last Vital Signs Temp 97.1 F 11/02/23 07:44 Pulse 92 11/02/23 07:44 Resp 20 11/02/23 07:44 BP 121/58 L 11/02/23 07:44 Pulse Ox 96 11/02/23 07:44 O2 Del Method Room Air 11/02/23 07:44 O2 Flow Rate 30 10/29/23 08:00 FiO2 40 10/29/23 08:00 Oxygen Flow Rate 2 10/27/23 21:37 BMI result Body Mass Index 34.4 Psych: Speech and movement: Slowed speech present (Psych) Objective Data Active Medications Aspirin (Aspirin Enteric Coated 81 Mg Tablet.) 81 mg PO DAILY [facility] Last Admin: 11/01/23 08:39 Dose: 81 mg Documented By: MADELEINE Buspirone HCl (Buspirone Hcl 5 Mg Tablet) 15 mg PO TID [facility] Last Admin: 11/01/23 20:54 Dose: 15 mg Documented By: NEO Carbidopa/Levodopa (Carbidopa/Levodopa 25/100 Tablet) 1 tab PO BID@0900,1200 [facility] Last Admin: 11/01/23 11:43 Dose: 1 tab Documented By: MADELEINE Enoxaparin Sodium (Enoxaparin Sodium 40 Mg/0.4 Ml Syringe) 40 mg SUBCUT Q24H [facility] Last Admin: 11/01/23 08:44 Dose: 40 mg Documented By: MADELEINE Folic Acid (Folic Acid 1 Mg Tablet) 1 mg PO DAILY [facility] Last Admin: 11/01/23 08:39 Dose: 1 mg Documented By: MADELEINE Hydroxyzine HCl (Hydroxyzine Hcl 25 Mg Tablet) 25 mg PO BID PRN PRN Reason: itching Last Admin: 11/01/23 20:54 Dose: 25 mg Documented By: NEO Ampicillin Sodium/Sulbactam (Sodium 3 gm/ Sodium Chloride) 100 mls @ 200 mls/hr IV Q8H [facility] Last Infusion: 11/02/23 02:03 Dose: Infused Documented By: NEO Omeprazole (Omeprazole 40 Mg Capsule.) 40 mg PO BID@0630,1630 [facility] Last Admin: 11/02/23 06:29 Dose: 40 mg Documented By: NEO Phenytoin Sodium (Phenytoin Sodium Extended 100 Mg Capsule) 300 mg PO BEDTIME [facility] Last Admin: 11/01/23 20:54 Dose: 300 mg Documented By: NEO Phenytoin Sodium (Phenytoin Sodium Extended 100 Mg Capsule) 200 mg PO DAILY [facility] Last Admin: 11/01/23 08:39 Dose: 200 mg Documented By: MADELEINE Pravastatin Sodium (Pravastatin Sodium 20 Mg Tablet) 20 mg PO BEDTIME [facility] Last Admin: 11/01/23 20:54 Dose: 20 mg Documented By: NEO Quetiapine Fumarate (Quetiapine Fumarate 25 Mg Tablet) 25 mg PO BEDTIME [facility] Last Admin: 11/01/23 20:54 Dose: 25 mg Documented By: NEO Labs 11/02/23 06:44 11/02/23 06:44 Labs: Laboratory Results - last 24 hr 11/02/23 06:44 MCV 98.1 H MCH 31.5 MCHC 32.1 RDW 13.2 Plt Count 37 L MPV 12.7 H Absolute Nucleated RBC 0.000 Nucleated RBC % (auto) 0.0 Anion Gap 13 Estim Creat Clear Calc 89.8 Estimated GFR > 60 Fasting Glucose 96 Calcium 8.7 Magnesium 1.9 Microbiology Microbiology Results: Microbiology 10/27/23 14:32 Blood Culture - Final Blood - Venous No growth after 5 days. 10/27/23 14:05 Blood Culture - Final Blood - Venous No growth after 5 days. 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
[2023-11-02] MEDS: Aspirin Enteric Coated 81 MG TABLET.DR PO (09:15)
[2023-11-02] MEDS: Enoxaparin Sodium 40 MG/0.4 ML SYRINGE SUBCUT (09:15)
[2023-11-02] MEDS: busPIRone HCl 5 MG TABLET 15 MG PO ×3 (09:15→20:31)
[2023-11-02] MEDS: Carbidopa/Levodopa 25/100 TABLET 1 TAB PO ×2 (09:16→12:14)
[2023-11-02] MEDS: Folic Acid 1 MG TABLET PO (09:16)
[2023-11-02] MEDS: Phenytoin Sodium Extended 100 MG CAPSULE 200 MG PO (09:16)
--- NOTE | 2023-11-02 10:11 | MHC.SPEECHCO ---
Pt was unable to fully participate in her Barium Swallow yesterday due to regurgitation. Pt is reportedly tolerating Clear Liquids. RD is following. INSIDE SALES ASSISTANT treatment deferred pending GI work-up. INSIDE SALES ASSISTANT following.
[2023-11-02 11:22] VITALS: BP 133/71; PULSE 91; RESP 20; TEMP 36.5; O2SAT 98
--- NOTE | 2023-11-02 11:45 | MHC.CM.PN ---
VICKI met with Patient and her Son-in-Law/Caregiver/Damon at bedside. Damon explains that Patient's bedroom is on the second floor and he is inquiring about STR. VICKI has relayed this message to MD and have asked MD to consider a PT eval.VICKI will follow.
[2023-11-02 15:33] VITALS: BP 126/61; PULSE 92; RESP 16; TEMP 36.7; O2SAT 95
--- NOTE | 2023-11-02 15:36 | MHC.CM.PN ---
PT is recommending STR;CM will follow.
[2023-11-02 20:00] VITALS: BP 134/66; PULSE 91; RESP 20; TEMP 36.7; O2SAT 97
[2023-11-02] MEDS: Phenytoin Sodium Extended 100 MG CAPSULE 300 MG PO (20:31)
[2023-11-02] MEDS: QUEtiapine Fumarate 25 MG TABLET PO (20:31)
[2023-11-02] MEDS: Pravastatin Sodium 20 MG TABLET PO (20:31)
[2023-11-02] MEDS: hydrOXYzine HCL 25 MG TABLET PO (20:31)
[2023-11-02 23:54] VITALS: BP 131/64; PULSE 93; RESP 16; TEMP 36.8; O2SAT 93
[2023-11-03] VITALS (11 sets, daily range): BP systolic 95–147; BP diastolic 54–79; PULSE 82–105; RESP 14–20; TEMP 36.2–37; O2SAT 94–98; BMI 35.7
[2023-11-03] MEDS: busPIRone HCl 5 MG TABLET 15 MG PO ×2 (09:41→20:33)
[2023-11-03] MEDS: Enoxaparin Sodium 40 MG/0.4 ML SYRINGE SUBCUT (09:42)
[2023-11-03] MEDS: Potassium Chloride Packet 20 MEQ PACKET 40 MEQ PO (09:42)
[2023-11-03] MEDS: Folic Acid 1 MG TABLET PO (09:42)
[2023-11-03] MEDS: Carbidopa/Levodopa 25/100 TABLET 1 TAB PO (09:42)
[2023-11-03] MEDS: Aspirin Enteric Coated 81 MG TABLET.DR PO (09:42)
[2023-11-03] MEDS: Phenytoin Sodium Extended 100 MG CAPSULE 200 MG PO (09:42)
--- NOTE | 2023-11-03 10:16 | MHC.CM.PN ---
Per ROUNDS discussion, Patient is having an EGD today at 4:30 PM and will likely be ready for dc to SNF/STR tomorrow. CM spoke with Daughter/HCP/Julienne @ listed # and [facility]ICKI has asked [facility] to [facility] auth today. CM will follow.
--- NOTE | 2023-11-03 10:32 | MHC.SLORD ---
Speech Language Pathology Order Status: Patient NPO for EGD this afternoon. If time allows, will attempt to see patient this afternoon following procedure.
--- NOTE | 2023-11-03 13:01 | HO.ANESPROP2 ---
[facility] Active Problems Active Problems: All Active Problems (Updated 10/30/23 @ 14:32 by Ernie Bolanos MD) Cough (Acute) Acute respiratory failure with hypoxemia (Acute) Thrombocytopenia (Acute) Elevated troponin (Acute) Septic shock (Acute) Aspiration into airway (Acute) Pneumonia (Acute) KAREN (acute kidney injury) (Acute) Delirium due to general medical condition (Acute) Hypomagnesemia (Acute) Acidosis, lactic (Acute) Acute febrile illness (Acute) Loss of balance (Acute) Aneurysm (Acute) Pruritus (Acute) Microhematuria (Acute) Lower back pain (Acute) Bilateral nephrolithiasis (Acute) Uric acid kidney stone (Acute) Urinary incontinence (Acute) Triple negative breast cancer (Acute) Anemia (Acute) 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) Anxiety (Acute) Wound of right upper extremity (Acute) Personal history of breast cancer (Acute) Dementia (Acute) Parkinsons disease (Acute) Seizures (Acute) Right arm fracture (Acute) Cognitive impairment (Acute) History of stroke (Acute) Aggressive behavior (Acute) Pure hypercholesterolemia (Acute) Fall (Acute) Past Medical History Medical History Anxiety Wound of right upper extremity Personal history of breast cancer Dementia Parkinsons disease Seizures Right arm fracture Cognitive impairment History of stroke Aggressive behavior Pure hypercholesterolemia Fall Triple negative malignant neoplasm of breast Family History Family History Father Medical history unknown Mother Medical history unknown Family history of problems with anesthesia: No Surgical History Surgical History Hx of colonoscopy History of lumpectomy of left breast History of cholecystectomy History of Problems with Anesthesia: No Social History Social History Household Members: Family and Children Housing: House Are you a primary director of primary care to a significant other at home: No Do you presently have visiting nurse or other home services: Yes ([facility]; nurse and box maker paperboard) Alcohol intake: never Patient Tobacco Use Status: Former Tobacco user Quit Date: 2009 Tobacco use type: Cigarette Smoked in Last 30 Days: No e-Cigarette/Vaping Use: Never Used Patient Interested in Nicotine Replacement: No Patient Given Instructions on How to Stop Smoking: No Second Hand Smoke Exposure: No Use of substances other than those prescribed or required for medical reasons: No Currently Displaying Signs/Symptoms of Drug Intoxication Withdrawal: No Any prior treatment program specific to substance use: No Have you been hit, kicked, punched, or otherwise hurt by someone within the past year? If so, by whom?: No Do you feel safe in your current relationship?: Yes Is there a partner from a previous relationship who is making you feel unsafe now?: No Are you made to feel afraid or neglected: No Advance Directives: Yes Advance Directives on File: Yes Advance Directives Date on File: 07/30/22 Do you have thoughts of harming others: None Do you have a plan to hurt others: No Plan Recently lost weight without trying: No Eating poorly because of decreased appetite: No Nutrition Risks: No Nutritional Risk Patient : No : No Poor oral hygiene: No service: No Current occupational status: retired and disabled Cognitive needs: Yes Hearing needs: No Vision needs: No Meds Allergies Allergy/AdvReac Type Severity Reaction Status Date / Time fluticasone Allergy Unknown Verified 10/27/23 13:07 [From Advair Diskus] salmeterol Allergy Unknown Verified 10/27/23 13:07 [From Advair Diskus] Active Medications: Current Medications Aspirin (Aspirin Enteric Coated 81 Mg Tablet.) 81 mg PO DAILY [facility] Last Admin: 11/03/23 09:42 Dose: 81 mg Buspirone HCl (Buspirone Hcl 5 Mg Tablet) 15 mg PO TID [facility] Last Admin: 11/03/23 09:41 Dose: 15 mg Carbidopa/Levodopa (Carbidopa/Levodopa 25/100 Tablet) 1 tab PO BID@0900,1200 [facility] Last Admin: 11/03/23 12:10 Dose: Not Given Enoxaparin Sodium (Enoxaparin Sodium 40 Mg/0.4 Ml Syringe) 40 mg SUBCUT Q24H [facility] Last Admin: 11/03/23 09:42 Dose: 40 mg Folic Acid (Folic Acid 1 Mg Tablet) 1 mg PO DAILY [facility] Last Admin: 11/03/23 09:42 Dose: 1 mg Hydroxyzine HCl (Hydroxyzine Hcl 25 Mg Tablet) 25 mg PO BID PRN PRN Reason: itching Last Admin: 11/02/23 20:31 Dose: 25 mg Ampicillin Sodium/Sulbactam (Sodium 3 gm/ Sodium Chloride) 100 mls @ 200 mls/hr IV Q8H [facility] Last Infusion: 11/03/23 10:26 Dose: Infused Omeprazole (Omeprazole 40 Mg Capsule.Dr) 40 mg PO BID@0630,1630 [facility] Last Admin: 11/03/23 09:32 Dose: Not Given Phenytoin Sodium (Phenytoin Sodium Extended 100 Mg Capsule) 300 mg PO BEDTIME [facility] Last Admin: 11/02/23 20:31 Dose: 300 mg Phenytoin Sodium (Phenytoin Sodium Extended 100 Mg Capsule) 200 mg PO DAILY [facility] Last Admin: 11/03/23 09:42 Dose: 200 mg Pravastatin Sodium (Pravastatin Sodium 20 Mg Tablet) 20 mg PO BEDTIME [facility] Last Admin: 11/02/23 20:31 Dose: 20 mg Quetiapine Fumarate (Quetiapine Fumarate 25 Mg Tablet) 25 mg PO BEDTIME [facility] Last Admin: 11/02/23 20:31 Dose: 25 mg Home Medications Medication Instructions Recorded Confirmed Last Taken Type albuterol sulfate 90 mcg/actuation 2 puff inhalation Q4-6H PRN SOB 08/02/20 10/27/23 Unknown History aerosol inhaler (Ventolin HFA) carbidopa 25 mg-levodopa 100 mg 1 tab PO BID@0900,1200 08/02/20 10/27/23 10/27/23 12:00 History tablet (Sinemet) phenytoin sodium extended 100 mg 200 mg PO DAILY 08/02/20 10/27/23 10/27/23 09:00 History capsule phenytoin sodium extended 300 mg 300 mg PO BEDTIME 10/07/21 10/27/23 10/26/23 History capsule divalproex 125 mg tablet,delayed 375 mg PO TID 03/02/22 08/04/23 Unknown History release (Depakote) citalopram 20 mg tablet 20 mg PO BEDTIME 10/27/23 Unknown History quetiapine 25 mg tablet 25 mg PO BEDTIME 10/27/23 10/27/23 10/26/23 History Exam Height,Weight and Vital Signs: Height 5 ft 11 in Weight 116 kg Last Vital Signs Temp 97.6 F 11/03/23 11:31 Pulse 90 11/03/23 11:31 Resp 14 11/03/23 11:31 BP 147/79 H 11/03/23 11:31 Pulse Ox 98 11/03/23 11:31 O2 Del Method Room Air 11/03/23 11:31 O2 Flow Rate 30 10/29/23 08:00 FiO2 40 10/29/23 08:00 Oxygen Flow Rate 2 10/27/23 21:37 Pertinent Lab Results Pertinent Lab Results: Laboratory Tests 10/27/23 10/27/23 10/27/23 13:11 14:05 16:43 WBC 9.6 RBC 3.23 L Hgb 10.3 L Hct 31.5 L MCV 97.5 MCH 31.9 MCHC 32.7 RDW 13.1 Plt Count 47 L D MPV 12.0 Immature Gran % (Auto) 3.5 H Neut % (Auto) 73.2 H Lymph % (Auto) 11.8 L Benson % (Auto) 11.1 H Eos % (Auto) 0.4 Baso % (Auto) 0.0 Lymph # (Auto) 1.1 L Benson # (Auto) 1.1 Eos # (Auto) 0.0 Baso # (Auto) 0.0 Abs Immat Gran (auto) 0.33 H Absolute Neuts (auto) 7.0 Absolute Nucleated RBC 0.020 H Nucleated RBC % (auto) 0.2 Neutrophils % (Manual) Band Neutrophils % Lymphocytes % (Manual) Atypical Lymphs % (Man) Monocytes % (Manual) Metamyelocytes % Abs Neuts (Manual) Lymphocytes # (Manual) Atyp Lymphs # (Manual) Monocytes # (Manual) Metamyelocytes # Toxic Vacuolation Dohle Bodies Platelet Estimate Large Platelets Plt Morphology Comment RBC Morphology Polychromasia Basophilic Stippling Microcytosis Macrocytosis Smear Path Review PT 13.2 INR 1.1 VBG pH VBG pCO2 VBG pO2 VBG HCO3 VBG O2 Saturation VBG Base Excess Sodium 139 Potassium 4.1 Chloride 106 Carbon Dioxide 22 Anion Gap 15 BUN 21 H Creatinine 1.61 H Estim Creat Clear Calc TNP Estimated GFR 32 POC Glucose 220 H Random Glucose 218 H Fasting Glucose Lactic Acid 4.5 H* Lactic Acid F/U @ 2Hr Lactic Acid F/U @ 4Hr Calcium 9.2 Phosphorus Magnesium 1.4 L* Total Bilirubin 0.4 Direct Bilirubin 0.1 AST 21 ALT < 5 Alkaline Phosphatase 68 Troponin I High Sens 27.3 H D Total Protein 8.2 H Albumin 3.7 Lipase 38 Urine Color Urine Appearance Urine pH Ur Specific [place] Urine Protein Urine Glucose (UA) Urine Ketones Urine Blood Urine Nitrite Ur Leukocyte Esterase Urine RBC Urine WBC Ur Squamous Epith Cells Urine Bacteria Hyaline Casts Granular Casts Valproic Acid 49.1 L Respiratory Panel Estrella See Note Adenovirus (Rapid PCR) Not Detected B.pert (TEM-PCR) Not Detected B.parapertussis DNA PCR Not Detected C. pneumoniae DNA (PCR) Not Detected C. difficile Tox B Gene Coronavirus OC43 (PCR) Not Detected Coronavirus HKU1 (PCR) Not Detected Coronavirus 229E (PCR) Not Detected Coronavirus NL63 (PCR) Not Detected Human Metapneumovir PCR Not Detected Influenza A (RT-PCR) Not Detected Influenza Type A (PCR) NEGATIVE Influenza B (RT-PCR) Not Detected Influenza Type B (PCR) NEGATIVE M. pneumoniae (PCR) Not Detected Parainfluenza 1 (PCR) Not Detected Parainfluenza 2 (PCR) Not Detected Parainfluenza 3 (PCR) Not Detected Parainfluenza 4 (PCR) Not Detected RSV (PCR) Not Detected RSV RNA Qual (PCR) NEGATIVE Entero/Rhino (PCR) Not Detected SARS-CoV-2 RNA (RT-PCR) NEGATIVE Not Detected 10/27/23 10/27/23 10/28/23 17:25 21:43 00:55 WBC RBC Hgb Hct MCV MCH MCHC RDW Plt Count MPV Immature Gran % (Auto) Neut % (Auto) Lymph % (Auto) Benson % (Auto) Eos % (Auto) Baso % (Auto) Lymph # (Auto) Benson # (Auto) Eos # (Auto) Baso # (Auto) Abs Immat Gran (auto) Absolute Neuts (auto) Absolute Nucleated RBC Nucleated RBC % (auto) Neutrophils % (Manual) Band Neutrophils % Lymphocytes % (Manual) Atypical Lymphs % (Man) Monocytes % (Manual) Metamyelocytes % Abs Neuts (Manual) Lymphocytes # (Manual) Atyp Lymphs # (Manual) Monocytes # (Manual) Metamyelocytes # Toxic Vacuolation Dohle Bodies Platelet Estimate Large Platelets Plt Morphology Comment RBC Morphology Polychromasia Basophilic Stippling Microcytosis Macrocytosis Smear Path Review PT INR VBG pH VBG pCO2 VBG pO2 VBG HCO3 VBG O2 Saturation VBG Base Excess Sodium Potassium Chloride Carbon Dioxide Anion Gap BUN Creatinine Estim Creat Clear Calc Estimated GFR POC Glucose Random Glucose Fasting Glucose Lactic Acid 3.3 H* Lactic Acid F/U @ 2Hr 2.7 H* Lactic Acid F/U @ 4Hr 3.3 H* Calcium Phosphorus Magnesium Total Bilirubin Direct Bilirubin AST ALT Alkaline Phosphatase Troponin I High Sens 85.8 H* D 87.0 H* Total Protein Albumin Lipase Urine Color Urine Appearance Urine pH Ur Specific [place] Urine Protein Urine Glucose (UA) Urine Ketones Urine Blood Urine Nitrite Ur Leukocyte Esterase Urine RBC Urine WBC Ur Squamous Epith Cells Urine Bacteria Hyaline Casts Granular Casts Valproic Acid Respiratory Panel Estrella Adenovirus (Rapid PCR) B.pert (TEM-PCR) B.parapertussis DNA PCR C. pneumoniae DNA (PCR) C. difficile Tox B Gene Coronavirus OC43 (PCR) Coronavirus HKU1 (PCR) Coronavirus 229E (PCR) Coronavirus NL63 (PCR) Human Metapneumovir PCR Influenza A (RT-PCR) Influenza Type A (PCR) Influenza B (RT-PCR) Influenza Type B (PCR) M. pneumoniae (PCR) Parainfluenza 1 (PCR) Parainfluenza 2 (PCR) Parainfluenza 3 (PCR) Parainfluenza 4 (PCR) RSV (PCR) RSV RNA Qual (PCR) Entero/Rhino (PCR) SARS-CoV-2 RNA (RT-PCR) 10/28/23 10/28/23 10/28/23 01:19 04:28 04:30 WBC 46.8 H* RBC 2.90 L Hgb 9.1 L Hct 28.1 L MCV 96.9 MCH 31.4 MCHC 32.4 RDW 13.4 Plt Count 61 L D MPV 11.1 Immature Gran % (Auto) Neut % (Auto) Lymph % (Auto) Benson % (Auto) Eos % (Auto) Baso % (Auto) Lymph # (Auto) Benson # (Auto) Eos # (Auto) Baso # (Auto) Abs Immat Gran (auto) Absolute Neuts (auto) Absolute Nucleated RBC 0.020 H Nucleated RBC % (auto) 0.0 Neutrophils % (Manual) 50 Band Neutrophils % 20 H Lymphocytes % (Manual) 3 L Atypical Lymphs % (Man) Monocytes % (Manual) 21 H Metamyelocytes % 6 Abs Neuts (Manual) 32.8 H Lymphocytes # (Manual) 1.4 Atyp Lymphs # (Manual) Monocytes # (Manual) 9.8 H Metamyelocytes # 2.8 Toxic Vacuolation PRESENT Dohle Bodies PRESENT Platelet Estimate DECREASED Large Platelets PRESENT Plt Morphology Comment NOTED RBC Morphology NOTED Polychromasia 1+ (0-2) Basophilic Stippling 1+ (0-2) Microcytosis Macrocytosis 1+ (5-14) Smear Path Review SEE NOTE PT INR VBG pH 7.43 VBG pCO2 26 VBG pO2 51 VBG HCO3 17 L VBG O2 Saturation 83.0 VBG Base Excess -5.1 Sodium 141 Potassium 3.3 Chloride 111 H Carbon Dioxide 18 L Anion Gap 15 BUN 25 H Creatinine 1.66 H Estim Creat Clear Calc 45.8 Estimated GFR 31 POC Glucose Random Glucose 151 H Fasting Glucose Lactic Acid Lactic Acid F/U @ 2Hr 3.3 H* Lactic Acid F/U @ 4Hr Calcium 7.9 L D Phosphorus 1.8 L Magnesium 1.6 Total Bilirubin 0.4 Direct Bilirubin AST 60 H ALT 33 H Alkaline Phosphatase 54 Troponin I High Sens Total Protein 6.6 Albumin 3.0 L Lipase Urine Color Dark Yellow Urine Appearance Turbid Urine pH 5.0 Ur Specific [place] 1.020 Urine Protein 30 (1+) H Urine Glucose (UA) Negative Urine Ketones Trace Urine Blood Large (3+) H Urine Nitrite Negative Ur Leukocyte Esterase Small (1+) H Urine RBC >20 H Urine WBC 6-10 Ur Squamous Epith Cells 6-10 Urine Bacteria 1+ Hyaline Casts 11-20 Granular Casts Present Valproic Acid Respiratory Panel Estrella Adenovirus (Rapid PCR) B.pert (TEM-PCR) B.parapertussis DNA PCR C. pneumoniae DNA (PCR) C. difficile Tox B Gene Coronavirus OC43 (PCR) Coronavirus HKU1 (PCR) Coronavirus 229E (PCR) Coronavirus NL63 (PCR) Human Metapneumovir PCR Influenza A (RT-PCR) Influenza Type A (PCR) Influenza B (RT-PCR) Influenza Type B (PCR) M. pneumoniae (PCR) Parainfluenza 1 (PCR) Parainfluenza 2 (PCR) Parainfluenza 3 (PCR) Parainfluenza 4 (PCR) RSV (PCR) RSV RNA Qual (PCR) Entero/Rhino (PCR) SARS-CoV-2 RNA (RT-PCR) 10/28/23 10/29/23 10/29/23 07:12 05:38 05:46 WBC 24.2 H RBC 2.47 L Hgb 7.8 L Hct 24.6 L MCV 99.6 H MCH 31.6 MCHC 31.7 RDW 13.8 Plt Count 37 L D MPV 11.5 Immature Gran % (Auto) Cancelled Neut % (Auto) Cancelled Lymph % (Auto) Cancelled Benson % (Auto) Cancelled Eos % (Auto) Cancelled Baso % (Auto) Cancelled Lymph # (Auto) Cancelled Benson # (Auto) Cancelled Eos # (Auto) Cancelled Baso # (Auto) Cancelled Abs Immat Gran (auto) Cancelled Absolute Neuts (auto) Cancelled Absolute Nucleated RBC 0.000 Nucleated RBC % (auto) 0.0 Neutrophils % (Manual) 63 Band Neutrophils % 25 H Lymphocytes % (Manual) 8 L Atypical Lymphs % (Man) 1 Monocytes % (Manual) 3 Metamyelocytes % Abs Neuts (Manual) 21.3 H Lymphocytes # (Manual) 1.9 Atyp Lymphs # (Manual) 0.2 Monocytes # (Manual) 0.7 Metamyelocytes # Toxic Vacuolation PRESENT Dohle Bodies PRESENT Platelet Estimate DECREASED Large Platelets PRESENT Plt Morphology Comment NOTED RBC Morphology NOTED Polychromasia 1+ (0-2) Basophilic Stippling 2+ (3-5) Microcytosis 1+ (5-14) Macrocytosis Smear Path Review PT INR VBG pH 7.48 H VBG pCO2 27 VBG pO2 52 VBG HCO3 20 L VBG O2 Saturation 85.0 VBG Base Excess -2.0 Sodium 146 H Potassium 3.2 L Chloride 114 H Carbon Dioxide 19 L Anion Gap 16 BUN 20 H Creatinine 1.28 Estim Creat Clear Calc 59.7 Estimated GFR 42 POC Glucose Random Glucose 91 Fasting Glucose Lactic Acid Lactic Acid F/U @ 2Hr Lactic Acid F/U @ 4Hr 3.2 H* Calcium 8.4 D Phosphorus 1.9 L Magnesium 1.8 Total Bilirubin Direct Bilirubin AST ALT Alkaline Phosphatase Troponin I High Sens Total Protein Albumin 3.9 Lipase Urine Color Urine Appearance Urine pH Ur Specific [place] Urine Protein Urine Glucose (UA) Urine Ketones Urine Blood Urine Nitrite Ur Leukocyte Esterase Urine RBC Urine WBC Ur Squamous Epith Cells Urine Bacteria Hyaline Casts Granular Casts Valproic Acid Respiratory Panel Estrella Adenovirus (Rapid PCR) B.pert (TEM-PCR) B.parapertussis DNA PCR C. pneumoniae DNA (PCR) C. difficile Tox B Gene Coronavirus OC43 (PCR) Coronavirus HKU1 (PCR) Coronavirus 229E (PCR) Coronavirus NL63 (PCR) Human Metapneumovir PCR Influenza A (RT-PCR) Influenza Type A (PCR) Influenza B (RT-PCR) Influenza Type B (PCR) M. pneumoniae (PCR) Parainfluenza 1 (PCR) Parainfluenza 2 (PCR) Parainfluenza 3 (PCR) Parainfluenza 4 (PCR) RSV (PCR) RSV RNA Qual (PCR) Entero/Rhino (PCR) SARS-CoV-2 RNA (RT-PCR) 10/30/23 10/31/23 10/31/23 07:12 06:41 18:30 WBC 14.3 H 10.3 RBC 2.64 L 2.64 L Hgb 8.4 L 8.5 L Hct 25.8 L 25.8 L MCV 97.7 97.7 MCH 31.8 32.2 MCHC 32.6 32.9 RDW 13.9 13.6 Plt Count 31 L 38 L MPV 12.8 H 12.6 H Immature Gran % (Auto) 1.5 H Neut % (Auto) 77.6 H Lymph % (Auto) 12.6 L Benson % (Auto) 7.5 Eos % (Auto) 0.6 Baso % (Auto) 0.2 Lymph # (Auto) 1.8 Benson # (Auto) 1.1 Eos # (Auto) 0.1 Baso # (Auto) 0.0 Abs Immat Gran (auto) 0.22 H Absolute Neuts (auto) 11.1 H Absolute Nucleated RBC 0.000 0.020 H Nucleated RBC % (auto) 0.0 0.2 Neutrophils % (Manual) Band Neutrophils % Lymphocytes % (Manual) Atypical Lymphs % (Man) Monocytes % (Manual) Metamyelocytes % Abs Neuts (Manual) Lymphocytes # (Manual) Atyp Lymphs # (Manual) Monocytes # (Manual) Metamyelocytes # Toxic Vacuolation Dohle Bodies Platelet Estimate Large Platelets Plt Morphology Comment RBC Morphology Polychromasia Basophilic Stippling Microcytosis Macrocytosis Smear Path Review PT INR VBG pH VBG pCO2 VBG pO2 VBG HCO3 VBG O2 Saturation VBG Base Excess Sodium 138 139 Potassium 2.9 L 2.9 L Chloride 108 108 Carbon Dioxide 20 L 23 Anion Gap 13 11 L BUN 13 9 Creatinine 0.98 0.85 Estim Creat Clear Calc 80.2 92.2 Estimated GFR 57 > 60 POC Glucose Random Glucose 119 H Fasting Glucose 109 H Lactic Acid Lactic Acid F/U @ 2Hr Lactic Acid F/U @ 4Hr Calcium 8.5 8.6 Phosphorus 1.9 L Magnesium 1.6 Total Bilirubin Direct Bilirubin AST ALT Alkaline Phosphatase Troponin I High Sens Total Protein Albumin Lipase Urine Color Urine Appearance Urine pH Ur Specific [place] Urine Protein Urine Glucose (UA) Urine Ketones Urine Blood Urine Nitrite Ur Leukocyte Esterase Urine RBC Urine WBC Ur Squamous Epith Cells Urine Bacteria Hyaline Casts Granular Casts Valproic Acid Respiratory Panel Estrella Adenovirus (Rapid PCR) B.pert (TEM-PCR) B.parapertussis DNA PCR C. pneumoniae DNA (PCR) C. difficile Tox B Gene NEGATIVE Coronavirus OC43 (PCR) Coronavirus HKU1 (PCR) Coronavirus 229E (PCR) Coronavirus NL63 (PCR) Human Metapneumovir PCR Influenza A (RT-PCR) Influenza Type A (PCR) Influenza B (RT-PCR) Influenza Type B (PCR) M. pneumoniae (PCR) Parainfluenza 1 (PCR) Parainfluenza 2 (PCR) Parainfluenza 3 (PCR) Parainfluenza 4 (PCR) RSV (PCR) RSV RNA Qual (PCR) Entero/Rhino (PCR) SARS-CoV-2 RNA (RT-PCR) 11/02/23 06:44 WBC 5.2 RBC 2.57 L Hgb 8.1 L Hct 25.2 L MCV 98.1 H MCH 31.5 MCHC 32.1 RDW 13.2 Plt Count 37 L MPV 12.7 H Immature Gran % (Auto) Neut % (Auto) Lymph % (Auto) Benson % (Auto) Eos % (Auto) Baso % (Auto) Lymph # (Auto) Benson # (Auto) Eos # (Auto) Baso # (Auto) Abs Immat Gran (auto) Absolute Neuts (auto) Absolute Nucleated RBC 0.000 Nucleated RBC % (auto) 0.0 Neutrophils % (Manual) Band Neutrophils % Lymphocytes % (Manual) Atypical Lymphs % (Man) Monocytes % (Manual) Metamyelocytes % Abs Neuts (Manual) Lymphocytes # (Manual) Atyp Lymphs # (Manual) Monocytes # (Manual) Metamyelocytes # Toxic Vacuolation Dohle Bodies Platelet Estimate Large Platelets Plt Morphology Comment RBC Morphology Polychromasia Basophilic Stippling Microcytosis Macrocytosis Smear Path Review PT INR VBG pH VBG pCO2 VBG pO2 VBG HCO3 VBG O2 Saturation VBG Base Excess Sodium 140 Potassium 2.9 L Chloride 107 Carbon Dioxide 23 Anion Gap 13 BUN 10 Creatinine 0.87 Estim Creat Clear Calc 89.8 Estimated GFR > 60 POC Glucose Random Glucose Fasting Glucose 96 Lactic Acid Lactic Acid F/U @ 2Hr Lactic Acid F/U @ 4Hr Calcium 8.7 Phosphorus Magnesium 1.9 Total Bilirubin Direct Bilirubin AST ALT Alkaline Phosphatase Troponin I High Sens Total Protein Albumin Lipase Urine Color Urine Appearance Urine pH Ur Specific [place] Urine Protein Urine Glucose (UA) Urine Ketones Urine Blood Urine Nitrite Ur Leukocyte Esterase Urine RBC Urine WBC Ur Squamous Epith Cells Urine Bacteria Hyaline Casts Granular Casts Valproic Acid Respiratory Panel Estrella Adenovirus (Rapid PCR) B.pert (TEM-PCR) B.parapertussis DNA PCR C. pneumoniae DNA (PCR) C. difficile Tox B Gene Coronavirus OC43 (PCR) Coronavirus HKU1 (PCR) Coronavirus 229E (PCR) Coronavirus NL63 (PCR) Human Metapneumovir PCR Influenza A (RT-PCR) Influenza Type A (PCR) Influenza B (RT-PCR) Influenza Type B (PCR) M. pneumoniae (PCR) Parainfluenza 1 (PCR) Parainfluenza 2 (PCR) Parainfluenza 3 (PCR) Parainfluenza 4 (PCR) RSV (PCR) RSV RNA Qual (PCR) Entero/Rhino (PCR) SARS-CoV-2 RNA (RT-PCR) Airway Mallampati Class: III TM Dist: >3cm Neck ROM: Full (thick neck, good mouth opening) Heart: rrrr Lungs: cta Assessment and Plan Assessment Anesthesia Assessment: Anesthesia Plan Discussed and Chart Reviewed Final Anesthetic Review Family History of Problems with Anesthesia: No History of Problems with Anesthesia: No NPO: Yes ASA Class: III Final Preanesthetic Review: No Changes in Pt Med Stat, Meds/Allgs Chart Reviewed and Consent Obtained/Reviewed Patient Risk: Intermediate Procedure Risk: Low Anesthetic Plan Anesthetic Plan: MAC: Disposition: Standard PACU
--- NOTE | 2023-11-03 13:08 | MHC.SHP ---
Pre-Procedural Eval Section A Date of Service: 11/03/23 The patient is an INPATIENT: Yes The History & Physical has been completed within 30 days and I have reviewed it.: Yes Section B Chief Complaint: Septic shock Allergies: Allergies Allergy/AdvReac Type Severity Reaction Status Date / Time fluticasone Allergy Unknown Verified 10/27/23 13:07 [From Advair Diskus] salmeterol Allergy Unknown Verified 10/27/23 13:07 [From Advair Diskus] Plan Diagnosis/Plan: Unchanged I have reviewed the history and physical and performed a pertinent physical examination on my patient. No changes have occurred unless specified. EGD with dilation Time Spent With Patient Time: Total time managing care of this patient today ____ minutes.
--- NOTE | 2023-11-03 13:09 | W.PM.OPN ---
Operative Note Operative Note Date of Service: 11/03/23 Narrative: Procedure Description: EGD Indication: dysphagia Anesthesia: MAC FLEXIBLE TRANSORAL UPPER GASTROINTESTINAL ENDOSCOPY UPPER ENDOSCOPY Consent: Indications for the procedure and potential complications of bleeding, perforation, reaction to medications and missed diagnosis were discussed with the patient and informed consent was obtained. Instrument: Olympus GIF H 190 J mid size upper endoscope Monitoring: Vital signs and clinical assessment, continuous EKG monitoring, Pulse oximetry, Carbon Dioxide monitoring and blood pressure monitoring were done throughout the procedure. Procedure: The patient was placed in the left lateral decubitis position and pre-procedure medications were administered and a bite block was placed. The endoscope was inserted into the mouth and advanced under direct vision to the third part of duodenum. A careful inspection was made as the upper endoscope was withdrawn including a retroflexed examination of the proximal stomach; Findings and interventions are described below. Findings: Larynx:normal Esophagus: GE junction at 38 cm, diaphragm hiatus at 38 cm, mild esophagitis with possible short segment barretts, bx taken from GEJ and distal esophagus. Balloon dilation done at UES and LES to 20 mm, no tears seen Stomach: Patchy gastric erythema. Biopsies were obtained. Grade 2 flap valve on retroflexed examination of the cardia. Duodenum: Normal bulb and descending duodenum, Intervention: Biopsies as noted above, balloon dilation Impression/Findings: esophagitis gastritis PLAN: high dose PPI, and reflux precautions can titrate down after 3 months depending on response
--- NOTE | 2023-11-03 13:10 | HO.PM.IMPN ---
Subjective Subjective Date of Service: 11/03/23 Interval History: Seen and evaluated this morning Denies any fever or chills Pending EGD study No other overnight events Review of Systems Review of Systems: Yes all other systems are reviewed and are negative Physical Exam Vital Signs: Vital Signs: Last Vital Signs Temp 97.9 F 11/03/23 13:02 Pulse 89 11/03/23 13:02 Resp 17 11/03/23 13:02 BP 137/76 11/03/23 13:02 Pulse Ox 98 11/03/23 13:02 O2 Del Method Room Air 11/03/23 13:02 O2 Flow Rate 30 10/29/23 08:00 FiO2 40 10/29/23 08:00 Oxygen Flow Rate 2 10/27/23 21:37 BMI result Body Mass Index 35.7 Const: Other: Constitutional : Awake, interactive, not in distress Neck : Normal inspection, Supple Cardiovascular : RRR, no JVP, no lower extremity edema Respiratory : good bilateral air entry, no crackles, wheezes or rhonchi Gastrointestinal: soft, lax, Normal bowel sounds, Non tender Skin : Warm, Dry Neurological : Alert & oriented x3, No focal deficit Objective Data Active Medications Aspirin (Aspirin Enteric Coated 81 Mg Tablet.Dr) 81 mg PO DAILY [facility] Last Admin: 11/03/23 09:42 Dose: 81 mg Documented By: KAYCEE Buspirone HCl (Buspirone Hcl 5 Mg Tablet) 15 mg PO TID [facility] Last Admin: 11/03/23 09:41 Dose: 15 mg Documented By: KAYCEE Carbidopa/Levodopa (Carbidopa/Levodopa 25/100 Tablet) 1 tab PO BID@0900,1200 [facility] Last Admin: 11/03/23 12:10 Dose: Not Given Documented By: KAYCEE Non-Admin Reason: NPO BEFORE EGD Enoxaparin Sodium (Enoxaparin Sodium 40 Mg/0.4 Ml Syringe) 40 mg SUBCUT Q24H [facility] Last Admin: 11/03/23 09:42 Dose: 40 mg Documented By: KAYCEE Folic Acid (Folic Acid 1 Mg Tablet) 1 mg PO DAILY [facility] Last Admin: 11/03/23 09:42 Dose: 1 mg Documented By: KAYCEE Hydroxyzine HCl (Hydroxyzine Hcl 25 Mg Tablet) 25 mg PO BID PRN PRN Reason: itching Last Admin: 11/02/23 20:31 Dose: 25 mg Documented By: NEO Ampicillin Sodium/Sulbactam (Sodium 3 gm/ Sodium Chloride) 100 mls @ 200 mls/hr IV Q8H [facility] Last Infusion: 11/03/23 10:26 Dose: Infused Documented By: KAYCEE Omeprazole (Omeprazole 40 Mg Capsule.) 40 mg PO BID@0630,1630 [facility] Last Admin: 11/03/23 09:32 Dose: Not Given Documented By: KAYCEE Non-Admin Reason: Not given by prior RN Phenytoin Sodium (Phenytoin Sodium Extended 100 Mg Capsule) 300 mg PO BEDTIME [facility] Last Admin: 11/02/23 20:31 Dose: 300 mg Documented By: NEO Phenytoin Sodium (Phenytoin Sodium Extended 100 Mg Capsule) 200 mg PO DAILY [facility] Last Admin: 11/03/23 09:42 Dose: 200 mg Documented By: KAYCEE Pravastatin Sodium (Pravastatin Sodium 20 Mg Tablet) 20 mg PO BEDTIME [facility] Last Admin: 11/02/23 20:31 Dose: 20 mg Documented By: NEO Quetiapine Fumarate (Quetiapine Fumarate 25 Mg Tablet) 25 mg PO BEDTIME [facility] Last Admin: 11/02/23 20:31 Dose: 25 mg Documented By: NEO Labs 11/02/23 06:44 11/02/23 06:44 Assessment and Plan (1) Cough: Status: Acute (2) Acute respiratory failure with hypoxemia: Status: Acute (3) Thrombocytopenia: Status: Acute (4) Septic shock: Status: Acute (5) Aspiration into airway: Status: Acute Plan 63F PMH parkinsons, dementia, epilepsy, cva, breast ca admitted to ICU for septic shock, acute resp failure due to aspiration pna, now on room air, off pressors, downgraded to medical floor 10/29/23 septic shock, acute respiratory failure due to aspiration pneumonia due to dysphagia in [facility] Negative cultures Continue unasyn started 10/28/23 s/p barium swallow 11/01/23 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
--- NOTE | 2023-11-03 14:03 | MHC.SLORD ---
Speech Language Pathology Order Status: Pt NPO for EGD this afternoon. 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 FURNITURE FINISHER HELPER to check in w/ hospitalist regarding FURNITURE FINISHER HELPER tx plan following results of EGD.
[2023-11-03] MEDS: Omeprazole 40 MG CAPSULE.DR PO (18:29)
[2023-11-03] MEDS: QUEtiapine Fumarate 25 MG TABLET PO (20:33)
[2023-11-03] MEDS: Pravastatin Sodium 20 MG TABLET PO (20:33)
[2023-11-03] MEDS: Phenytoin Sodium Extended 100 MG CAPSULE 300 MG PO (20:33)
[2023-11-04 03:21] VITALS: BP 129/70; PULSE 89; RESP 20; TEMP 36.2; O2SAT 94
[2023-11-04] MEDS: Omeprazole 40 MG CAPSULE.DR PO (05:31)
[2023-11-04 07:21] VITALS: BP 139/65; PULSE 88; RESP 20; TEMP 36.1; O2SAT 93
[2023-11-04 07:28] LABS: Hematocrit 23.6 % (37.0-47.0); Hemoglobin 7.9 g/dl (12.0-16.0); Mean Corpuscular HGB Conc 33.5 g/dl (31.0-35.0); Mean Corpuscular Hemoglobin 32.4 pg (27.0-33.0); Mean Corpuscular Volume 96.7 fL (80.0-98.0); Mean Platelet Volume 11.8 fL (9.4-12.3); Red Blood Count 2.44 X10*6/uL (4.20-5.50); Red Cell Distribution Width 13.1 % (11.0-16.0); White Blood Count 4.5 X10*3/uL (4.8-10.8)
[2023-11-04 07:33] LABS: Platelet Count 66 X10*3/uL (160-400)
[2023-11-04 07:51] LABS: Anion Gap 13 (12-20); Blood Urea Nitrogen 8 mg/dL (9-16); Calcium 8.8 mg/dL (8.4-10.2); Carbon Dioxide 24 mmol/L (22-29); Chloride 105 mmol/L (96-108); Creatinine Clr Calc Pharmacy 99.6; Estimated Glomerular Filt Rate > 60; Glucose Random 100 mg/dL (60-115); Potassium 3.2 mmol/L (3.3-5.1); Sodium 139 mmol/L (135-145)
[2023-11-04] MEDS: busPIRone HCl 5 MG TABLET 15 MG PO (10:29)
[2023-11-04] MEDS: Phenytoin Sodium Extended 100 MG CAPSULE 200 MG PO (10:30)
[2023-11-04] MEDS: Enoxaparin Sodium 40 MG/0.4 ML SYRINGE SUBCUT (10:30)
[2023-11-04] MEDS: Aspirin Enteric Coated 81 MG TABLET.DR PO (10:30)
[2023-11-04] MEDS: Carbidopa/Levodopa 25/100 TABLET 1 TAB PO ×2 (10:30→13:16)
[2023-11-04] MEDS: Folic Acid 1 MG TABLET PO (10:30)
--- NOTE | 2023-11-04 10:59 | P.PNIM_ITS ---
Subjective Subjective Date of Service: 11/04/23 Interval History: Seen and evaluated this morning Denies any fever or chills EGD showed esophagitis and gastritis No other overnight events Review of Systems Review of Systems: Yes all other systems are reviewed and are negative Physical Exam 2 Vital Signs: Vital Signs: Last Vital Signs Temp 97.0 F 11/04/23 07:21 Pulse 88 11/04/23 07:21 Resp 20 11/04/23 07:21 BP 139/65 11/04/23 07:21 Pulse Ox 93 11/04/23 07:21 O2 Del Method Room Air 11/04/23 07:21 O2 Flow Rate 30 10/29/23 08:00 FiO2 40 10/29/23 08:00 Oxygen Flow Rate 2 10/27/23 21:37 BMI result Body Mass Index 35.7 Const: Other: Constitutional : Awake, interactive, not in distress Neck : Normal inspection, Supple Cardiovascular : RRR, no JVP, no lower extremity edema Respiratory : good bilateral air entry, no crackles, wheezes or rhonchi Gastrointestinal: soft, lax, Normal bowel sounds, Non tender Skin : Warm, Dry Neurological : Alert & oriented x3, No focal deficit Objective Data Active Medications Aspirin (Aspirin Enteric Coated 81 Mg Tablet.) 81 mg PO DAILY [facility] Last Admin: 11/04/23 10:30 Dose: 81 mg Documented By: VÍCTOR Buspirone HCl (Buspirone Hcl 5 Mg Tablet) 15 mg PO TID [facility] Last Admin: 11/04/23 10:29 Dose: 15 mg Documented By: VÍCTOR Carbidopa/Levodopa (Carbidopa/Levodopa 25/100 Tablet) 1 tab PO BID@0900,1200 [facility] Last Admin: 11/04/23 10:30 Dose: 1 tab Documented By: VÍCTOR Enoxaparin Sodium (Enoxaparin Sodium 40 Mg/0.4 Ml Syringe) 40 mg SUBCUT Q24H [facility] Last Admin: 11/04/23 10:30 Dose: 40 mg Documented By: VÍCTOR Folic Acid (Folic Acid 1 Mg Tablet) 1 mg PO DAILY [facility] Last Admin: 11/04/23 10:30 Dose: 1 mg Documented By: VÍCTOR Hydroxyzine HCl (Hydroxyzine Hcl 25 Mg Tablet) 25 mg PO BID PRN PRN Reason: itching Last Admin: 11/02/23 20:31 Dose: 25 mg Documented By: NEO Ampicillin Sodium/Sulbactam (Sodium 3 gm/ Sodium Chloride) 100 mls @ 200 mls/hr IV Q8H [facility] Last Admin: 11/04/23 10:30 Dose: 200 mls/hr Documented By: VÍCTOR Omeprazole (Omeprazole 40 Mg Capsule.Dr) 40 mg PO BID@0630,1630 [facility] Last Admin: 11/04/23 05:31 Dose: 40 mg Documented By: [place] Phenytoin Sodium (Phenytoin Sodium Extended 100 Mg Capsule) 300 mg PO BEDTIME [facility] Last Admin: 11/03/23 20:33 Dose: 300 mg Documented By: [place] Phenytoin Sodium (Phenytoin Sodium Extended 100 Mg Capsule) 200 mg PO DAILY [facility] Last Admin: 11/04/23 10:30 Dose: 200 mg Documented By: VÍCTOR Pravastatin Sodium (Pravastatin Sodium 20 Mg Tablet) 20 mg PO BEDTIME [facility] Last Admin: 11/03/23 20:33 Dose: 20 mg Documented By: [place] Quetiapine Fumarate (Quetiapine Fumarate 25 Mg Tablet) 25 mg PO BEDTIME [facility] Last Admin: 11/03/23 20:33 Dose: 25 mg Documented By: W[place] Labs 11/04/23 06:34 11/04/23 06:34 Labs: Laboratory Results - last 24 hr 11/04/23 06:34 MCV 96.7 MCH 32.4 MCHC 33.5 RDW 13.1 Plt Count 66 L D MPV 11.8 Absolute Nucleated RBC 0.000 Nucleated RBC % (auto) 0.0 Anion Gap 13 Estim Creat Clear Calc 99.6 Estimated GFR > 60 Random Glucose 100 Calcium 8.8 Assessment and Plan (1) Acute respiratory failure with hypoxemia: Status: Acute (2) Pneumonia: Status: Acute (3) KAREN (acute kidney injury): Status: Acute (4) Physical deconditioning: Status: Acute Plan 63F PMH parkinsons, dementia, epilepsy, cva, breast ca admitted to ICU for septic shock, acute resp failure due to aspiration pna, now on room air, off pressors, downgraded to medical floor 10/29/23 septic shock, acute respiratory failure due to aspiration pneumonia due to dysphagia in [place] [employer] [facility] sepsis and hypoxia resolved Negative cultures on Unasyn started 10/28/23 s/p barium swallow 11/01/23 Continue sinemet EGD showed esophagitis and gastritis 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
[2023-11-04 11:15] VITALS: BP 127/67; PULSE 86; RESP 20; TEMP 36.4; O2SAT 97
--- NOTE | 2023-11-04 12:42 | MHC.CM.PN ---
Per MD, Patient is medically cleared for dc to SNF/STR today. Patient will dc to STR to [facility] today at 2:30 PM, via [facility]. CM spoke with Patient's Daughter/HCP/Julienne @ [phone] and addressed IMM with her (the original will be mailed certified letter to Julienne and a copy has been placed on the chart).
[2023-11-04 13:01] VITALS: O2SAT 96
--- NOTE | 2023-11-04 13:10 | P.DS_ITS ---
DS: Providers Provider Date of Service: 11/05/23 Date of admission: 10/27/23 20:04 Primary care physician: Maria Luz Mobley MD Consults: 10/29/23 13:42 Consult to Gastroenterology Routine Consulting Provider: Ernie Bolanos Reason for consultation: dysphagia DS: Diagnosis Discharge Diagnosis (1) Acute respiratory failure with hypoxemia: Status: Acute (2) Pneumonia: Status: Acute (3) KAREN (acute kidney injury): Status: Acute (4) Physical deconditioning: Status: Acute (5) Thrombocytopenia: Status: Acute (6) Elevated troponin: Status: Acute (7) Septic shock: Status: Acute (8) Aspiration into airway: Status: Acute (9) Acidosis, lactic: Status: Acute DS: Summary Hospital Course Hospital Course: Admission note HPI The patient is a 63-year-old female with history of Parkinson?s disease, dementia, seizures, hypercholesterolemia, CVA, and breast cancer? who presented to the emergency room with altered mental status.? According to daughter,? patient was in day program when she suddenly became confused,? vomited and her O2 dropped. They also noted patient shaking, but unsure if it was seizure-like? activity. On arrival to the emergency room patient was febrile to 104.2,? tachycardic to 118, initially blood pressure was soft but later became hypotensive to 79/43 despite administration of fluids.?Laboratory data was significant for? platelets 47,? BUN 21, creatinine 1.61, lactic acid 4.5, Mag 1.4,? troponin sensitivity 27? ?HEAD CT: ? no intracranial bleed noted ?Chest CT:? left lower infiltrates noted.? ?Abdominal CT:? no acute intra-abdominal process, mild constipation was noted ED course:? ?Patient received 2.5 L bolus, ceftriaxone 1 g, azithromycin 500mg, Flagyl 500mg,? magnesium 2 g, in acetaminophen 975.? Patient was started on? Levophed due to sustained hypotension. Hospital course # septic shock, acute respiratory failure due to aspiration pneumonia due to dysphagia in [facility] The patient was admitted to ICU for Pressors as she aspirated her vomitus according to records. Negative blood cultures. Treated with Unasyn started 10/28/23 with good response as she was weaned off O2 supplement. Evaluated by GI who recommended s/p barium swallow 11/01/23 which she could not finish because of vomiting but was consistent with penetration abnormalities. An EGD was done and showed esophagitis and gastritis. 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 currently advanced to NDD3 and thin liquids per SILVERSMITH APPRENTICE recommend ations. To repeat CBC next week # Physical deconditioning PT eval, SNF placement # Epilpsy To continue with Phenytoin as the patient doesnt take Depakote or Lamictal at home (confirmed by Neurology office visit 10/27/23. she was monitored inpatient with no recurrence of seizure while on home dose PHenytoin. Continue Antibiotic as prescribed Omeprazole twice daily and follow with GI in 2-3 months Hold Depakote and Lamictal as they were both held in hospital and at your home before. Start physical therapy as tolerated Time Attestation Discharge coordination time: Greater than 30 minutes Quality: Safe Use of Opioids Does Pt have an Active Cancer Diagnosis on the Problem List?: No Quality: Stroke Does the patient have a stroke diagnosis?: No Physical Exam Vital Signs: Vital Signs: Last Vital Signs Temp 97.5 F 11/04/23 11:15 Pulse 86 11/04/23 11:15 Resp 20 11/04/23 11:15 BP 127/67 11/04/23 11:15 Pulse Ox 97 11/04/23 11:15 O2 Del Method Room Air 11/04/23 11:15 O2 Flow Rate 30 10/29/23 08:00 FiO2 40 10/29/23 08:00 Oxygen Flow Rate 2 10/27/23 21:37 BMI result Body Mass Index 35.7 Const: Other: Constitutional : Awake, interactive, not in distress Neck : Normal inspection, Supple Cardiovascular : RRR, no JVP, no lower extremity edema Respiratory : good bilateral air entry, no crackles, wheezes or rhonchi Gastrointestinal: soft, lax, Normal bowel sounds, Non tender Skin : Warm, Dry Neurological : Alert & oriented x3, No focal deficit DS: Data Data Completed and Pending Pending studies at discharge: Pending at discharge 11/03/23 13:24 Surgical [PTH] Routine Labs on day of discharge: Laboratory Results - last 24 hr 11/04/23 06:34 WBC 4.5 L RBC 2.44 L Hgb 7.9 L Hct 23.6 L MCV 96.7 MCH 32.4 MCHC 33.5 RDW 13.1 Plt Count 66 L D MPV 11.8 Absolute Nucleated RBC 0.000 Nucleated RBC % (auto) 0.0 Sodium 139 Potassium 3.2 L Chloride 105 Carbon Dioxide 24 Anion Gap 13 BUN 8 L Creatinine 0.80 Estim Creat Clear Calc 99.6 Estimated GFR > 60 Random Glucose 100 Calcium 8.8 Imaging Chest x-ray: Radiologist's impression: ITS Impressions Head CT 10/27/23 13:23 IMPRESSION: No acute intracranial process seen. This critical result was discussed with Dr. Siena Antoine at 1:28 PM on 11/13/2023. It was ascertained that the content and urgency of the report was understood at the time of direct communication. Abdomen/Pelvis CT 10/27/23 13:54 IMPRESSION: No acute intra-abdominal process seen. Mild constipation Chest CT 10/27/23 13:54 IMPRESSION: No acute intra-abdominal process seen. Mild constipation Chest X-Ray 10/28/23 00:20 IMPRESSION: Right IJ catheter in good position with tip at SVC/RA junction. No pneumothorax. Modified Barium Swallow 10/29/23 11:17 IMPRESSION: No evidence of aspiration or laryngeal penetration during this examination. Refer to the speech therapy report for further clarification This procedure was performed by Piero Larkin PA-C, and supervised by Dr. Price Barium Swallow X-Ray 11/01/23 14:34 IMPRESSION: 1. Limited/incomplete examination due to persistent vomiting 2. Trace penetration to the false cords with thick barium 3. Mild cricopharyngeal achalasia This procedure was performed by Piero Larkin PA-C, and supervised by Dr. Price Discharge Plan Discharge Anticipated Discharge Date/Time: 11/04/23 12:41 Patient Disposition: er [facility] Discharge Diagnosis: Septic shock Pneumonia Electrolytes imbalance Referrals: Alex Ferrara [place] [Outside] - 1 Week Maria Luz Vega MD [Primary Care Provider] - 1 Week Discharge Medications: New omeprazole 40 mg Capsule,Delayed Release(Dr/Ec) 40 mg PO BID@0630,1630 Qty: 60 2RF amoxicillin-pot clavulanate 400-57 mg/5 mL suspension for reconstitution 10 ml PO BID Qty: 100 0RF Continued phenytoin sodium extended 100 mg capsule 200 mg PO DAILY albuterol sulfate [Ventolin HFA] 90 mcg/actuation Hfa Aerosol Inhaler 2 puff INHALATION Q4-6H PRN (Reason: SOB) carbidopa-levodopa [Sinemet] 25-100 mg Tablet 1 tab PO BID@0900,1200 (DME) bed alarm See Rx Instructions .Route .MEDSUPPLY Qty: 1 0RF Rx Instructions: As directed ([facility] [place]) hospital bed Kit See Rx Instructions .Route Qty: 1 0RF Rx Instructions: As directed (DME) DermaGauze Hydrogel Dressing 4 X 4 bandage See Rx Instructions .Route Qty: 15 3RF Rx Instructions: As directed folic acid 1 mg tablet 1 mg PO DAILY 90 Days Qty: 90 0RF (DME) adult diapers pull-ups Large See Rx Instructions .Route .MEDSUPPLY Qty: 210 11RF Rx Instructions: As directed ([facility]) underpads [Bed Underpads] Pad See Rx Instructions .Route Qty: 40 3RF Rx Instructions: Use 2 once a day (DME) latex gloves [Latex Gloves, Large] Misc See Rx Instructions .Route Qty: 5 6RF Rx Instructions: As directed aspirin [Adult Aspirin Regimen] 81 mg tablet,delayed release (DR/EC) 81 mg PO DAILY 90 Days Qty: 90 3RF calcium carbonate 600 mg calcium (1,500 mg) tablet 600 mg PO BID Qty: 60 11RF hydroxyzine HCl 25 mg tablet 25 mg PO BID PRN (Reason: itching) 3 Days Qty: 6 0RF ([facility] [place] [facility]) Shower Chair Misc See Rx Instructions .Route Qty: 1 0RF Rx Instructions: As directed pravastatin 20 mg tablet 20 mg PO BEDTIME Qty: 90 0RF buspirone 15 mg tablet 15 mg PO TID 90 Days Qty: 270 1RF quetiapine 25 mg tablet 25 mg PO BEDTIME (DME) nonadhesive bandage See Rx Instructions .Route .MEDSUPPLY Qty: 1 0RF Rx Instructions: As directed phenytoin sodium extended 300 mg capsule 300 mg PO BEDTIME potassium citrate 10 mEq (1,080 mg) tablet extended release 20 meq PO BID 90 Days Qty: 360 3RF terazosin 2 mg capsule 2 mg PO DAILY 90 Days Qty: 90 3RF Held divalproex [Depakote] 125 mg tablet,delayed release (DR/EC) 375 mg PO TID Hold Instructions: Check with PCP if patient actually takes or not. i could not get hold of him. citalopram 20 mg tablet 20 mg PO BEDTIME Hold Instructions: Check with PCP if patient actually takes or not. i could not get hold of him. Discontinued lamotrigine 25 mg tablet 25 mg PO BID 90 Days Qty: 180 1RF Discharge Orders: Discharge Order (Routine); Ordered 11/04/23 Ordered By: Girish Edwards Diet: Advance to usual diet Activity on Discharge: As tolerated Stand Alone Forms: Patient Portal Discharge page Other Ambulatory Orders: Complete Blood Count Auto Diff (Routine) Timeframe: 1 Week Facility: [facility] - Location: Laboratory Ordered By: Girish Edwards Care Plan Goals: Read below Health Concerns: Read below Plan of Treatment: Read below Assessment: You were admitted for treatment of severe lung infection with hypoxia as a result of aspiration. treated with IV antibiotics with good response over the course of hospital stay as you were evaluated by speech therapist who recommended modified diet and had an EGD done by GI showing evidence of inflammation of your stomach wall. Continue Antibiotic as prescribed Omeprazole twice daily and follow with GI in 2-3 months Hold Depakote and Lamictal as they were both held in hospital. Start physical therapy as tolerated Discharge Date/Time: 11/04/23 15:15
--- NOTE | 2023-11-04 14:24 | PC.NURSE ---
1420- Attempted to call report to [facility] [phone]. After 20+ rings the jewel cupping machine operator picked up and found that pt would be going to room 202-2 and stated she would transfer the call to that floor. Upon transferring the call the phone rang 20+ more times with no answer then just disconnected. After multiple attempts no further answer, unable to call report, will send discharge paperwork with the ambulance in transfer.
--- NOTE | 2023-11-04 15:19 | P.CDIM_ITS ---
PROVIDER RESPONSE TEXT: To clarify, the appropriate diagnosis supported by the clinical indicators: Pancytopenia: suspected QUERY TEXT: PHYSICIAN'S DOCUMENTATION REQUEST Date of Query: 11/04/2023 09:17 AM EST Patient Name: Susana Kelsey I Admit Date: 10/28/2023 Dear Girish Edwards, A review of the medical record indicates additional documentation may be needed. Please review below and update the documentation accordingly. Clinical Indicators: LABS: WBC 4.5 RBC 2.44 PLT 31 Thrombocytopenia, History of Breast cancer Based on the above, is there a diagnosis that correlates with these lab findings: Pancytopenia possible, suspected, probable etc. Other please specify if other etiology of lab findings Other (explain) Clinically unable to determine (explain) Thank you, Pema Matt, CCS, CDIS Use of terms such as suspected, likely, concern for, or probable (associated with a specific diagnosi s that is being evaluated, monitored, or treated as if it exists) are acceptable and can be coded in the inpatient se tting, when documented at the time of discharge. Please use your independent medical judgment in providing your response. THIS QUERY IS PART OF THE PERMANENT MEDICAL RECORD
--- NOTE | 2023-11-04 15:20 | HO.POSTANES ---
Post Anesthesia Evaluation Post Anesthesia Evaluation Date of Service: 11/04/23 Vital Signs: Vital Signs Temp Pulse Resp BP Pulse Ox O2 Del Method 11/04/23 13:01 96 Room Air 11/04/23 11:15 97.5 F 86 20 127/67 97 Room Air 11/04/23 07:21 97.0 F 88 20 139/65 93 Room Air 11/04/23 03:21 97.2 F 89 20 129/70 94 Room Air Anesthesia: Monitored Mental Status: Awake Pain Control: Satisfactory Nausea/Vomiting: None Hydration: Adequate Anesthesia-Related Issues: No Anes. Related Issues
== END 2023-11-04 15:15 | disposition skilled nursing facility (03) | DRG 871 ==
LOC: HO.ED 16:10 → HO.EDOVER 20:09 → HO.ICU 20:13 → HO.IMC 10-29 15:23
PROVIDERS: Internal Medicine; Internal Medicine Gastroenterology; Physician Assistant; Admitting Provider Registered Nurse Community Health; Emergency Provider Emergency Medicine; PCP Internal Medicine; Visit Provider Student in an Organized Health Care Education/Training Program
PROC: 0DJ08ZZ Inspection of Upper Intestinal Tract, Via Natural or Artificial Opening Endoscopic (ICD-10-PCS; CPT 43235; principal; 2023-11-03 14:00)
DX: A41.9 Sepsis, unspecified organism (principal); J69.0 Pneumonitis due to inhalation of food and vomit; R65.21 Severe sepsis with septic shock; J96.01 Acute respiratory failure with hypoxia; N17.9 Acute kidney failure, unspecified; F05 Delirium due to known physiological condition; D61.818 Other pancytopenia; K20.90 Esophagitis, unspecified without bleeding; K29.70 Gastritis, unspecified, without bleeding; K22.70 Barrett's esophagus without dysplasia; R13.10 Dysphagia, unspecified; G40.909 Epilepsy, unspecified, not intractable, without status epilepticus; G20.A1 Parkinson's disease without dyskinesia, without mention of fluctuations; F02.80 Dementia in other diseases classified elsewhere, unspecified severity, without behavioral disturbance, psychotic disturbance, mood disturbance, and anxiety; Z20.822 Contact with and (suspected) exposure to COVID-19; Z85.3 Personal history of malignant neoplasm of breast; Z86.73 Personal history of transient ischemic attack (TIA), and cerebral infarction without residual deficits; Z87.891 Personal history of nicotine dependence; Z79.82 Long term (current) use of aspirin; Z79.899 Other long term (current) drug therapy
CPT/HCPCS: 0241U; 36415; 70450; 71045; 71250; 74176; 74220; 74230; 80048; 80053; 80076; 80164; 81001; 81003; 82040; 82803; 82947; 83605; 83690; 83735; 84100; 84484; 85007; 85025; 85027; 85610; 87040; 87086; 87493; 87633; 88305; 88342; 92610; 92611; 93005; 97162; 99285; C1726; C1758; J0295; J0456; J0696; J1650; J1836; J2250; J2405; J2704; J3371; J3475; P9047

== ENCOUNTER → 2023-10-27 13:03 | Outpatient (BNV) | payer OTHER, SELFPAY | PROVIDERS: Admitting Provider Registered Nurse Community Health; Emergency Provider Emergency Medicine; PCP Internal Medicine; Visit Provider Internal Medicine Cardiovascular Disease | DX: I47.10 Supraventricular tachycardia, unspecified (principal); R94.31 Abnormal electrocardiogram [ECG] [EKG] | CPT/HCPCS: 93010 ==

== ENCOUNTER 2023-10-27 20:04 | Outpatient (BNV) | payer OTHER, SELFPAY | END 2023-11-01 14:00 | PROVIDERS: Admitting Provider Registered Nurse Community Health; Emergency Provider Emergency Medicine; PCP Internal Medicine; Visit Provider Radiology Diagnostic Radiology | DX: K22.0 Achalasia of cardia (principal) | CPT/HCPCS: 74221 ==

== ENCOUNTER 2023-10-27 20:04 | Outpatient (BNV) | payer OTHER, SELFPAY | END 2023-10-29 10:30 | PROVIDERS: Admitting Provider Registered Nurse Community Health; Emergency Provider Emergency Medicine; PCP Internal Medicine; Visit Provider Radiology Diagnostic Radiology | DX: R13.10 Dysphagia, unspecified (principal) | CPT/HCPCS: 74230 ==

== ENCOUNTER → 2023-10-27 20:04 | Outpatient (BNV) | payer OTHER, SELFPAY | PROVIDERS: Admitting Provider Registered Nurse Community Health; Emergency Provider Emergency Medicine; PCP Internal Medicine; Visit Provider Internal Medicine Gastroenterology | DX: R13.10 Dysphagia, unspecified (principal); K21.00 Gastro-esophageal reflux disease with esophagitis, without bleeding | CPT/HCPCS: 43249; 99223 ==

== ENCOUNTER → 2023-10-27 20:04 | Outpatient (BNV) | payer OTHER, SELFPAY | PROVIDERS: Admitting Provider Registered Nurse Community Health; Emergency Provider Emergency Medicine; PCP Internal Medicine; Visit Provider Registered Nurse Community Health | DX: A41.9 Sepsis, unspecified organism (principal); R65.21 Severe sepsis with septic shock; J96.01 Acute respiratory failure with hypoxia; J18.9 Pneumonia, unspecified organism; T17.908A Unspecified foreign body in respiratory tract, part unspecified causing other injury, initial encounter; N17.9 Acute kidney failure, unspecified; R79.89 Other specified abnormal findings of blood chemistry; D69.6 Thrombocytopenia, unspecified | CPT/HCPCS: 36566; 99291 ==

== ENCOUNTER → 2023-10-27 20:04 | Outpatient (BNV) | payer OTHER, SELFPAY | PROVIDERS: Admitting Provider Registered Nurse Community Health; Emergency Provider Emergency Medicine; PCP Internal Medicine; Visit Provider Internal Medicine | DX: J96.01 Acute respiratory failure with hypoxia (principal); N17.9 Acute kidney failure, unspecified; A41.9 Sepsis, unspecified organism; R65.21 Severe sepsis with septic shock; D69.6 Thrombocytopenia, unspecified; R79.89 Other specified abnormal findings of blood chemistry; J18.9 Pneumonia, unspecified organism; R53.81 Other malaise; T17.908A Unspecified foreign body in respiratory tract, part unspecified causing other injury, initial encounter; E87.20 Acidosis, unspecified | CPT/HCPCS: 99232; 99233; 99239 ==

== ENCOUNTER → 2023-10-27 20:04 | Outpatient (BNV) | payer OTHER, SELFPAY | PROVIDERS: Admitting Provider Registered Nurse Community Health; Emergency Provider Emergency Medicine; PCP Internal Medicine; Visit Provider Internal Medicine Pulmonary Disease | DX: J96.01 Acute respiratory failure with hypoxia (principal); T17.908A Unspecified foreign body in respiratory tract, part unspecified causing other injury, initial encounter; N17.9 Acute kidney failure, unspecified; F05 Delirium due to known physiological condition; G20.A1 Parkinson's disease without dyskinesia, without mention of fluctuations; R56.9 Unspecified convulsions | CPT/HCPCS: 99291 ==

== ENCOUNTER 2023-11-25 17:09 | Outpatient (AMB) | payer OTHER, SELFPAY ==
[2023-11-25 17:28] VITALS: BP 118/72; BMI 32.9
--- NOTE | 2023-11-25 17:28 | MHC.PC.OV ---
Vital Signs 11/25/23 17:28 Height 5 ft 11 in Weight 236 lb BMI 32.9 BP 118/72 Blood Pressure Location Lt brachial Position Sitting Intake Visit Reasons: lipids Intake Note: Patient here for [facility] disch follow up Pneumonia 11/16/23 Physical Therapist Aide Required: No Accompanied by: Daughter Allergies fluticasone [From Advair Diskus] Allergy (Verified 11/25/23 17:54) Unknown salmeterol [From Advair Diskus] Allergy (Verified 11/25/23 17:54) Unknown Medication List - Last Reconciled 11/25/23 by Maria Luz Mobley MD [adult diapers pull-ups As directed] albuterol sulfate 90 mcg/actuation (Ventolin HFA) 2 puffs inhalation Q4-6H PRN aspirin (Adult Aspirin Regimen) 81 mg PO DAILY 90 days [bed alarm As directed] buspirone 15 mg PO TID 90 days calcium carbonate 600 mg PO BID carbidopa-levodopa 25-100 mg (Sinemet) 1 tab PO BID@0900,1200 citalopram 20 mg PO BEDTIME divalproex (Depakote) 375 mg PO TID folic acid 1 mg PO DAILY 90 days gel dressing (DermaGauze Hydrogel Dressing) As directed Grab bar As directed hospital bed As directed hydroxyzine HCl 25 mg PO BID PRN 3 days latex gloves (Latex Gloves, Large) As directed [nonadhesive bandage As directed] omeprazole 40 mg PO BID@0630,1630 phenytoin sodium extended 200 mg PO DAILY phenytoin sodium extended 300 mg PO BEDTIME potassium citrate ER 20 mEq (2 x 10 mEq (1,080 mg)) PO BID 90 days pravastatin 20 mg PO BEDTIME quetiapine 25 mg PO BEDTIME Shower Chair As directed terazosin 2 mg PO DAILY 90 days underpads (Bed Underpads) Use 2 once a day Tobacco use date assessed: 11/25/23 Fall risk assessment: No Falls in past year Last assessed Fall Risk: 11/25/23 Dental Screening Dental Screen Date: 11/25/23 Did you have a dental visit in the last 12 months?: No Did you have a dental problem in the last 6 months where you did not have access to dental care?: No Was dental information given to patient?: Patient has dentist HPI HPI Comments History of Present Illness Details This is a 63-year-old female with Parkinson's disease, seizures and pure hypercholesterolemia that comes today accompanied by daughter and son-in-law for hospital discharge follow-up from [facility] with discharge date 11/18/2023 due to pneumonia. Patient went to the hospital October 27 due to intractable vomiting, confusion and a decreasing oxygen saturation. She was admitted in ICU. CT of the head was negative. CT of the chest shows left lower lobe infiltrate. CT of abdomen showed no acute abnormality. Receive IV antibiotics. Was eventually transferred to the medical floor and transfer to [facility] due to physical deconditioning. Vomiting resolved but she still has some difficulty swallowing solids. Barium swallow did not show any significant abnormality. Also had an endoscopy done while hospitalized. She will keep on puree diet. She will restart Depakote for her seizures. Parkinson's disease stable with medication. Lipid panel will be order and she is currently on statins. Her pneumonia has improved and a chest x-ray will be order because she still has productive cough but no fever. Does not look septic. Also labs will be reordered. [facility] Medical History (Updated 11/27/23 @ 09:37 by Maria Luz Mobley MD) Aneurysm Parkinsons disease Seizures Anxiety Wound of right upper extremity Personal history of breast cancer Dementia Right arm fracture Cognitive impairment History of stroke Aggressive behavior Pure hypercholesterolemia Fall Triple negative malignant neoplasm of breast Surgical History Hx of colonoscopy History of lumpectomy of left breast History of cholecystectomy Family History Father Medical history unknown Mother Medical history unknown Social History Household Members: Family and Children Housing: House Are you a primary nanny caregiver to a significant other at home: No Do you presently have visiting nurse or other home services: Yes ([facility]; 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 1. Little interest or pleasure in doing things: not at all 2. Feeling down, depressed, or hopeless: not at all 3. Trouble falling or staying asleep, or sleeping too much: not at all 4. Feeling tired or having little energy: not at all 5. Poor appetite or overeating: not at all 6. Feeling bad about yourself - or that you are a failure or have let yourself or your family down: not at all 7. Trouble concentrating on things, such as reading the newspaper or watching television: not at all 8. Moving or speaking so slowly that other people could have noticed. Or the opposite - being so fidgety or restless that you have been moving around a lot more than usual: not at all 9. Thoughts that you would be better off or of hurting yourself in some way: not at all Total score: 0 Depression Screening Interpretation: Negative Depression Screening Done: Yes 77740 - PHQ-9 Billing: Yes Source: Developed by Drs. Jung Bee, Wendy Dias, Juan Aguilar and colleagues, with an educational daren from [employer]. Thrive Questionnaire Date Thrive assessed: 11/25/23 I am a: Patient What is your living situation today?: I have a steady place to live Within the past 12 months, did the food you bought not last and you didn't have the money to get more?: Never true Within the past 12 months, did you worry whether your food would run out before you got money to buy more?: Never true Do you have trouble paying for medicines?: No Do you have trouble getting transportation to medical appointments?: No Do you have trouble paying your heating and electricity bill?: No Do you have trouble taking care of your child, family member or friend?: No Do you have trouble with day-to-day activities such as bathing, preparing meals, shopping, managing finances, etc.?: Yes Are you currently unemployed and looking for a job?: No Are you interested in more education?: No Please select the resources that you would like help with: None Currently or been in a relationship where the following occur: no concerns reported THRIVE Score: 0 AUDIT C Alcohol Use Questionnaire (AUDIT-C) 1. How often do you have a drink containing alcohol?: Never Total Score: 0 Score Reviewed/Action Taken: No RAMILA-7 AMB Questionnaire RAMILA-7 Date RAMILA - 7 assessed: 11/25/23 Feeling nervous, anxious, or on edge: 0 = Not at all Not being able to stop or control worryin = Not at all Worrying too much about different things: 0 = Not at all Trouble relaxin = Not at all Being so restless that it is hard to sit still: 0 = Not at all Becoming easily annoyed or irritable: 0 = Not at all Feeling afraid as if something awful might happen: 0 = Not at all Total RAMILA-7 score (0-4 normal; 5-9 mild; 10-14 moderate; 15-21 severe): 0 Source: Developed by Drs. Jung Bee, Wendy Dias, Juan Aguilar and colleagues, with an educational daren from [employer]. RAMILA-7 Assessment Billing RAMILA-7 Assessment Tool: RAMILA-7 Assessment 94373 Review of Systems Const All systems reviewed & are unremarkable except as noted in HPI and below Eyes Reports no additional complaints, Denies change in vision and Denies other visual disturbances Card Denies chest pain at rest, Denies chest pain with activity, Denies edema, Denies irregular heart rhythm, Denies claudication, Denies dyspnea, Denies dyspnea on exertion, Denies orthopnea, Denies paroxysmal nocturnal dyspnea and Denies slow heart rate Resp Reports chest congestion, Reports cough, Denies dyspnea and Denies dyspnea on exertion GI Denies abdominal pain, Denies change in bowel habits, Denies excessive flatus, Denies nausea and Denies vomiting Denies urinary incontinence, Denies urinary hesitancy and Denies urinary urgency Musc Denies abnormal gait, Denies atrophy, Denies deformity and Denies limited range of motion Skin/Breast Denies bleeding lesions, Denies changing lesions and Denies rash Neuro Denies abnormal gait and Denies lack of coordination Physical exam (Primary Care) Vital Signs: Last Vital Signs BP 118/72 11/25/23 17:28 BMI result Body Mass Index 32.9 Tobacco/Smoking Status: Tobacco use Status Tobacco use date assessed 11/25/23 11/25/23 17:36 Patient Tobacco Use Status Former Tobacco user 11/25/23 17:36 Tobacco use type Cigarette 11/25/23 17:36 e-Cigarette/Vaping Use Never Used 11/25/23 17:36 PHQ-9: PHQ-9 Score PHQ-9: Total score 0 11/26/23 16:49 Depression Screening Interpretation: Negative Thrive Assessment: Date of Thrive Assessment Date Thrive assessed 11/25/23 11/25/23 17:36 Currently or been in a relationship where the following occur: no concerns reported Eyes General: appearance normal, both eyes and all related structures Eyelids: Yes eyelids normal Conjunctivae: conjunctivae normal Neck Neck: Yes normal visual inspection and Yes supple Resp Effort & Inspection: normal respiratory effort Auscultation: clear to auscultation bilaterally Cardio Jugular venous distension: no JVD Rate: regular rate Rhythm: regular rhythm Heart sounds: S1 normal heart sound present and S2 normal heart sound present Extrem General: Yes full ROM Results AMB Urinalysis, Automated UA Leukoctes 0 Matthias/uL Last Edit by Toñito Pressley [facility] on 11/25/23 18:11 UA Nitrite Negative Last Edit by Toñito Pressley [facility] on 11/25/23 18:11 UA Urobilinogen 0.2 mg/dL Last Edit by Toñito Pressley [facility] on 11/25/23 18:11 UA Protein 15 mg/dL Last Edit by Toñito Pressley [facility] on 11/25/23 18:11 UA pH 6.5 Last Edit by Toñito Pressley [facility] on 11/25/23 18:11 UA Blood 3 Shawn/uL Last Edit by Toñito Pressley [facility] on 11/25/23 18:11 UA Specific [place] 1.015 Last Edit by Toñito Pressley [facility] on 11/25/23 18:11 UA Ketone Negative Last Edit by Toñito Pressley [facility] on 11/25/23 18:11 UA Bilirubin 0 mg/dL Last Edit by Toñito Pressley [facility] on 11/25/23 18:11 UA Glucose 0 mg/dL Last Edit by Toñito Pressley [facility] on 11/25/23 18:11 Results Reviewed Results Reviewed: Laboratory Last Values Urine pH (Auto) 6.5 11/25/23 18:09 Specific [place] (Auto) 1.015 11/25/23 18:09 Urine Protein (Auto) 15 mg/dL 11/25/23 18:09 Glucose (UA)(Auto) 0 mg/dL 11/25/23 18:09 Urine Ketones (Auto) Negative 11/25/23 18:09 Urine Blood (Auto) 3 Shawn/uL 11/25/23 18:09 Urine Nitrite (Auto) Negative 11/25/23 18:09 Urine Bilirubin (Auto) 0 mg/dL 11/25/23 18:09 Urine Urobilinogen (Auto) 0.2 mg/dL 11/25/23 18:09 Leukocyte Esterase (Auto) 0 Matthias/uL 11/25/23 18:09 Assessment and Plan Assessment & Plan (1) Hospital discharge follow-up: Code(s): Z09 - Encounter for follow-up examination after completed treatment for conditions other than malignant neoplasm Plan: Recall rehab discharge date was 11/18/2023 for physical deconditioning which patient has markedly improved. Still coughing and chest x-ray will be ordered. Diet was changed from regular to puree due to difficulty swallowing solids. (2) Pneumonia: Code(s): J18.9 - Pneumonia, unspecified organism Qualifiers: Laterality: left Lung location: unspecified part of lung Pneumonia type: due to unspecified organism Qualified Code(s): J18.9 - Pneumonia, unspecified organism Plan: Patient completed antibiotics. Still has some productive cough but no fever. Labs and chest x-ray will be order. (3) Parkinsons disease: Code(s): G20 - Parkinson's disease Plan: Continue carbidopa-levodopa. Follow-up with Neurology. (4) Seizures: Code(s): R56.9 - Unspecified convulsions Plan: Restart Depakote. (5) Pure hypercholesterolemia: Code(s): E78.00 - Pure hypercholesterolemia, unspecified Plan: Continue statins. Repeat lipid panel. Orders: Orders Lipid Panel 11/26/23 E78.5 - Hyperlipidemia, unspecified Vitamin D 25-OH Total 11/26/23 E55.9 - Vitamin D deficiency, unspecified AMB Urinalysis Automated 11/25/23 R31.9 - Hematuria, unspecified XR chest 2V 11/26/23 J18.9 - Pneumonia, unspecified organism Complete Blood Count Auto Diff 11/26/23 D64.9 - Anemia, unspecified IRON PROFILE 11/26/23 D64.9 - Anemia, unspecified Vitamin B12 and Folate 11/26/23 E53.8 - Deficiency of other specified B group vitamins Comprehensive [place]. Panel Fast 11/26/23 J18.9 - Pneumonia, unspecified organism Medications: New divalproex (Depakote) 375 mg (3 x 125 mg) PO TID 30 days 270 tabs 1RF Coding Level of Care Code TCM Mod MDM <= 7 Days Diagnoses Hospital discharge follow-up Z09 Pneumonia J18.9 Laterality: left Lung location: unspecified part of lung Pneumonia type: due to unspecified organism Parkinsons disease G20 Seizures R56.9 Pure hypercholesterolemia E78.00 Additional Codes RAMILA-7 Assessment Billing - RAMILA-7 Assessment Tool: RAMILA-7 Assessment 21540 ([id number]) Time Spent (min) 24
== END 2023-11-25 18:12 | disposition home or self-care (01) ==
PROVIDERS: PCP Internal Medicine; Visit Provider Internal Medicine
DX: R31.9 Hematuria, unspecified (principal)
CPT/HCPCS: 81003; 99213

== ENCOUNTER 2023-11-26 09:07 | Outpatient (REF) | payer OTHER, SELFPAY ==
--- NOTE | ~2023-11-26 | XR_ITS ---
EXAMINATION: XR CHEST 2 VIEWS CLINICAL INFORMATION: Pneumonia. COMPARISON: Chest radiograph dated 10/28/2023. TECHNIQUE: Frontal and lateral views of the chest were obtained. FINDINGS: The heart, great vessels, pulmonary vasculature and mediastinum are normal. There are atherosclerotic calcifications of the aortic knob. The lungs show no focal infiltrate, effusion or pneumothorax. There is no acute osseous abnormality. There is multi-level thoracic spondylosis. XR/XR chest 2V IMPRESSION: No active cardiopulmonary disease.
[2023-11-26 10:01] LABS: Eosinophils Percent Auto 1.4 % (0-4); Hematocrit 30.4 % (37.0-47.0); Hemoglobin 9.5 g/dl (12.0-16.0); Imm Gran Abs Auto 0.02 X10*3/uL (0.00-0.03); Imm Gran Pct Auto 0.9 % (0.0-0.4); Lymphocytes Absolute Auto 1.5 X10*3/uL (1.2-4.9); Lymphocytes Percent Auto 66.5 % (20-40); MANUAL DIFF FLAG SCAN; Mean Corpuscular HGB Conc 31.3 g/dl (31.0-35.0); Mean Corpuscular Hemoglobin 31.4 pg (27.0-33.0); Mean Corpuscular Volume 100.3 fL (80.0-98.0); Mean Platelet Volume 10.8 fL (9.4-12.3); Monocytes Absolute Auto 0.2 X10*3/uL (0.1-1.2); Monocytes Percent Auto 10.9 % (2-11); Neutrophils Absolute Auto 0.5 x10*3/uL (2.0-8.3); Neutrophils Percent Auto 20.3 % (45-73); Red Blood Count 3.03 X10*6/uL (4.20-5.50); Red Cell Distribution Width 13.9 % (11.0-16.0); SCAN SMEAR FLAG 1; White Blood Count 2.2 X10*3/uL (4.8-10.8)
[2023-11-26 10:02] LABS: Platelet Count 34 X10*3/uL (160-400)
[2023-11-26 10:52] LABS: Alanine Aminotransferase < 5 U/L (0-31); Albumin Level 3.6 g/dL (3.5-5.0); Alkaline Phosphatase 74 U/L (39-117); Anion Gap 11 (12-20); Aspartate Amino Transferase 19 U/L (5-31); Bilirubin Total 0.4 mg/dL (0.0-1.0); Blood Urea Nitrogen 6 mg/dL (9-16); Calcium 8.7 mg/dL (8.4-10.2); Carbon Dioxide 25 mmol/L (22-29); Chloride 108 mmol/L (96-108); Cholesterol 167 mg/dL (<200); Estimated Glomerular Filt Rate > 60; Glucose Fasting 97 mg/dL (60-99); HDL Cholesterol 35 mg/dL (>40); Iron 146 mcg/dL (30-160); LDL Cholesterol Calculated 98 mg/dL (<100); Percent Iron Saturation 65 % (15-50); Potassium 3.8 mmol/L (3.3-5.1); Sodium 140 mmol/L (135-145); Total Iron Binding Capacity 226 mcg/dL (228-428); Total Protein 7.8 g/dL (6.5-8.0); Triglycerides 171 mg/dL (<150); Unsaturated Iron Binding 80 ug/dL
[2023-11-26 11:03] LABS: Vitamin D 25-OH Total 18.5 ng/mL (>30)
[2023-11-26 11:10] LABS: SLIDE REVIEW VERIFIED
[2023-11-26 11:21] LABS: Folate > 20.0 ng/mL (> or = 4.0); Vitamin B12 936 pg/mL (200-900)
== END 2023-11-26 09:08 | disposition home or self-care (01) ==
LOC: HO.XRAY 09:07
PROVIDERS: PCP Internal Medicine; Visit Provider Internal Medicine
DX: E78.5 Hyperlipidemia, unspecified (principal); R56.9 Unspecified convulsions; D64.9 Anemia, unspecified; E53.8 Deficiency of other specified B group vitamins; E55.9 Vitamin D deficiency, unspecified; J18.9 Pneumonia, unspecified organism
CPT/HCPCS: 36415; 71046; 80053; 80061; 82306; 82607; 82746; 83540; 85025

== ENCOUNTER 2024-01-11 14:58 | Outpatient (REF) | payer OTHER, SELFPAY ==
--- NOTE | ~2024-01-11 | US_ITS ---
EXAMINATION: US RETROPERITONEAL LIMITED (RENAL ONLY) CLINICAL INFORMATION: Microhematuria, calculus of kidney. COMPARISON: CT abdomen and pelvis 10/27/2023. Renal ultrasound 09/14/2022 and 07/11/2021. X-ray abdomen KUB 12/10/2017. TECHNIQUE: Real-time imaging of the kidneys. FINDINGS: RIGHT KIDNEY: 11.4 x 5.2 x 3.9 cm (SAG x AP x TRV). The kidney is normal in size, contour, and echogenicity. Renal cortical thickness is normal. No calculi or focal parenchymal lesions. No hydronephrosis. LEFT KIDNEY: 11.6 x 4.5 x 5.0 cm (SAG x AP x TRV). The kidney is normal in size, contour, and echogenicity. Renal cortical thickness is normal. No calculi or focal parenchymal lesions. No hydronephrosis. US/US renal BI IMPRESSION: Unremarkable sonographic imaging of the kidneys. Specifically, no renal calculi or hydronephrosis bilaterally.
== END 2024-01-11 14:59 | disposition home or self-care (01) ==
LOC: HO.US 14:58
PROVIDERS: PCP Internal Medicine; Visit Provider Nurse Practitioner Family
DX: N20.0 Calculus of kidney (principal); R31.29 Other microscopic hematuria
CPT/HCPCS: 76775

== ENCOUNTER 2024-02-18 11:43 | Outpatient (AMB) | payer OTHER, SELFPAY ==
--- NOTE | 2024-02-18 11:51 | A.OFFVIS_ITS ---
Intake Visit Reasons: US follow up(set) Intake Note: Patient is present for ultrasound follow up/bilateral nephrolithiasis Urology Medication: terazosin Blood Thinner: Aspirin *NO antibiotic allergies PVR: 0ml's Identification Clerk Required: No Accompanied by: Other Relationship Allergies fluticasone [From Advair Diskus] Allergy (Verified 02/18/24 12:16) Unknown salmeterol [From Advair Diskus] Allergy (Verified 02/18/24 12:16) Unknown HPI Comments Details: Susana is a 64 year old Salvadorean speaking patient of Dr. Pate who is accompanied by her son in law at todays visit. The patient has a past medical history of dementia, Parkinson's, seizures, and anxiety. Son in law who is present at todays visit is patients primary caregiver. She presents to the office today for a follow up of her nephrolithaisis and incontinence. When asked she reports to be doing and feeling well. She denies any bothersome urinary issues or concerns. Recent renal imaging results reviewed with the patient and her son-in-law today. Bilateral kidneys with no calculi, lesions, and or hydronephrosis. Unremarkable sonographic images of the kidneys. Patient and family discussed PCP has since discontinued potassium citrate. Unable to obtain urine for urinalysis however PVR 0 mL. Discussed, encouraged, and instructed to continue with adequate amount of daily fluid intake. He otherwise offers no other issues or concerns at this time. 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 breast Surgical History Hx of colonoscopy History of lumpectomy of left breast History of cholecystectomy Family History Father Medical history unknown Mother Medical history unknown Social History Household Members: Family and Children Housing: House Are you a primary child care director to a significant other at home: No Do you presently have visiting nurse or other home services: Yes ([facility]; 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) Alcohol intake: never Patient Tobacco Use Status: Former Tobacco user Quit Date: 2009 Tobacco use type: Cigarette e-Cigarette/Vaping Use: Never Used Second Hand Smoke Exposure: No Advance Directives Date on File: 07/30/22 service: No Current occupational status: retired and disabled Cognitive needs: Yes Hearing needs: No Vision needs: No Review of Systems Const Reports no additional complaints Eyes Reports no additional complaints ENT Reports no additional complaints Card Reports no additional complaints Resp Reports no additional complaints GI Reports no additional complaints Reports as per HPI Musc Reports as per HPI Neuro Reports as per HPI Psych Reports as per HPI Endo Reports no additional complaints Physical Exam Const General: cooperative, healthy appearing, comfortable, no acute distress, well developed, alert and awake Orientation/consciousness: oriented to person Limitations: no limitations HEENT Head: Yes normal to inspection, Yes normocephalic and Yes atraumatic Ears: hearing grossly normal bilaterally Eyes General: appearance normal, both eyes and all related structures Neck Neck: Yes normal visual inspection and Yes trachea midline Chest Chest palpation & inspection: normal inspection of the chest Resp Effort & Inspection: normal respiratory effort and able to speak in complete sentences Cardio Rate: regular rate GI Inspection: Yes normal to inspection General: Yes no CVA tenderness Back/Spine/Pelvis Back: no CVA tenderness Cervical Spine: normal cervical lordosis Neuro General: oriented to person Extrem General: Yes normal to inspection Psych Appearance: grossly normal and well kempt Speech and movement: Normal speech and movement present and Clear speech present Affect: normal affect Attitude: cooperative Insight: Limited insight present (Psych) Judgement: Limited judgement present (Psych) Office Procedures Post Void Residual Post Residual Void Post Void Residual (PVR): 0 [id number]-[id number] Void Residual by ultrasound Results Reviewed Results Reviewed: Date of Service: 01/11/24 EXAMINATION: US RETROPERITONEAL LIMITED (RENAL ONLY) FINDINGS: RIGHT KIDNEY: 11.4 x 5.2 x 3.9 cm (SAG x AP x TRV). The kidney is normal in size, contour, and echogenicity. Renal cortical thickness is normal. No calculi or focal parenchymal lesions. No hydronephrosis. LEFT KIDNEY: 11.6 x 4.5 x 5.0 cm (SAG x AP x TRV). The kidney is normal in size, contour, and echogenicity. Renal cortical thickness is normal. No calculi or focal parenchymal lesions. No hydronephrosis. IMPRESSION: Unremarkable sonographic imaging of the kidneys. Specifically, no renal calculi or hydronephrosis bilaterally. Assessment & Plan Assessment & Plan (1) Bilateral nephrolithiasis: Code(s): N20.0 - Calculus of kidney Category: Medical (2) Urinary incontinence: Code(s): R32 - Unspecified urinary incontinence Category: Medical Plan Unable to obtain urine for urinalysis however PVR 0ml's. Recent renal imaging results reviewed with the patient and her family today. She currently denies any bothersome urinary issues or concerns. Continue with time/scheduled voiding to decreased episodes of urinary incontinence given patient's impaired memory. Discussed, educated, and stressed the importance of continuing to drink water daily. Continue adding 1 oz of lemon juice to water daily. Will obtain renal ultrasound in 1 year. Follow-up in 1 year with imaging to be completed prior; or sooner with any issues, concerns, and or questions. Orders: Orders US renal BI 1 Year N20.0 - Calculus of kidney AMB Post Void Residual by ultrasound Today R32 - Unspecified urinary incontinence Medications: Discontinued potassium citrate ER Discontinued Reason: Doctor's Order 20 mEq (2 x 10 mEq (1,080 mg)) PO BID 90 days 360 tabs 3RF N20.0 - Calculus of kidney Patient Instructions: The patient had an opportunity to ask questions regarding the treatment plan. All questions were answered. Physical exam, labs, and imaging were discussed and reviewed in detail. As well as risks, benefits, and discussion of treatment choices. No major barriers to understanding were identified. The patient expressed understanding and agreement with the above treatment plan. The patient was made aware they should contact our office by phone for worsening of their current condition, the appearance of new symptoms, or with any questions or concerns. Compliance is encouraged with any medications and follow up testing that is ordered. It is a privilege to be allowed the opportunity to participate in? your urological care.? Again, if you have any questions or concerns If you have any questions or concerns please do not hesitate to contact me. The office is [phone]. This note is constructed using voice recognition software. While every effort has been made to ensure accuracy seat pack inspector errors may have been included. Yours sincerely, RAYMUNDO Falcon Coding Level of Care Code Est Pt Level 3 (47928) Diagnoses Bilateral nephrolithiasis N20.0 Urinary incontinence R32 CPT Codes Post Residual Void - PVR CPT Code: 52627-Kcel Void Residual by ultrasound ([id number])
== END 2024-02-18 12:11 | disposition home or self-care (01) ==
PROVIDERS: PCP Internal Medicine; Visit Provider Nurse Practitioner Family
DX: N20.0 Calculus of kidney (principal); R32 Unspecified urinary incontinence
CPT/HCPCS: 99213

== ENCOUNTER → 2024-02-18 11:43 | Outpatient (BNVA) | payer OTHER, SELFPAY | PROVIDERS: PCP Internal Medicine; Visit Provider Nurse Practitioner Family | DX: R32 Unspecified urinary incontinence (principal); Z87.442 Personal history of urinary calculi | CPT/HCPCS: 51798; 99212 ==

== ENCOUNTER 2024-03-06 10:26 | Day surgery (SDC) | payer OTHER, SELFPAY ==
[2024-03-02 16:36] VITALS: BMI 34.7
--- NOTE | ~2024-03-06 | CT_ITS ---
Pancytopenia PROCEDURES: 1. Limited preprocedure CT of the pelvis. Permanent images saved in PACS. 2. 11 g bone marrow core biopsy of the right posterior iliac spine 3. 11 g bone marrow aspirate of the right posterior iliac spine CLINICIANS: Piero Larkin PA-C MEDICATIONS: -lidocaine 1% 10 mL SQ -Antibiotics: None -For additional details, please see anesthesia flowsheet. COMPLICATIONS: None ESTIMATED BLOOD LOSS: < 5 ml CONTRAST: None SPECIMENS: 11 g core placed in formalin. Bone marrow aspirate placed in EDTA and sodium heparin tubes PROCEDURE NOTE: The procedure, risks, benefits, and alternatives were carefully explained to the patient's daughter and written informed consent was obtained. The patient was placed prone on the CT table. A timeout was performed. A limited CT of the pelvis was performed to localize the posterior iliac spine and choose appropriate needle entry and trajectory. The patient was prepped and draped in usual sterile fashion. The skin, subcutaneous tissues, and periosteum were anesthetized with lidocaine. Under CT guidance, an 11-gauge bone marrow biopsy needle was advanced into the posterior iliac spine, with the tip positioned slightly cephalad. An 11-gauge core biopsy of the bone marrow was performed and was placed in formalin. Next, the 11-gauge bone marrow biopsy needle was then advanced into the posterior iliac spine, under CT guidance, with the tip positioned slightly caudal. A bone marrow aspirate was performed. The specimen was placed in the provided EDTA and sodium heparin tubes. The needle was removed. A dry dressing was applied and secured with Tegaderm. There were no immediate complications. The patient was stable after the procedure and was transferred to the post anesthesia care unit. The procedure was done with the assistance of anesthesia CT/CT biopsy asp core bone marrow Impression: CT-guided bone marrow biopsy and aspirate This procedure was performed by Piero Larkin PA-C and supervised by Dr. Rodriguez.
[2024-03-06 11:08] VITALS: BP 133/71; PULSE 88; RESP 16; TEMP 36.2; O2SAT 98; BMI 33.2
[2024-03-06 11:34] LABS: MANUAL DIFF FLAG NO
[2024-03-06 11:42] LABS: INTERNATIONAL NORM RATIO 1.1 (0.9-1.1); Prothrombin Time 13.2 SEC (11.1-13.3)
[2024-03-06 11:44] LABS: Eosinophils Absolute Auto 0.1 X10*3/uL (0.0-0.4); Eosinophils Percent Auto 1.7 % (0-4); Imm Gran Abs Auto 0.04 X10*3/uL (0.00-0.03); Imm Gran Pct Auto 1.1 % (0.0-0.4); Lymphocytes Absolute Auto 1.6 X10*3/uL (1.2-4.9); Lymphocytes Percent Auto 45.6 % (20-40); Mean Corpuscular HGB Conc 33.3 g/dl (31.0-35.0); Mean Corpuscular Hemoglobin 32.2 pg (27.0-33.0); Mean Corpuscular Volume 96.5 fL (80.0-98.0); Mean Platelet Volume 10.6 fL (9.4-12.3); Monocytes Absolute Auto 0.3 X10*3/uL (0.1-1.2); Monocytes Percent Auto 9.3 % (2-11); Neutrophils Absolute Auto 1.5 x10*3/uL (2.0-8.3); Neutrophils Percent Auto 42.3 % (45-73); Red Blood Count 3.11 X10*6/uL (4.20-5.50); Red Cell Distribution Width 13.8 % (11.0-16.0); White Blood Count 3.6 X10*3/uL (4.8-10.8)
[2024-03-06 11:45] LABS: Partial Thromboplastin Time 31.4 SEC (26.0-36.8)
[2024-03-06 11:49] LABS: Platelet Count 57 X10*3/uL (160-400)
--- NOTE | 2024-03-06 12:08 | MHC.SHP ---
Pre-Procedural Eval Section A - 24 Hr Update-Section A only Date of Service: 03/06/24 Section B - Complete if H&P > 30 days Chief Complaint: BONE MARROW BIO,PANCYTOPENIA Details of Present Illness: 64 y/o female with pancytopenia Relevant Family History (Specify if Yes): No Relevant Social History: None Present Medications: see Short Stay Collaborative assessment Medical History: Significant History History of Previous Operations: No relevant previous surgery Allergies: Allergies Allergy/AdvReac Type Severity Reaction Status Date / Time fluticasone Allergy Unknown Verified 03/06/24 10:43 [From Advair Diskus] salmeterol Allergy Unknown Verified 03/06/24 10:43 [From Advair Diskus] Review of Systems Sugical H&P ROS: Negative: Constitution, Cardiovascular and Respiratory Exam Surgical H&P Exam: Normal: Heart, Normal: Lungs, Normal: Skin and Normal: Neurological (Alert to self) and Not Evaluated: HEENT Plan Diagnosis/Plan: Unchanged I have reviewed the history and physical and performed a pertinent physical examination on my patient. No changes have occurred unless specified. Image guided bone marrow biopsy Time Spent With Patient Time: Total time managing care of this patient today ____ minutes.
[2024-03-06 12:40] VITALS: BP 126/93; PULSE 79; RESP 16; TEMP 36.1; O2SAT 98
[2024-03-06 12:55] VITALS: BP 140/87; PULSE 72; RESP 14; O2SAT 98
[2024-03-06 13:10] VITALS: BP 130/64; PULSE 78; RESP 18; TEMP 36.1; O2SAT 98
[2024-03-06 13:17] LABS: Bone Marrow SEE SEPARATE REPORT
== END 2024-03-06 13:42 | disposition home or self-care (01) ==
PROVIDERS: Physician Assistant Surgical; Student in an Organized Health Care Education/Training Program; PCP Internal Medicine; Visit Provider Internal Medicine Medical Oncology
PROC: (CPT 38221; principal; 2024-03-06 12:00)
DX: D61.818 Other pancytopenia (principal); G20.A1 Parkinson's disease without dyskinesia, without mention of fluctuations; F03.90 Unspecified dementia, unspecified severity, without behavioral disturbance, psychotic disturbance, mood disturbance, and anxiety; F02.818 Dementia in other diseases classified elsewhere, unspecified severity, with other behavioral disturbance; R56.9 Unspecified convulsions; D53.9 Nutritional anemia, unspecified; E78.00 Pure hypercholesterolemia, unspecified; Z86.73 Personal history of transient ischemic attack (TIA), and cerebral infarction without residual deficits; Z85.3 Personal history of malignant neoplasm of breast; M85.80 Other specified disorders of bone density and structure, unspecified site; Z99.89 Dependence on other enabling machines and devices; Z79.899 Other long term (current) drug therapy; Z88.8 Allergy status to other drugs, medicaments and biological substances; Z98.890 Other specified postprocedural states; Z87.891 Personal history of nicotine dependence
CPT/HCPCS: 36415; 38222; 85025; 85610; 85730; 88184; 88185; 88237; 88264; 88305; 88311; 88313; 88342; J2250; J2704; J3010

== ENCOUNTER → 2024-03-06 11:07 | Outpatient (BNV) | payer OTHER, SELFPAY | PROVIDERS: PCP Internal Medicine; Visit Provider Physician Assistant Surgical | DX: D61.818 Other pancytopenia (principal) | CPT/HCPCS: 38222; 77012 ==

== ENCOUNTER 2024-05-06 09:59 | Outpatient (REF) | payer OTHER, SELFPAY ==
[2024-05-06 10:35] LABS: MANUAL DIFF FLAG NO
[2024-05-06 12:21] LABS: Eosinophils Percent Auto 0.4 % (0-4); Hematocrit 30.4 % (37.0-47.0); Hemoglobin 10.2 g/dl (12.0-16.0); Imm Gran Abs Auto 0.04 X10*3/uL (0.00-0.03); Imm Gran Pct Auto 1.5 % (0.0-0.4); Lymphocytes Absolute Auto 1.3 X10*3/uL (1.2-4.9); Lymphocytes Percent Auto 48.7 % (20-40); Mean Corpuscular HGB Conc 33.6 g/dl (31.0-35.0); Mean Corpuscular Hemoglobin 32.6 pg (27.0-33.0); Mean Corpuscular Volume 97.1 fL (80.0-98.0); Mean Platelet Volume 11.9 fL (9.4-12.3); Monocytes Absolute Auto 0.2 X10*3/uL (0.1-1.2); Monocytes Percent Auto 7.3 % (2-11); Neutrophils Absolute Auto 1.2 x10*3/uL (2.0-8.3); Neutrophils Percent Auto 42.1 % (45-73); Red Blood Count 3.13 X10*6/uL (4.20-5.50); Red Cell Distribution Width 13.2 % (11.0-16.0); White Blood Count 2.8 X10*3/uL (4.8-10.8)
[2024-05-06 12:50] LABS: Platelet Count 46 X10*3/uL (160-400)
[2024-05-06 13:08] LABS: Alanine Aminotransferase < 5 U/L (0-31); Albumin Level 3.7 g/dL (3.5-5.0); Alkaline Phosphatase 44 U/L (39-117); Anion Gap 13 (12-20); Aspartate Amino Transferase 12 U/L (5-31); Bilirubin Total 0.5 mg/dL (0.0-1.0); Blood Urea Nitrogen 25 mg/dL (9-16); Calcium 8.9 mg/dL (8.4-10.2); Carbon Dioxide 27 mmol/L (22-29); Chloride 106 mmol/L (96-108); Estimated Glomerular Filt Rate 43; Glucose Random 89 mg/dL (60-115); Potassium 4.2 mmol/L (3.3-5.1); Sodium 142 mmol/L (135-145); Total Protein 7.8 g/dL (6.5-8.0)
== END 2024-05-06 10:00 | disposition home or self-care (01) ==
LOC: HO.LAB 09:59
PROVIDERS: PCP Internal Medicine; Visit Provider Internal Medicine Medical Oncology
DX: D61.818 Other pancytopenia (principal)
CPT/HCPCS: 36415; 80053; 85025

== ENCOUNTER 2024-05-08 12:00 | Day surgery (SDC) | payer OTHER, SELFPAY ==
[2024-05-02 11:26] VITALS: BMI 35.2
--- NOTE | ~2024-05-08 | IR_ITS ---
PROCEDURE: IR INSERTION OF ARM PORT CLINICAL INFORMATION: Cancer. Chemotherapy SEDATION: We see separately recorded notes from anesthesia COMPARISON: None available. TECHNIQUE/FINDINGS All elements of maximal sterile barrier technique followed including use of cap, mask, sterile gown, sterile gloves, a sterile full body drape and hand hygiene. Also followed skin preparation with 2% chlorhexidine for cutaneous antisepsis, and sterile ultrasound preparation with sterile gel and probe cover when applicable. The patient was brought the Interventional Suite and placed supine on the angiography table. Preliminary limited ultrasound examination was performed and showed a patent, fully compressible right internal jugular (IJ) vein. The right side of the neck and adjacent anterior chest wall were prepped and draped using sterile technique. Pre-procedure time-out was performed and verified appropriate patient identity, site, side, procedure, and availability of necessary materials. After local anesthesia, a micropuncture set was used to gain access to the right internal jugular (IJ) vein under direct real-time combined ultrasonographic and fluoroscopic guidance. A micropuncture sheath was placed over an 0.018? wire. Local anesthesia was given at the level of the chest wall. A subcutaneous pocket was formed along the right upper chest by making a transverse incision long enough to accommodate the reservoir, and the pocket was made caudal to the incision by blunt dissection. The catheter was advanced over a blunt tunneler from the transverse chest incision and its tip was exteriorized at the venotomy site. the peel-away sheath. The catheter tip was inserted via the sheath under controlled respiration. The sheath was removed. The catheter was trimmed to the appropriate length (23 cm) in beveled fashion and was attached to the Port reservoir. The reservoir was accessed with a needle and aspirated and flushed well, without visible leak. The reservoir was inserted into the tightly fit subcutaneous pocket. A final fluoroscopic image was obtained and stored, showing satisfactory position of the Port reservoir and catheter, with its tip near the cavoatrial junction and no catheter kinking. The skin incision was closed with a deep layer of separate 2-0 resorbable sutures and topical adhesive superficially, and the venotomy incision was closed with topical adhesive. The Port was re-accessed and excellent bidirectional flow was noticed on aspiration and flushing of the Port, which was flushed with heparinized saline, hep-locked, and then de-accessed. A sterile dressing was applied. The patient tolerated the procedure very well without immediate complication. IR/IR cvc insert tunnel w prt/weight and test bar clerk IMPRESSION: Successful placement of a single lumen, totally implantable venous access Port via a right internal jugular vein approach, without immediate complication. Catheter tip near the cavoatrial junction. The device is ready for immediate use and was left non-accessed.
[2024-05-08 12:32] VITALS: BP 141/69; PULSE 61; RESP 16; TEMP 36.5; O2SAT 97
[2024-05-08 12:35] VITALS: BMI 34.6
[2024-05-08] MEDS: Lactated Ringers 1,000 ML 100 ML IVCONT (13:16)
--- NOTE | 2024-05-08 14:30 | HO.ANESPROP2 ---
Documented by User: Ally Smith NP 05/05/24 12:46 HPI - Anesthesia Eval Consult details Narrative: 64yo F for Port-a-Cath Insertion Pt to receive platelets DOS s/p bone marrow bx 02/2024 with TIVA Hx cardiac arrest 2010 with CVA vs seizure following with anoxic brain injury. Neuro deficit since. Pt does not sign for self. 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) Anemia (Acute) Triple negative breast cancer (Acute) Urinary incontinence (Acute) Uric acid kidney stone (Acute) Parkinsons disease (Acute) Bilateral nephrolithiasis (Acute) Lower back pain (Acute) Seizures (Acute) Anxiety (Acute) Wound of right upper extremity (Acute) Personal history of breast cancer (Acute) Right arm fracture (Acute) Cognitive impairment (Acute) History of stroke (Acute) Aggressive behavior (Acute) Pure hypercholesterolemia (Acute) Fall (Acute) Past Medical History Medical History (Updated 05/05/24 @ 14:31 by Patricia Hui MD) Anemia Hx of radiation therapy History of chemotherapy Parkinson disease Dementia Asthma Weakness Elevated cholesterol Hx of breast cancer Dependent on walker for ambulation Gingivitis Aneurysm Anxiety Wound of right upper extremity Personal history of breast cancer Dementia Seizures Right arm fracture Cognitive impairment History of stroke Aggressive behavior Pure hypercholesterolemia Fall Triple negative malignant neoplasm of breast Family History Family History Father Medical history unknown Mother Medical history unknown Family history of problems with anesthesia: No Surgical History Surgical History History of bone marrow biopsy Hx of tracheostomy Hx of colonoscopy History of lumpectomy of left breast History of cholecystectomy History of Problems with Anesthesia: No Social History Social History Household Members: Family and Children Housing: House Are you a primary post acute care nurse to a significant other at home: No Do you presently have visiting nurse or other home services: Yes (Nurse once a week to check BP) Alcohol intake: never Patient Tobacco Use Status: Former Tobacco user Tobacco use type: Cigarette e-Cigarette/Vaping Use: Never Used Second Hand Smoke Exposure: No Use of substances other than those prescribed or required for medical reasons: No Have you been hit, kicked, punched, or otherwise hurt by someone within the past year? If so, by whom?: No Are you DNR?: No Advance Directives: No Advance Directives Information Provided: Yes Advance Directives on File: Yes Advance Directives Date on File: 07/30/22 Recently lost weight without trying: No Eating poorly because of decreased appetite: No Nutrition Risks: No Nutritional Risk Patient : No : No Poor oral hygiene: Yes (missing and loose teeth) service: No Current occupational status: retired and disabled Cognitive needs: Yes Hearing needs: No Vision needs: No Meds Allergies Allergy/AdvReac Type Severity Reaction Status Date / Time fluticasone Allergy Unknown Unknown Verified 05/08/24 12:23 [From Advair Diskus] salmeterol Allergy Unknown Unknown Verified 05/08/24 12:23 [From Advair Diskus] Home Medications ?Medication ?Instructions ?Recorded ?Confirmed ?Last Taken ?Type albuterol sulfate 90 mcg/actuation 2 puff inhalation Q4-6H PRN SOB 08/02/20 05/08/24 Unknown History aerosol inhaler (Ventolin HFA) carbidopa 25 mg-levodopa 100 mg 1 tab PO BID@0900,1200 08/02/20 05/08/24 05/08/24 History tablet (Sinemet) quetiapine 25 mg tablet 25 mg PO BEDTIME 10/27/23 05/08/24 03/06/24 History levetiracetam 750 mg tablet 750 mg PO BID 03/02/24 05/08/24 05/08/24 History Exam Height,Weight and Vital Signs: Height 5 ft 10 in Weight 111.13 kg Pertinent Lab Results Pertinent Lab Results: Laboratory Tests 04/25/24 08:45 WBC 3.0 L Hgb 10.5 L Hct 32.0 L Plt Count 57 L Sodium 142 Potassium 3.8 Chloride 106 Carbon Dioxide 26 BUN 23 H Creatinine 1.16 Narrative Narrative: EKG 10/2023 Vent. Rate : 137 BPM Atrial Rate : 000 BPM P-R Int : 000 ms QRS Dur : 086 ms QT Int : 384 ms P-R-T Axes : 000 -15 080 degrees QTc Int : 579 ms Supraventricular tachycardia with occasional Premature ventricular complexes ST & T wave abnormality, consider lateral ischemia Abnormal ECG When compared with ECG of 06-OCT-2023 12:18, Premature ventricular complexes are now Present Vent. rate has increased BY [address] now depressed in Lateral leads T wave inversion no longer evident in Inferior leads Nonspecific T wave abnormality, improved in Anterior leads T wave inversion now evident in Lateral leads Assessment and Plan Final Anesthetic Review Family History of Problems with Anesthesia: No History of Problems with Anesthesia: No Documented by User: Lo Shepard DO 05/08/24 16:06 PMF Past Medical History Medical History (Updated 05/05/24 @ 14:31 by Patricia Hui MD) Anemia Hx of radiation therapy History of chemotherapy Parkinson disease Dementia Asthma Weakness Elevated cholesterol Hx of breast cancer Dependent on walker for ambulation Gingivitis Aneurysm Anxiety Wound of right upper extremity Personal history of breast cancer Dementia Seizures Right arm fracture Cognitive impairment History of stroke Aggressive behavior Pure hypercholesterolemia Fall Triple negative malignant neoplasm of breast Family History Family History Father Medical history unknown Mother Medical history unknown Family history of problems with anesthesia: No Surgical History Surgical History History of bone marrow biopsy Hx of tracheostomy Hx of colonoscopy History of lumpectomy of left breast History of cholecystectomy History of Problems with Anesthesia: No Social History Social History Household Members: Family and Children Housing: House Are you a primary post acute care nurse to a significant other at home: No Do you presently have visiting nurse or other home services: Yes (Nurse once a week to check BP) Alcohol intake: never Patient Tobacco Use Status: Former Tobacco user Tobacco use type: Cigarette e-Cigarette/Vaping Use: Never Used Second Hand Smoke Exposure: No Use of substances other than those prescribed or required for medical reasons: No Have you been hit, kicked, punched, or otherwise hurt by someone within the past year? If so, by whom?: No Are you DNR?: No Advance Directives: No Advance Directives Information Provided: Yes Advance Directives on File: Yes Advance Directives Date on File: 07/30/22 Recently lost weight without trying: No Eating poorly because of decreased appetite: No Nutrition Risks: No Nutritional Risk Patient : No : No Poor oral hygiene: Yes (missing and loose teeth) service: No Current occupational status: retired and disabled Cognitive needs: Yes Hearing needs: No Vision needs: No Meds Allergies Allergy/AdvReac Type Severity Reaction Status Date / Time fluticasone Allergy Unknown Unknown Verified 05/08/24 12:23 [From Advair Diskus] salmeterol Allergy Unknown Unknown Verified 05/08/24 12:23 [From Advair Diskus] Home Medications ?Medication ?Instructions ?Recorded ?Confirmed ?Last Taken ?Type albuterol sulfate 90 mcg/actuation 2 puff inhalation Q4-6H PRN SOB 08/02/20 05/08/24 Unknown History aerosol inhaler (Ventolin HFA) carbidopa 25 mg-levodopa 100 mg 1 tab PO BID@0900,1200 08/02/20 05/08/24 05/08/24 History tablet (Sinemet) quetiapine 25 mg tablet 25 mg PO BEDTIME 10/27/23 05/08/24 03/06/24 History levetiracetam 750 mg tablet 750 mg PO BID 03/02/24 05/08/24 05/08/24 History Exam Exam Date and Time: May 08, 2024 1436 Height,Weight and Vital Signs: Height 5 ft 10 in Weight 111.13 kg Vital Signs Temperature 97.7 F 05/08/24 12:32 Pulse Rate 61 05/08/24 12:32 Respiratory Rate 16 05/08/24 12:32 Blood Pressure 141/69 H 05/08/24 12:32 Pulse Oximetry 97 05/08/24 12:32 Oxygen Delivery Method Room Air 05/08/24 12:32 Temperature 97.7 F 05/08/24 12:32 Pulse Rate 61 05/08/24 12:32 Respiratory Rate 16 05/08/24 12:32 Blood Pressure 141/69 H 05/08/24 12:32 Pulse Oximetry 97 05/08/24 12:32 Oxygen Delivery Method Room Air 05/08/24 12:32 Airway Mallampati Class: III TM Dist: >3cm Neck ROM: Full Loose/Missing/Broken Teeth: Yes (daughter reports several missing teeth and several loose teeth) Heart: S1S2 Lungs: CTAB Assessment and Plan Assessment Anesthesia Assessment: Anesthesia Plan Discussed and Chart Reviewed Final Anesthetic Review Family History of Problems with Anesthesia: No History of Problems with Anesthesia: No NPO: Yes ASA Class: III Final Preanesthetic Review: No Changes in Pt Med Stat, Meds/Allgs Chart Reviewed, Consent Obtained/Reviewed and Anes Risks/Benef Reviewed Patient Risk: High Procedure Risk: Low Anesthetic Plan Anesthetic Plan: GA, MAC: and Agree w/ Assess. and Plan Disposition: Standard PACU
--- NOTE | 2024-05-08 14:33 | P.HPSUR_ITS ---
Pre-Procedural Eval Section A - 24 Hr Update-Section A only Date of Service: 05/08/24 Section B - Complete if H&P > 30 days Chief Complaint: MELODYSPLASTIC SYNDROME,CHEMOTHERAPY Details of Present Illness: 64 y/o female with MDS and poor iv access. Oncology requests a port for jail iv access Relevant Family History (Specify if Yes): No Relevant Social History: None Present Medications: see Short Stay Collaborative assessment Medical History: Significant History History of Previous Operations: Relevant previous surgery/procedure and date(s) (Left port placement/removal) Allergies: Allergies Allergy/AdvReac Type Severity Reaction Status Date / Time fluticasone Allergy Unknown Unknown Verified 05/08/24 12:23 [From Advair Diskus] salmeterol Allergy Unknown Unknown Verified 05/08/24 12:23 [From Advair Diskus] Review of Systems Sugical H&P ROS: Negative: Cardiovascular, Respiratory and Gastrointestinal Exam Surgical H&P Exam: Normal: Heart, Normal: Lungs, Normal: Skin (old healed left chest port incision) and Normal: Neurological (Alert to self) Plan Diagnosis/Plan: Unchanged Port for adjunct faculty for medical terminology IV access for MDS Time Spent With Patient Time: Total time managing care of this patient today ____ minutes.
[2024-05-08 16:15] VITALS: BP 109/67; PULSE 72; RESP 12; TEMP 36.4; O2SAT 93
[2024-05-08 16:30] VITALS: BP 104/64; PULSE 85; RESP 14; O2SAT 96
[2024-05-08 16:45] VITALS: BP 105/68; PULSE 77; RESP 16; O2SAT 93
[2024-05-08 17:00] VITALS: BP 114/68; PULSE 78; RESP 16; O2SAT 95
[2024-05-08 17:15] VITALS: BP 109/69; PULSE 68; RESP 16; TEMP 36.2; O2SAT 96
== END 2024-05-08 17:19 | disposition home or self-care (01) ==
LOC: HO.SSS 12:01
PROVIDERS: Student in an Organized Health Care Education/Training Program; PCP Internal Medicine; Visit Provider Internal Medicine Medical Oncology
DX: Z45.2 Encounter for adjustment and management of vascular access device (principal); D46.9 Myelodysplastic syndrome, unspecified; G20.A1 Parkinson's disease without dyskinesia, without mention of fluctuations; R56.9 Unspecified convulsions; E78.00 Pure hypercholesterolemia, unspecified; E55.9 Vitamin D deficiency, unspecified; E53.8 Deficiency of other specified B group vitamins; F03.90 Unspecified dementia, unspecified severity, without behavioral disturbance, psychotic disturbance, mood disturbance, and anxiety; F41.9 Anxiety disorder, unspecified; Z85.3 Personal history of malignant neoplasm of breast; Z79.82 Long term (current) use of aspirin; Z79.899 Other long term (current) drug therapy; Z87.891 Personal history of nicotine dependence; Z98.890 Other specified postprocedural states
CPT/HCPCS: 36561; 76937; 86850; 86900; 86901; A4364; C1769; C1788; J0690; J1642; J1644; J2250; J2371; J2704; J3010; P9073

== ENCOUNTER → 2024-05-08 14:30 | Outpatient (BNV) | payer OTHER, SELFPAY | PROVIDERS: PCP Internal Medicine; Visit Provider Student in an Organized Health Care Education/Training Program | DX: Z45.2 Encounter for adjustment and management of vascular access device (principal) | CPT/HCPCS: 36561; 76937; 77001 ==

== ENCOUNTER 2024-05-24 09:16 | Outpatient (AMB) | payer OTHER, SELFPAY ==
--- NOTE | 2024-05-24 09:17 | A.OFFPC_ITS ---
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 Required: No Accompanied by: son in law Allergies fluticasone [From Advair Diskus] Allergy (Unknown, Verified 05/24/24 09:34) Unknown salmeterol [From Advair Diskus] Allergy (Unknown, Verified 05/24/24 09:34) Unknown Medication List - Last Reconciled 05/24/24 by Maria Luz Mobley MD [adult diapers pull-ups As directed] albuterol sulfate 90 mcg/actuation (Ventolin HFA) 2 puffs inhalation Q4-6H PRN aspirin (Adult Aspirin Regimen) 81 mg PO DAILY 90 days [bed alarm As directed] buspirone 15 mg PO TID 90 days calcium carbonate 600 mg PO BID carbidopa-levodopa 25-100 mg (Sinemet) 1 tab PO BID@0900,1200 cholecalciferol (vitamin D3) (Vitamin D3) 125 mcg PO DAILY ferrous sulfate 325 mg PO DAILY folic acid 1 mg PO DAILY 90 days gel dressing (DermaGauze Hydrogel Dressing) As directed Grab bar As directed hospital bed As directed hydroxyzine HCl 25 mg PO BID PRN 3 days latex gloves (Latex Gloves, Large) As directed levetiracetam 750 mg PO BID lidocaine 3% 1 appl topical BID [nonadhesive bandage As directed] omeprazole 40 mg PO BID@0630,1630 pravastatin 20 mg PO BEDTIME quetiapine 25 mg PO BEDTIME Shower Chair As directed terazosin 2 mg PO DAILY 90 days underpads (Bed Underpads) Use 2 once a day Tobacco use date assessed: 11/25/23 Fall risk assessment: No Falls in past year Last assessed Fall Risk: 05/24/24 Dental Screening Dental Screen Date: 11/25/23 HPI HPI Comments History of Present Illness Details This is a 64-year-old female with Parkinson's disease, vascular dementia, seizures and recently diagnosed myelodysplastic syndrome that comes accompanied by son-in-law for her physical exam. Mammogram done 2022 was normal. DEXA scan done 2022 shows osteopenia. Colonoscopy done 2021 shows tubular adenoma. Will be referred to OBGYN for Pap smear. Parkinson's, dementia seizures are follow by Neurology and has been stable. She is awake, alert and oriented to person only but not to time or place. 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 [facility] Medical History (Updated 05/24/24 @ 10:25 by Maria Luz Mobley MD) Pancytopenia Anemia Hx of radiation therapy History of chemotherapy Parkinson disease Dementia Asthma Weakness Elevated cholesterol Hx of breast cancer Dependent on walker for ambulation Gingivitis Aneurysm Anxiety Wound of right upper extremity Personal history of breast cancer Dementia Seizures Right arm fracture Cognitive impairment History of stroke Aggressive behavior Pure hypercholesterolemia Fall Triple negative malignant neoplasm of breast Surgical History History of bone marrow biopsy Hx of tracheostomy Hx of colonoscopy History of lumpectomy of left breast History of cholecystectomy Family History (Updated 05/24/24 @ 09:38 by Maria Luz Mobley MD) Father Medical history unknown Mother Medical history unknown Social History Household Members: Family and Children Housing: House Are you a primary acute care registered nurse to a significant other at home: No Do you presently have visiting nurse or other home services: Yes (Nurse once a week to check BP) Alcohol intake: never Patient Tobacco Use Status: Former Tobacco user Tobacco use type: Cigarette e-Cigarette/Vaping Use: Never Used Second Hand Smoke Exposure: No Use of substances other than those prescribed or required for medical reasons: No Have you been hit, kicked, punched, or otherwise hurt by someone within the past year? If so, by whom?: No Do you feel safe in your current relationship?: Yes Advance Directives Date on File: 07/30/22 Do you have thoughts of harming others: None Do you have a plan to hurt others: No Plan Do you have the means to hurt others: No Recently lost weight without trying: No Patient : No service: No Current occupational status: retired and disabled Cognitive needs: Yes Hearing needs: No Vision needs: No Questionnaire Thrive Questionnaire Date Thrive assessed: 11/25/23 RAMILA-7 AMB Questionnaire RAMILA-7 Date RAMILA - 7 assessed: 11/25/23 Source: Developed by Drs. Jung Bee, Wendy Dias, Juan Aguilar and colleagues, with an educational daren from [employer]. Review of Systems Const All systems reviewed & are unremarkable except as noted in HPI and below Card Denies chest pain at rest, Denies chest pain with activity, Denies edema, Denies irregular heart rhythm, Denies claudication, Denies dyspnea, Denies dyspnea on exertion, Denies orthopnea, Denies paroxysmal nocturnal dyspnea and Denies slow heart rate Resp Denies cough, Denies dyspnea and Denies dyspnea on exertion GI Denies abdominal pain, Denies change in bowel habits, Denies excessive flatus, Denies nausea and Denies vomiting Neuro Denies lack of coordination Physical exam (Primary Care) Vital Signs: Last Vital Signs BP 112/80 05/24/24 09:18 BMI result Body Mass Index 34.4 BMI Assessment/Plan discussion: High BMI High, discussed plan: lifestyle, weight reduction, dietary and physical activity Tobacco/Smoking Status: Tobacco use Status Tobacco use date assessed 11/25/23 05/24/24 09:20 Patient Tobacco Use Status Former Tobacco user 05/24/24 09:20 Tobacco use type Cigarette 05/24/24 09:20 e-Cigarette/Vaping Use Never Used 05/24/24 09:20 Thrive Assessment: Date of Thrive Assessment Date Thrive assessed 11/25/23 05/24/24 09:20 Const Orientation/consciousness: oriented to person HENMT Head: Yes normal to inspection, Yes normocephalic and Yes atraumatic Ears: external ears normal Eyes General: appearance normal, both eyes and all related structures Eyelids: Yes eyelids normal Conjunctivae: conjunctivae normal Neck Neck: Yes normal visual inspection and Yes supple Resp Effort & Inspection: normal respiratory effort Auscultation: clear to auscultation bilaterally Cardio Jugular venous distension: no JVD Rate: regular rate Rhythm: regular rhythm Heart sounds: S1 normal heart sound present and S2 normal heart sound present GI Inspection: Yes normal to inspection Palpation (GI): Soft to palpation and nontender Auscultation: normal bowel sounds Skin General skin exam: no rashes or lesions noted Neuro General: oriented to person and no focal motor deficits Extrem General: Yes full ROM Psych Appearance: grossly normal Assessment and Plan Assessment & Plan (1) Physical exam: Code(s): Z00.00 - Encounter for general adult medical examination without abnormal findings Plan: Repeat in a year. (2) MDS (myelodysplastic syndrome): Code(s): D46.9 - Myelodysplastic syndrome, unspecified Plan: Follow-up with Hematology-Oncology. (3) Parkinsons disease: Code(s): G20 - Parkinson's disease Qualifiers: Dyskinesia presence: without dyskinesia Fluctuating manifestations: without fluctuating manifestations Qualified Code(s): G20.A1 - Parkinson's disease without dyskinesia, without mention of fluctuations Plan: Continue carbidopa levodopa. Follow-up with Neurology. (4) Seizures: Code(s): R56.9 - Unspecified convulsions Plan: Continue Keppra. Follow-up with Neurology. (5) Dementia: Code(s): F03.90 - Unspecified dementia, unspecified severity, without behavioral disturbance, psychotic disturbance, mood disturbance, and anxiety Qualifiers: Dementia type: vascular dementia Dementia severity: mild Dementia behavioral or psychological symptom: with other behavioral disturbance Qualified Code(s): F01.A18 - Vascular dementia, mild, with other behavioral disturbance Plan: Continue aspirin and family support. Follow-up with Neurology. Orders: Orders Vitamin D 25-OH Total Today E55.9 - Vitamin D deficiency, unspecified Lipid Panel Today E78.5 - Hyperlipidemia, unspecified T Spot TB Today Z11.1 - Encounter for screening for respiratory tuberculosis Comprehensive [place]. Panel Fast Today Z00.00 - Encounter for general adult medical examination without abnormal findings Referrals LINUX ADMIN ENGINEER Referral Z12.4 - Encounter for screening for malignant neoplasm of cervix Medications: Refilled omeprazole 40 mg PO BID@0630,1630 60 caps 2RF pravastatin 20 mg PO BEDTIME 90 tabs 0RF aspirin (Adult Aspirin Regimen) 81 mg PO DAILY 90 days 90 tabs 3RF Coding Level of Care Code Est Pt Prev Care >65y(59377) Diagnoses Physical exam Z00.00 MDS (myelodysplastic syndrome) D46.9 Parkinson's disease without dyskinesia or fluctuating manifestations G20.A1 Dyskinesia presence: without dyskinesia Fluctuating manifestations: without fluctuating manifestations Seizures R56.9 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 F01.A18 Dementia type: vascular dementia Dementia severity: mild Dementia behavioral or psychological symptom: with other behavioral disturbance Time Spent (min) 31
[2024-05-24 09:18] VITALS: BP 112/80; BMI 34.4
== END 2024-05-24 09:46 | disposition home or self-care (01) ==
PROVIDERS: PCP Internal Medicine; Visit Provider Internal Medicine
DX: Z00.00 Encounter for general adult medical examination without abnormal findings (principal); D46.9 Myelodysplastic syndrome, unspecified; G20.A1 Parkinson's disease without dyskinesia, without mention of fluctuations; R56.9 Unspecified convulsions
CPT/HCPCS: 99397

== ENCOUNTER 2024-09-13 08:05 | Outpatient (AMB) | payer OTHER, SELFPAY ==
--- NOTE | 2024-09-13 08:16 | MHC.OFFVIS ---
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: No Allergies fluticasone [From Advair Diskus] Allergy (Unknown, Verified 05/24/24 09:34) Unknown salmeterol [From Advair Diskus] Allergy (Unknown, Verified 05/24/24 09:34) Unknown Medication List - Last Reconciled 09/13/24 by Karin Tavarez LPN [adult diapers pull-ups As directed] albuterol sulfate 90 mcg/actuation (Ventolin HFA) 2 puffs inhalation Q4-6H PRN aspirin (Adult Aspirin Regimen) 81 mg PO DAILY 90 days [bed alarm As directed] buspirone 15 mg PO TID 90 days calcium carbonate 600 mg PO BID carbidopa-levodopa 25-100 mg (Sinemet) 1 tab PO BID@0900,1200 cholecalciferol (vitamin D3) (Vitamin D3) 125 mcg PO DAILY ferrous sulfate 325 mg PO DAILY folic acid 1 mg PO DAILY 90 days gel dressing (DermaGauze Hydrogel Dressing) As directed Grab bar As directed hospital bed As directed hydroxyzine HCl 25 mg PO BID PRN 3 days latex gloves (Latex Gloves, Large) As directed levetiracetam 750 mg PO BID lidocaine 3% 1 appl topical BID [nonadhesive bandage As directed] omeprazole 40 mg PO BID@0630,1630 pravastatin 20 mg PO BEDTIME quetiapine 25 mg PO BEDTIME Shower Chair As directed terazosin 2 mg PO DAILY 90 days underpads (Bed Underpads) Use 2 once a day Post menopausal: Yes Do you need a note to return to daycare/school/sports/work: No HPI Comments Details: She is a postmenopausal woman 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 She is doing well with no concerns. Currently is not sexually active. Denies any vaginal dryness or irritation. Attempting to eat a healthy diet. Limited exercise, utilized a wheelchair. Last pap smear; unknown. Last mammogram; 09/2023. Colonoscopy is UTD. Denies any family history of breast, ovarian or colon cancer. ON LICENSE OF [facility] Medical History (Updated 09/13/24 @ 08:49 by Marcy Tony CNM) Pancytopenia Anemia Hx of radiation therapy History of chemotherapy Parkinson disease Dementia Asthma Weakness Elevated cholesterol Hx of breast cancer Dependent on walker for ambulation Gingivitis Aneurysm Anxiety Wound of right upper extremity Personal history of breast cancer Dementia Seizures Right arm fracture Cognitive impairment History of stroke Aggressive behavior Pure hypercholesterolemia Fall Triple negative malignant neoplasm of breast Surgical History History of bone marrow biopsy Hx of tracheostomy Hx of colonoscopy History of lumpectomy of left breast History of cholecystectomy Family History Father Medical history unknown Mother Medical history unknown Social History Household Members: Family and Children Housing: House Are you a primary resident care associate to a significant other at home: No Do you presently have visiting nurse or other home services: Yes (Nurse once a week to check BP) Alcohol intake: never Patient Tobacco Use Status: Former Tobacco user Tobacco use type: Cigarette e-Cigarette/Vaping Use: Never Used Second Hand Smoke Exposure: No Advance Directives Date on File: 07/30/22 service: No Current occupational status: retired and disabled Cognitive needs: Yes Hearing needs: No Vision needs: No Female Reproductive History Menstrual Menopause type: natural Date of Mammogram: 09/28/23 History of abnormal mammogram: No Review of Systems Const All systems reviewed & are unremarkable except as noted in HPI and below Reports as per HPI Eyes Reports no additional complaints ENT Reports no additional complaints Card Reports no additional complaints Resp Reports no additional complaints GI Reports as per HPI and Reports no additional complaints Reports as per HPI Musc Reports no additional complaints Skin/Breast Reports as per HPI Neuro Reports no additional complaints Psych Reports no additional complaints Endo Reports no additional complaints Jered/Lymph Reports no additional complaints Aller/Immun Reports no additional complaints Physical Exam Vital Signs: Last Vital Signs BP 90/60 09/13/24 08:20 BMI result Body Mass Index 36.5 Const General: cooperative, healthy appearing, no acute distress, well developed and alert Orientation/consciousness: patient oriented x3 HEENT Head: Yes normal to inspection Eyes General: appearance normal, both eyes and all related structures Neck Neck: Yes normal visual inspection Thyroid: Thyroid normal Chest Other: Portal w/dressing Chest palpation & inspection: normal inspection of the chest and other (no puckering, dimpling, peau de orange, retraction, discharge, masses) Breast/axilla inspection: normal inspection of the breasts Breast/axilla palpation: normal palpation of the breasts Resp Effort & Inspection: normal respiratory effort GI Inspection: Yes normal to inspection Palpation (GI): Soft to palpation Rectal Exam - Female: deferred General: Yes bladder normal to palpation External Female Exam: normal external appearance and normal appearance of the urethra Speculum Exam - Vagina: normal palpation and vagina atrophic Speculum Exam - Cervix: normal appearance of the cervix, normal palpation and Other cervical findings present (Atrophic changes bled slightly with Pap) Bimanual exam- vagina & uterus: normal bimanual exam, normal palpation, uterine size normal, bladder normal to palpation, normal palpation and non-tender Bimanual Exam- Adnexa, other: no masses Skin General skin exam: no rashes or lesions noted Rashes: no rashes Neuro General: patient oriented x3 Cognition (Neuro): normal cognition Extrem General: Yes normal to inspection Psych Attitude: cooperative Thought process: Normal thought process present Assessment & Plan Assessment & Plan (1) Encounter for well woman exam with routine gynecological exam: Code(s): Z01.419 - Encounter for gynecological examination (general) (routine) without abnormal findings Category: Medical Plan: Discussed: Current recommendations for pap smears per ASCCP guidelines. Pap smear obtained. Yearly mammogram. Maintain a healthy lifestyle, well balanced diet. Contact the office with any postmenopausal bleeding. Patient verbalizes understanding and agrees to the plan of care. She was given opportunity to ask questions and all questions were answered to the best of my ability. 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 This note is constructed using voice recognition software. While every effort has been made to ensure accuracy, crane helper errors may have been included. Coding Level of Care Code New Pt Prev Care >65yr (72679) Diagnoses Encounter for well woman exam with routine gynecological exam Z01.419
[2024-09-13 08:20] VITALS: BP 90/60; BMI 36.5
== END 2024-09-13 09:08 | disposition home or self-care (01) ==
LOC: HO.HWS 08:05
PROVIDERS: PCP Internal Medicine; Visit Provider Advanced Practice Midwife
DX: Z01.419 Encounter for gynecological examination (general) (routine) without abnormal findings (principal)
CPT/HCPCS: 99387

== ENCOUNTER 2024-09-13 08:05 | Outpatient (REF) | payer OTHER, SELFPAY ==
[2024-09-14 10:00] LABS: HPV 16,18/45 See PAP report
== END 2024-09-13 08:06 | disposition home or self-care (01) ==
LOC: HO.LNP 08:05
PROVIDERS: PCP Internal Medicine; Visit Provider Advanced Practice Midwife
DX: Z01.419 Encounter for gynecological examination (general) (routine) without abnormal findings (principal); Z12.4 Encounter for screening for malignant neoplasm of cervix
CPT/HCPCS: 87624; 88175; 99387

== ENCOUNTER 2024-10-10 07:58 | Outpatient (REF) | payer OTHER, SELFPAY | END 2024-10-10 07:59 | disposition home or self-care (01) | LOC: HO.MAMMO 07:58 | PROVIDERS: PCP Internal Medicine; Visit Provider Internal Medicine | DX: Z13.89 Encounter for screening for other disorder (principal) ==

== ENCOUNTER 2024-10-13 10:12 | Outpatient (REF) | payer OTHER, SELFPAY ==
--- NOTE | ~2024-10-13 | MM_ITS ---
EXAMINATION: MM SCREENING DIGITAL BREAST TOMOSYNTHESIS, BILATERAL CLINICAL INFORMATION: Screening. Asymptomatic. Personal history of breast cancer in 2012 COMPARISON: Mammography: This study is compared with prior exams dating back to TECHNIQUE: Digital breast tomosynthesis is performed in both the craniocaudal and mediolateral oblique views along with computer-aided detection (CAD). Synthesized 2D images are generated from the tomosynthesis. FINDINGS: The breasts are heterogeneously dense, which may obscure small masses (ACR BI-RADS breast composition Category c). There are no significant masses, abnormal calcifications, or other abnormalities. Stable post treatment changes and benign calcifications right breast. MM/MM tomosynthesis screening BI IMPRESSION: No mammographic evidence of malignancy. ASSESSMENT: BI-RADS BI-RADS 2 - Benign Findings RECOMMENDATION: Routine annual mammography screening. 1 year F/U This examination should not preclude the clinical evaluation of a suspicious palpable abnormality. This patient's information was entered into a reminder system with a target due date for their next mammogram. Electronically signed by: Apryl Ortez MD 10/20/2024 01:24 PM FANI TOVAR
== END 2024-10-13 10:13 | disposition home or self-care (01) ==
LOC: HO.MAMMO 10:12
PROVIDERS: PCP Internal Medicine; Visit Provider Internal Medicine
DX: Z12.31 Encounter for screening mammogram for malignant neoplasm of breast (principal)
CPT/HCPCS: 77063; 77067

== ENCOUNTER 2024-10-19 09:39 | Outpatient (AMB) | payer OTHER, SELFPAY ==
[2024-10-19 09:40] VITALS: BMI 36.9
--- NOTE | 2024-10-19 09:40 | A.OFFVIS_ITS ---
Vital Signs 10/19/24 09:40 Height 5 ft 9 in Weight 250 lb BMI 36.9 Intake Visit Reasons: yearly breast exam Intake Note: This patient presents for yearly breast exam. Pt's son in-law c/o; reports no complaints at this time. Pitch Gatherer Required: No Accompanied by: Family/Other Allergies fluticasone [From Advair Diskus] Allergy (Unknown, Verified 10/19/24 09:47) Unknown salmeterol [From Advair Diskus] Allergy (Unknown, Verified 10/19/24 09:47) Unknown Medication List - Last Reconciled 10/19/24 by Abner Peoples MD [adult diapers pull-ups As directed] albuterol sulfate 90 mcg/actuation (Ventolin HFA) 2 puffs inhalation Q4-6H PRN aspirin (Adult Aspirin Regimen) 81 mg PO DAILY 90 days [bed alarm As directed] buspirone 15 mg PO TID 90 days calcium carbonate 600 mg PO BID carbidopa-levodopa 25-100 mg (Sinemet) 1 tab PO BID@0900,1200 cholecalciferol (vitamin D3) (Vitamin D3) 125 mcg PO DAILY ferrous sulfate 325 mg PO DAILY folic acid 1 mg PO DAILY 90 days gel dressing (DermaGauze Hydrogel Dressing) As directed Grab bar As directed hospital bed As directed hydroxyzine HCl 25 mg PO BID PRN 3 days latex gloves (Latex Gloves, Large) As directed levetiracetam 750 mg PO BID lidocaine 3% 1 appl topical BID [nonadhesive bandage As directed] omeprazole 40 mg PO BID@0630,1630 pravastatin 20 mg PO BEDTIME quetiapine 25 mg PO BEDTIME Shower Chair As directed terazosin 2 mg PO DAILY 90 days underpads (Bed Underpads) Use 2 once a day HPI HPI yearly breast exam: Details: She is here for her annual breast exam. She had undergone lumpectomy sentinel biopsy of the right breast for invasive ductal cancer in 2012. She had neoadjuvant treatment prior to that and had radiation to the breast postop and has completed tamoxifen treatment after. I last saw her in the office a year ago. Her last mammogram was last week. There is report yet for this. She has a dementia and Parkinson's disease started after she had cardiac arrest in 2010 when she had a presumed NC. According to her son in law, she does verbally communicate once in a while. She goes to a program during the day but otherwise requires a caregiver 17/05. She is currently being treated by Dr. Hui for myelodysplastic syndrome. Her son-in-law states that she does not seem to have any new problems. COUNT INCLUDES THE [facility] Medical History Pancytopenia Anemia Hx of radiation therapy History of chemotherapy Parkinson disease Dementia Asthma Weakness Elevated cholesterol Hx of breast cancer Dependent on walker for ambulation Gingivitis Aneurysm Anxiety Wound of right upper extremity Personal history of breast cancer Dementia Seizures Right arm fracture Cognitive impairment History of stroke Aggressive behavior Pure hypercholesterolemia Fall Triple negative malignant neoplasm of breast Surgical History History of bone marrow biopsy Hx of tracheostomy Hx of colonoscopy History of lumpectomy of left breast History of cholecystectomy Family History Father Medical history unknown Mother Medical history unknown Social History Household Members: Family and Children Housing: House Are you a primary primary care md to a significant other at home: No Do you presently have visiting nurse or other home services: Yes (Nurse once a week to check BP) Alcohol intake: never Patient Tobacco Use Status: Former Tobacco user Tobacco use type: Cigarette e-Cigarette/Vaping Use: Never Used Second Hand Smoke Exposure: No Advance Directives Date on File: 07/30/22 service: No Current occupational status: retired and disabled Cognitive needs: Yes Hearing needs: No Vision needs: No Review of Systems Const Denies chills and Denies fever(s) Card Denies chest pain Resp Denies cough GI Denies abdominal pain Physical Exam Vital Signs: BMI result Body Mass Index 36.9 Const Other: Has obvious dementia, does not verbally communicate now General: comfortable and no acute distress Chest Other: No palpable breast masses, no nipple or skin changes, no axillary lymphadenopathy Resp Effort & Inspection: normal respiratory effort Cardio Rate: regular rate GI Palpation (GI): Soft to palpation, not firm and nontender Assessment & Plan Assessment & Plan (1) Personal history of breast cancer: Code(s): Z85.3 - Personal history of malignant neoplasm of breast Category: Medical Plan: Current exam does not reveal any suggestion of any breast mass or axillary lymphadenopathy She did have her yearly mammogram last week. However, there is no official report yet. I had called the Radiology Department about this I will let the family know when official report comes back if there is any significant finding Otherwise I will see her again in the office next year. She continues to follow up with Dr. Hui for her MDS treatment. Coding Level of Care Code Est Pt Level 3 (14723) Complex EM visit Add On G2211 Diagnoses Personal history of breast cancer Z85.3
== END 2024-10-19 10:00 | disposition home or self-care (01) ==
PROVIDERS: PCP Internal Medicine; Visit Provider Surgery
DX: Z85.3 Personal history of malignant neoplasm of breast (principal)
CPT/HCPCS: 99213; G2211

== ENCOUNTER → 2024-10-19 09:39 | Outpatient (BNVA) | payer OTHER, SELFPAY | PROVIDERS: PCP Internal Medicine; Visit Provider Surgery | DX: Z85.3 Personal history of malignant neoplasm of breast (principal) | CPT/HCPCS: 99212 ==

== ENCOUNTER 2024-11-27 08:05 | Outpatient (AMB) | payer OTHER, SELFPAY ==
--- OUTSIDE RECORDS SUMMARY | 2024-11-27 08:07 | XMS_ITS | Clinical Summary ---
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 Name Role Phone Maria Luz Mobley MD Primary Care Provider [phone] Surgical History Surgery Date Site/Laterality Comments COLONOSCOPY 02/22/2019 PROCEDURE: HISTORICAL COLONOSCOPY; COMMENT: polyps Medical History Medical History Date Comments History of colon polyps 02/22/2019 DX:Histo ry of colon polyps Social History Tobacco Use Types Packs/Day Years Used Date Smoking Tobacco: Former Smokeless Tobacco: Never Alcohol Use Standard Drinks/Week Comments No 0 (1 standard drink = 0.6 oz pur e alcohol) Sex and Gender Information Value Date Recorded Sex Assigned at Not on file Gender Identity Not on file Sexual Orientation Not on file Obstetrics History Plan of Treatment Health Maintenance Due Date Last Done Comments Breast Cancer Screening 1959 DTaP,Tdap,and Td Vaccines (1 - Tdap) 1978 Zoster Vaccines (1 of 2) 2009 Cervical Cancer Screening: P ap Smear 01/16/2022 01/16/2019 Pneumococcal Vaccine: 65+ Ye ars (1 of 1 - PCV) 01/28/2024 COVID-19 Vaccine ( - 2023-2 5 season) 2024 Influenza Vaccine (#1) 2024 RSV Immunization Patients 60 + Years Old (1 - 1-dose 75+ series) 2034 HIB Vaccines Aged Out No longer eligi ble based on patient's age to complete this topic HPV Vaccines Aged Out No longer eligi ble based on patient's age to complete this topic Hepatitis A Vaccines Aged Out No long er eligible based on patient's age to complete this topic Hepatitis B Vaccines Aged Out No long er eligible based on patient's age to complete this topic IPV Vaccines Aged Out No longer eligi ble based on patient's age to complete this topic MMR Vaccines Aged Out No longer eligi ble based on patient's age to complete this topic Meningococcal ACWY Vaccine Aged Out N o longer eligible based on patient's age to complete this topic Pneumococcal Vaccine: Pediat rics (0 to 5 Years) and At-Risk Patients (6 to 64 Years) Aged Out No longer eligi ble based on patient's age to complete this topic RSV Immunization Patients Un gurjit 20 months Aged Out No longer eligible b ased on patient's age to complete this topic Varicella Vaccines Aged Out No longer eligible based on patient's age to complete this topic Procedures Procedure Name Priority Date/Time Associated Diagnosis Comments PAP SMEAR Routine 01/16/2019 from Last 3 Months or Most Recently Relevant to Health Maintenance Results * Pap smear (01/16/2019) 01/16/2019 Narrative HISTORICAL TESTING LAB RESULTING AGENCY - 01/18/2019 1:51 PM EDT [id number] THINPREP PAP, IMAGED: NEGATIVE FOR SQUAMOUS INTRAEPITHELIAL LESION AND MALIGNANCY . THADDEUS BOONE(ASCP) (CASE ELECTRONICALLY SIGNED 01 18 2019) RESULT OF APTIMA HIGH RISK HPV ASSAY: HIGH RISK HPV: ??NEGATIVE (SEROTYPES 16,18,31,33,35,39,45,51,52,56,58,59,66,68) COMPLETED ON 2019-01-18 ADEQUACY: SATISFACTORY ENDOCERVICAL/TRANSFORMATION ZONE COMPONENT ABSENT. SOURCE: THINPREP PAP HPV ANY DX: ??REFLEX 16 AND 18, CERVICAL, IMAGED CLINICAL INFORMATION: HPV ANY DIAGNOSIS. MENOPAUSE, Z12.4 Ayana Vaz DO LAB CYTOLOGY ORDERA BLES HISTORICAL TESTING LAB RESULTING AGENCY from Last 3 Months or Most Recently Relevant to Health Maintenance Care Teams Table Cut Off Saw Operator Relationship Specialty Start Date End Date Maria Luz Mobley MD [address] [facility] , [address] [facility] D/B/A: Fais[facility] Internal Medicine ROSALIND Malone PCP - General Internal Medicine 06/08/18
--- OUTSIDE RECORDS SUMMARY | 2024-11-27 08:07 | XMS_ITS | Data Portability ---
Author Organization [facility] Address [address] [place] [id number] Care Team Providers Care Medicaid Service Coordinator Name Role Phone [facility] Referring Provider Assessment Encounter Date Assessment Date Assessment LastModified by Organization Details LastModified Time 05/19/2023 05/19/2023 63 YOF with hx o f CAD, COPD, being seen after slip and fall in shower chair yesterday. No head strike or LOC. On practical nurse clinical coordinator exam, Abdomen is soft ,non-tender. There is a Bruise over left flank without tenderness. PT ambulatory without pain At this time I don't feel imaging is needed. Pt not on anticoagulation and does not appear to be in pain. Red flags discussed with family [email or web address] Not available 05/19/2023 18:04:22 Plan of Treatment Reminders Order Date Submit Date Provider Last Modified By Organization Details Last Modified Time Details Appointments None record ed. Lab None record ed. Referral None record ed. Procedures None record ed. Surgeries None record ed. Imaging None record ed. Medication Orders None record ed. Patient TargetsNo targets recorded. Patient InstructionsNo instructions recorded. Reason for Referral None Reported. Medical Equipment None Reported. Medications Name Sig Start Date Stop Date Status Note LastModified by Organization Details LastModified Time quetiapine 25 mg tablet TAKE 1 TABLET BY MOUTH AT BEDTIME active Not Available Not Available No t Available phenytoin sodium extended 100 mg capsule TAKE 2 CAPSULES BY MOUTH TWICE DAILY active Not Available Not Available No t Available aspirin 81 mg tablet,delaye d release TAKE 1 TABLET BY MOUTH DAILY FOR 90 DAYS active Not Available Not Available No t Available lamotrigine 25 mg tablet TAKE 3 TABLETS BY MOUTH EVERY DAY active Not Available Not Available No t Available calcium 600 mg (as calcium carbonate 1,500 mg) tablet TAKE 1 TABLET TWICE DAILY active Not Available Not Available No t Available citalopram 20 mg tablet TAKE 1 TABLET BY MOUTH AT BEDTIME active Not Available Not Available No t Available terazosin 2 mg capsule TAKE 1 CAPSULE BY MOUTH DAILY active Not Available Not Available No t Available potassium citrate ER 10 mEq (1,080 mg) tablet,extend ed release TAKE 2 TABLETS BY MOUTH TWICE DAILY active Not Available Not Available No t Available divalproex 125 mg tablet,delaye d release TAKE 3 TABLETS BY MOUTH THREE TIMES DAILY active Not Available Not Available No t Available folic acid 1 mg tablet TAKE 1 TABLET BY MOUTH EVERY DAY active Not Available Not Available No t Available pravastatin 20 mg tablet TAKE 1 TABLET BY MOUTH AT BEDTIME active Not Available Not Available No t Available carbidopa 25 mg-levodopa 100 mg tablet TAKE 1 TABLET BY MOUTH IN THE MORNING AND AT NOON active Not Available Not Available No t Available buspirone 15 mg tablet TAKE 1 TABLET BY MOUTH THREE TIMES DAILY active Not Available Not Available No t Available Vitals Date Recorded Heart rate Oxygen saturation Oxygen saturation in Arterial blood by Pulse oximetry Respiratory rate Systolic blood pressure Diastolic blood pressure Provider Name and Address Organization Details Last Updated DateTime 3 80 /min 99 % 99 % 14 /min 126 mm[Hg] 83 mm[Hg] Not Available [facility] - production 3 18:00:11 Social History None recorded. Functional Status None recorded. Mental Status None recorded. Family History Nothing Reported. Medical History No medical history recorded. Gynecological HistoryNo gynecological history recorded. Obstetrics History GPAL:G 0 P 0 0 0 0 Past Encounters Encounter ID Performer Location Encounter Start Date Encounter Closed Date Diagnosis/Indication Diagnosis SNOMED-CT Code Diagnosis ICD10 Code Diagnosis Note [id number] Piero Charlton MD [facility] [address] [place] [id number] 05/19/2023 18:00:03 05/19/2023 18:04:50 Fall W19.XXXA Health Concerns Section Related Observation LastModified by Organization Detai ls LastModified Time None Recorded Concern Status LastModified by Organization Details LastModified Time None Recorded Advance Directives Directive None Recorded Payers Encounter Date Sequence Insurance Name Policy Number Policy Agudelo Covered Member ID Agudelo Member ID Guarantor Name 05/19/2023 1 [facility] - DOS ON OR AFTER 2023 - DUAL ELIGIBLE - JAIL OPTIONS AND ONE CARE (MEDICARE REPLACEMENT/ADV ANTAGE - HMO) Susana Higuera [id number] Susana Higuera Notes Date Note Type Note Provider Name and Address Organization Details Recorded Time 05/19/2023 text/html [facility] Nursing Assessment: Reason For Request: Fall Patient Reports: Weakness with fall, able to move all extremities Chief Complaints: Falls PMH: COPD/Asthma, Heart Disease Allergies: No Known Comments: Members daughter calling in to place a referral, member identified via /name. Member who had an incontinent episode yesterday, was placed in the shower in her chair, when member went to get up chair slipped and she fell. Member denies head strike, no LOC, on a baby ASA. Member denies pain, but does have some purplish bruising to her left side, denies tenderness with palpation or sob. Daughter would like member evaluated. ................... ................... ................... ................... ................... ................... ................... ........ Director Strategy Note From Jitendra Montgomery: Dispatched to above residence for the 62 year old female patient who had a witnessed fall at home yesterday while trying to transition from shower chair to bathroom. Pt has a history of dementia at baseline and daughter is her healthcare proxy. Daughter states the patient was attempting to get out of the tube from her shower chair when she fell back into the chair hitting her lower back. Shower chair is placed in tub and not secure, potentially causing her fall. Spoke with family about different shower chair options. Daughter denies any LOC or head strike. Daughter states patients behavior has remained at her baseline since the fall. Daughter noticed a large bruise forming today on her left side of her back. Patient has continued to deny any acute pain or discomfort. Pt and daughter deny any shortness of breath or any other complaints at this time. HEENT -. EYES FLORIDALMA. Pt noted to have a steady gait without guarding. Denies pain on palpation. No other gross or obvious trauma noted. Daughter requesting eval for bruising. Further DCAPBTLS -. Patient vitals and assessment are as noted. Vitals and Photo of back uploaded to [facility]. [facility] contacted to discuss presentation, concerns, and clinical findings. At this time, no further medical interventions ordered by [facility]. Pt and daughter instructed to call EMS, PCP, or visit local ED should new symptoms develop including but not limited to pain, shortness of breath, tenderness or large hemotoma. Red Flags discussed with daughter. Daughter understands and agrees to all above. Daughter states they will follow up with PCP. ................... ................... ................... ................... ................... ................... ................... ........ Disposition: Fulfilled Piero Charlton MD [address] [place] [address],[address], [place], [id number], [employer] [facility] [place] 05/19/2023 18:04:46 OBGyn Episode No OBEpisode recorded.
--- NOTE | 2024-11-27 08:09 | A.OFFPC_ITS ---
Vital Signs 11/27/24 08:11 Height 5 ft 9 in Weight 251 lb 4 oz BMI 37.1 BP 130/64 Blood Pressure Location Lt brachial Position Sitting Pulse 96 Pulse Source Pulse Oximeter Temp 97.1 F Temp Source Skin Pulse Oximetry (%) 92 Oxygen Delivery Method Room Air Intake Visit Reasons: seizures Intake Note: Patient is here to follow up on seizures. Traffic Or System Dispatcher Required: No Expressive Music Therapist: Present Accompanied by: Daughter Allergies fluticasone [From Advair Diskus] Allergy (Unknown, Verified 11/27/24 08:24) Unknown salmeterol [From Advair Diskus] Allergy (Unknown, Verified 11/27/24 08:24) Unknown Medication List - Last Reconciled 11/27/24 by Maria Luz Mobley MD [adult diapers pull-ups As directed] aspirin (Adult Aspirin Regimen) 81 mg PO DAILY 90 days [bed alarm As directed] buspirone 15 mg PO TID 90 days calcium carbonate 600 mg PO BID carbidopa-levodopa 25-100 mg (Sinemet) 1 tab PO BID@0900,1200 cholecalciferol (vitamin D3) (Vitamin D3) 125 mcg PO DAILY ferrous sulfate 325 mg PO DAILY folic acid 1 mg PO DAILY 90 days gel dressing (DermaGauze Hydrogel Dressing) As directed Grab bar As directed hospital bed As directed hydroxyzine HCl 25 mg PO BID PRN 3 days latex gloves (Latex Gloves, Large) As directed levetiracetam 750 mg PO BID lidocaine 3% 1 appl topical BID [nonadhesive bandage As directed] omeprazole 40 mg PO BID@0630,1630 pravastatin 20 mg PO BEDTIME quetiapine 25 mg PO BEDTIME 90 days Shower Chair As directed terazosin 2 mg PO DAILY 90 days underpads (Bed Underpads) Use 2 once a day Ventolin HFA 90 mcg/actuation (albuterol sulfate) 2 puffs inhalation Q4-6H PRN 30 days NS Tobacco use date assessed: 11/27/24 Fall risk assessment: No Falls in past year Last assessed Fall Risk: 11/27/24 Dental Screening Dental Screen Date: 11/27/24 Did you have a dental visit in the last 12 months?: Yes Did you have a dental problem in the last 6 months where you did not have access to dental care?: No Was dental information given to patient?: Patient has dentist HPI HPI Comments History of Present Illness Details The patient is a 64-year-old female presenting with respiratory symptoms. She has a recent history of experiencing difficulties related to her pulmonary function, as indicated by an oxygen saturation level of 92%, which is lower than the typical range expected for her. This symptom has prompted a recommendation for further evaluation by a house cleaner supervisor. The patient has a past medical history of stroke, for which she is on a regimen of baby aspirin for secondary prevention. In addition, she is being managed for Parkinson's disease with therapeutic agents such as buspirone and other relevant medications. On Keppra for seizures which has been well control and follows with Neurology in which last appointment was last week. She also has myelodysplastic syndrome follow by Hematology-Oncology. Denies any active bleeding. She has dementia which has not significantly change since last time. Oriented only to person but not to time or place. Also has history of breast cancer in which last mammogram was about a month ago and was normal. This is follow by Hematology-Oncology also. [facility] Medical History (Updated 11/27/24 @ 08:47 by Maria Luz Mobley MD) Pancytopenia Pancytopenia Anemia Hx of radiation therapy History of chemotherapy Parkinson disease Dementia Asthma Weakness Elevated cholesterol Hx of breast cancer Dependent on walker for ambulation Gingivitis Aneurysm Anxiety Wound of right upper extremity Personal history of breast cancer Dementia Seizures Right arm fracture Cognitive impairment History of stroke Aggressive behavior Pure hypercholesterolemia Fall Triple negative malignant neoplasm of breast Surgical History History of bone marrow biopsy Hx of tracheostomy Hx of colonoscopy History of lumpectomy of left breast History of cholecystectomy Family History Father Medical history unknown Mother Medical history unknown Social History Household Members: Family and Children Housing: House Are you a primary manager care to a significant other at home: No Do you presently have visiting nurse or other home services: Yes (Nurse once a week to check BP) Alcohol intake: never Patient Tobacco Use Status: Former Tobacco user Tobacco use type: Cigarette e-Cigarette/Vaping Use: Never Used Second Hand Smoke Exposure: No Advance Directives Date on File: 07/30/22 service: No Current occupational status: retired and disabled Cognitive needs: Yes Hearing needs: No Vision needs: Yes (Glasses) Questionnaire PHQ-9 Over the last 2 weeks, how often have you been bothered by any of the following problems? 1. Little interest or pleasure in doing things: not at all 2. Feeling down, depressed, or hopeless: not at all 3. Trouble falling or staying asleep, or sleeping too much: not at all 4. Feeling tired or having little energy: not at all 5. Poor appetite or overeating: not at all 6. Feeling bad about yourself - or that you are a failure or have let yourself or your family down: not at all 7. Trouble concentrating on things, such as reading the newspaper or watching television: not at all 8. Moving or speaking so slowly that other people could have noticed. Or the opposite - being so fidgety or restless that you have been moving around a lot more than usual: not at all 9. Thoughts that you would be better off or of hurting yourself in some way: not at all Total score: 0 Depression Screening Interpretation: Negative Depression Screening Done: Yes 08659 - PHQ-9 Billing: Yes Source: Developed by Drs. Jung Bee, Wendy Dias, Juan Aguilar and colleagues, with an educational daren from [employer]. Thrive Questionnaire Date Thrive assessed: 11/27/24 I am a: Patient What is your living situation today?: I have a steady place to live Within the past 12 months, did the food you bought not last and you didn't have the money to get more?: Never true Within the past 12 months, did you worry whether your food would run out before you got money to buy more?: Never true Do you have trouble paying for medicines?: No Do you have trouble getting transportation to medical appointments?: No Do you have trouble paying your heating and electricity bill?: No Do you have trouble taking care of your child, family member or friend?: No Do you have trouble with day-to-day activities such as bathing, preparing meals, shopping, managing finances, etc.?: No Are you currently unemployed and looking for a job?: No Are you interested in more education?: No Please select the resources that you would like help with: None Currently or been in a relationship where the following occur: No concerns reported THRIVE Score: 0 AUDIT C Alcohol Use Questionnaire (AUDIT-C) 1. How often do you have a drink containing alcohol?: Never 3. How often do you have six or more drinks on one occasion?: Never Total Score: 0 Score Reviewed/Action Taken: No RAMILA-7 AMB Questionnaire RAMILA-7 Date RAMILA - 7 assessed: 11/27/24 Feeling nervous, anxious, or on edge: 0 = Not at all Not being able to stop or control worryin = Not at all Worrying too much about different things: 0 = Not at all Trouble relaxin = Not at all Being so restless that it is hard to sit still: 0 = Not at all Becoming easily annoyed or irritable: 0 = Not at all Feeling afraid as if something awful might happen: 0 = Not at all Total RAMILA-7 score (0-4 normal; 5-9 mild; 10-14 moderate; 15-21 severe): 0 Source: Developed by Drs. Jung Bee, Wendy Dias, Juan Aguilar and colleagues, with an educational daren from [employer]. RAMILA-7 Assessment Billing RAMILA-7 Assessment Tool: RAMILA-7 Assessment 83418 Review of Systems Const All systems reviewed & are unremarkable except as noted in HPI and below Card Denies chest pain at rest, Denies chest pain with activity, Denies edema, Denies irregular heart rhythm, Denies claudication, Denies dyspnea, Denies dyspnea on exertion, Denies orthopnea, Denies paroxysmal nocturnal dyspnea and Denies slow heart rate Resp Denies cough, Denies dyspnea and Denies dyspnea on exertion GI Denies abdominal pain, Denies change in bowel habits, Denies excessive flatus, Denies nausea and Denies vomiting Physical exam (Primary Care) Vital Signs: Last Vital Signs Temp 97.1 F 11/27/24 08:11 Pulse 96 11/27/24 08:11 BP 130/64 11/27/24 08:11 Pulse Ox 92 11/27/24 08:11 Oxygen Delivery Method Room Air 11/27/24 08:11 BMI result Body Mass Index 37.1 BMI Assessment/Plan discussion: High BMI High, discussed plan: lifestyle, weight reduction, dietary and physical activity Tobacco/Smoking Status: Tobacco use Status Tobacco use date assessed 11/27/24 11/27/24 08:17 Patient Tobacco Use Status Former Tobacco user 11/27/24 08:17 Tobacco use type Cigarette 11/27/24 08:17 e-Cigarette/Vaping Use Never Used 11/27/24 08:17 PHQ-9: PHQ-9 Score PHQ-9: Total score 0 11/27/24 08:29 Depression Screening Interpretation: Negative Thrive Assessment: Date of Thrive Assessment Date Thrive assessed 11/27/24 11/27/24 08:17 Currently or been in a relationship where the following occur: No concerns reported Const Orientation/consciousness: oriented to person Resp Effort & Inspection: normal respiratory effort Auscultation: clear to auscultation bilaterally Cardio Jugular venous distension: no JVD Rate: regular rate Rhythm: regular rhythm Heart sounds: S1 normal heart sound present and S2 normal heart sound present Neuro General: oriented to person Extrem General: Yes full ROM Coding Level of Care Code Est Pt Level 4 (36308) Complex EM visit Add On G2211 Diagnoses 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 F01.A18 Dementia type: vascular dementia Dementia severity: mild Dementia behavioral or psychological symptom: with other behavioral disturbance MDS (myelodysplastic syndrome) D46.9 Parkinson's disease without dyskinesia or fluctuating manifestations G20.A1 Dyskinesia presence: without dyskinesia Fluctuating manifestations: without fluctuating manifestations Seizures R56.9 Triple negative breast cancer C50.919 Dyspnea R06.00 Additional Codes RAMILA-7 Assessment Billing - RAMILA-7 Assessment Tool: RAMILA-7 Assessment 62281 ([id number]) PHQ-9 - 21973 - PHQ-9 Billing: Yes ([id number]) Time Spent (min) 23 Assessment & Plan Assessment & Plan (1) Dementia: Code(s): F03.90 - Unspecified dementia, unspecified severity, without behavioral disturbance, psychotic disturbance, mood disturbance, and anxiety Category: Medical Qualifiers: Dementia type: vascular dementia Dementia severity: mild Dementia behavioral or psychological symptom: with other behavioral disturbance Qualified Code(s): F01.A18 - Vascular dementia, mild, with other behavioral disturbance (2) MDS (myelodysplastic syndrome): Code(s): D46.9 - Myelodysplastic syndrome, unspecified Category: Medical (3) Parkinsons disease: Code(s): G20 - Parkinson's disease Category: Medical Qualifiers: Dyskinesia presence: without dyskinesia Fluctuating manifestations: without fluctuating manifestations Qualified Code(s): G20.A1 - Parkinson's disease without dyskinesia, without mention of fluctuations (4) Seizures: Code(s): R56.9 - Unspecified convulsions Category: Medical (5) Triple negative breast cancer: Code(s): C50.919 - Malignant neoplasm of unspecified site of unspecified female breast Category: Medical (6) Dyspnea: Code(s): R06.00 - Dyspnea, unspecified Category: Medical Plan - Evaluate and manage potential respiratory compromise; referral to pulmonology is indicated for further assessment. - Continue aspirin therapy for secondary prevention of stroke. - Continue current management of Parkinson?s disease, including medication adherence to prescribed regimen. Patient was informed and verbally consented to the use of an ambient scribe for clinic note documentation during this visit. During the consultation, I discussed the patient's current respiratory symptoms and emphasized the need for a house cleaner supervisor's evaluation due to a concerning oxygen saturation level of 92%. We discussed her ongoing management for stroke prevention with aspirin and her treatment regimen for Parkinson?s disease. I also mentioned the plan to have her cholesterol and additional labs checked at her upcoming physical in May. The importance of returning for follow-up was highlighted, and I outlined the need for continued monitoring of her respiratory status and adjusting her therapeutic regimen according to the house cleaner supervisor's recommendations. Orders: Referrals Pulmonology Referral R06.00 - Dyspnea, unspecified Patient Instructions: - Schedule and attend the pulmonology appointment for assessment of respiratory concerns. - Continue taking baby aspirin daily as prescribed for stroke prevention. - Adhere to the current medication regimen for Parkinson's disease. - Return for a follow-up visit if respiratory symptoms worsen or if new symptoms arise. - Prepare for cholesterol and lab evaluations during the annual physical examination in May.
[2024-11-27 08:11] VITALS: BP 130/64; PULSE 96; TEMP 36.2; O2SAT 92; BMI 37.1
== END 2024-11-27 08:32 | disposition home or self-care (01) ==
LOC: HO.HMCH 08:05
PROVIDERS: PCP Internal Medicine; Visit Provider Internal Medicine
DX: R56.9 Unspecified convulsions (principal); F01.A18 Vascular dementia, mild, with other behavioral disturbance; D46.9 Myelodysplastic syndrome, unspecified; G20.A1 Parkinson's disease without dyskinesia, without mention of fluctuations; Z85.3 Personal history of malignant neoplasm of breast; R06.00 Dyspnea, unspecified

== ENCOUNTER → 2024-11-27 08:05 | Outpatient (BNVA) | payer OTHER, SELFPAY | PROVIDERS: PCP Internal Medicine; Visit Provider Internal Medicine | DX: F01.A18 Vascular dementia, mild, with other behavioral disturbance (principal); D46.9 Myelodysplastic syndrome, unspecified; G20.A1 Parkinson's disease without dyskinesia, without mention of fluctuations; R56.9 Unspecified convulsions; R06.00 Dyspnea, unspecified; C50.919 Malignant neoplasm of unspecified site of unspecified female breast | CPT/HCPCS: 96127; 99212 ==

== ENCOUNTER 2024-12-28 10:28 | Outpatient (AMB) | payer OTHER, SELFPAY ==
--- NOTE | 2024-12-28 10:32 | A.OFFVIS_ITS ---
Vital Signs 12/28/24 10:33 Height 6 ft Weight 257 lb BMI 34.9 BP 104/62 Blood Pressure Location Rt brachial Position Sitting Pulse 79 Pulse Source Doppler Pulse Oximetry (%) 96 Oxygen Delivery Method Room Air Intake Visit Reasons: dyspnea Allergies fluticasone [From Advair Diskus] Allergy (Unknown, Verified 12/28/24 10:45) Unknown salmeterol [From Advair Diskus] Allergy (Unknown, Verified 12/28/24 10:45) Unknown HPI HPI dyspnea: Details: 64-year-old lady, nonsmoker, with underlying history of ESRD on hemodialysis, dementia, Parkinson's referred for evaluation of dyspnea on exertion that tends to come after dialysis sessions, but also intermittently through the day. She does not have family history of lung disease. Patient does not have recent cardiac or pulmonary testing. She does not have history of exposure to industrial dusts. [facility] Medical History (Updated 12/28/24 @ 11:05 by Nahum Guerrier MD) Pancytopenia Pancytopenia Anemia Hx of radiation therapy History of chemotherapy Parkinson disease Dementia Asthma Weakness Elevated cholesterol Hx of breast cancer Dependent on walker for ambulation Gingivitis Aneurysm Anxiety Wound of right upper extremity Personal history of breast cancer Dementia Seizures Right arm fracture Cognitive impairment History of stroke Aggressive behavior Pure hypercholesterolemia Fall Triple negative malignant neoplasm of breast Surgical History History of bone marrow biopsy Hx of tracheostomy Hx of colonoscopy History of lumpectomy of left breast History of cholecystectomy Family History Father Medical history unknown Mother Medical history unknown Social History (Updated 12/28/24 @ 10:49 by GOGO Dela Cruz) Household Members: Family and Children Housing: House Are you a primary district manager primary care sales to a significant other at home: No Do you presently have visiting nurse or other home services: Yes (Nurse once a week to check BP) Alcohol intake: never Patient Tobacco Use Status: Former Tobacco user Tobacco use type: Cigarette Years Smoked: quit 2010 after cardiac arrest e-Cigarette/Vaping Use: Never Used Second Hand Smoke Exposure: No Advance Directives Date on File: 07/30/22 service: No Current occupational status: retired and disabled Cognitive needs: Yes Hearing needs: No Vision needs: Yes (Glasses) Review of Systems Card Reports dyspnea and Reports dyspnea on exertion Resp Denies cough, Denies excessive phlegm production, Reports dyspnea, Reports dyspnea on exertion and Denies wheezing Aller/Immun Denies wheezing Physical Exam Vital Signs: Last Vital Signs Pulse 79 12/28/24 10:33 BP 104/62 12/28/24 10:33 Pulse Ox 96 12/28/24 10:33 Oxygen Delivery Method Room Air 12/28/24 10:33 BMI result Body Mass Index 34.9 Const General: no acute distress, alert and awake Eyes Sclerae: sclerae normal EOM: EOMs intact bilaterally Neck Neck: Yes no lymphadenopathy, Yes trachea midline and Yes supple Resp Effort & Inspection: normal respiratory effort and no respiratory distress Auscultation: clear to auscultation bilaterally Cardio Rate: regular rate Rhythm: regular rhythm Heart sounds: no gallops, no murmurs and no rubs GI Palpation (GI): Soft to palpation and Other GI palpation findings present ( Nontender) Auscultation: normal bowel sounds Extrem General: No clubbing, No cyanosis and Yes edema (2+ bilateral) Assessment & Plan Assessment & Plan (1) Dyspnea on exertion: Code(s): R06.09 - Other forms of dyspnea Category: Medical Plan: Unclear etiology, but unlikely has significant pulmonary component. Though will obtain pulmonary function testing and 2D echocardiogram for initial evaluation. Orders: Orders CA echo transthoracic complete Today R06.00 - Dyspnea, unspecified PFT pulmonary function test Today R06.00 - Dyspnea, unspecified Coding Level of Care Code New Pt Level 3 (75464) Diagnoses Dyspnea on exertion R06.09
[2024-12-28 10:33] VITALS: BP 104/62; PULSE 79; O2SAT 96; BMI 34.9
--- OUTSIDE RECORDS SUMMARY | 2024-12-28 12:29 | XMS_ITS | Clinical Summary ---
Author Organization [employer] [facility] Address [id number] [place] [id number] Care Team Providers Care Log Washer Name Role Phone Maria Luz Mobley MD Primary Care Provider [phone] Surgical History Surgery Date Site/Laterality Comments COLONOSCOPY 02/22/2019 PROCEDURE: HISTORICAL COLONOSCOPY; COMMENT: polyps Medical History Medical History Date Comments History of colon polyps 02/22/2019 DX:Histo ry of colon polyps Social History Tobacco Use Types Packs/Day Years Used Date Smoking Tobacco: Former Smokeless Tobacco: Never Alcohol Use Standard Drinks/Week Comments No 0 (1 standard drink = 0.6 oz pur e alcohol) Comments Unknown Sex and Gender Information Value Date Recorded Sex Assigned at Not on file Legal Sex Female 10:43 AM EST Gender Identity Not on file Sexual Orientation Not on file Obstetrics History Plan of Treatment Health Maintenance Due Date Last Done Comments Breast Cancer Screening 1960 DTaP,Tdap,and Td Vaccines (1 - Tdap) 1978 Pneumococcal Vaccine: 50+ Ye ars (1 of 1 - PCV) 2009 Zoster Vaccines (1 of 2) 2009 Cervical Cancer Screening: P ap Smear 01/16/2022 01/16/2019 COVID-19 Vaccine ( - 2023-2 5 season) [...] patient's age to complete this topic Meningococcal B Vacine Aged Out No lo nger eligible based on patient's age to complete [...] RESULTING AGENCY - 01/18/2019 1:51 PM EDT [id number] THINPREP PAP, IMAGED: NEGATIVE FOR SQUAMOUS INTRAEPITHELIAL LESION AND MALIGNANCY . THADDEUS BOONE(ASCP) (CASE ELECTRONICALLY SIGNED 01 18 2019) RESULT OF APTIMA HIGH RISK HPV ASSAY: HIGH RISK HPV: ??NEGATIVE (SEROTYPES 16,18,31,33,35,39,45,51,52,56,58,59,66,68) COMPLETED ON 2019-01-18 ADEQUACY: SATISFACTORY ENDOCERVICAL/TRANSFORMATION ZONE COMPONENT ABSENT. SOURCE: THINPREP PAP HPV ANY DX: ??REFLEX 16 AND 18, CERVICAL, IMAGED CLINICAL INFORMATION: HPV ANY DIAGNOSIS. MENOPAUSE, Z12.4 us Ayana Brushwood DO LAB CYTOLOGY ORDERABLES Fin al Result HISTORICAL TESTING LAB RESULTING AGENCY from Last 3 Months or Most Recently Relevant to Health Maintenance Care Teams Log Washer Relationship Specialty Start Date End Date Maria Luz Mobley MD [address] [facility] , [address] [facility] ROSALIND Malone PCP - General Internal Medicine 06/08/18
--- OUTSIDE RECORDS SUMMARY | 2024-12-28 12:29 | XMS_ITS | Data Portability ---
Author Organization [employer] [place] [facility] [employer] Address [address] [place] [id number] Care Team Providers Care Resource Technician Name Role Phone [facility] Referring Provider Assessment Encounter Date Assessment Date Assessment LastModified by Organization Details LastModified Time 05/19/2023 05/19/2023 63 YOF with hx o f CAD, COPD, being seen after slip and fall in shower chair yesterday. No head strike or LOC. On research and development tester exam, Abdomen is soft ,non-tender. There is [...] SNOMED-CT Code Diagnosis ICD10 Code Diagnosis Note [id number] Piero Charlton MD Main - [facility] [address] [place] [phone] 05/19/2023 18:00:03 05/19/2023 18:04:50 Fall W19.XXXA Health Concerns Section Related Observation LastModified by Organization Detai ls LastModified Time None Recorded Concern Status LastModified by Organization Details LastModified Time None Recorded Advance Directives Directive None Recorded Payers Encounter Date Sequence Insurance Name Policy Number Policy Agudelo Covered Member ID Agudelo Member ID Guarantor Name 05/19/2023 1 [facility] - DOS ON OR AFTER 2023 - DUAL ELIGIBLE - RETIREMENT OPTIONS AND ONE CARE (MEDICARE REPLACEMENT/ADV ANTAGE - HMO) Susana Higuera [id number] Susana Higuera Notes Date Note Type Note [...] ................... ................... ................... ................... ................... ................... ........ Platform Software Engineer Note From Jitendra Montgomery: Dispatched to above [...] Vitals and Photo of back uploaded to [employer]. [facility] [place] to discuss presentation, concerns, and clinical findings. At this time, no further medical interventions ordered by [facility]. Pt and daughter instructed to call EMS, PCP, or visit local ED should new symptoms develop including but not limited to pain, shortness of breath, tenderness or large hemotoma. Red Flags discussed with daughter. Daughter understands and agrees to all above. Daughter states they will follow up with PCP. ................... ................... ................... ................... ................... ................... ................... ........ Disposition: Fulfilled Piero Charlton MD [address] [place] [address],[address], [place], [phone], [employer] [facility] [employer] 05/19/2023 18:04:46 OBGyn Episode No OBEpisode recorded.
== END 2024-12-28 10:57 | disposition home or self-care (01) ==
PROVIDERS: PCP Internal Medicine; Referring Provider Internal Medicine; Visit Provider Internal Medicine Pulmonary Disease
DX: R06.09 Other forms of dyspnea (principal)
CPT/HCPCS: 99213

== ENCOUNTER → 2024-12-28 10:28 | Outpatient (BNVA) | payer OTHER, SELFPAY | PROVIDERS: PCP Internal Medicine; Referring Provider Internal Medicine; Visit Provider Internal Medicine Pulmonary Disease | DX: R06.09 Other forms of dyspnea (principal); N18.6 End stage renal disease; Z99.2 Dependence on renal dialysis | CPT/HCPCS: 99212 ==

== ENCOUNTER → 2025-01-23 12:43 | Outpatient (REF) | payer OTHER, SELFPAY ==
--- NOTE | 2025-01-23 12:46 | CA_ITS ---
Transthoracic Echocardiogram Patient (Last, First, Middle): Susana Kelsey I Gender: Female Date of : 1960 Age: 64 Procedure Date: 01/23/2025 Procedure Type: Transthoracic Echocardiogram Location: OP Height: 182.88 cm Weight: 116.58 kg BSA: 2.37 m2 Heart Rate: 76 bpm BP: 104 / 62 mmHg Accounts Receivable Manager: SB/RC Referring MD: Nahum Guerrier MD Symptoms: R06.00 - Dyspnea, unspecified Study Quality: Fair ECG Rhythm: Sinus Conclusions: - The left ventricular systolic function is moderate to severely decreased. The calculated ejection fraction is 30% by biplane method. - No obvious valvular pathology seen on this study. Findings Procedure Information The quality of the study was technically difficult. The study quality is limited by patients body habitus. Left Ventricle Normal left ventricular cavity size. The left ventricular systolic function is moderate to severely decreased. The calculated ejection fraction is 30% by biplane method. There is moderate global hypokinesis. Evidence suggests grade I (mild) diastolic dysfunction. Coee-jv-koxqfaft concentric left ventricular hypertrophy. Right Ventricle Normal right ventricular cavity size. There is low normal right ventricular systolic function. Atria Both atria are normal in size. Aortic Valve There is a normal trileaflet aortic valve. There is no aortic valve stenosis. There is no aortic valve regurgitation. Mitral Valve There is mild mitral annular calcification. There is trace mitral valve regurgitation. There is no mitral valve stenosis. Pulmonic Valve The pulmonic valve is likely normal. Tricuspid Valve There is trace tricuspid valve regurgitation. There is no evidence of pulmonary hypertension. Great Vessels The asc aorta is normal in size. Venous The inferior vena cava was not well visualized. Pericardium/Pleural There is no evidence of pericardial effusion. Prior Study Comparison Changes noted compared to prior study dated: 03/18/2018. Decrease in LVEF. Recommendations, Care & Conclusions No obvious valvular pathology seen on this study. Measurements 2D Linear Measurements IVSd: 1.31 0.6-0.9/0.6-1.0 cm LVIDd: 5.36 3.9-5.3/4.2-5.9 cm LVIDd Index: 2.26 2.4-3.2/2.2-3.1 cm/m2 LVIDs: 4.02 2.0-3.6 cm LVPWd: 1.20 0.7-1.1 cm LA Diam: 3.40 2.7-3.8/3.0-4.0 cm LAIDs Index: 1.43 1.5-2.3 cm/m2 LV Mass: 346.79 67-162/88-224 g LV Mass Index: 146.33 43-95/49-115 g/m2 LVOT Diam: 2.50 3.0+(-)1.3 cm 2D Systolic Function EF 4C: 25.00 >55% EF 2C: 28.90 >55% EF BiP: 29.50 >55% Mitral Valve MV Pk E: 0.66 MV PK A: 0.90 MV Decel Time: 97.00 E/A: 0.70 E'Lateral: 4.03 E'Medial: 4.13 E/E' Med: 15.90 E/E' Lat: 16.30 PHT: 28.00 MVA PHT: 7.86 Decel Mifflin: 6.76 Aortic Valve AoV Pk Jose: 0.80 AoV Pk Grad: 3.00 LIZETTE: 3.80 LVOT LVOT Pk Jose: 0.63 LVOT Mn Jose: 0.47 LVOT VTI: 0.14 LVOT Pk Grad: 2.00 LVOT Mn Grad: 1.00 LVOT Diam: 2.50 LVOT Area: 4.91 Diastolic Function MV Pk E: 0.66 MV Pk A: 0.90 E/A: 0.70 E'Medial: 4.13 E/E' Med: 15.90 E' Laterial: 4.03 E/E' Lat: 16.30 Right Ventricle TAPSE (mm): 18.40 TVS' Jose: 10.10 Tricuspid Valve TR Pk Jose: 1.82 TR Pk Grad: 13.00 Great Vessels Aorta Sinus of Valsalva: 3.60 2.0-3.5 cm Ao Asc: 3.70 2.1-3.4 cm Pulmonary Veins Pulm Vein S/D 1.70 Pulmonary Valve PV Pk Jose: 0.68 Peak PV Grad: 2.00 Updated in Other Vendor System with Status of Final Ray Rodriguez MD electronically signed on 01/24/2025 3:16:59 PM with status of Final
--- OUTSIDE RECORDS SUMMARY | 2025-01-23 14:50 | XMS_ITS | Clinical Summary ---
Author Organization [facility] Address [id number] [place] [phone] Care Team Providers Care Optometric Aide Name Role Phone Maria Luz Mobley MD Primary Care Provider Surgical History Surgery Date Site/Laterality Comments COLONOSCOPY [...] RESULTING AGENCY - 01/18/2019 1:51 PM EDT [id number] THINPREP PAP, IMAGED: NEGATIVE FOR SQUAMOUS INTRAEPITHELIAL [...] Recently Relevant to Health Maintenance Care Teams Optometric Aide Relationship Specialty Start Date End Date Maria Luz Mobley MD 2 [facility] , [address] [facility] D/B/A: [facility] ROSALIND Malone PCP - General Internal Medicine 06/08/18
== END ==
LOC: HO.CARD 12:43
PROVIDERS: PCP Internal Medicine; Visit Provider Internal Medicine Pulmonary Disease
DX: R06.00 Dyspnea, unspecified (principal)
CPT/HCPCS: 93306

== ENCOUNTER → 2025-01-23 12:46 | Outpatient (BNV) | payer OTHER, SELFPAY | PROVIDERS: PCP Internal Medicine; Visit Provider Internal Medicine | DX: R06.00 Dyspnea, unspecified (principal) | CPT/HCPCS: 93306 ==

== ENCOUNTER 2025-01-25 13:27 | Outpatient (REF) | payer OTHER, SELFPAY ==
--- NOTE | ~2025-01-25 | US_ITS ---
EXAMINATION: US KIDNEY BILATERAL HISTORY: N20.0 - Calculus of kidney TECHNIQUE: Real-time grayscale ultrasound imaging of the kidneys was performed and images were reviewed. COMPARISON: Comparison is made with the prior examination dated 01/11/2024. FINDINGS: Right kidney: The right kidney measures 11.6 x 4.6 x 3.8 cm. Renal parenchymal echotexture and thickness are normal. There are no masses. There is no hydronephrosis or renal calculi. Tiny echogenic focus in the cortex of the interpolar region may represent a cortical calcification. Left Kidney: The left kidney measures 12.5 x 4.0 x 3.5 cm. Renal parenchymal echotexture and thickness are normal. There are no masses. There is no hydronephrosis or renal calculi. There is a probable extrarenal pelvis. US/US renal BI IMPRESSION: No evidence of nephrolithiasis. Electronically signed by: Jung Lara MD 01/26/2025 07:54 AM EDT
--- OUTSIDE RECORDS SUMMARY | 2025-01-25 14:41 | XMS_ITS | Clinical Summary ---
[facility] Organization [facility] Address [address] [place] [phone] Care Team Providers Care Assistant Warehouse Manager Name Role Phone Maria Luz Mobley MD Primary Care Provider [phone] Surgical History Surgery Date Site/Laterality Comments COLONOSCOPY [...] 2024 Influenza Vaccine (#1) 2024 RSV Immunization Adult Patie nts (1 - 1-dose 75+ series) 2034 HIB [...] RESULTING AGENCY - 01/18/2019 1:51 PM EDT [id number] THINPREP PAP, IMAGED: NEGATIVE FOR SQUAMOUS INTRAEPITHELIAL LESION AND MALIGNANCY . THADDEUS BOONE(ASCP) (CASE ELECTRONICALLY SIGNED 01 18 2019) RESULT OF APTIMA HIGH RISK HPV ASSAY: HIGH RISK HPV: ??NEGATIVE (SEROTYPES 16,18,31,33,35,39,45,51,52,56,58,59,66,68) COMPLETED ON 2019-01-18 ADEQUACY: SATISFACTORY ENDOCERVICAL/TRANSFORMATION ZONE COMPONENT ABSENT. SOURCE: THINPREP PAP HPV ANY DX: ??REFLEX 16 AND 18, CERVICAL, IMAGED CLINICAL INFORMATION: HPV ANY DIAGNOSIS. MENOPAUSE, Z12.4 us Ayana Vaz DO LAB CYTOLOGY ORDERABLES Fin al Result HISTORICAL TESTING LAB RESULTING AGENCY from Last 3 Months or Most Recently Relevant to Health Maintenance Care Teams Assistant Warehouse Manager Relationship Specialty Start Date End Date Maria Luz Mobley MD 2 [facility] , [address] [facility] D/B/A: [facility] ROSALIND Malone PCP - General Internal Medicine 06/08/18
--- OUTSIDE RECORDS SUMMARY | 2025-01-25 14:41 | XMS_ITS | Data Portability ---
Author Organization [facility] Address [address] [place] [phone] Care Team Providers Care Machinist Instructor Name Role Phone [facility] Referring Provider Assessment Encounter Date Assessment Date Assessment LastModified by Organization Details LastModified Time 05/19/2023 05/19/2023 63 YOF with hx o f CAD, COPD, being seen after slip and fall in shower chair yesterday. No head strike or LOC. On steam fitter helper exam, Abdomen is soft ,non-tender. There is [...] SNOMED-CT Code Diagnosis ICD10 Code Diagnosis Note [id number] Piero Charlton MD Main - [facility] [address] [place] [phone] 05/19/2023 18:00:03 05/19/2023 18:04:50 Fall W19.XXXA Health Concerns Section Related Observation LastModified by Organization Detai ls LastModified Time None Recorded Concern Status LastModified by Organization Details LastModified Time None Recorded Advance Directives Directive None Recorded Payers Encounter Date Sequence Insurance Name Policy Number Policy Agudelo Covered Member ID Agudelo Member ID Guarantor Name 05/19/2023 1 [facility] - DOS ON OR AFTER 2023 - DUAL ELIGIBLE - FPC OPTIONS AND ONE CARE (MEDICARE REPLACEMENT/ADV ANTAGE - HMO) Susana Higuera [id number] Susana Higuera Notes Date Note Type Note [...] ................... ................... ................... ................... ................... ................... ........ Printed Forms Proofreader Note From Jitendra Montgomery: Dispatched to above [...] Vitals and Photo of back uploaded to [employer]. [facility] [place] to discuss presentation, concerns, and clinical findings. At this time, no further medical interventions ordered by [facility]. Pt and daughter instructed to call EMS, PCP, or visit local ED should new symptoms develop including but not limited to pain, shortness of breath, tenderness or large hemotoma. Red Flags discussed with daughter. Daughter understands and agrees to all above. Daughter states they will follow up with PCP. ................... ................... ................... ................... ................... ................... ................... ........ Disposition: Fulfilled Piero Charlton MD [address] [place] [address],[address], [place], [phone], [employer] 05/19/2023 18:04:46 OBGyn Episode No OBEpisode recorded.
== END 2025-01-25 13:28 | disposition home or self-care (01) ==
LOC: HO.US 13:27
PROVIDERS: PCP Internal Medicine; Visit Provider Nurse Practitioner Family
DX: N20.0 Calculus of kidney (principal)
CPT/HCPCS: 76775

== ENCOUNTER → 2025-01-25 13:29 | Outpatient (BNV) | payer OTHER, SELFPAY | PROVIDERS: PCP Internal Medicine; Visit Provider Radiology Diagnostic Radiology | DX: N20.0 Calculus of kidney (principal) | CPT/HCPCS: 76775 ==

== ENCOUNTER 2025-02-02 09:06 | Outpatient (REF) | payer OTHER, SELFPAY ==
--- NOTE | 2025-02-02 09:09 | PFT_ITS ---
Flows: FEV1: 89 % of predicted at 2.42 L FVC: 82 % of predicted at 2.88 L FEV1/FVC: 84 % Bronchodilator response: Present in small to medium airways only Volumes: Total lung capacity: 70 % of predicted at 4.67 L Residual volume: 74 % of predicted at 1.64 L Slow vital capacity: 82 % of predicted at 3.04 L Expiratory reserve volume: 48 % of predicted at 0.46 L Diffusion capacity: Moderately decreased, adjusts to being mildly decreased after correction for alveolar ventilation. Impression: Mild restrictive ventilatory defect with bronchodilator response present in small to medium airways only. Decreased expiratory reserve volume suggests extrathoracic restriction likely secondary to abdominal obesity. Combination of restrictive ventilatory defect with decreased diffusion capacity suggests pulmonary parenchymal disease. Clinical correlation is advised. MTDD
--- OUTSIDE RECORDS SUMMARY | 2025-02-02 09:26 | XMS_ITS | Clinical Summary ---
[facility] Address [address] [place] [phone] Care Team Providers Care Machine Puller Name Role Phone Maria Luz Mobley MD Primary Care Provider [phone] Surgical History Surgery Date Site/Laterality Comments COLONOSCOPY [...] 2009 Zoster Vaccines (1 of 2) 2009 COVID-19 Vaccine ( - 2023-2 5 season) 2024 Influenza Vaccine (Season Ended) 2025 RSV Immunization Adult Patie nts (1 - [...] age to complete this topic Meningococcal B Vaccine Aged Out No l onger eligible based on patient's age to complete this topic RSV Immunization Patients Un gurjit 20 months Aged Out No longer eligible b ased on patient's age to complete this topic Varicella Vaccines Aged Out No longer eligible based on patient's age to complete this topic Care Teams Machine Puller Relationship Specialty Start Date End Date Maria Luz Mobley MD [address] [place] [address] , [address] [facility] D/B/A: [facility] ROSALIND Malone PCP - General Internal Medicine 06/08/18
[2025-02-02 09:47] VITALS: PULSE 69; O2SAT 98
== END 2025-02-02 09:07 | disposition home or self-care (01) ==
LOC: HO.RESP 09:06
PROVIDERS: PCP Internal Medicine; Visit Provider Internal Medicine Pulmonary Disease
DX: R06.00 Dyspnea, unspecified (principal)
CPT/HCPCS: 94010; 94640; 94727; 94729

== ENCOUNTER → 2025-02-02 09:09 | Outpatient (BNV) | payer OTHER, SELFPAY | PROVIDERS: PCP Internal Medicine; Visit Provider Internal Medicine Pulmonary Disease | DX: R06.00 Dyspnea, unspecified (principal) | CPT/HCPCS: 94060; 94727; 94729 ==

== ENCOUNTER 2025-02-13 09:03 | Outpatient (REF) | payer OTHER, SELFPAY ==
--- OUTSIDE RECORDS SUMMARY | 2025-02-13 12:52 | XMS_ITS | Clinical Summary ---
[facility] Organization [facility] Address [address] [place] [id number] Care Team Providers Care Park Interpretive Ranger Name Role Phone Maria Luz Mobley MD Primary Care Provider [phone] Surgical History Surgery Date Site/Laterality Comments COLONOSCOPY [...] age to complete this topic Care Teams Park Interpretive Ranger Relationship Specialty Start Date End Date Maria Luz Mobley MD [address] [place] [address] , [address] [facility] Physician Associ D/B/A: [facility] ROSALIND Malone PCP - General Internal Medicine 06/08/18
[2025-02-13 17:21] LABS: Urine Cytology See Pathology rpt
== END 2025-02-13 09:04 | disposition home or self-care (01) ==
LOC: HO.LNP 09:03
PROVIDERS: PCP Internal Medicine; Visit Provider Nurse Practitioner Family
DX: R31.29 Other microscopic hematuria (principal); N20.0 Calculus of kidney; R35.0 Frequency of micturition; R35.1 Nocturia
CPT/HCPCS: 51798; 81003; 88112; 99212

== ENCOUNTER 2025-02-13 09:03 | Outpatient (AMB) | payer OTHER, SELFPAY ==
--- OUTSIDE RECORDS SUMMARY | 2025-02-13 09:36 | XMS_ITS | Data Portability ---
Author Organization [facility] [employer] Address [address] [place] [phone] Care Team Providers Care Fifth Hand Name Role Phone [facility] Referring Provider Assessment Encounter Date Assessment Date Assessment LastModified by Organization Details LastModified Time 05/19/2023 05/19/2023 63 YOF with hx o f CAD, COPD, being seen after slip and fall in shower chair yesterday. No head strike or LOC. On product management specialist exam, Abdomen is soft ,non-tender. There is [...] SNOMED-CT Code Diagnosis ICD10 Code Diagnosis Note [id number] Piero Charlton MD Main - [facility] [address] [place] [phone] 05/19/2023 18:00:03 05/19/2023 18:04:50 Fall W19.XXXA Health Concerns Section Related Observation LastModified by Organization Detai ls LastModified Time None Recorded Concern Status LastModified by Organization Details LastModified Time None Recorded Advance Directives Directive None Recorded Payers Encounter Date Sequence Insurance Name Policy Number Policy Agudelo Covered Member ID Agudelo Member ID Guarantor Name 05/19/2023 1 [facility] - DOS ON OR AFTER 2023 - DUAL ELIGIBLE - HALF-WAY OPTIONS AND ONE CARE (MEDICARE REPLACEMENT/ADV ANTAGE - HMO) Susana Higuera [id number] Susana Higuera Notes Date Note Type Note [...] ................... ................... ................... ................... ................... ................... ........ Mat Tester Note From Jitendra Montgomery: Dispatched to above [...] Vitals and Photo of back uploaded to [employer]. [facility] contacted to discuss presentation, concerns, and clinical findings. At this time, no further medical interventions ordered by [facility]. Pt and daughter instructed to call EMS, PCP, or visit local ED should new symptoms develop including but not limited to pain, shortness of breath, tenderness or large hemotoma. Red Flags discussed with daughter. Daughter understands and agrees to all above. Daughter states they will follow up with PCP. ................... ................... ................... ................... ................... ................... ................... ........ Disposition: Fulfilled Piero Charlton MD [address] [place] [address],[address], [place], [phone], [employer] 05/19/2023 18:04:46 OBGyn Episode No OBEpisode recorded.
--- OUTSIDE RECORDS SUMMARY | 2025-02-13 09:36 | XMS_ITS | Clinical Summary ---
[facility] Organization [facility] Address [address] [place] [phone] Care Team Providers Care Plastics Technician Name Role Phone Maria Luz Mobley MD [...] age to complete this topic Care Teams Plastics Technician Relationship Specialty Start Date End Date Maria Luz Mobley MD [address] [place] [address] , [address] [facility] D/B/A: [facility] ROSALIND Malone PCP - General Internal Medicine 06/08/18
--- NOTE | 2025-02-13 09:43 | A.OFFVIS_ITS ---
Intake Visit Reasons: 1YR follow up/Renal US(set) Intake Note: Patient presents today for follow up on: kidney stone, incontinence, and ultrasound results Imaging Completed: 01/25/25 Urology Medication: terazosin Blood Thinner: Aspirin *NO antibiotic allergies PVR: 0ml's Form Setter/Driver Required: No Accompanied by: Unknown Allergies fluticasone [From Advair Diskus] Allergy (Unknown, Verified 02/13/25 10:30) Unknown salmeterol [From Advair Diskus] Allergy (Unknown, Verified 02/13/25 10:30) Unknown Medication List - Last Reconciled 02/13/25 by GLENNA Falcon-BC [adult diapers pull-ups As directed] aspirin (Adult Aspirin Regimen) 81 mg PO DAILY 90 days [bed alarm As directed] buspirone 15 mg PO TID 90 days calcium carbonate 600 mg PO BID carbidopa-levodopa 25-100 mg (Sinemet) 1 tab PO BID@0900,1200 cholecalciferol (vitamin D3) (Vitamin D3) 125 mcg PO DAILY divalproex 250 mg (2 x 125 mg) PO TID 30 days ferrous sulfate 325 mg PO DAILY folic acid 1 mg PO DAILY 90 days gel dressing (DermaGauze Hydrogel Dressing) As directed Grab bar As directed [heavy duty wheel chair As directed] hospital bed As directed latex gloves (Latex Gloves, Large) As directed levetiracetam 750 mg PO BID lidocaine 3% 1 appl topical BID [nonadhesive bandage As directed] omeprazole 40 mg PO BID@0630,1630 pravastatin 20 mg PO BEDTIME quetiapine 25 mg PO BEDTIME 90 days Shower Chair As directed terazosin 2 mg PO DAILY 90 days underpads (Bed Underpads) Use 2 once a day Ventolin HFA 90 mcg/actuation (albuterol sulfate) 2 puffs inhalation Q4-6H PRN 30 days NS HPI Comments Details: Susana is a 65 year old Hungarian speaking patient of Dr. Pate who is accompanied by her son in law at todays visit. The patient has a past medical history of dementia, Parkinson's, seizures, and anxiety. Son in law who is present at todays visit is patients primary caregiver. She presents to the office today for a follow up of her nephrolithaisis and lower urinary tract symptoms. Recent renal imaging results reviewed with the patient and her son-in-law today. 02/16 Bilateral kidneys with no hydronephrosis or renal calculi. When asked patient denies any bothersome urinary issues or concerns however given patient's past medical history of dementia she is a poor historian. Patient's son-in-law feels patient with ongoing episodes of urinary frequency and nocturia. In office urinalysis results reviewed with the patient today. PVR 0 mL. We discussed obtaining bladder diary for further assessment evaluation. He denies patient to report any bothersome urinary issues. He otherwise offers no other issues or concerns at this time. Discussion Notes During the consultation, we reviewed the patient's urinary symptoms, primarily the frequent urination every 10-20 minutes and significant nocturia per patient's primary caregiver. The patient appears generally unbothered by these symptoms however is a poor historian. The use of a bladder diary was proposed to better assess intake and output over a 5 to 7-day period, which may assist us in quantifying the frequency and volume of urination for better management. The recent kidney ultrasound demonstrated no evidence of nephrolithiasis, indicating effective preventative measures, likely due to adequate hydration. Given the urinary frequency, we discussed maintaining a balance between kidney stone prevention and managing urinary symptoms. A bladder diary will help further evaluate the symptoms. 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 Plan The patient?s kidney ultrasound confirms no active nephrolithiasis. A bladder diary is advised to monitor urination habits closely, especially concerning nocturnal frequency, to refine management strategies. The patient should maintain adequate hydration levels to continue preventing kidney stones while documenting fluid intake and output for review. Monitoring will inform future treatment adjustments. [facility] Medical History Pancytopenia Pancytopenia Anemia Hx of radiation therapy History of chemotherapy Parkinson disease Dementia Asthma Weakness Elevated cholesterol Hx of breast cancer Dependent on walker for ambulation Gingivitis Aneurysm Anxiety Wound of right upper extremity Personal history of breast cancer Dementia Seizures Right arm fracture Cognitive impairment History of stroke Aggressive behavior Pure hypercholesterolemia Fall Triple negative malignant neoplasm of breast Surgical History History of bone marrow biopsy Hx of tracheostomy Hx of colonoscopy History of lumpectomy of left breast History of cholecystectomy Family History Father Medical history unknown Mother Medical history unknown Social History Household Members: Family and Children Housing: House Are you a primary animal caretaker to a significant other at home: No Do you presently have visiting nurse or other home services: Yes (Nurse once a week to check BP) Alcohol intake: never Patient Tobacco Use Status: Former Tobacco user Tobacco use type: Cigarette Years Smoked: quit 2010 after cardiac arrest e-Cigarette/Vaping Use: Never Used Second Hand Smoke Exposure: No Advance Directives Date on File: 07/30/22 service: No Current occupational status: retired and disabled Cognitive needs: Yes Hearing needs: No Vision needs: Yes (Glasses) Review of Systems Const Unobtainable due to mental condition and Unobtainable due to mental status Physical Exam Const General: cooperative, healthy appearing, comfortable, no acute distress, well developed, alert and awake Orientation/consciousness: oriented to person Limitations: no limitations HEENT Head: Yes normal to inspection, Yes normocephalic and Yes atraumatic Ears: hearing grossly normal bilaterally Eyes General: appearance normal, both eyes and all related structures Neck Neck: Yes normal visual inspection and Yes trachea midline Chest Chest palpation & inspection: normal inspection of the chest Resp Effort & Inspection: normal respiratory effort and able to speak in complete sentences Cardio Rate: regular rate GI Inspection: Yes normal to inspection General: Yes no CVA tenderness Back/Spine/Pelvis Back: no CVA tenderness Cervical Spine: normal cervical lordosis Neuro General: oriented to person Extrem General: Yes normal to inspection Psych Appearance: grossly normal and well kempt Speech and movement: Clear speech present Affect: normal affect Attitude: cooperative Insight: Limited insight present (Psych) Judgement: Limited judgement present (Psych) Office Procedures Post Void Residual Post Residual Void Post Void Residual (PVR): 0 [id number] Void Residual by ultrasound Results AMB Urinalysis, Automated UA Leukoctes 15 Matthias/uL Last Edit by Arcadio Vidal on 02/13/25 11:52 UA Nitrite Last Edit by Arcadio Vidal on 02/13/25 11:52 UA Urobilinogen 0.2 mg/dL Last Edit by Arcadio Vidal on 02/13/25 11:52 UA Protein 0 mg/dL Last Edit by ProjectSpeakerdavid Vidal on 02/13/25 11:52 UA pH 7.5 Last Edit by ProjectSpeakerdavid Vidal on 02/13/25 11:52 UA Blood 80 Shawn/uL Last Edit by Hanwha [employer] on 02/13/25 11:52 UA Specific Patterson 1.010 Last Edit by ProjectSpeakerdavid Vidal on 02/13/25 11:52 UA Ketone Negative Last Edit by ProjectSpeakerdavid Vidal on 02/13/25 11:52 UA Bilirubin 0 mg/dL Last Edit by ProjectSpeakerdavid Vidal on 02/13/25 11:52 UA Glucose 0 mg/dL Last Edit by ProjectSpeakerdavid Vidal on 02/13/25 11:52 Results Reviewed Results Reviewed: Laboratory Last Values Urine pH (Auto) 7.5 02/13/25 11:49 Specific Patterson (Auto) 1.010 02/13/25 11:49 Urine Protein (Auto) 0 mg/dL 02/13/25 11:49 Glucose (UA)(Auto) 0 mg/dL 02/13/25 11:49 Urine Ketones (Auto) Negative 02/13/25 11:49 Urine Blood (Auto) 80 Shawn/uL 02/13/25 11:49 Urine Bilirubin (Auto) 0 mg/dL 02/13/25 11:49 Urine Urobilinogen (Auto) 0.2 mg/dL 02/13/25 11:49 Leukocyte Esterase (Auto) 15 Matthias/uL 02/13/25 11:49 Date of Service: 01/25/25 Procedure(s): US renal BI FINDINGS: Right kidney: The right kidney measures 11.6 x 4.6 x 3.8 cm. Renal parenchymal echotexture and thickness are normal. There are no masses. There is no hydronephrosis or renal calculi. Tiny echogenic focus in the cortex of the interpolar region may represent a cortical calcification. Left Kidney: The left kidney measures 12.5 x 4.0 x 3.5 cm. Renal parenchymal echotexture and thickness are normal. There are no masses. There is no hydronephrosis or renal calculi. There is a probable extrarenal pelvis. IMPRESSION: No evidence of nephrolithiasis. 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 PVR 0 mL. Recent renal imaging results reviewed with the patient and her anode machine operator today; as noted above. Will obtain bladder diary for further assessment evaluation. Follow-up in 1-3 months with PVR and bladder diary; or sooner with any issues, concerns, and or questions. Orders: Orders Urine Cytology Today R31.29 - Other microscopic hematuria AMB Urinalysis Automated Today Z13.9 - Encounter for screening, unspecified AMB Post Void Residual by ultrasound Today R35.1 - Nocturia Patient Instructions: The patient had an opportunity to ask questions regarding the treatment plan. All questions were answered. Physical exam, labs, and imaging were discussed and reviewed in detail. As well as risks, benefits, and discussion of treatment choices. No major barriers to understanding were identified. The patient expressed understanding and agreement with the above treatment plan. The patient was made aware they should contact our office by phone for worsening of their current condition, the appearance of new symptoms, or with any questions or concerns. Compliance is encouraged with any medications and follow up testing that is ordered. It is a privilege to be allowed the opportunity to participate in? your urological care.? Again, if you have any questions or concerns If you have any questions or concerns please do not hesitate to contact me. The office is [phone]. This note is constructed using voice recognition software. While every effort has been made to ensure accuracy tsa screener errors may have been included. Yours sincerely, Vijaya Zaidi, HEALTH AND WELLNESS MANAGER-BC Coding Level of Care Code Est Pt Level 3 (77855) Complex EM visit Add On G2211 Diagnoses Microhematuria R31.29 Nephrolithiasis N20.0 Urinary frequency R35.0 Nocturia R35.1 CPT Codes Post Residual Void - PVR CPT Code: 27709-[id number] Void Residual by ultrasound ([id number])
== END 2025-02-13 10:20 | disposition home or self-care (01) ==
LOC: HO.HUSH 09:03
PROVIDERS: PCP Internal Medicine; Visit Provider Nurse Practitioner Family
DX: R31.29 Other microscopic hematuria (principal); N20.0 Calculus of kidney; R35.0 Frequency of micturition; R35.1 Nocturia; Z13.9 Encounter for screening, unspecified
CPT/HCPCS: 99213; G2211

== ENCOUNTER 2025-05-29 07:36 | Outpatient (REF) | payer OTHER, SELFPAY ==
[2025-05-29 09:14] LABS: Alanine Aminotransferase 10 U/L (0-31); Albumin Level 4.0 g/dL (3.5-5.0); Alkaline Phosphatase 65 U/L (39-117); Anion Gap 13 (12-20); Aspartate Amino Transferase 27 U/L (5-31); Blood Urea Nitrogen 22 mg/dL (9-16); Calcium 9.8 mg/dL (8.4-10.2); Carbon Dioxide 28 mmol/L (22-29); Chloride 104 mmol/L (96-108); Cholesterol 158 mg/dL (<200); Estimated Glomerular Filt Rate 39; HDL Cholesterol 44 mg/dL (>40); Potassium 3.6 mmol/L (3.3-5.1); Sodium 141 mmol/L (135-145); Total Protein 8.0 g/dL (6.5-8.0); Triglycerides 193 mg/dL (<150)
== END 2025-05-29 07:37 | disposition home or self-care (01) ==
LOC: HO.LAB 07:36
PROVIDERS: PCP Internal Medicine; Visit Provider Internal Medicine
DX: Z00.00 Encounter for general adult medical examination without abnormal findings (principal); Z23 Encounter for immunization; F01.A18 Vascular dementia, mild, with other behavioral disturbance; R56.9 Unspecified convulsions; G20.A1 Parkinson's disease without dyskinesia, without mention of fluctuations; C50.919 Malignant neoplasm of unspecified site of unspecified female breast; D61.818 Other pancytopenia; E55.9 Vitamin D deficiency, unspecified; E78.5 Hyperlipidemia, unspecified
CPT/HCPCS: 36415; 80053; 80061; 82306; 90471; 90677; 99397

== ENCOUNTER 2025-05-29 07:36 | Outpatient (AMB) | payer OTHER, SELFPAY ==
[2025-05-29 07:39] VITALS: BP 118/64; BMI 38.8
--- NOTE | 2025-05-29 07:39 | A.OFFPC_ITS ---
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: No Accompanied by: Daughter Allergies fluticasone (From Advair Diskus) Allergy (Unknown, Verified 05/29/25 07:49) Unknown salmeterol (From Advair Diskus) Allergy (Unknown, Verified 05/29/25 07:49) Unknown Medication List - Last Reconciled 05/29/25 by Maria Luz Mobley MD [adult diapers pull-ups As directed] aspirin (Adult Aspirin Regimen) 81 mg PO DAILY 90 days [bed alarm As directed] buspirone 15 mg PO TID 90 days calcium carbonate 600 mg PO BID carbidopa-levodopa 25-100 mg (Sinemet) 1 tab PO BID@0900,1200 cholecalciferol (vitamin D3) (Vitamin D3) 125 mcg PO DAILY divalproex 375 mg (3 x 125 mg) PO TID 30 days ferrous sulfate 325 mg PO DAILY folic acid 1 mg PO DAILY 90 days gel dressing (DermaGauze Hydrogel Dressing) As directed Grab bar As directed [heavy duty wheel chair As directed] hospital bed As directed latex gloves (Latex Gloves, Large) As directed levetiracetam 750 mg PO BID lidocaine 3% 1 appl topical BID [nonadhesive bandage As directed] omeprazole 40 mg PO BID@0630,1630 pravastatin 20 mg PO BEDTIME quetiapine 25 mg PO BEDTIME 90 days Shower Chair As directed terazosin 2 mg PO DAILY 90 days underpads (Bed Underpads) Use 2 once a day Ventolin HFA 90 mcg/actuation (albuterol sulfate) 2 puffs inhalation Q4-6H PRN 30 days NS Tobacco use date assessed: 11/27/24 Fall risk assessment: No Falls in past year Last assessed Fall Risk: 05/29/25 Dental Screening Dental Screen Date: 11/27/24 HPI HPI Comments History of Present Illness Details The patient is a 65-year-old female presenting for her physical exam accompanied by her healthcare proxy which is her daughter. The patient has a history of breast cancer and has completed treatment cycles. She has been under the care of a reforestation worker and oncologist for pancytopenia, which is being monitored. The patient is also diagnosed with dementia and Parkinson's disease, for which she is under neurological care. Her medication regimen includes carbidopa- levodopa for Parkinson's disease and other supportive medications. She has undergone several surgeries including a lumpectomy for breast cancer, tracheostomy, bone marrow biopsy, and cholecystectomy. She has a history of smoking but has since quit. - Pneumonia vaccination recommended - Bone density scan due next year - Colonoscopy performed 2021 - Pap smear done 2023. 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 breast Surgical History History of bone marrow biopsy Hx of tracheostomy Hx of colonoscopy History of lumpectomy of left breast History of cholecystectomy Family History Father Medical history unknown Mother Medical history unknown Social History Household Members: Family and Children Housing: House Are you a primary rehab care assistant to a significant other at home: No Do you presently have visiting nurse or other home services: Yes (Nurse once a week to check BP) Alcohol intake: never Patient Tobacco Use Status: Former Tobacco user Tobacco use type: Cigarette Years Smoked: quit 2010 after cardiac arrest e-Cigarette/Vaping Use: Never Used Second Hand Smoke Exposure: No Advance Directives Date on File: 07/30/22 service: No Current occupational status: retired and disabled Cognitive needs: Yes Hearing needs: No Vision needs: Yes (Glasses) Questionnaire Thrive Questionnaire Date Thrive assessed: 11/27/24 RAMILA-7 AMB Questionnaire RAMILA-7 Date RAMILA - 7 assessed: 11/27/24 Source: Developed by Drs. Jung Bee, Wendy Dias, Juan Aguilar and colleagues, with an educational daren from [employer]. Review of Systems Const All systems reviewed & are unremarkable except as noted in HPI and below Card Denies chest pain at rest, Denies chest pain with activity, Denies edema, Denies irregular heart rhythm, Denies claudication, Denies dyspnea, Denies dyspnea on exertion, Denies orthopnea, Denies paroxysmal nocturnal dyspnea and Denies slow heart rate Resp Denies cough, Denies dyspnea and Denies dyspnea on exertion GI Denies abdominal pain, Denies change in bowel habits, Denies excessive flatus, Denies nausea and Denies vomiting Physical exam (Primary Care) Vital Signs: Last Vital Signs BP 118/64 05/29/25 07:39 BMI result Body Mass Index 38.8 Tobacco/Smoking Status: Tobacco use Status Tobacco use date assessed 11/27/24 05/29/25 07:46 Patient Tobacco Use Status Former Tobacco user 05/29/25 07:46 Tobacco use type Cigarette 05/29/25 07:46 e-Cigarette/Vaping Use Never Used 05/29/25 07:46 Thrive Assessment: Date of Thrive Assessment Date Thrive assessed 11/27/24 05/29/25 07:46 HENGA Head: Yes normal to inspection, Yes normocephalic and Yes atraumatic Ears: external ears normal Eyes General: appearance normal, both eyes and all related structures Eyelids: Yes eyelids normal Conjunctivae: conjunctivae normal Neck Neck: Yes normal visual inspection and Yes supple Resp Effort & Inspection: normal respiratory effort Auscultation: clear to auscultation bilaterally Cardio Jugular venous distension: no JVD Rate: regular rate Rhythm: regular rhythm Heart sounds: S1 normal heart sound present and S2 normal heart sound present GI Inspection: Yes normal to inspection Palpation (GI): Soft to palpation and nontender Auscultation: normal bowel sounds Skin General skin exam: no rashes or lesions noted Neuro General: no focal motor deficits Extrem General: Yes full ROM Psych Appearance: grossly normal Immunizations pneumoc 20-mitch conj-dip cr(PF) 0.5 mL IM syringe Performing Provider: Maria Luz Mobley MD Performing Location: [facility] Administered by: GOGO Bennett on 05/29/25 08:05 Dose Route Admin Location Dispensed Lot Number Expiration Date [facility] Maternity Floor Supervisor 0.5 mL IM Left Deltoid 0.5 mL [id number] 04/24/26 [employer] [employer] Total Dispensed Waste 0.5 mL 0 % VIS Given Date VIS Provided VIS Publication Date 05/29/25 Single Vaccine 25 Eligibility Eligibility Date Funding Source Not [facility] Eligible 05/29/25 Private Coding Level of Care Code Est Pt Prev Care >65y(92387) Diagnoses Physical exam Z00.00 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 F01.A18 Dementia type: vascular dementia Dementia severity: mild Dementia behavioral or psychological symptom: with other behavioral disturbance Seizures R56.9 Parkinson's disease without dyskinesia or fluctuating manifestations G20.A1 Dyskinesia presence: without dyskinesia Fluctuating manifestations: without fluctuating manifestations Triple negative breast cancer C50.919 Pancytopenia D61.818 Time Spent (min) 31 Assessment & Plan Assessment & Plan (1) Physical exam: Code(s): Z00.00 - Encounter for general adult medical examination without abnormal findings Category: Medical (2) Dementia: Code(s): F03.90 - Unspecified dementia, unspecified severity, without behavioral dis turbance, psychotic disturbance, mood disturbance, and anxiety Category: Medical Qualifiers: Dementia type: vascular dementia Dementia severity: mild Dementia behavioral or psychological symptom: with other behavioral disturbance Qualified Code(s): F01.A18 - Vascular dementia, mild, with other behavioral disturbance (3) Seizures: Code(s): R56.9 - Unspecified convulsions Category: Medical (4) Parkinsons disease: Code(s): G20 - Parkinson's disease Category: Medical Qualifiers: Dyskinesia presence: without dyskinesia Fluctuating manifestations: without fluctuating manifestations Qualified Code(s): G20.A1 - Parkinson's disease without dyskinesia, without mention of fluctuations (5) Triple negative breast cancer: Code(s): C50.919 - Malignant neoplasm of unspecified site of unspecified female breast Category: Medical (6) Pancytopenia: Code(s): D61.818 - Other pancytopenia Category: Medical Plan The patient will continue to be monitored by hematology and oncology for pancytopenia and breast cancer management. Neurology will oversee the management of dementia and Parkinson's disease, with medications including carbidopa- levodopa. Preventative care measures include scheduling a pneumonia vaccination and ensuring follow-up for a bone density scan next year. Patient was informed and verbally consented to the use of an ambient scribe for clinic note documentation during this visit. Orders: Orders Pneumococcal 20 Immunization Today Z23 - Encounter for immunization Vitamin D 25-OH Total Today E55.9 - Vitamin D deficiency, unspecified Comprehensive [place]. Panel Fast Today C50.919 - Malignant neoplasm of unspecified site of unspecified female breast
--- OUTSIDE RECORDS SUMMARY | 2025-05-29 07:39 | XMS_ITS | Clinical Summary ---
[facility] Organization [facility] Address [address] [place] [id number] Care Team Providers Care Lock Up Worker Name Role Phone Maria Luz Mobley MD Primary Care Provider [phone] Surgical History Surgery Date Site/Laterality Comments COLONOSCOPY [...] Vaccines (1 of 2) 2009 COVID-19 Vaccine (2023-2 5 season) 2024 Depression Screening 10/25/2024 Colorectal Cancer Screening: Colonoscopy 03/18/2025 Falls Risk Assessment 03/18/2025 Hepatitis C Screening 03/18/2025 Osteoporosis Screening (Bone Density Screening) 03/18/2025 Social Influencers of Health Screening 03/18/2025 Influenza Vaccine (#1) 2025 RSV Immunization Adult Patie nts (1 [...] age to complete this topic Care Teams Lock Up Worker Relationship Specialty Start Date End Date Maria Luz Mobley MD [address] [place] [address] , [address] [facility] Physician Associ D/B/A: [facility] ROSALIND Malone PCP - General Internal Medicine 06/08/18
== END 2025-05-29 08:04 | disposition home or self-care (01) ==
LOC: HO.HMCH 07:37
PROVIDERS: PCP Internal Medicine; Visit Provider Internal Medicine
DX: Z00.00 Encounter for general adult medical examination without abnormal findings (principal); F01.A18 Vascular dementia, mild, with other behavioral disturbance; R56.9 Unspecified convulsions; G20.A1 Parkinson's disease without dyskinesia, without mention of fluctuations; C50.919 Malignant neoplasm of unspecified site of unspecified female breast; D61.818 Other pancytopenia; Z23 Encounter for immunization